=== PATIENT | male | born 1940 | race African-American/Black ===

== ENCOUNTER 2018-03-11 13:04 | Inpatient (IN) | payer OTHER ==
--- NOTE | 2018-03-11 13:18 | PDOC ---
Attending Attestation - HPI HPI: 03/11/18 15:23 The patient is a 77-year-old male with a past medical history of HTN, HLD, AL, CVA and anemia presents to the emergency department with generalized weakness. The patient reports for the past 3-4 months hes been experiencing increased weakness and fatigue, accompanied with decreased appetite, shortness of breath, non-productive cough and weight loss. As per the family member present, in January the patient suffered a nose bleed and was treated at a facility in [place] , where he was diagnosed with R. lung mass. The patient was given referrals for f/u, the family member reports since January they havent been following up. The family member recalls the patient received 2x blood transfusion. Denies fever, chills or a headache. Denies chest pain or palpitations. Denies abdominal pain. Denies dysuria, hematuria, frequency or urgency to urinate. Denies nausea, vomiting, diarrhea or constipation. Allergies: NKDA, NKA Social history: Former smoker. Denies the use of alcohol or recreational drugs. Surgical history: None reported. PCP: None reported. - Physicial Exam PE: 03/11/18 14:30 GENERAL: (+) Cachectic, very thin. (+) Generalized weakness all over. Awake, alert, and fully oriented, in no acute distress HEAD: No signs of trauma EYES: PERRLA, EOMI, sclera anicteric, conjunctiva clear ENT: Auricles normal inspection, hearing grossly normal, nares patent, oropharynx clear without exudates. (+) Dry mucous member NECK: Normal ROM, supple, no lymphadenopathy, JVD, or masses LUNGS:(+) Diminished L. side. No wheezes, and no crackles HEART: (+) Tachycardiac. , normal S1 and S2, no murmurs, rubs or gallops ABDOMEN: Soft, nontender, normoactive bowel sounds. No guarding, no rebound. No masses EXTREMITIES: (+) Bilateral clubbing of the hands. Normal range of motion, no edema. No cyanosis. No cords, erythema, or tenderness NEUROLOGICAL: Cranial nerves II through XII grossly intact. Normal speech, normal gait SKIN: Warm, Dry, normal turgor, no rashes or lesions noted. - Medical Decision Making 03/11/18 14:30 Documentation prepared by Sravani Masters, acting as esthetician and manager medical spa for Kathy Connell DO. <Sravani Masters - Last Filed: 03/11/18 15:23> - Resident Resident Name: Shanique Singer - ED Attending Attestation I have performed the following: I have examined & evaluated the patient, The case was reviewed & discussed with the resident, I agree w/resident's findings & plan, Exceptions are as noted - Medical Decision Making 03/11/18 13:17 I, Dr. Kathy Connell DO, attest that this document has been prepared under my direction and personally reviewed by me in its entirety. I further attest, that it accurately reflects all work, treatment, procedures and medical decision -making performed by me. 03/11/18 14:25 77yo male with recent dx of lung mass at [facility] presents for eval of weakness -has not followed up with a doc since d/c -losing wt, early satiety -has not followed up with heme/onc or pulm -has not had the mass bx -pt cachectic, dry mm -concern for ftt, dehydration -pt tachy on exam - HR 121, with hx of pulm mass concern for PE - will obtain chest cta -ekg, cxr, monitor and reassess -no cp -+cough, sob 03/11/18 17:42 pt with large pulmonary mass and tachy generally weak will admit for further eval of lung mass <Kathy Connell - Last Filed: 03/11/18 17:42> Heart Score/ECG Review - ECG Intrepretation Comment:: 03/11/18 15:53 sinus tach at 102, nl axis, lvh, t wave inversions I, avl - abnl ekg <Kathy Connell - Last Filed: 03/11/18 17:42>
--- NOTE | 2018-03-11 13:19 | PDOC ---
History of Present Illness - General Chief Complaint: Weakness Stated Complaint: WEAKNESS Time Seen by Provider: 03/11/18 13:16 History Source: Patient - History of Present Illness Initial Comments: 03/11/18 13:27 Patient is a 77 year old male with a PMH of HTN, HLD, CAD s/p prior ID (2000 s/ p stent) who presents to the ED c/o 2 month h/o weakness. Patient notes decreased appetite, less energy, however notes he as been performing his ADL's without difficulty. Patient also endorse non-productive cough, nausea, as well as 20 pounds unitentional weight loss over the last 3 months. Patient's @ bedside presents paperwork from [facility] indicating R lung mass however they were unable to obtain reccomended biospy due to insurance changes. ROS is positive for constipation. Patient denies fevers, chills, chest pain, abdominal pain, recent travel or sick contacts. NKDA Surgical: Cardiac stent Social: 1 ppd, denies alcohol, denies recreational drugs PMD: none Past History - Past Medical History Allergies/Adverse Reactions: Allergies Allergy/AdvReac Type Severity Reaction Status Date / Time No Known Allergies Allergy Verified 03/11/18 13:11 Home Medications: Ambulatory Orders Amlodipine Besylate [Norvasc -] 5 mg PO DAILY #30 tablet 02/03/15 Aspirin Coated [Ecotrin -] 325 mg PO DAILY #30 tablet. 02/03/15 Atorvastatin Ca [Lipitor] 40 mg PO HS #30 tablet 02/03/15 Hydralazine HCl 10 mg PO TID #90 tablet 02/03/15 Anemia: Yes Cardiac Disorders: Yes (ID) CVA: Yes COPD: No HTN: Yes - Suicide/Smoking/Psychosocial Hx Smoking History: Never smoked Have you smoked in the past 12 months: Yes Number of Cigarettes Smoked Daily: 20 Information on smoking cessation initiated: No 'Breaking Loose' booklet given: 01/31/15 Hx Alcohol Use: Yes Drug/Substance Use Hx: No Hx Substance Use Treatment: No Review of Systems - Review of Systems Constitutional: Yes: Loss of Appetite, Unintentional Wgt. Loss. No: Chills, Fever HEENTM: No: Blurred Vision, Double Vision Respiratory: No: Cough, Shortness of Breath, Stridor, Wheezing Cardiac (ROS): Yes: Lightheadedness, Palpitations. No: Chest Pain, Syncope ABD/GI: Yes: Constipated. No: Diarrhea, Nausea, Vomiting, Abdominal cramping : No: Burning, Dysuria Neurological: No: Numbness, Tingling All Other Systems: Reviewed and Negative *Physical Exam - Vital Signs Last Vital Signs Temp Pulse Resp BP Pulse Ox 98.1 F 121 H 20 136/65 99 03/11/18 13:06 03/11/18 13:06 03/11/18 13:06 03/11/18 13:06 03/11/18 13:06 - Physical Exam General Appearance: Yes: Nourished, Thin HEENT: positive: EOMI, TANA, Other (pale conjunctivae B/L). negative: Scleral Icterus (R), Scleral Icterus (L) Neck: positive: Trachea midline, Supple Respiratory/Chest: positive: Lungs Clear, Normal Breath Sounds Cardiovascular: positive: S1, S2. negative: Edema, JVD, Murmur Vascular Pulses: Dorsalis-Pedis (R): 2+, Doralis-Pedis (L): 2+ Gastrointestinal/Abdominal: positive: Normal Bowel Sounds, Soft Extremity: positive: Normal Capillary Refill, Normal Inspection, Other (B/L UE and LE clubbing) Integumentary: positive: Normal Color, Dry, Warm Neurologic: positive: house sitter II-XII NML intact, Fully Oriented, Alert, Other (non- ataxic, non-antalgic gait) ED Treatment Course - LABORATORY CBC & Chemistry Diagram: 03/11/18 14:10 03/11/18 14:10 Medical Decision Making - Medical Decision Making 03/11/18 14:05 77 year old male presents with 2 month h/o weakness, weight loss. Evaluation @ outside institution shows lung mass VS significant for tachycardia. Will obtain CTA to r/o PE. Basic labs to assess for anemia and electrolyte abnormality 2/2 to lung mass 03/11/18 15:10 ECG shows HR 102, TWI in lateral aVL and inferior lead III, aVF, no IVANNA/STD Troponin (-) x1 03/11/18 16:18 CTA negative for PE. L upper lobe lung mass (7.5 x 4.5 x 7.1 cm) w/ pneumonitis. Hb 7.3 - as patient is symptomatic, will transfuse 2 units. 03/11/18 17:31 Case d/w inpatient hospitalist service, will admit for further evaluation. *DC/Admit/Observation/Transfer Diagnosis at time of Disposition: Lung mass - Discharge Dispostion Condition at time of disposition: Good Decision to Admit order: Yes - Referrals - Patient Instructions - Post Discharge Activity
[2018-03-11] MEDS ORDERED: SODIUM CHLORIDE 0.9% 500 ML INFUS.BAG IV ONE (13:45)
[2018-03-11 14:38] LABS: BASO % 0.5 % (0-2.0); EOS % 0.1 % (0-4.5); HEMATOCRIT 22.3 % (35.4-49); HEMOGLOBIN 7.3 GM/dL (11.7-16.9); LYMPH % 11.2 % (8-40); MCH 23.6 pg (25.7-33.7); MCHC 32.8 g/dl (32.0-35.9); MEAN PLT VOLUME 6.6 fl (7.5-11.1); MONO % 13.5 % (3.8-10.2); NEUT % 74.7 % (42.8-82.8); PLATELET COUNT 525 K/MM3 (134-434); RBC 3.09 M/mm3 (4.00-5.60); RDW 20.1 % (11.9-15.9); WHITE BLOOD COUNT 10.2 K/mm3 (4.0-10.0)
[2018-03-11 15:30] LABS: ALBUMIN 1.6 g/dl (3.4-5.0); ANION GAP 9 (8-16); BILIRUBIN,TOTAL 0.3 mg/dL (0.2-1.0); BLOOD UREA NITROGEN 11 mg/dL (7-18); CALCIUM 8.4 mg/dL (8.5-10.1); CHLORIDE 97 mmol/L (98-107); CO2 30 mmol/L (21-32); CREATININE 0.6 mg/dL (0.7-1.3); GLUCOSE,RANDOM 95 mg/dL (74-106); SGOT/AST 13 U/L (15-37); SGPT/ALT 12 U/L (12-78); SODIUM 136 mmol/L (136-145); TOT PROT 7.2 g/dl (6.4-8.2)
[2018-03-11 15:32] LABS: ALK PHOS 136 U/L (45-117)
--- NOTE | 2018-03-11 18:40 | PN ---
Teaching Attending Note Name of Resident: Narendra Lisa ATTENDING PHYSICIAN STATEMENT I saw and evaluated the patient. I reviewed the resident's note and discussed the case with the resident. I agree with the resident's findings and plan as documented with exceptions below. SUBJECTIVE: 77 yom with PMHx of CAD s/p [place] (2000), heavy smoker, reportedly recently diagnosed lung mass at [facility], admitted x 2 in the last month s/p transfusion , but not followed outpatient since, brought in by sister with progressive weakness, decreased oral intake, unintentional weight loss about 40 lbs over last 3 months, progressive shortness of breath, worse over the last few days. Also chronic non productive cough. 12 point ROS done, neg for any chest pain, palpitations, dizziness, dark or bloody stools, or urinary symptoms. Positive constipation OBJECTIVE: Vital Signs Period Temp Pulse Resp BP Sys/Harper Pulse Ox Last 24 Hr 98.1 F 121 20 136/65 99 Intake & Output 03/08/18 03/09/18 03/10/18 03/11/18 23:59 23:59 23:59 23:59 Weight 117 lb GENERAL: Awake, alert, and oriented to person, place, mild tachypnea but no use of acessory muscles, able to speak in full sentences, cachectic male, positive pallor HEAD: Normal with no signs of trauma. EYES: Pupils equal, round and reactive to light, extraocular movements intact, sclera anicteric, conjunctiva clear. EARS, NOSE, THROAT: Ears normal, nares patent, oropharynx clear without exudates. dry mucous membrane NECK: soft supple, no JVD LUNGS: distant breath sounds but positive air entry, no wheezing or rales appreciated. HEART: S1s2 regular ABDOMEN: Soft, nontender, not distended, normoactive bowel sounds, no guarding, no rebound, no masses. No hepatomegaly or splenomegaly. MUSCULOSKELETAL: Normal range of motion at all joints. No bony deformities or tenderness. No CVA tenderness. UPPER EXTREMITIES: 2+ pulses, warm, well-perfused. No cyanosis. positive clubbing No peripheral edema. LOWER EXTREMITIES: 2+ pulses, warm, well-perfused. No calf tenderness. No peripheral edema. NEUROLOGICAL: Cranial nerves II-XII intact. Normal speech. Gait not checked PSYCHIATRIC: Cooperative. Good eye contact. Appropriate mood and affect. SKIN: Warm, dry, normal turgor, no rashes or lesions noted, normal capillary refill. Home Medications Medication Instructions Recorded Amlodipine Besylate [Norvasc -] 5 mg PO DAILY #30 tablet 02/03/15 Aspirin Coated [Ecotrin -] 325 mg PO DAILY #30 tablet. 02/03/15 Atorvastatin Ca [Lipitor] 40 mg PO HS #30 tablet 02/03/15 Hydralazine HCl 10 mg PO TID #90 tablet 02/03/15 Active Medications Heparin Sodium (Porcine) (Heparin -) 5,000 unit SQ Q8H-IV UMESH Laboratory Results - last 24 hr 03/11/18 03/11/18 03/11/18 14:10 14:10 14:10 WBC 10.2 H RBC 3.09 L Hgb 7.3 L Hct 22.3 L D MCV 72.0 L MCH 23.6 L D MCHC 32.8 RDW 20.1 H Plt Count 525 H D MPV 6.6 L D Absolute Neuts (auto) 7.7 Neutrophils % 74.7 D Lymphocytes % 11.2 D Monocytes % 13.5 H Eosinophils % 0.1 D Basophils % 0.5 Nucleated RBC % 0 Sodium 136 Potassium 4.0 Chloride 97 L Carbon Dioxide 30 Anion Gap 9 BUN 11 Creatinine 0.6 L Creat Clearance w eGFR > 60 Random Glucose 95 Calcium 8.4 L Magnesium Total Bilirubin 0.3 AST 13 L ALT 12 Alkaline Phosphatase 136 H Creatine Kinase 15 L Troponin I < 0.02 B-Natriuretic Peptide Total Protein 7.2 Albumin 1.6 L Blood Type O POSITIVE Antibody Screen Negative Crossmatch See Detail 03/11/18 03/11/18 03/11/18 14:10 14:12 14:20 WBC RBC Hgb Hct MCV MCH MCHC RDW Plt Count MPV Absolute Neuts (auto) Neutrophils % Lymphocytes % Monocytes % Eosinophils % Basophils % Nucleated RBC % Sodium Potassium Chloride Carbon Dioxide Anion Gap BUN Creatinine Creat Clearance w eGFR Random Glucose Calcium Magnesium 2.0 Total Bilirubin AST ALT Alkaline Phosphatase Creatine Kinase Cancelled Troponin I Cancelled B-Natriuretic Peptide 1528.08 H Total Protein Albumin Blood Type Antibody Screen Crossmatch CT chest - ISABELLA Lung mass inseparable from hilum with surrounding pneumonitis EKG Sinus tachycardia 102, inverted Q in I, aVL, no prior available. ASSESSMENT AND PLAN: 77 yom with prior history of CAD, heavy smoker, recently reportedly diagnosed lung mass/anemia requiring transfusions, admitted with failure to thrive, found with anemia, ISABELLA lung mass -Anemia, r/o iron deficiency, occult bleed -ISABELLA lung mass inseparable from hilum with?mild pneumonitis -Failure to thrive -Hypoalbuminemia -CAD -Prior heavy tobacco use. Plan: Check iron panel, B12, folate. Transfuse 1 unit PRBC. Oncology/pulmonary input. Will need staging. Avoid additional contrast load today. Will need CT A/P and outpatient PET scan. POssible lung biopsy early next week, given poor follow up and concerning mass. Nutrition/speech/swallow input. DVTPPX PT eval dispo pending above. Plan discussed with patient in detail, all questions answered. Total admit time 65 min.
--- NOTE | 2018-03-11 18:59 | HP ---
Admitting History and Physical - Primary Care Physician PCP: Dr. Ng - Admission Chief Complaint: Weakness History of Present Illness: 77 yo M h/o [place] in 2001 BIB his sister for worsening weakness and poor intake for 3 months. Per sister, patient was admitted twice to [facility] for weakness and received blood transfusion and found to have lung mass during first admission. However, patient never followed up with environmental conflict manager or oncologist as outpatient after discharge due to transportation issues. Patient also endorses poor PO intake, pain on swallowing, dry cough, poor appetite and unintentional weight loss of 40 lbs over the last 3 months. He lives with a roommate and able to ambulate without any difficulty. Denies melena, hematochiezia, hemoptysis, urinary sx, fever, chills, n/v, chest pain, shortness of breath, focal weakness. History Source: Patient, Family Member Limitations to Obtaining History: No Limitations - Past Medical History Cardiovascular: Yes: CAD, HTN, Hyperlipdemia - Past Surgical History Past Surgical History: Yes: None - Smoking History Smoking history: Never smoked Have you smoked in the past 12 months: Yes Aproximately how many cigarettes per day: 20 - Alcohol/Substance Use Hx Alcohol Use: Yes History of Substance Use: reports: None - Social History ADL: Independent History of Recent Travel: No Home Medications - Allergies Allergies/Adverse Reactions: Allergies Allergy/AdvReac Type Severity Reaction Status Date / Time No Known Allergies Allergy Verified 03/11/18 13:11 - Home Medications Home Medications: Ambulatory Orders Amlodipine Besylate [Norvasc -] 5 mg PO DAILY #30 tablet 02/03/15 Aspirin Coated [Ecotrin -] 325 mg PO DAILY #30 tablet. 02/03/15 Atorvastatin Ca [Lipitor] 40 mg PO HS #30 tablet 02/03/15 Hydralazine HCl 10 mg PO TID #90 tablet 02/03/15 Family Disease History - Family Disease History Family Disease History: Heart Disease: Sister, CA: Brother Review of Systems - Review of Systems Constitutional: reports: Loss of Appetite, Malaise, Unintentional Wgt. Loss (40 lbs), Weakness Eyes: reports: No Symptoms HENT: reports: No Symptoms Neck: reports: No Symptoms Cardiovascular: reports: No Symptoms Respiratory: reports: Cough. denies: Hemoptysis Gastrointestinal: reports: No Symptoms Genitourinary: reports: No Symptoms Integumentary: reports: No Symptoms Physical Examination Vital Signs: Vital Signs Temperature 98.1 F 03/11/18 13:06 Pulse Rate 121 H 03/11/18 13:06 Respiratory Rate 20 03/11/18 13:06 Blood Pressure 136/65 03/11/18 13:06 O2 Sat by Pulse Oximetry (%) 99 03/11/18 13:06 Constitutional: Yes: No Distress, Cachectic, Pallor, Thin HENT: Yes: Atraumatic, Normocephalic Cardiovascular: Yes: Tachycardia, S1, S2. No: Murmur Respiratory: Yes: CTA Bilaterally Gastrointestinal: Yes: Normal Bowel Sounds, Distention. No: Tenderness Extremities: Yes: Other (clubbing) Edema: No Neurological: Yes: Alert, Oriented Labs: CBC, BMP 03/11/18 14:10 03/11/18 14:10 Imaging - Results Cat Scan: Report Reviewed, Image Reviewed Assessment/Plan 77 yo M admitted to med-surg for symptomatic anemia and lung mass. Symptomatic anemia - weakness and tachycardia - stat iron studies before blood transfusion - will transfuse 1 unit - repeat cbc failure to thrive - likely 2/2 lung malignancy - soft diet + magic cup + ensure - speech and swallow to r/o mechanical obstruction - palliative care consult - radio time sales supervisor consult lung mass - likely malignant - hemonc, pulm, palliative care consults - ?biopsy in the hospital constipation - chronic - will give senna plus and miralax HTN and HLD - c/w home meds dvt ppx - heparin dispo - PT eval, pending clinical improvement on symptomatic anemia, hemonc and pulm eval Narendra Lisa PGY3 [phone] Visit type - Emergency Visit Emergency Visit: Yes ED Registration Date: 03/11/18 Care time: The patient presented to the Emergency Department on the above date and was hospitalized for further evaluation of their emergent condition. - New Patient This patient is new to me today: Yes Date on this admission: 03/12/18 - Critical Care Critical Care patient: No Hospitalist Screening - Colonoscopy Questionnaire Colonoscopy Questionnaire: Colonoscopy Questionnaire - Patient: 50 - 75 years old and never had a screening colonoscopy: Unknown History of colon or rectal polyps, or CA: Unknown History of IBD, Crohn's disease or UC: Unknown History of abdominal radiation therapy as a child: Unknown - Relative: 1 with colon or rectal CA, or polyps at age 60 or younger: Unknown Colon or rectal CA diagnosed at age 45 or younger: Unknown Multiple relatives with colon or rectal CA: Unknown - Outcome: Screening Result: Negative Screen
[2018-03-11] MEDS: POLYETHYLENE GLYCOL 3350 119 GM BTL PO SCH (21:08)
[2018-03-11] MEDS: hydrALAZINE HCL 10 MG TABLET PO SCH (21:09)
[2018-03-11] MEDS: HEPARIN NA (PORCINE) 5,000 UNITS/ML 1ML VIAL SQ SCH (21:09)
[2018-03-11] MEDS: SENNOSIDES/DOCUSATE COMBO (SENNA PLUS) TABLET (UD) PO SCH (21:09)
[2018-03-11] MEDS: ATORVASTATIN CA 40 MG TABLET (FP) PO SCH (21:09)
[2018-03-12] MEDS: hydrALAZINE HCL 10 MG TABLET PO SCH ×3 (05:15→22:07)
[2018-03-12] MEDS: HEPARIN NA (PORCINE) 5,000 UNITS/ML 1ML VIAL SQ SCH ×2 (05:15→14:42)
[2018-03-12] MEDS ORDERED: ASPIRIN 325 MG ENTERIC COATED TABLET (FP) PO SCH (10:00)
[2018-03-12 10:09] LABS: URINE APPEARANCE CLEAR; URINE BILIRUBIN NEGATIVE (<2.0 mg/dL); URINE COLOR YELLOW; URINE GLUCOSE (UA) NEGATIVE (NEGATIVE); URINE KETONE NEGATIVE (NEGATIVE); URINE LEUK ESTERASE NEGATIVE (NEGATIVE); URINE NITRITE NEGATIVE (NEGATIVE); URINE PROTEIN NEGATIVE (NEGATIVE); URINE UROBILINOGEN 4.0 E.U/dl mg/dL (0.2-1.0)
--- NOTE | 2018-03-12 10:09 | EKG ---
Test Reason : Blood Pressure : / mmHG Vent. Rate : 102 BPM Atrial Rate : 102 BPM P-R Int : 124 ms QRS Dur : 096 ms QT Int : 348 ms P-R-T Axes : 059 001 136 degrees QTc Int : 453 ms SINUS TACHYCARDIA POSSIBLE LEFT ATRIAL ENLARGEMENT LEFT VENTRICULAR HYPERTROPHY T WAVE ABNORMALITY, CONSIDER LATERAL ISCHEMIA ABNORMAL ECG WHEN COMPARED WITH ECG OF 31-JAN-2015 09:35, NO SIGNIFICANT CHANGE WAS FOUND Confirmed by ROLAN GUPTA, NATHANAEL ([id number]) on 03/12/2018 10:09:12 AM Referred By: Confirmed By:NATHANAEL GONGORA MD
[2018-03-12] MEDS: POLYETHYLENE GLYCOL 3350 119 GM BTL PO SCH (10:26)
[2018-03-12] MEDS: amLODIPine BESYLATE 5 MG TABLET (FP) PO SCH (10:27)
[2018-03-12] MEDS: SENNOSIDES/DOCUSATE COMBO (SENNA PLUS) TABLET (UD) PO SCH ×2 (10:27→22:06)
--- NOTE | 2018-03-12 11:15 | CON.PULM ---
Consult Consult Specialty:: PULM/CCM Referred by:: TOMAS Reason for Consultation:: lung mass - History of Present Illness Chief Complaint: cough / SOB History of Present Illness: 77 M, previous [place] in 2002, long time smoker, recent 40 pound weight loss, and found to have a Left sided lung mass on CT imaging at [facility]. Apparently has not had a tissue diagnosis due to lack of transportation. He denies hemoptysis. No travel history or sick contacts. CT: large ISABELLA mass adherent to the left hilum. - History Source History Provided By: Patient Limitations to Obtaining History: Poor Historian - Past Medical History Cardio/Vascular: Yes: CAD, HTN, Hyperlipdemia - Past Surgical History Past Surgical History: Yes: None - Alcohol/Substance Use Hx Alcohol Use: Yes History of Substance Use: reports: None - Smoking History Smoking history: Never smoked Have you smoked in the past 12 months: Yes Aproximately how many cigarettes per day: 20 If you are a former smoker, when did you quit?: 3 mo - Social History ADL: Independent History of Recent Travel: No Home Medications - Allergies Allergies/Adverse Reactions: Allergies Allergy/AdvReac Type Severity Reaction Status Date / Time No Known Allergies Allergy Verified 03/11/18 13:11 - Home Medications Home Medications: Ambulatory Orders Amlodipine Besylate [Norvasc -] 5 mg PO DAILY #30 tablet 02/03/15 Aspirin Coated [Ecotrin -] 325 mg PO DAILY #30 tablet. 02/03/15 Atorvastatin Ca [Lipitor] 40 mg PO HS #30 tablet 02/03/15 Hydralazine HCl 10 mg PO TID #90 tablet 02/03/15 Family Disease History - Family Disease History Family Disease History: Heart Disease: Sister, CA: Brother Review of Systems - Review of Systems Constitutional: reports: Loss of Appetite, Malaise, Unintentional Wgt. Loss. denies: Chills, Fever, Night Sweats Eyes: reports: No Symptoms HENT: reports: No Symptoms Neck: reports: No Symptoms Cardiovascular: reports: Shortness of Breath. denies: Chest Pain, Edema, Palpitations Respiratory: reports: Cough, SOB, SOB on Exertion. denies: Hemoptysis, Orthopnea, Snoring, Wheezing Gastrointestinal: reports: No Symptoms Genitourinary: reports: No Symptoms Breasts: reports: No Symptoms Reported Integumentary: reports: No Symptoms Neurological: reports: No Symptoms Endocrine: reports: No Symptoms Hematology/Lymphatic: reports: No Symptoms Psychiatric: reports: No Symptoms Physical Exam Vital Sings: Vital Signs Temperature 98.2 F 03/12/18 10:28 Pulse Rate 72 03/12/18 10:28 Respiratory Rate 18 03/12/18 10:28 Blood Pressure 135/72 03/12/18 10:28 O2 Sat by Pulse Oximetry (%) 95 03/11/18 21:05 Constitutional: Yes: Thin Eyes: Yes: Conjunctiva Clear, EOM Intact HENT: Yes: Atraumatic, Normocephalic Neck: Yes: Supple, Trachea Midline Cardiovascular: Yes: Regular Rate and Rhythm Respiratory: Yes: CTA Bilaterally, Cough, Poor Air Entry. No: Accessory Muscle Use, Rales, Rhonchi, Stridor, Tachypnea, Wheezes ...Inspection: Yes: WNL ...Clubbing: No Gastrointestinal: Yes: Normal Bowel Sounds, Soft Renal/: Yes: WNL Breast(s): Yes: WNL Musculoskeletal: Yes: WNL Extremities: Yes: WNL Edema: No Peripheral Pulses WNL: Yes Integumentary: Yes: WNL Neurological: Yes: WNL, Alert, Oriented ...Motor Strength: WNL Psychiatric: Yes: WNL, Alert, Oriented Labs: CBC, BMP 03/11/18 14:10 03/11/18 14:10 Imaging - Results Chest X-ray: Report Reviewed, Image Reviewed Cat Scan: Report Reviewed, Image Reviewed Problem List - Problems (1) Smoker Code(s): F17.200 - NICOTINE DEPENDENCE, UNSPECIFIED, UNCOMPLICATED (2) Previous myocardial infarction older than 8 weeks Code(s): I25.2 - OLD MYOCARDIAL INFARCTION (3) Lung mass Code(s): R91.8 - OTHER NONSPECIFIC ABNORMAL FINDING OF LUNG FIELD (4) HTN (hypertension) Code(s): I10 - ESSENTIAL (PRIMARY) HYPERTENSION (5) Hyperlipidemia Code(s): E78.5 - HYPERLIPIDEMIA, UNSPECIFIED Assessment/Plan Will arrange for IR guided lung biopsy (patient spoken to and agrees). Monitor off ABX O2 as needed BD TX PRN PFTs after discharge No smoking counseled Check coags Will follow Dr Wiley
[2018-03-12 11:50] LABS: HEMATOCRIT 24.4 % (35.4-49); HEMOGLOBIN 8.3 GM/dL (11.7-16.9); MCH 25.9 pg (25.7-33.7); MEAN PLT VOLUME 6.5 fl (7.5-11.1); PLATELET COUNT 426 K/MM3 (134-434); RBC 3.21 M/mm3 (4.00-5.60); RDW 21.4 % (11.9-15.9); WHITE BLOOD COUNT 10.2 K/mm3 (4.0-10.0)
[2018-03-12 12:21] LABS: ANION GAP 7 (8-16); BLOOD UREA NITROGEN 10 mg/dL (7-18); CALCIUM 8.1 mg/dL (8.5-10.1); CHLORIDE 97 mmol/L (98-107); CO2 32 mmol/L (21-32); CREATININE 0.4 mg/dL (0.7-1.3); GLUCOSE,RANDOM 101 mg/dL (74-106); MAGNESIUM 1.8 mg/dL (1.8-2.4); PHOSPHOROUS 3.2 mg/dL (2.5-4.9); SODIUM 136 mmol/L (136-145)
[2018-03-12 12:23] LABS: INR 1.49 (0.82-1.09); PROTHROMBIN TIME (PATIENT) 16.8 SEC (9.7-13.0)
[2018-03-12 12:26] LABS: ACTIVATED PTT 33.5 SECONDS (25.2-36.5)
--- NOTE | 2018-03-12 12:39 | CONSULT ---
Consult - text type - Consultation Consultation Note: ONCOLOGY CONSULT NOTE : 77 yr old male came in with cahexia (weight loss of 40 lbs) and tiredness for [address] scan he has a L. UL mass with small AP nodes. He has a druy cough , no hemoptysis and a strong h/o of smoking. He does not have melena, hematochiezia, hemoptysis, or other symptoms. History Source: Patient Limitations to Obtaining History: No Limitations - Past Medical History Cardiovascular: Yes: CAD, HTN, Hyperlipdemia - Past Surgical History Past Surgical History: Yes: None - Smoking History Smoking history: Never smoked Have you smoked in the past 12 months: Yes Aproximately how many cigarettes per day: 20 - Alcohol/Substance Use Hx Alcohol Use: Yes History of Substance Use: reports: None - Social History ADL: Independent History of Recent Travel: No Home Medications - Allergies Allergies/Adverse Reactions: Allergies Allergy/AdvReac Type Severity Reaction Status Date / Time No Known Allergies Allergy Verified 03/11/18 13:11 - Home Medications Home Medications: Ambulatory Orders Amlodipine Besylate [Norvasc -] 5 mg PO DAILY #30 tablet 02/03/15 Aspirin Coated [Ecotrin -] 325 mg PO DAILY #30 tablet. 02/03/15 Atorvastatin Ca [Lipitor] 40 mg PO HS #30 tablet 02/03/15 Hydralazine HCl 10 mg PO TID #90 tablet 02/03/15 Family Disease History - Family Disease History Family Disease History: Heart Disease: Sister, [place]: Brother Review of Systems - Review of Systems Constitutional: reports: Loss of Appetite, Malaise, Unintentional Wgt. Loss (40 lbs), Weakness Eyes: reports: No Symptoms HENT: reports: No Symptoms Neck: reports: No Symptoms Cardiovascular: reports: No Symptoms Respiratory: reports: Cough. denies: Hemoptysis Gastrointestinal: reports: No Symptoms Genitourinary: reports: No Symptoms Integumentary: reports: No Symptoms Physical Examination Vital Signs: Vital Signs Period Temp Pulse Resp BP Sys/Harper Pulse Ox Last 24 Hr 98.1 F-99.1 F 72-121 16-24 132-150/63-78 95-100 Constitutional: Yes: No Distress, Cachectic, Pallor, Thin. No lymphadenopathy HENT: Yes: Atraumatic, Normocephalic Cardiovascular: Yes: Tachycardia, S1, S2. No: Murmur Respiratory: Yes: CTA Bilaterally Gastrointestinal: Yes: Normal Bowel Sounds, Distention. No: Tenderness Extremities: Yes: Other (clubbing) Edema: No Neurological: Yes: Alert, Oriented Labs: CBC, BMP 03/12/18 11:29 03/12/18 11:29 Imaging - Results Assessment/Plan 77 yr old male with ISABELLA mass , cachexia and significant weight loss -all are highly suggestive of lung cancer -IR guided biopsy of the lung mass -I will send tumor markers inc. LDH, CEA -His anemia is likely to be multifactorial - ferritin -high, a/w iron studies, anemia associated with cancer.once we know the results of the biopsy then we can focus on this. -He has a high protein gap, hence I would send an SPEP and Quant. Immunoglobulins -Vit K 10 mg po q day to correct PT/PTT- likely to be from nutritional deficiency -
--- NOTE | 2018-03-12 12:56 | PN ---
Physical Exam: SUBJECTIVE: Patient seen and examined, no complaints, weakness improved. OBJECTIVE: Vital Signs Period Temp Pulse Resp BP Sys/Harper Pulse Ox Last 24 Hr 98.1 F-99.1 F 72-121 16-24 132-150/63-78 95-100 GENERAL: cachectic in bed, no acute distress Chest: decreased air entry all over, no wheezing Abdomen:soft, NT, ND Extremities: no edema Laboratory Results - last 24 hr 03/11/18 03/11/18 03/11/18 14:10 14:10 14:10 WBC 10.2 H RBC 3.09 L Hgb 7.3 L Hct 22.3 L D MCV 72.0 L MCH 23.6 L D MCHC 32.8 RDW 20.1 H Plt Count 525 H D MPV 6.6 L D Absolute Neuts (auto) 7.7 Neutrophils % 74.7 D Lymphocytes % 11.2 D Monocytes % 13.5 H Eosinophils % 0.1 D Basophils % 0.5 Nucleated RBC % 0 PT with INR INR PTT (Actin FS) Sodium 136 Potassium 4.0 Chloride 97 L Carbon Dioxide 30 Anion Gap 9 BUN 11 Creatinine 0.6 L Creat Clearance w eGFR > 60 Random Glucose 95 Calcium 8.4 L Phosphorus Magnesium Ferritin Total Bilirubin 0.3 AST 13 L ALT 12 Alkaline Phosphatase 136 H Creatine Kinase 15 L Troponin I < 0.02 B-Natriuretic Peptide Total Protein 7.2 Albumin 1.6 L Urine Color Urine Appearance Urine pH Ur Specific [place] Urine Protein Urine Glucose (UA) Urine Ketones Urine Blood Urine Nitrite Urine Bilirubin Urine Urobilinogen Ur Leukocyte Esterase Blood Type O POSITIVE Antibody Screen Negative Crossmatch See Detail 03/11/18 03/11/18 03/11/18 14:10 14:12 14:20 WBC RBC Hgb Hct MCV MCH MCHC RDW Plt Count MPV Absolute Neuts (auto) Neutrophils % Lymphocytes % Monocytes % Eosinophils % Basophils % Nucleated RBC % PT with INR INR PTT (Actin FS) Sodium Potassium Chloride Carbon Dioxide Anion Gap BUN Creatinine Creat Clearance w eGFR Random Glucose Calcium Phosphorus Magnesium 2.0 Ferritin Total Bilirubin AST ALT Alkaline Phosphatase Creatine Kinase Cancelled Troponin I Cancelled B-Natriuretic Peptide 1528.08 H Total Protein Albumin Urine Color Urine Appearance Urine pH Ur Specific [place] Urine Protein Urine Glucose (UA) Urine Ketones Urine Blood Urine Nitrite Urine Bilirubin Urine Urobilinogen Ur Leukocyte Esterase Blood Type Antibody Screen Crossmatch 03/11/18 03/12/18 03/12/18 20:45 08:28 11:29 WBC 10.2 H RBC 3.21 L Hgb 8.3 L Hct 24.4 L MCV 76.0 L MCH 25.9 MCHC 34.0 RDW 21.4 H Plt Count 426 MPV 6.5 L Absolute Neuts (auto) Neutrophils % Lymphocytes % Monocytes % Eosinophils % Basophils % Nucleated RBC % PT with INR INR PTT (Actin FS) Sodium Potassium Chloride Carbon Dioxide Anion Gap BUN Creatinine Creat Clearance w eGFR Random Glucose Calcium Phosphorus Magnesium Ferritin 788.6 H Total Bilirubin AST ALT Alkaline Phosphatase Creatine Kinase Troponin I B-Natriuretic Peptide Total Protein Albumin Urine Color Yellow Urine Appearance Clear Urine pH 6.0 Ur Specific [place] 1.025 Urine Protein Negative Urine Glucose (UA) Negative Urine Ketones Negative Urine Blood Negative Urine Nitrite Negative Urine Bilirubin Negative Urine Urobilinogen 4.0 e.u/dl Ur Leukocyte Esterase Negative Blood Type Antibody Screen Crossmatch 03/12/18 03/12/18 11:29 11:29 WBC RBC Hgb Hct MCV MCH MCHC RDW Plt Count MPV Absolute Neuts (auto) Neutrophils % Lymphocytes % Monocytes % Eosinophils % Basophils % Nucleated RBC % PT with INR 16.80 H INR 1.49 H D PTT (Actin FS) 33.5 Sodium 136 Potassium 4.0 Chloride 97 L Carbon Dioxide 32 Anion Gap 7 L BUN 10 Creatinine 0.4 L Creat Clearance w eGFR > 60 Random Glucose 101 Calcium 8.1 L Phosphorus 3.2 Magnesium 1.8 Ferritin Total Bilirubin AST ALT Alkaline Phosphatase Creatine Kinase Troponin I B-Natriuretic Peptide Total Protein Albumin Urine Color Urine Appearance Urine pH Ur Specific [place] Urine Protein Urine Glucose (UA) Urine Ketones Urine Blood Urine Nitrite Urine Bilirubin Urine Urobilinogen Ur Leukocyte Esterase Blood Type Antibody Screen Crossmatch Active Medications Generic Name Dose Route Start Last Admin Trade Name Freq PRN Reason Stop Dose Admin Amlodipine Besylate 5 mg 03/12/18 10:00 03/12/18 10:27 Norvasc - PO 5 mg DAILY UMESH Administration Aspirin 325 mg 03/12/18 10:00 03/12/18 10:27 Ecotrin - PO 325 mg DAILY UMESH Administration Atorvastatin Calcium 40 mg 03/11/18 22:00 03/11/18 21:09 Lipitor - PO 40 mg HS UMESH Administration Heparin Sodium (Porcine) 5,000 unit 03/11/18 22:00 03/12/18 05:15 Heparin - SQ 5,000 unit TID UMESH Administration Hydralazine HCl 10 mg 03/11/18 22:00 03/12/18 05:15 Apresoline - PO 10 mg TID UMESH Administration Phytonadione 5 mg 03/12/18 13:00 Mephyton - PO 03/14/18 13:01 Q24H UMESH Polyethylene Glycol 17 gm 03/11/18 19:15 03/12/18 10:26 Miralax (For Daily Use) - PO 17 gm DAILY UMESH Administration Senna/Docusate Sodium 1 tablet 03/11/18 22:00 03/12/18 10:27 Pericolace - PO 1 tablet BID UMESH Administration ASSESSMENT/PLAN: 77 yom with prior history of CAD, heavy smoker, recently reportedly diagnosed lung mass/anemia requiring transfusions, admitted with failure to thrive, found with anemia, ISABELLA lung mass -Anemia, suspect multifactorial, ?Iron deficiency, poor nutritional status,r/o occult bleed -ISABELLA lung mass inseparable from hilum with?mild pneumonitis -Elevated INR, suspect nutritional -Failure to thrive -Hypoalbuminemia -CAD -Prior heavy tobacco use. Plan: Follow up iron panel, B12, folate. s/p 2 units pRBC. Trend h/h, FOBT. Oncology/pulmonary input. Vitamin K x 3 doses. Will need staging. Avoid additional contrast load today. Will need CT A/P and outpatient PET scan. Likely outpatient POssible lung biopsy tomorrow. NPO after midnight. Nutrition/speech/swallow input. DVTPPX PT eval dispo planning in 24-48 hours after Biopsy if no concerns with outpatient oncology follow up. Plan discussed with patient in detail, all questions answered. Visit type - Emergency Visit Emergency Visit: Yes ED Registration Date: 03/11/18 Care time: The patient presented to the Emergency Department on the above date and was hospitalized for further evaluation of their emergent condition. - New Patient This patient is new to me today: No - Critical Care Critical Care patient: No - Discharge Referral Referred to [facility] Med P.C.: No
[2018-03-12] MEDS ORDERED: PHYTONADIONE 5 MG TABLET PO SCH (13:00)
[2018-03-12] MEDS: PHYTONADIONE 5 MG TABLET PO SCH (17:07)
[2018-03-12] MEDS: ATORVASTATIN CA 40 MG TABLET (FP) PO SCH (22:07)
[2018-03-12 22:37] VITALS: BMI 17.1
[2018-03-12] MEDS: ACETAMINOPHEN 325 MG TABLET (FP) PO PRN (22:58)
[2018-03-12] MEDS ORDERED: SODIUM CHLORIDE 500 ML IV STA (22:59)
[2018-03-12] MEDS ORDERED: PIPERACILLIN/TAZOB 3.375 GM 3.375 GM in DEXTROSE 5%-WATER - 50 ML IVPB ONE (23:00)
[2018-03-12] MEDS ORDERED: VANCOMYCIN 1,000 MG in DEXTROSE 5%-WATER - 250 ML IVPB ONE (23:00)
--- NOTE | 2018-03-12 23:05 | HOSP ---
Physical Examination Vital Signs: Vital Signs Temperature 102.8 F H 03/12/18 22:00 Pulse Rate 114 H 03/12/18 22:00 Respiratory Rate 20 03/12/18 22:00 Blood Pressure 129/64 03/12/18 22:00 O2 Sat by Pulse Oximetry (%) 95 03/11/18 21:05 Labs: CBC, BMP 03/12/18 11:29 03/12/18 11:29 Hospitalist Encounter Assessment: pt was found to have new fever 102.8. w/ white count 10.2 was found to be on exam tachy w/ crackles in R lung base and wheezing in L lung. sepsis w/u initiated, ordered bcx, ucx, cxr, fluid 500cc bolus, IV vanc/zosyn, ID consult, tylenol PO Visit type - Emergency Visit Emergency Visit: No - New Patient This patient is new to me today: No - Critical Care Critical Care patient: No
[2018-03-12] MEDS ORDERED: DEXTROSE 5%-WATER - 50 ML IVPB ONE (23:56)
[2018-03-12] MEDS ORDERED: PIPERACILLIN/TAZOBACTAM 3.375 GM VIAL IVPB ONE (23:56)
[2018-03-13 03:44] LABS: URINE APPEARANCE CLEAR; URINE BILIRUBIN NEGATIVE (<2.0 mg/dL); URINE COLOR YELLOW; URINE GLUCOSE (UA) NEGATIVE (NEGATIVE); URINE KETONE NEGATIVE (NEGATIVE); URINE LEUK ESTERASE NEGATIVE (NEGATIVE); URINE NITRITE NEGATIVE (NEGATIVE); URINE PROTEIN NEGATIVE (NEGATIVE); URINE UROBILINOGEN 4.0 E.U/dl mg/dL (0.2-1.0)
[2018-03-13] MEDS: hydrALAZINE HCL 10 MG TABLET PO SCH ×3 (05:40→21:26)
[2018-03-13 06:06] LABS: SERUM IRON SATURATION 11 % (15-55); TOTAL IRON BINDING CAPACITY 106 ug/dL (250-450); UIBC 94 ug/dL (111-343)
[2018-03-13 08:37] LABS: BASO % 0.5 % (0-2.0); EOS % 0.1 % (0-4.5); HEMATOCRIT 26.4 % (35.4-49); HEMOGLOBIN 8.7 GM/dL (11.7-16.9); LYMPH % 7.6 % (8-40); MCH 25.1 pg (25.7-33.7); MCHC 33.1 g/dl (32.0-35.9); MEAN CELL VOLUME 75.7 fl (80-96); MEAN PLT VOLUME 6.9 fl (7.5-11.1); NEUT % 77.8 % (42.8-82.8); PLATELET COUNT 432 K/MM3 (134-434); RBC 3.48 M/mm3 (4.00-5.60); RDW 21.9 % (11.9-15.9); WHITE BLOOD COUNT 11.1 K/mm3 (4.0-10.0)
[2018-03-13 08:58] LABS: INR 1.51 (0.82-1.09); PROTHROMBIN TIME (PATIENT) 17.1 SEC (9.7-13.0)
[2018-03-13 09:09] LABS: LDH 135 U/L (87-241)
[2018-03-13] MEDS: DEXTROSE 5%-NORMAL SALINE 1,000 ML IV SCH ×2 (09:36→19:41)
[2018-03-13] MEDS ORDERED: SODIUM CHLORIDE 1,000 ML IV SCH ×3 (09:45→15:17)
--- NOTE | 2018-03-13 09:47 | PN ---
Progress Note (short form) - Note Progress Note: ID consult dictated impl/reccd 77 year old man originally admitted in January to [facility] with epistaxis - and anemia requiring transfusion- found to have left lung mass he was lost to f/u and brought to [facility] Ed on March 11 with 3 months weight loss, cough- nonproductive and weakness pe notable for cachexia, poor dentition,?liver edge past socail history notable for remote crack use, remote incarceration, + cigarette use (d/c 3 months ago) +etoh use no history of TB chest ct with ISABELLA mass with pneumonitis ISABELLA mass fevers- ?pneumonitis, ?tumor cultures sent, add legionella/pneumococcal antigens trial zosyn anemia- multifactorial HIV Hep c Hep b Quant for biopsy today Problem List - Problems (1) Lung mass Code(s): R91.8 - OTHER NONSPECIFIC ABNORMAL FINDING OF LUNG FIELD (2) Anemia Code(s): D64.9 - ANEMIA, UNSPECIFIED
[2018-03-13] MEDS: SENNOSIDES/DOCUSATE COMBO (SENNA PLUS) TABLET (UD) PO SCH ×2 (09:50→21:26)
[2018-03-13] MEDS: amLODIPine BESYLATE 5 MG TABLET (FP) PO SCH (09:50)
[2018-03-13] MEDS ORDERED: DEXTROSE 5%-WATER - 50 ML IVPB ONE ×2 (09:53→18:01)
[2018-03-13] MEDS ORDERED: PIPERACILLIN/TAZOBACTAM 3.375 GM VIAL IVPB ONE ×2 (09:53→18:01)
[2018-03-13] MEDS: POLYETHYLENE GLYCOL 3350 119 GM BTL PO SCH (09:58)
[2018-03-13] MEDS: DOCUSATE SODIUM 100 MG CAPSULE (FP) PO SCH (09:58)
[2018-03-13] MEDS: PIPERACILLIN/TAZOB 3.375 GM 3.375 GM in DEXTROSE 5%-WATER - 50 ML IVPB SCH ×2 (09:58→18:19)
[2018-03-13] MEDS: FERROUS SO4 325 MG TABLET (FP) PO SCH (09:58)
--- NOTE | 2018-03-13 11:27 | CONSULT ---
Admitting History and Physical - Primary Care Physician PCP: Diana Davenport - Admission History of Present Illness: 77 yo M h/o SD in 2001 BIB his sister for worsening weakness and poor intake for 3 months. Per sister, patient was admitted twice to [facility] for weakness and received blood transfusion and found to have lung mass during first admission. However, patient never followed up with physical therapy assistant or oncologist as outpatient after discharge due to transportation issues. Patient also endorses poor PO intake, pain on swallowing, dry cough, poor appetite and unintentional weight loss of 40 lbs over the last 3 months. He lives with a roommate and able to ambulate without any difficulty Selected Entries 03/11/18 03/11/18 03/11/18 13:06 18:30 20:36 Breakfast Lunch Temperature 98.1 F 98.7 F 98.6 F 03/11/18 03/12/18 03/12/18 20:55 03:57 05:46 Breakfast Lunch Temperature 98.5 F 99.1 F 99.1 F 03/12/18 03/12/18 03/12/18 09:08 10:28 12:53 Breakfast 50% Lunch 0 Temperature 98.2 F 03/12/18 03/12/18 03/13/18 18:00 22:00 01:57 Breakfast Lunch Temperature 98.7 F 102.8 F H 98.3 F 03/13/18 05:45 Breakfast Lunch Temperature 98.5 F Laboratory Tests 03/11/18 03/12/18 03/13/18 14:10 11:29 07:30 WBC 10.2 H 10.2 H 11.1 H On reg diet/thin liquids. chest ct with ISABELLA mass with pneumonitis ISABELLA mass fevers- ?pneumonitis, ?tumor cultures sent, add legionella/pneumococcal antigens trial zosyn anemia- multifactorial HIV Hep c Hep b Quant for biopsy today History Source: Patient, Family Member Limitations to Obtaining History: No Limitations - Past Medical History Cardiovascular: Yes: CAD, HTN, Hyperlipdemia - Past Surgical History Past Surgical History: Yes: None - Smoking History Smoking history: Never smoked Have you smoked in the past 12 months: Yes Aproximately how many cigarettes per day: 20 If you are a former smoker, when did you quit?: 3 mo - Alcohol/Substance Use Hx Alcohol Use: Yes History of Substance Use: reports: None - Social History ADL: Independent History of Recent Travel: No History - Admission Reason For Visit: LUNG MASS, WEAKNESS - Diagnostics X-ray: Report Reviewed CT Scan: Report Reviewed - General Mental Status: Alert and Oriented, Awake and Alert, Able to Follow Commands Attention: Intact Ability to Follow Directions: Good Head/Neck Control: WFL - Hearing Hearing: Normal Speech Evaluation - Communication Primary Language: MACEDONIAN Communication: Yes: Within Normal Limits Oral Expression Ability: Yes: No Impairment - Speech Production Able to Make Needs Known: Yes: WNL Intelligibility: Yes: WNL - Speech Characteristics Voice Loudness: Normal Voice Pitch: Yes: Normal Voice Phonatory-based Quality: Yes: Normal Speech Pattern: Normal Speech Clarity: < 100% Nasal Resonance: Normal Articulation: Yes: Precise - Language/Auditory Comprehension Follows: Yes: 1 Stage Simple Commands - Language/Verbal Expression Able to Respond to Simple Queries: Yes: WNL Able to Communicate Wants and Needs: Yes: WNL Functional Communication Status: Yes: WNL - Swallow Evaluation/Bedside Assessment Current Nutritional Intake: Regular, Thin Liquids Oral Secretions: Yes: WFL Dentition: Yes: Missing Teeth Facial Symmetry at Rest: Symmetrical Facial Symmetry on Retraction: Symmetrical Sensation: Normal Against Resistance Opening: Normal Against Resistance Closing: Normal Pucker Lips: Normal Smile: Normal Lingual Movement: Normal, Symmetric Lingual Speed of Movement: Normal Lingual Movement Strgth Against Opposition: Normal Lingual Movement Characteristics: Normal Velopharyngeal Movement: Normal Laryngeal Elevation: WFL Laryngeal Movement: Able to Palpate Rate of Intake: WFL Bolus Size: WFL Labial Seal: WFL Chewing: Impaired (Difficulty chewing solids. Poor dentition) Oral Prep Time: WFL A-P Transit: WFL Pocketing: None Timing of Swallow: WFL Coughing/Throat Clear: Yes (occasional brief cough) Change in Voice: No Recommendations - Speech Evaluation, Impression/Plan Impression: Occasional brief cough with and without po intake. - Dysphagia Impressions/Plan Dysphagia Impressions: Mild Impairment, Ongoing Evaluation *Silent aspiration: cannot be R/O at bedside Recommendations: Modified Barium Swallow (if cough, congestion, fever. If aspiration suspected.) - Recommendations Diet Consistency: Other (Soft, chopped, easy to chew foods.) Medication Administration: Whole with water Liquids: Thin Liquids, Other (Monitor tolerance.) Supplement: Ensure, Magic Cup
--- NOTE | 2018-03-13 12:02 | PN ---
Progress Note (short form) - Note Progress Note: Reports feeling fine today. Noted spiked a temp and started on Zosyn. Denies CP. Was apparently taking ASA 325mg OD. Intake & Output 03/10/18 03/11/18 03/12/18 03/13/18 23:59 23:59 23:59 23:59 Intake Total 700 800 Output Total 600 Balance 100 800 Weight 116 lb 6.4 oz 116 lb Last Vital Signs Temp Pulse Resp BP Pulse Ox 98.5 F 106 H 20 135/73 95 03/13/18 05:45 03/13/18 05:45 03/13/18 05:45 03/13/18 05:45 03/12/18 21:00 Active Medications Acetaminophen (Tylenol -) 650 mg PO Q4H PRN PRN Reason: FEVER Last Admin: 03/12/18 22:58 Dose: 650 mg Amlodipine Besylate (Norvasc -) 5 mg PO DAILY [facility] Last Admin: 03/13/18 09:50 Dose: 5 mg Atorvastatin Calcium (Lipitor -) 40 mg PO HS [facility] Last Admin: 03/12/18 22:07 Dose: 40 mg Docusate Sodium (Colace -) 100 mg PO DAILY [facility] Last Admin: 03/13/18 09:58 Dose: 100 mg Ferrous Sulfate (Feosol -) 325 mg PO DAILY [facility] Last Admin: 03/13/18 09:58 Dose: 325 mg Heparin Sodium (Porcine) (Heparin -) 5,000 unit SQ TID [facility] Last Admin: 03/12/18 14:42 Dose: 5,000 unit Hydralazine HCl (Apresoline -) 10 mg PO TID [facility] Last Admin: 03/13/18 05:40 Dose: 10 mg Sodium Chloride (Normal Saline -) 1,000 mls @ 83 mls/hr IV ASDIR [facility]ESH Last Admin: 03/13/18 09:49 Dose: 83 mls/hr Piperacillin Sod/Tazobactam (Sod 3.375 gm/ Dextrose) 50 mls @ 100 mls/hr IVPB Q8H-IV UMESH; Protocol Last Admin: 03/13/18 09:58 Dose: 100 mls/hr Phytonadione (Mephyton -) 10 mg PO Q24H [facility] Stop: 03/14/18 13:01 Last Admin: 03/12/18 17:07 Dose: 10 mg Polyethylene Glycol (Miralax (For Daily Use) -) 17 gm PO DAILY [facility] Last Admin: 03/13/18 09:58 Dose: 17 gm Senna/Docusate Sodium (Pericolace -) 1 tablet PO BID [facility] Last Admin: 03/13/18 09:50 Dose: 1 tablet Constitutional: Yes: Thin, NAD Eyes: Yes: Conjunctiva Clear, EOM Intact HENT: Yes: Atraumatic, Normocephalic Neck: Yes: Supple, Trachea Midline Cardiovascular: Yes: Regular Rate and Rhythm Respiratory: Yes: Clear, Cough. No: Accessory Muscle Use, Rales, Rhonchi, Stridor, Tachypnea, Wheezes ...Inspection: Yes: WNL ...Clubbing: No Gastrointestinal: Yes: Normal Bowel Sounds, Soft Renal/: Yes: WNL Breast(s): Yes: WNL Musculoskeletal: Yes: WNL Extremities: Yes: WNL Edema: No Peripheral Pulses WNL: Yes Integumentary: Yes: WNL Neurological: Yes: WNL, Alert, Oriented ...Motor Strength: WNL Psychiatric: Yes: WNL, Alert, Oriented Labs: Laboratory Results - last 24 hr 03/11/18 03/12/18 03/12/18 20:45 11:29 11:29 WBC RBC Hgb Hct MCV MCH MCHC RDW Plt Count MPV Absolute Neuts (auto) Neutrophils % Lymphocytes % Monocytes % Eosinophils % Basophils % Nucleated RBC % PT with INR 16.80 H INR 1.49 H D PTT (Actin FS) 33.5 Sodium 136 Potassium 4.0 Chloride 97 L Carbon Dioxide 32 Anion Gap 7 L BUN 10 Creatinine 0.4 L Creat Clearance w eGFR > 60 Random Glucose 101 Calcium 8.1 L Phosphorus 3.2 Magnesium 1.8 Iron 12 L TIBC 106 L Iron Saturation 11 L LD Total Urine Color Urine Appearance Urine pH Ur Specific [place] Urine Protein Urine Glucose (UA) Urine Ketones Urine Blood Urine Nitrite Urine Bilirubin Urine Urobilinogen Ur Leukocyte Esterase 03/13/18 03/13/18 03/13/18 03:15 07:30 07:30 WBC 11.1 H RBC 3.48 L Hgb 8.7 L Hct 26.4 L MCV 75.7 L MCH 25.1 L MCHC 33.1 RDW 21.9 H Plt Count 432 MPV 6.9 L Absolute Neuts (auto) 8.6 Neutrophils % 77.8 Lymphocytes % 7.6 L D Monocytes % 14.0 H Eosinophils % 0.1 Basophils % 0.5 Nucleated RBC % 0 PT with INR INR PTT (Actin FS) Sodium Potassium Chloride Carbon Dioxide Anion Gap BUN Creatinine Creat Clearance w eGFR Random Glucose Calcium Phosphorus Magnesium Iron TIBC Iron Saturation LD Total 135 Urine Color Yellow Urine Appearance Clear Urine pH 7.0 Ur Specific [place] 1.014 Urine Protein Negative Urine Glucose (UA) Negative Urine Ketones Negative Urine Blood Negative Urine Nitrite Negative Urine Bilirubin Negative Urine Urobilinogen 4.0 e.u/dl Ur Leukocyte Esterase Negative 03/13/18 07:30 WBC RBC Hgb Hct MCV MCH MCHC RDW Plt Count MPV Absolute Neuts (auto) Neutrophils % Lymphocytes % Monocytes % Eosinophils % Basophils % Nucleated RBC % PT with INR 17.10 H INR 1.51 H PTT (Actin FS) Sodium Potassium Chloride Carbon Dioxide Anion Gap BUN Creatinine Creat Clearance w eGFR Random Glucose Calcium Phosphorus Magnesium Iron TIBC Iron Saturation LD Total Urine Color Urine Appearance Urine pH Ur Specific [place] Urine Protein Urine Glucose (UA) Urine Ketones Urine Blood Urine Nitrite Urine Bilirubin Urine Urobilinogen Ur Leukocyte Esterase Problem List - Problems (1) Smoker Code(s): F17.200 - NICOTINE DEPENDENCE, UNSPECIFIED, UNCOMPLICATED (2) Previous myocardial infarction older than 8 weeks Code(s): I25.2 - OLD MYOCARDIAL INFARCTION (3) Lung mass Code(s): R91.8 - OTHER NONSPECIFIC ABNORMAL FINDING OF LUNG FIELD (4) HTN (hypertension) Code(s): I10 - ESSENTIAL (PRIMARY) HYPERTENSION (5) Hyperlipidemia Code(s): E78.5 - HYPERLIPIDEMIA, UNSPECIFIED Assessment/Plan ABX Per ID: (?) Post-obstructive PNA IR biopsy on hold for at least 7 days as the patient was on ASA O2 as needed BD TX PRN PFTs after discharge Dr Wiley Problem List - Problems (1) Smoker Code(s): F17.200 - NICOTINE DEPENDENCE, UNSPECIFIED, UNCOMPLICATED (2) Previous myocardial infarction older than 8 weeks Code(s): I25.2 - OLD MYOCARDIAL INFARCTION (3) Lung mass Code(s): R91.8 - OTHER NONSPECIFIC ABNORMAL FINDING OF LUNG FIELD (4) HTN (hypertension) Code(s): I10 - ESSENTIAL (PRIMARY) HYPERTENSION (5) Hyperlipidemia Code(s): E78.5 - HYPERLIPIDEMIA, UNSPECIFIED
--- NOTE | 2018-03-13 13:12 | CONS ---
DATE OF CONSULTATION: DATE OF DICTATION: 03/13/2018 REQUESTING PHYSICIAN: Hospitalist service. HISTORY: This is a 77-year-old man who presented to the emergency room on the . He was brought in by his family member with 3 months of weight loss, nonproductive cough and weakness, and anemia. He denies any hemoptysis. He denies any fevers at home. He was originally evaluated in January at [facility] when he presented there with epistaxis. He was found to have anemia. He was given blood transfusions and told that he had a lung mass and was given referrals for follow up, but he did not attend any of the follow up. He now comes to the emergency room complaining he has no appetite. He is not eating and has his nonproductive cough with weight loss. He had a chest CTA done that showed a left upper lobe mass with pneumonitis. He was noted to have a hemoglobin. The CTA showed a large left upper lobe mass inseparable from the left hilum with surrounding pneumonitis. He was noted to have a hemoglobin of 7.3. He was transfused and admitted to the floor to be seen by Pulmonary and Oncology. He has been set up for a lung biopsy. We are asked to see him because he now had fever last night of 102.8 that he reports was accompanied with chills. He reports he has had this happen several times, but he reports it is unclear how long. He is a poor historian. He reports he was an active smoker until the admission in January to the hospital. PAST MEDICAL HISTORY: Notable for hypertension. He is status post ME in 2001 with stent. There is a questionable history of CVA. PAST SURGICAL HISTORY: Unremarkable. SOCIAL HISTORY: He was born in [place]. He left around age 22. 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 He was a smoker. Stopped 3 months ago. History of blood transfusions in January and now. There is no history of intravenous drug use. Remote, very distant past history of crack use. Very distant history of incarceration. He was living in [place], but he is currently living with his sister due to his general medical condition. ALLERGIES: He has no known drug allergies. MEDICATIONS: At home include hydralazine, atorvastatin, Ecotrin, and Norvasc. FAMILY HISTORY: Noncontributory. REVIEW OF SYSTEMS: He has no appetite. He has been losing weight. He used to weigh 150 pounds. His cough is nonproductive. He has no history of tuberculosis or tuberculosis exposure. There is no constipation, diarrhea, or vomiting. He has not been to a dentist recently. PHYSICAL EXAMINATION: Vital Signs: T-max is 102.8, current temperature 98.5, pulse 106, blood pressure 135/73, respiratory rate 20. He weighs 52 kg. General: He is a thin man in no acute distress. HEENT: She is normocephalic. He has poor dentition with broken teeth. He has no thrush or pharyngitis. Neck: Supple. Lungs: Diminished breath sounds at the left lung. Heart: Regular rate and rhythm. Abdomen: Firm. He has a palpable liver edge that is nontender. Extremities: Without edema. LABORATORIES: Notable for a white count now of 11.1, admission hemoglobin 7.3, after transfusion 8.7, platelets 432. BUN 10, creatinine 0.5. He has an albumin 1.6 with a total protein 7.2. Urinalysis is negative. In summary, this is a 77-year-old male: 1. With fever. Could be tumor fever. As well could be due to pneumonitis as described on the CAT scan. Would continue him on Zosyn at this time. 2. Left upper lung mass with a cigarette history highly suggestive of malignancy. Scheduled for biopsy. 3. High protein gap between albumin and total protein. Myeloma workup has been ordered. I would suggest HIV screening as well, which he will agreeable to. Given his remote history of substance use, would recommend hepatitis B and hepatitis C screening as well. Will obtain a QuantiFERON Gold as well. Further recommendations to follow. Cultures have been sent at this time. Would order urinary pneumonia antigens as well. JOSE LITTLEJOHN M.D. [id number]
[2018-03-13 14:12] LABS: ANISOCYTOSIS 2+
[2018-03-13] MEDS: HEPARIN NA (PORCINE) 5,000 UNITS/ML 1ML VIAL SQ SCH ×2 (14:19→21:26)
[2018-03-13] MEDS: PHYTONADIONE 5 MG TABLET PO SCH (14:19)
--- NOTE | 2018-03-13 14:33 | PN ---
Teaching Attending Note Name of Resident: Olayinka Stephenson ATTENDING PHYSICIAN STATEMENT I saw and evaluated the patient. I reviewed the resident's note and discussed the case with the resident. I agree with the resident's findings and plan as documented with exceptions below. SUBJECTIVE: Patient seen and examined. no new pain or dyspnea, dry cough that is unchanged. no dark or bloody stools or new concerns. OBJECTIVE: Vital Signs Period Temp Pulse Resp BP Sys/Harper Pulse Ox Last 24 Hr 98.3 F-102.8 F 89-114 18-20 102-160/59-84 95 Intake & Output 03/10/18 03/11/18 03/12/18 03/13/18 23:59 23:59 23:59 23:59 Intake Total 700 1337 Output Total 600 Balance 100 1337 Weight 116 lb 6.4 oz 116 lb General: sitting in bed, cachectic male in no acute distress Chest: distant breath sounds, no rales or wheezing Abdomen:soft, nT Extremities: no edema Home Medications Medication Instructions Recorded Amlodipine Besylate [Norvasc -] 5 mg PO DAILY #30 tablet 02/03/15 Atorvastatin Ca [Lipitor] 40 mg PO HS #30 tablet 02/03/15 Hydralazine HCl 10 mg PO TID #90 tablet 02/03/15 Active Medications Acetaminophen (Tylenol -) 650 mg PO Q4H PRN PRN Reason: FEVER Last Admin: 03/12/18 22:58 Dose: 650 mg Amlodipine Besylate (Norvasc -) 5 mg PO DAILY [facility] Last Admin: 03/13/18 09:50 Dose: 5 mg Atorvastatin Calcium (Lipitor -) 40 mg PO HS [facility] Last Admin: 03/12/18 22:07 Dose: 40 mg Docusate Sodium (Colace -) 100 mg PO DAILY [facility] Last Admin: 03/13/18 09:58 Dose: 100 mg Ferrous Sulfate (Feosol -) 325 mg PO DAILY [facility] Last Admin: 03/13/18 09:58 Dose: 325 mg Heparin Sodium (Porcine) (Heparin -) 5,000 unit SQ TID [facility] Last Admin: 03/13/18 14:19 Dose: 5,000 unit Hydralazine HCl (Apresoline -) 10 mg PO TID [facility] Last Admin: 03/13/18 14:17 Dose: 10 mg Piperacillin Sod/Tazobactam (Sod 3.375 gm/ Dextrose) 50 mls @ 100 mls/hr IVPB Q8H-IV [facility]; Protocol Last Admin: 03/13/18 09:58 Dose: 100 mls/hr Phytonadione (Mephyton -) 10 mg PO Q24H [facility] Stop: 03/14/18 13:01 Last Admin: 03/13/18 14:19 Dose: 10 mg Polyethylene Glycol (Miralax (For Daily Use) -) 17 gm PO DAILY [facility] Last Admin: 03/13/18 09:58 Dose: 17 gm Senna/Docusate Sodium (Pericolace -) 1 tablet PO BID [facility] Last Admin: 03/13/18 09:50 Dose: 1 tablet Laboratory Results - last 24 hr 03/11/18 03/13/18 03/13/18 20:45 03:15 07:30 WBC RBC Hgb Hct MCV MCH MCHC RDW Plt Count MPV Absolute Neuts (auto) Neutrophils % Lymphocytes % Monocytes % Eosinophils % Basophils % Nucleated RBC % Hypochromia Anisocytosis Microcytosis PT with INR INR Iron 12 L TIBC 106 L Iron Saturation 11 L LD Total 135 Vitamin B12 657 Serum Folate 11 Urine Color Yellow Urine Appearance Clear Urine pH 7.0 Ur Specific [place] 1.014 Urine Protein Negative Urine Glucose (UA) Negative Urine Ketones Negative Urine Blood Negative Urine Nitrite Negative Urine Bilirubin Negative Urine Urobilinogen 4.0 e.u/dl Ur Leukocyte Esterase Negative 03/13/18 03/13/18 03/13/18 07:30 07:30 10:00 WBC 11.1 H RBC 3.48 L Hgb 8.7 L Hct 26.4 L MCV 75.7 L MCH 25.1 L MCHC 33.1 RDW 21.9 H Plt Count 432 MPV 6.9 L Absolute Neuts (auto) 8.6 Neutrophils % 77.8 Lymphocytes % 7.6 L D Monocytes % 14.0 H Eosinophils % 0.1 Basophils % 0.5 Nucleated RBC % 0 Hypochromia 1+ Anisocytosis 2+ Microcytosis 2+ PT with INR 17.10 H INR 1.51 H Iron TIBC Iron Saturation LD Total Vitamin B12 Cancelled Serum Folate Cancelled Urine Color Urine Appearance Urine pH Ur Specific [place] Urine Protein Urine Glucose (UA) Urine Ketones Urine Blood Urine Nitrite Urine Bilirubin Urine Urobilinogen Ur Leukocyte Esterase Microbiology 03/12/18 08:28 Urine - Urine Clean Catch Urine Culture - Final ASSESSMENT AND PLAN: 77 yom with prior history of CAD, heavy smoker, recently reportedly diagnosed lung mass/anemia requiring transfusions, admitted with failure to thrive, found with anemia, ISABELLA lung mass -SIRS, ?post obstrutive PNA vs pneumonitis vs malignancy related -Anemia, suspect multifactorial, Iron deficiency, poor nutritional status,r/o occult bleed -ISABELLA lung mass inseparable from hilum with?mild pneumonitis -Elevated INR, suspect nutritional -Failure to thrive -Hypoalbuminemia -CAD -Prior heavy tobacco use. Plan: Fevers overnight. ID input noted. Zosyn day 1, blood cx sent. u/a neg, CXR with no acute concerns. HCV/HIV screen. Discuss with pulmonary possible bronch if persistent fevers, or worsening respiratory status. Iron panel noted. Start PO suppl. Follow up B12, folate, FOBT. Discussed with IR, recommend off ASA x 7 days before biopsy. Will monitor for now. Oncology input noted Vitamin K x 3 doses. Will need staging. Avoid additional contrast load today. Will need CT A/P in 24 -48 hoursand outpatient PET scan. Continue amlodipine/hydralazine as BP tolerates. Statin. Nutrition input. Speech/swallow input noted, soft diet with thin liquids, MBS. DVTPPX resume heparin. PT eval dispo planning on hold given fevers and need for IV antibiotics and monitoring. Plan discussed with patient in detail, all questions answered.
[2018-03-13] MEDS: ACETAMINOPHEN 325 MG TABLET (FP) PO PRN (16:56)
[2018-03-13] MEDS: VANCOMYCIN 1,000 MG in DEXTROSE 5%-WATER - 250 ML IVPB SCH (21:23)
[2018-03-13] MEDS: ATORVASTATIN CA 40 MG TABLET (FP) PO SCH (21:26)
--- NOTE | 2018-03-13 21:47 | PN ---
Physical Exam: SUBJECTIVE: Patient seen and examined at bedside today. Continues to have dry cough, Does not have an appetite. Denies fevers, chills, chest pain, SOB, nausea , vomiting, diarrhea constipation. OBJECTIVE: Vital Signs Period Temp Pulse Resp BP Sys/Harper Pulse Ox Last 24 Hr 98.3 F-102.8 F 89-114 20-20 102-145/59-86 96 GENERAL: The patient is awake, alert, and fully oriented, in no acute distress. LUNGS: Clear to auscultation bilaterally, no wheezes, no crackles HEART: Regular rate and rhythm, S1, S2 without murmur, rub or gallop. ABDOMEN: Soft, nontender, nondistended, normoactive bowel sounds EXTREMITIES: 2+ pulses, no edema. Laboratory Results - last 24 hr 03/11/18 03/13/18 03/13/18 20:45 03:15 07:30 WBC RBC Hgb Hct MCV MCH MCHC RDW Plt Count MPV Absolute Neuts (auto) Neutrophils % Lymphocytes % Monocytes % Eosinophils % Basophils % Nucleated RBC % Hypochromia Anisocytosis Microcytosis PT with INR INR Iron 12 L TIBC 106 L Iron Saturation 11 L LD Total 135 Vitamin B12 657 Serum Folate 11 Urine Color Yellow Urine Appearance Clear Urine pH 7.0 Ur Specific [place] 1.014 Urine Protein Negative Urine Glucose (UA) Negative Urine Ketones Negative Urine Blood Negative Urine Nitrite Negative Urine Bilirubin Negative Urine Urobilinogen 4.0 e.u/dl Ur Leukocyte Esterase Negative 03/13/18 03/13/18 03/13/18 07:30 07:30 10:00 WBC 11.1 H RBC 3.48 L Hgb 8.7 L Hct 26.4 L MCV 75.7 L MCH 25.1 L MCHC 33.1 RDW 21.9 H Plt Count 432 MPV 6.9 L Absolute Neuts (auto) 8.6 Neutrophils % 77.8 Lymphocytes % 7.6 L D Monocytes % 14.0 H Eosinophils % 0.1 Basophils % 0.5 Nucleated RBC % 0 Hypochromia 1+ Anisocytosis 2+ Microcytosis 2+ PT with INR 17.10 H INR 1.51 H Iron TIBC Iron Saturation LD Total Vitamin B12 Cancelled Serum Folate Cancelled Urine Color Urine Appearance Urine pH Ur Specific [place] Urine Protein Urine Glucose (UA) Urine Ketones Urine Blood Urine Nitrite Urine Bilirubin Urine Urobilinogen Ur Leukocyte Esterase Microbiology 03/12/18 08:28 Urine - Urine Clean Catch Urine Culture - Final Active Medications Acetaminophen (Tylenol -) 650 mg PO Q4H PRN PRN Reason: FEVER Last Admin: 03/13/18 16:56 Dose: 650 mg Amlodipine Besylate (Norvasc -) 5 mg PO DAILY [facility] Last Admin: 03/13/18 09:50 Dose: 5 mg Atorvastatin Calcium (Lipitor -) 40 mg PO HS [facility] Last Admin: 03/12/18 22:07 Dose: 40 mg Docusate Sodium (Colace -) 100 mg PO DAILY [facility] Last Admin: 03/13/18 09:58 Dose: 100 mg Ferrous Sulfate (Feosol -) 325 mg PO DAILY [facility] Last Admin: 03/13/18 09:58 Dose: 325 mg Heparin Sodium (Porcine) (Heparin -) 5,000 unit SQ TID [facility] Last Admin: 03/13/18 14:19 Dose: 5,000 unit Hydralazine HCl (Apresoline -) 10 mg PO TID [facility] Last Admin: 03/13/18 14:17 Dose: 10 mg Piperacillin Sod/Tazobactam (Sod 3.375 gm/ Dextrose) 50 mls @ 100 mls/hr IVPB Q8H-IV [facility]; Protocol Last Admin: 03/13/18 18:19 Dose: 100 mls/hr Sodium Chloride (Normal Saline -) 1,000 mls @ 60 mls/hr IV ASDIR [facility] Stop: 03/14/18 07:39 Vancomycin HCl 1,000 mg/ (Dextrose) 250 mls @ 166.667 mls/hr IVPB Q24H [facility]; Protocol Phytonadione (Mephyton -) 10 mg PO Q24H [facility] Stop: 03/14/18 13:01 Last Admin: 03/13/18 14:19 Dose: 10 mg Polyethylene Glycol (Miralax (For Daily Use) -) 17 gm PO DAILY [facility] Last Admin: 03/13/18 09:58 Dose: 17 gm Senna/Docusate Sodium (Pericolace -) 1 tablet PO BID [facility] Last Admin: 03/13/18 09:50 Dose: 1 tablet ASSESSMENT/PLAN: 77 y/o male with prior history of CAD, heavy smoker, recently reportedly diagnosed lung mass, anemia requiring transfusions, admitted with failure to thrive. 1. SIRS - Likely due to post obstrutive PNA vs pneumonitis vs malignancy related - Fevers overnight. Continues to have fevers that break and return throughout the day - Blood cultures pending - UA Negative - CXR: Left parahilar, left upper lung mass. No pleural effusion, or pneumothorax is seen. No evidence of a pulmonary consolidations. - HCV/HIV screen - Pulmonary consult, appreciate rec's - ID consult, appreciate rec's - Continue IV Zosyn, Vancomycin - Continue Tylenol 2. Symptomatic anemia - Weakness and tachycardia - Iron studies note - S/P 1 unit transfused, 3 doses of Vitamin K 3. Failure to thrive likely due to lung malignancy - soft diet + magic cup + ensure - speech and swallow consult, appreciate rec's 4. Lung mass - likely malignant, will need staging - hemonc consult - IR Biopsy pending - PFTs as an outpatient 5. Constipation - Continue with Miralax 17 gm PO DAILY [facility] - Continue with Senna/Docusate Sodium 1 tablet PO BID [facility] - Continue with Colace 100 mg PO DAILY [facility] 6. HTN and HLD - Continue with Norvasc 5 mg PO DAILY [facility] - Continue with Hydralazine HCl 10 mg PO TID [facility] 7. HLD - Continue with Atorvastatin Calcium 40 mg PO HS [facility] 8. dvt ppx - heparin Visit type - Emergency Visit Emergency Visit: No - New Patient This patient is new to me today: Yes Date on this admission: 03/13/18 - Critical Care Critical Care patient: No
[2018-03-14] MEDS ORDERED: PIPERACILLIN/TAZOBACTAM 3.375 GM VIAL IVPB ONE ×3 (00:47→17:43)
[2018-03-14] MEDS ORDERED: DEXTROSE 5%-WATER - 50 ML IVPB ONE ×3 (00:47→17:43)
[2018-03-14] MEDS: PIPERACILLIN/TAZOB 3.375 GM 3.375 GM in DEXTROSE 5%-WATER - 50 ML IVPB SCH ×3 (01:15→18:22)
[2018-03-14] MEDS: hydrALAZINE HCL 10 MG TABLET PO SCH ×3 (05:43→22:19)
[2018-03-14] MEDS: HEPARIN NA (PORCINE) 5,000 UNITS/ML 1ML VIAL SQ SCH ×2 (05:44→13:57)
[2018-03-14 08:11] LABS: IGA IMMUNOGLOBULIN 362 mg/dL (61-437); IGG IMMUNOGLOBULIN 1865 mg/dL (700-1600); IGM IMMUNOGLOBULIN 69 mg/dL (15-143)
[2018-03-14 08:44] LABS: BASO % 0.4 % (0-2.0); EOS % 0.1 % (0-4.5); HEMATOCRIT 25.3 % (35.4-49); HEMOGLOBIN 8.4 GM/dL (11.7-16.9); LYMPH % 9.4 % (8-40); MCH 25.3 pg (25.7-33.7); MCHC 33.4 g/dl (32.0-35.9); MEAN CELL VOLUME 75.6 fl (80-96); MEAN PLT VOLUME 6.7 fl (7.5-11.1); MONO % 14.5 % (3.8-10.2); NEUT % 75.6 % (42.8-82.8); PLATELET COUNT 423 K/MM3 (134-434); RBC 3.34 M/mm3 (4.00-5.60); WHITE BLOOD COUNT 11.6 K/mm3 (4.0-10.0)
[2018-03-14 09:36] LABS: ANION GAP 7 (8-16); BLOOD UREA NITROGEN 11 mg/dL (7-18); CALCIUM 8.1 mg/dL (8.5-10.1); CHLORIDE 97 mmol/L (98-107); CO2 31 mmol/L (21-32); CREATININE 0.5 mg/dL (0.7-1.3); GLUCOSE,RANDOM 89 mg/dL (74-106); MAGNESIUM 1.7 mg/dL (1.8-2.4); PHOSPHOROUS 3.5 mg/dL (2.5-4.9); POTASSIUM 3.7 mmol/L (3.5-5.1); SODIUM 135 mmol/L (136-145)
[2018-03-14] MEDS: FERROUS SO4 325 MG TABLET (FP) PO SCH (09:49)
[2018-03-14] MEDS: SENNOSIDES/DOCUSATE COMBO (SENNA PLUS) TABLET (UD) PO SCH ×2 (09:49→22:19)
[2018-03-14] MEDS: DOCUSATE SODIUM 100 MG CAPSULE (FP) PO SCH (09:49)
[2018-03-14] MEDS: POLYETHYLENE GLYCOL 3350 119 GM BTL PO SCH (09:49)
[2018-03-14] MEDS: amLODIPine BESYLATE 5 MG TABLET (FP) PO SCH (09:49)
[2018-03-14 09:54] LABS: INR 1.51 (0.82-1.09); PROTHROMBIN TIME (PATIENT) 17.1 SEC (9.7-13.0)
--- NOTE | 2018-03-14 11:44 | PN ---
Progress Note (short form) - Note Progress Note: Reports feeling ok. Some dry cough. No hemoptysis. Low grade temps. Denies CP. Intake & Output 03/11/18 03/12/18 03/13/18 03/14/18 23:59 23:59 23:59 23:59 Intake Total 700 2337 650 Output Total 600 575 400 Balance 100 1762 250 Weight 116 lb 6.4 oz 116 lb Last Vital Signs Temp Pulse Resp BP Pulse Ox 100.2 F H 105 H 20 133/79 96 03/14/18 06:00 03/14/18 06:00 03/14/18 06:00 03/14/18 06:00 03/13/18 21:00 Active Medications Acetaminophen (Tylenol -) 650 mg PO Q4H PRN PRN Reason: FEVER Last Admin: 03/13/18 16:56 Dose: 650 mg Amlodipine Besylate (Norvasc -) 5 mg PO DAILY [facility] Last Admin: 03/14/18 09:49 Dose: 5 mg Atorvastatin Calcium (Lipitor -) 40 mg PO HS [facility] Last Admin: 03/13/18 21:26 Dose: 40 mg Docusate Sodium (Colace -) 100 mg PO DAILY [facility] Last Admin: 03/14/18 09:49 Dose: 100 mg Ferrous Sulfate (Feosol -) 325 mg PO DAILY [facility] Last Admin: 03/14/18 09:49 Dose: 325 mg Heparin Sodium (Porcine) (Heparin -) 5,000 unit SQ TID [facility] Last Admin: 03/14/18 05:44 Dose: 5,000 unit Hydralazine HCl (Apresoline -) 10 mg PO TID [facility] Last Admin: 03/14/18 05:43 Dose: 10 mg Piperacillin Sod/Tazobactam (Sod 3.375 gm/ Dextrose) 50 mls @ 100 mls/hr IVPB Q8H-IV [facility]; Protocol Last Admin: 03/14/18 09:48 Dose: 100 mls/hr Vancomycin HCl 1,000 mg/ (Dextrose) 250 mls @ 166.667 mls/hr IVPB Q24H [facility]; Protocol Last Admin: 03/13/18 21:23 Dose: 166.667 mls/hr Phytonadione (Mephyton -) 10 mg PO Q24H [facility] Stop: 07/10/18 13:01 Last Admin: 03/13/18 14:19 Dose: 10 mg Polyethylene Glycol (Miralax (For Daily Use) -) 17 gm PO DAILY [facility] Last Admin: 03/14/18 09:49 Dose: 17 gm Senna/Docusate Sodium (Pericolace -) 1 tablet PO BID [facility] Last Admin: 03/14/18 09:49 Dose: 1 tablet Constitutional: Yes: Thin, NAD Eyes: Yes: Conjunctiva Clear, EOM Intact HENT: Yes: Atraumatic, Normocephalic Neck: Yes: Supple, Trachea Midline Cardiovascular: Yes: Regular Rate and Rhythm Respiratory: Yes: Clear, Cough. No: Accessory Muscle Use, Rales, Rhonchi, Stridor, Tachypnea, Wheezes ...Inspection: Yes: WNL ...Clubbing: No Gastrointestinal: Yes: Normal Bowel Sounds, Soft Renal/: Yes: WNL Breast(s): Yes: WNL Musculoskeletal: Yes: WNL Extremities: Yes: WNL Edema: No Peripheral Pulses WNL: Yes Integumentary: Yes: WNL Neurological: Yes: WNL, Alert, Oriented ...Motor Strength: WNL Psychiatric: Yes: WNL, Alert, Oriented Labs: Laboratory Results - last 24 hr 03/11/18 03/12/18 03/13/18 20:45 14:00 07:30 WBC RBC Hgb Hct MCV MCH MCHC RDW Plt Count MPV Absolute Neuts (auto) Neutrophils % Lymphocytes % Monocytes % Eosinophils % Basophils % Nucleated RBC % Hypochromia Anisocytosis Microcytosis PT with INR INR Sodium Potassium Chloride Carbon Dioxide Anion Gap BUN Creatinine Creat Clearance w eGFR Random Glucose Calcium Phosphorus Magnesium Transferrin 84 L LD Total 135 Carcinoembryonic Ag 25.7 H Vitamin B12 657 Serum Folate 11 IgG IgA IgM 03/13/18 03/13/18 03/13/18 07:30 07:30 10:00 WBC RBC Hgb Hct MCV MCH MCHC RDW Plt Count MPV Absolute Neuts (auto) Neutrophils % Lymphocytes % Monocytes % Eosinophils % Basophils % Nucleated RBC % Hypochromia 1+ Anisocytosis 2+ Microcytosis 2+ PT with INR INR Sodium Potassium Chloride Carbon Dioxide Anion Gap BUN Creatinine Creat Clearance w eGFR Random Glucose Calcium Phosphorus Magnesium Transferrin LD Total Carcinoembryonic Ag Vitamin B12 Cancelled Serum Folate Cancelled IgG 1865 H IgA 362 IgM 69 03/14/18 03/14/18 03/14/18 07:30 07:30 09:15 WBC 11.6 H RBC 3.34 L Hgb 8.4 L Hct 25.3 L MCV 75.6 L MCH 25.3 L MCHC 33.4 RDW 23.0 H Plt Count 423 MPV 6.7 L Absolute Neuts (auto) 8.8 Neutrophils % 75.6 Lymphocytes % 9.4 D Monocytes % 14.5 H Eosinophils % 0.1 Basophils % 0.4 Nucleated RBC % 0 Hypochromia Anisocytosis Microcytosis PT with INR 17.10 H INR 1.51 H Sodium 135 L Potassium 3.7 Chloride 97 L Carbon Dioxide 31 Anion Gap 7 L BUN 11 Creatinine 0.5 L Creat Clearance w eGFR > 60 Random Glucose 89 Calcium 8.1 L Phosphorus 3.5 Magnesium 1.7 L Transferrin LD Total Carcinoembryonic Ag Vitamin B12 Serum Folate IgG IgA IgM Problem List - Problems (1) Smoker Code(s): F17.200 - NICOTINE DEPENDENCE, UNSPECIFIED, UNCOMPLICATED (2) Previous myocardial infarction older than 8 weeks Code(s): I25.2 - OLD MYOCARDIAL INFARCTION (3) Lung mass Code(s): R91.8 - OTHER NONSPECIFIC ABNORMAL FINDING OF LUNG FIELD (4) HTN (hypertension) Code(s): I10 - ESSENTIAL (PRIMARY) HYPERTENSION (5) Hyperlipidemia Code(s): E78.5 - HYPERLIPIDEMIA, UNSPECIFIED Assessment/Plan ABX Per ID: (?) Post-obstructive PNA IR biopsy on hold for at least 7 days as the patient was on ASA O2 as needed BD TX PRN PFTs after discharge Dr Wiley Problem List - Problems (1) Smoker Code(s): F17.200 - NICOTINE DEPENDENCE, UNSPECIFIED, UNCOMPLICATED (2) Previous myocardial infarction older than 8 weeks Code(s): I25.2 - OLD MYOCARDIAL INFARCTION (3) Lung mass Code(s): R91.8 - OTHER NONSPECIFIC ABNORMAL FINDING OF LUNG FIELD (4) HTN (hypertension) Code(s): I10 - ESSENTIAL (PRIMARY) HYPERTENSION (5) Hyperlipidemia Code(s): E78.5 - HYPERLIPIDEMIA, UNSPECIFIED
[2018-03-14] MEDS: ACETAMINOPHEN 325 MG TABLET (FP) PO PRN (13:57)
--- NOTE | 2018-03-14 14:05 | PN ---
Progress Note (short form) - Note Progress Note: feels lousy cold and nauseous Vital Signs Period Temp Pulse Resp BP Sys/Harper Pulse Ox Last 24 Hr 98.0 F-102.6 F 102-109 20-20 125-145/57-86 96 cor-rrr lungs- decreased bs at bases abd firm, nt ext no edema CBC, BMP 03/14/18 07:30 03/14/18 07:30 Microbiology 03/13/18 19:50 Urine For Antigen Detection Legionella Antigen - Final 03/13/18 19:50 Urine For Antigen Detection Streptococcus pneumoniae Antigen (M - Final 03/13/18 03:25 Urine - Urine Clean Catch Urine Culture - Final NO GROWTH OBTAINED 03/13/18 00:01 Blood - Peripheral Venous Blood Culture - Preliminary NO GROWTH OBTAINED AFTER 24 HOURS, INCUBATION TO CONTINUE FOR 4 DAYS. 03/13/18 00:01 Blood - Peripheral Venous Blood Culture - Preliminary NO GROWTH OBTAINED AFTER 24 HOURS, INCUBATION TO CONTINUE FOR 4 DAYS. 03/12/18 08:28 Urine - Urine Clean Catch Urine Culture - Final a/p ISABELLA mass fevers- ?pneumonitis, ?tumor trial zosyn/vanco- d/c vanco if nares swab is negative for MRSA anemia- multifactorial HIV pend Hep c pend Hep b pend Quantiferon pend biopsy postponed Problem List - Problems (1) Lung mass Code(s): R91.8 - OTHER NONSPECIFIC ABNORMAL FINDING OF LUNG FIELD (2) Anemia Code(s): D64.9 - ANEMIA, UNSPECIFIED
[2018-03-14] MEDS ORDERED: DEXTROSE 5%-NORMAL SALINE 1,000 ML IV SCH (15:45)
--- NOTE | 2018-03-14 16:08 | PN ---
Teaching Attending Note Name of Resident: Minna Bernard ATTENDING PHYSICIAN STATEMENT I saw and evaluated the patient. I reviewed the resident's note and discussed the case with the resident. I agree with the resident's findings and plan as documented. SUBJECTIVE:c/o generalized weakness. states he has poor appetite but he also does not liek the food here. has not seen a doctor in 10+ years. never had cancer screening. denies Cp, SOB, fever, chills, N/V/C/D OBJECTIVE: Last Vital Signs Temp Pulse Resp BP Pulse Ox 100.4 F H 109 H 20 127/57 96 03/14/18 14:01 03/14/18 14:01 03/14/18 14:01 03/14/18 14:01 03/13/18 21:00 General NAD, bitemporal wasting, +prominent clavicles CV S1 S2 RRR no murmur/rub/gallop Lungs CTA B/L no wheezing/rlaes/rhonchi ASSESSMENT AND PLAN: 77 yo M with prior history of CAD, heavy smoker, recently reportedly diagnosed lung mass/anemia requiring transfusions, admitted with failure to thrive, found with anemia, ISABELLA lung mass 1. sepsis due to suspected post-obstructive PNA- Tm 102.6. mild leukocytosis. all cx negative at this time. started on vanco/zosyn. will need vanco trough today. plan to d/c vanco was MRSA screen is negative. 2. Anemia, suspect multifactorial, Iron deficiency, poor nutritional status,r/o occult bleed- Hgb stable. on iron supplementation. received 2 units PRBC this hospital stay. 3. 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 received loading dose of ASA on tuesday. as per IR recommendations will need to be off asa for 7 days for bx 4. Elevated INR, suspect nutritional- s/p vit K given x3. INR stable. 5. Malnutrition- as evident by body habitus and reported 40lb weight loss. encourage po intake. encourage for family to bring in food from home. ensure shakes 6. constipation- resolved. last BM 2 days ago. cont stool softeners prn 7. dysphagia- on soft diet with thin liquids 8. DVT ppx- hep sq 9. PT eval. may benefit from BRENDON prior to discharge.
[2018-03-14] MEDS ORDERED: MAGNESIUM SULF 50% (8.12 MEQ/2 ML-1 GM VIAL) IVPB ONE (17:00)
--- NOTE | 2018-03-14 18:14 | ECHO ---
Name: PYLE, CRYSTAL Exam:Adult Echocardiogram Study Date: 03/14/2018 07:23 AM Reason For Study: MEDIASTINAL MASS Height: 69 in Weight: 116 lb BSA: 1.6 m2 MMode/2D Measurements & Calculations IVSd: 1.6 cm Ao root diam: 3.4 cm EDV(Teich): 22.2 ml LVIDd: 2.5 cm LA dimension: 2.3 cm LVPWd: 1.5 cm Ao root area: 9.0 cm2 LVOT diam: 2.2 cm LVOT area: 3.7 cm2 Doppler Measurements & Calculations TR max melina: 253.1 cm/sec TR max P.6 mmHg Procedure A complete two-dimensional transthoracic echocardiogram was performed (2D, M-mode, Doppler and color flow Doppler). Left Ventricle The left ventricle is normal in size. There is moderate concentric left ventricular hypertrophy. Left ventricular systolic function is normal. Ejection Fraction = 55%. Right Ventricle The right ventricle is normal in size and function. Atria Normal left and right atrial size and function. Mitral Valve The mitral valve is grossly normal. There is trace mitral regurgitation. Tricuspid Valve The tricuspid valve is not well visualized, but is grossly normal. There is trace tricuspid regurgita tion. There was insufficient TR detected to calculate RV systolic pressure. Aortic Valve There is mild aortic valve thickening. The aortic valve is trileaflet. There is a mass on the noncoro nary cusp of the aortic valve. No significant aortic regurgitation. Cannot rule out vegetation. No hemodynamica lly significant valvular aortic stenosis. No aortic regurgitation is present. Pulmonic Valve The pulmonic valve is not well visualized. Great Vessels The aortic root is normal size. Pericardium/Pleura There is no pericardial effusion. Interpretation Summary There is moderate concentric left ventricular hypertrophy. Left ventricular systolic function is normal. Normal left and right atrial size and function. There is trace mitral regurgitation. There is trace tricuspid regurgitation. There is a mass on the noncoronary cusp of the aortic valve. No significant aortic regurgitation. Can not rule out vegetation. There is no pericardial effusion. MD Samir Hernandez 03/14/2018 06:13 PM
[2018-03-14] MEDS ORDERED: MAGNESIUM 1GM/D5W 100ML - 100 ML IVPB IVPB ONE (19:00)
[2018-03-14] MEDS: VANCOMYCIN 1,000 MG in DEXTROSE 5%-WATER - 250 ML IVPB SCH (19:04)
--- NOTE | 2018-03-14 19:04 | PN ---
Physical Exam: SUBJECTIVE: Patient seen and examined at bedside today. Patient does not have an appetite. No new complaints otherwise. Denies fevers, chills, chest pain, SOB, nausea, vomiting, diarrhea constipation. OBJECTIVE: Vital Signs Period Temp Pulse Resp BP Sys/Harper Pulse Ox Last 24 Hr 98.0 F-100.4 F 102-109 18-20 113-145/57-79 96-97 Vital Signs Temp 99 F 03/14/18 18:33 Pulse 107 H 03/14/18 18:33 Resp 18 03/14/18 18:33 BP 113/59 03/14/18 18:33 Pulse Ox 97 03/14/18 09:00 Intake & Output 03/13/18 03/14/18 03/14/18 23:59 11:59 23:59 Intake Total 1537 650 837 Output Total 575 400 Balance 962 250 837 Intake: IV 500 600 Normal Saline - 1,000 ml 500 600 @ 60 mls/hr IV ASDIR [facility] Rx#:[id number] IVPB 300 50 50 Oral 500 550 Oral Supplement 237 237 Output: Urine 575 400 Void 575 400 Other: Voiding Method Urinal Urinal # Unmeasured Voids Void 1 2 Bowel Movement No No No GENERAL: The patient is awake, alert, and fully oriented, in no acute distress. LUNGS: Clear to auscultation bilaterally, no wheezes, no crackles HEART: Regular rate and rhythm, S1, S2 without murmur, rub or gallop. ABDOMEN: Soft, nontender, nondistended, normoactive bowel sounds Laboratory Results - last 24 hr 03/11/18 03/12/18 03/13/18 20:45 14:00 07:30 WBC RBC Hgb Hct MCV MCH MCHC RDW Plt Count MPV Absolute Neuts (auto) Neutrophils % Lymphocytes % Monocytes % Eosinophils % Basophils % Nucleated RBC % PT with INR INR Sodium Potassium Chloride Carbon Dioxide Anion Gap BUN Creatinine Creat Clearance w eGFR Random Glucose Calcium Phosphorus Magnesium Transferrin 84 L Carcinoembryonic Ag 25.7 H IgG 1865 H IgA 362 IgM 69 HIV 1&2 Antibody Screen HIV P24 Antigen 03/14/18 03/14/18 03/14/18 07:30 07:30 07:30 WBC 11.6 H RBC 3.34 L Hgb 8.4 L Hct 25.3 L MCV 75.6 L MCH 25.3 L MCHC 33.4 RDW 23.0 H Plt Count 423 MPV 6.7 L Absolute Neuts (auto) 8.8 Neutrophils % 75.6 Lymphocytes % 9.4 D Monocytes % 14.5 H Eosinophils % 0.1 Basophils % 0.4 Nucleated RBC % 0 PT with INR INR Sodium 135 L Potassium 3.7 Chloride 97 L Carbon Dioxide 31 Anion Gap 7 L BUN 11 Creatinine 0.5 L Creat Clearance w eGFR > 60 Random Glucose 89 Calcium 8.1 L Phosphorus 3.5 Magnesium 1.7 L Transferrin Carcinoembryonic Ag IgG IgA IgM HIV 1&2 Antibody Screen Negative HIV P24 Antigen Negative 03/14/18 09:15 WBC RBC Hgb Hct MCV MCH MCHC RDW Plt Count MPV Absolute Neuts (auto) Neutrophils % Lymphocytes % Monocytes % Eosinophils % Basophils % Nucleated RBC % PT with INR 17.10 H INR 1.51 H Sodium Potassium Chloride Carbon Dioxide Anion Gap BUN Creatinine Creat Clearance w eGFR Random Glucose Calcium Phosphorus Magnesium Transferrin Carcinoembryonic Ag IgG IgA IgM HIV 1&2 Antibody Screen HIV P24 Antigen Microbiology 03/13/18 19:50 Urine For Antigen Detection Legionella Antigen - Final 03/13/18 19:50 Urine For Antigen Detection Streptococcus pneumoniae Antigen (M - Final 03/13/18 03:25 Urine - Urine Clean Catch Urine Culture - Final NO GROWTH OBTAINED 03/13/18 00:01 Blood - Peripheral Venous Blood Culture - Preliminary NO GROWTH OBTAINED AFTER 24 HOURS, INCUBATION TO CONTINUE FOR 4 DAYS. 03/13/18 00:01 Blood - Peripheral Venous Blood Culture - Preliminary NO GROWTH OBTAINED AFTER 24 HOURS, INCUBATION TO CONTINUE FOR 4 DAYS. 03/12/18 08:28 Urine - Urine Clean Catch Urine Culture - Final Active Medications Acetaminophen (Tylenol -) 650 mg PO Q4H PRN PRN Reason: FEVER Last Admin: 03/14/18 13:57 Dose: 650 mg Amlodipine Besylate (Norvasc -) 5 mg PO DAILY [facility] Last Admin: 03/14/18 09:49 Dose: 5 mg Atorvastatin Calcium (Lipitor -) 40 mg PO HS [facility] Last Admin: 03/13/18 21:26 Dose: 40 mg Docusate Sodium (Colace -) 100 mg PO DAILY [facility] Last Admin: 03/14/18 09:49 Dose: 100 mg Ferrous Sulfate (Feosol -) 325 mg PO DAILY [facility] Last Admin: 03/14/18 09:49 Dose: 325 mg Heparin Sodium (Porcine) (Heparin -) 5,000 unit SQ TID [facility] Last Admin: 03/14/18 13:57 Dose: 5,000 unit Hydralazine HCl (Apresoline -) 10 mg PO TID [facility] Last Admin: 03/14/18 13:57 Dose: 10 mg Piperacillin Sod/Tazobactam (Sod 3.375 gm/ Dextrose) 50 mls @ 100 mls/hr IVPB Q8H-IV [facility]; Protocol Last Admin: 03/14/18 18:22 Dose: 100 mls/hr Vancomycin HCl 1,000 mg/ (Dextrose) 250 mls @ 166.667 mls/hr IVPB Q24H [facility]; Protocol Last Admin: 03/13/18 21:23 Dose: 166.667 mls/hr Dextrose/Sodium Chloride (D5-Ns -) 1,000 mls @ 42 mls/hr IV [facility]IR [facility] Polyethylene Glycol (Miralax (For Daily Use) -) 17 gm PO DAILY [facility] Last Admin: 03/14/18 09:49 Dose: 17 gm Senna/Docusate Sodium (Pericolace -) 1 tablet PO BID [facility] Last Admin: 03/14/18 09:49 Dose: 1 tablet ASSESSMENT/PLAN: 77 y/o male with prior history of CAD, heavy smoker, recently reportedly diagnosed lung mass, anemia requiring transfusions, admitted with failure to thrive. 1. Sepsis Likely due to post obstrutive PNA - Fevers reached 102.6 - Blood cultures pending - UA Negative - CXR: Left parahilar, left upper lung mass. No pleural effusion, or pneumothorax is seen. No evidence of a pulmonary consolidations. - HCV/HIV screen - Pulmonary consult, appreciate rec's - ID consult, appreciate rec's - Continue IV Zosyn, Vancomycin - Continue Tylenol - Vancomycin trough pending - MRSA Nares screen pending 2. Symptomatic anemia - Weakness and tachycardia - Iron studies noted - S/P 2 unit transfused, 3 doses of Vitamin K 3. Failure to thrive likely due to lung malignancy - soft diet with thin liquids - speech and swallow consult, appreciate rec's 4. 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 Constipation - Continue with Miralax 17 gm PO DAILY [facility] - Continue with Senna/Docusate Sodium 1 tablet PO BID [facility] - Continue with Colace 100 mg PO DAILY [facility] 6. HTN - Continue with Norvasc 5 mg PO DAILY [facility] - Continue with Hydralazine HCl 10 mg PO TID [facility] 7. HLD - Continue with Atorvastatin Calcium 40 mg PO HS [facility] 8. dvt ppx - heparin Visit type - Emergency Visit Emergency Visit: No - New Patient This patient is new to me today: No - Critical Care Critical Care patient: No
[2018-03-14] MEDS ORDERED: PT OWN MED DRAWER 7, Y5N ONE (20:11)
[2018-03-14] MEDS ORDERED: DEXTROSE 5%-NORMAL SALINE 500 ML IV ONE (21:29)
[2018-03-14] MEDS ORDERED: DEXTROSE 5%-NORMAL SALINE 250 ML IV ONE (21:45)
[2018-03-14 22:02] LABS: BASO % 0.6 % (0-2.0); EOS % 0.1 % (0-4.5); HEMATOCRIT 27.5 % (35.4-49); HEMOGLOBIN 8.8 GM/dL (11.7-16.9); LYMPH % 11.9 % (8-40); MCH 24.7 pg (25.7-33.7); MCHC 32.1 g/dl (32.0-35.9); MEAN CELL VOLUME 77.1 fl (80-96); MONO % 13.2 % (3.8-10.2); NEUT % 74.2 % (42.8-82.8); PLATELET COUNT 478 K/MM3 (134-434); RBC 3.57 M/mm3 (4.00-5.60); RDW 22.6 % (11.9-15.9); WHITE BLOOD COUNT 12.4 K/mm3 (4.0-10.0)
[2018-03-14] MEDS: ATORVASTATIN CA 40 MG TABLET (FP) PO SCH (22:19)
[2018-03-14] MEDS ORDERED: ACETAMINOPHEN 1000 MG/100 ML VIAL (NON FORMULARY) IVPB ONE (22:30)
[2018-03-14] MEDS: PANTOPRAZOLE SODIUM 40 MG VIAL IVPUSH SCH (23:16)
[2018-03-15] MEDS ORDERED: PIPERACILLIN/TAZOBACTAM 3.375 GM VIAL IVPB ONE ×3 (01:28→16:57)
[2018-03-15] MEDS ORDERED: DEXTROSE 5%-WATER - 50 ML IVPB ONE ×3 (01:29→16:57)
[2018-03-15] MEDS: PIPERACILLIN/TAZOB 3.375 GM 3.375 GM in DEXTROSE 5%-WATER - 50 ML IVPB SCH ×3 (01:32→17:22)
--- NOTE | 2018-03-15 02:08 | HOSP ---
Physical Examination Vital Signs: Vital Signs Temperature 98.6 F 03/15/18 01:51 Pulse Rate 101 H 03/15/18 01:51 Respiratory Rate 20 03/15/18 01:51 Blood Pressure 105/53 03/15/18 01:51 O2 Sat by Pulse Oximetry (%) 95 03/14/18 21:00 Labs: CBC, BMP 03/14/18 21:00 03/14/18 07:30 Hospitalist Encounter Assessment: MD international marketing manager was paged by nurse regarding pt who was having 1st time episode of hemoptysis. Nurse reported vitals were 156/87, temp 101.5 and HR 143. Pt is baseline tachy in the 90-105 range. Pt recent Hbg was 8.4 s/p 2 U of blood 2 days prior. Pt was seen at bedside in distress coughing up bright red blood. there were 30-50cc of blood in container. blood was bright red w/ clots. PE was significant for tachycardia w/ normal O2 sats and clear lungs. We DCd heparin, abd ordered CBC w/ diff stat, type and cross for possible blood tansfusion, EKG , and gave 250cc D5NS bolus. Gave IV tylenol as well. CBC came back 8.8 EGK showed sinus tach w/ no sig changes. vitasl 145 systolic, HR came down to 120 and O2 sat 100 RA. We held BP meds and made pt NPO Visit type - Emergency Visit Emergency Visit: No - New Patient This patient is new to me today: No - Critical Care Critical Care patient: No
[2018-03-15] MEDS: hydrALAZINE HCL 10 MG TABLET PO SCH ×3 (06:01→22:36)
[2018-03-15 07:50] LABS: BASO % 0.3 % (0-2.0); EOS % 0.2 % (0-4.5); HEMATOCRIT 24.8 % (35.4-49); HEMOGLOBIN 8.4 GM/dL (11.7-16.9); LYMPH % 8.8 % (8-40); MCH 26.1 pg (25.7-33.7); MEAN CELL VOLUME 76.7 fl (80-96); MEAN PLT VOLUME 6.9 fl (7.5-11.1); NEUT % 74.7 % (42.8-82.8); PLATELET COUNT 349 K/MM3 (134-434); RBC 3.23 M/mm3 (4.00-5.60); RDW 22.3 % (11.9-15.9); WHITE BLOOD COUNT 10.3 K/mm3 (4.0-10.0)
[2018-03-15 07:57] LABS: INR 1.42 (0.82-1.09)
[2018-03-15 08:11] LABS: CHLORIDE 99 mmol/L (98-107); POTASSIUM 3.9 mmol/L (3.5-5.1); SODIUM 137 mmol/L (136-145)
[2018-03-15 08:21] LABS: ALBUMIN 1.3 g/dl (3.4-5.0); ALK PHOS 102 U/L (45-117); ANION GAP 6 (8-16); BILIRUBIN,TOTAL 0.5 mg/dL (0.2-1.0); BLOOD UREA NITROGEN 12 mg/dL (7-18); CALCIUM 8.1 mg/dL (8.5-10.1); CO2 32 mmol/L (21-32); CREATININE 0.4 mg/dL (0.7-1.3); GLUCOSE,RANDOM 95 mg/dL (74-106); MAGNESIUM 2.2 mg/dL (1.8-2.4); PHOSPHOROUS 4.5 mg/dL (2.5-4.9); SGOT/AST 8 U/L (15-37); SGPT/ALT 8 U/L (12-78)
--- NOTE | 2018-03-15 08:40 | PN ---
Physical Exam: SUBJECTIVE: Patient seen and examined at bedside. Over night, patient had an episode of hemoptysis accompanied with fever, tachycardia and hypertension. Patient recieved one unit of PRBC. This morning, he says he feels much better. No longer coughing up blood. Denies anyother bloody excretions including in stool, urine or spit. Patient was very hungry this morning. Clear yellow urine was present in the urinal beside him Denies fevers, chills, chest pain, SOB, nausea, vomiting, diarrhea, constipation. OBJECTIVE: Vital Signs Period Temp Pulse Resp BP Sys/Harper Pulse Ox Last 24 Hr 98.6 F-102.4 F 93-143 18-20 105-156/53-87 95-97 GENERAL: The patient is awake, alert, and fully oriented, in no acute distress. THROAT: oropharynx clear without exudates, No visible signs of bleeding, no erythema moist mucous membranes. LUNGS: Clear to auscultation bilaterally, no wheezes, no crackles HEART: Tachycardic, S1, S2 without murmur, rub or gallop. ABDOMEN: Soft, nontender, nondistended, normoactive bowel sounds Laboratory Results - last 24 hr 03/11/18 03/14/18 03/14/18 14:10 07:30 07:30 WBC 11.6 H RBC 3.34 L Hgb 8.4 L Hct 25.3 L MCV 75.6 L MCH 25.3 L MCHC 33.4 RDW 23.0 H Plt Count 423 MPV 6.7 L Absolute Neuts (auto) 8.8 Neutrophils % 75.6 Lymphocytes % 9.4 D Monocytes % 14.5 H Eosinophils % 0.1 Basophils % 0.4 Nucleated RBC % 0 PT with INR INR Sodium Potassium Chloride Carbon Dioxide Anion Gap BUN Creatinine Creat Clearance w eGFR Random Glucose Calcium Phosphorus Magnesium Vancomycin Pre-Dose HIV 1&2 Antibody Screen Negative HIV P24 Antigen Negative Blood Type O POSITIVE Antibody Screen Negative Crossmatch See Detail 03/14/18 03/14/18 03/14/18 07:30 09:15 16:50 WBC RBC Hgb Hct MCV MCH MCHC RDW Plt Count MPV Absolute Neuts (auto) Neutrophils % Lymphocytes % Monocytes % Eosinophils % Basophils % Nucleated RBC % PT with INR 17.10 H INR 1.51 H Sodium 135 L Potassium 3.7 Chloride 97 L Carbon Dioxide 31 Anion Gap 7 L BUN 11 Creatinine 0.5 L Creat Clearance w eGFR > 60 Random Glucose 89 Calcium 8.1 L Phosphorus 3.5 Magnesium 1.7 L Vancomycin Pre-Dose 5.18 HIV 1&2 Antibody Screen HIV P24 Antigen Blood Type Antibody Screen Crossmatch 03/14/18 03/14/18 03/15/18 21:00 21:45 06:00 WBC 12.4 H 10.3 H RBC 3.57 L 3.23 L Hgb 8.8 L 8.4 L Hct 27.5 L 24.8 L MCV 77.1 L 76.7 L MCH 24.7 L 26.1 MCHC 32.1 34.0 RDW 22.6 H 22.3 H Plt Count 478 H 349 D MPV 7.0 L 6.9 L Absolute Neuts (auto) 9.2 7.7 Neutrophils % 74.2 74.7 Lymphocytes % 11.9 D 8.8 D Monocytes % 13.2 H 16.0 H Eosinophils % 0.1 0.2 D Basophils % 0.6 0.3 Nucleated RBC % 0 0 PT with INR INR Sodium Potassium Chloride Carbon Dioxide Anion Gap BUN Creatinine Creat Clearance w eGFR Random Glucose Calcium Phosphorus Magnesium Vancomycin Pre-Dose HIV 1&2 Antibody Screen HIV P24 Antigen Blood Type O POSITIVE Antibody Screen Negative Crossmatch See Detail 03/15/18 06:00 WBC RBC Hgb Hct MCV MCH MCHC RDW Plt Count MPV Absolute Neuts (auto) Neutrophils % Lymphocytes % Monocytes % Eosinophils % Basophils % Nucleated RBC % PT with INR 16.00 H INR 1.42 H Sodium Potassium Chloride Carbon Dioxide Anion Gap BUN Creatinine Creat Clearance w eGFR Random Glucose Calcium Phosphorus Magnesium Vancomycin Pre-Dose HIV 1&2 Antibody Screen HIV P24 Antigen Blood Type Antibody Screen Crossmatch Microbiology 03/13/18 00:01 Blood - Peripheral Venous Blood Culture - Preliminary NO GROWTH OBTAINED AFTER 48 HOURS, INCUBATION TO CONTINUE FOR 3 DAYS. 03/13/18 00:01 Blood - Peripheral Venous Blood Culture - Preliminary NO GROWTH OBTAINED AFTER 48 HOURS, INCUBATION TO CONTINUE FOR 3 DAYS. 03/13/18 19:50 Urine For Antigen Detection Legionella Antigen - Final 03/13/18 19:50 Urine For Antigen Detection Streptococcus pneumoniae Antigen (M - Final 03/13/18 03:25 Urine - Urine Clean Catch Urine Culture - Final NO GROWTH OBTAINED 03/12/18 08:28 Urine - Urine Clean Catch Urine Culture - Final Active Medications Acetaminophen (Tylenol -) 650 mg PO Q4H PRN PRN Reason: FEVER Last Admin: 03/14/18 13:57 Dose: 650 mg Amlodipine Besylate (Norvasc -) 5 mg PO DAILY [facility] Last Admin: 03/14/18 09:49 Dose: 5 mg Atorvastatin Calcium (Lipitor -) 40 mg PO HS [facility] Last Admin: 03/14/18 22:19 Dose: 40 mg Docusate Sodium (Colace -) 100 mg PO DAILY [facility] Last Admin: 03/14/18 09:49 Dose: 100 mg Ferrous Sulfate (Feosol -) 325 mg PO DAILY [facility] Last Admin: 03/14/18 09:49 Dose: 325 mg Hydralazine HCl (Apresoline -) 10 mg PO TID [facility] Last Admin: 03/15/18 06:01 Dose: Not Given Piperacillin Sod/Tazobactam (Sod 3.375 gm/ Dextrose) 50 mls @ 100 mls/hr IVPB Q8H-IV [facility]; Protocol Last Admin: 03/15/18 01:32 Dose: 100 mls/hr Vancomycin HCl 1,000 mg/ (Dextrose) 250 mls @ 166.667 mls/hr IVPB Q24H [facility]; Protocol Last Admin: 03/14/18 19:04 Dose: 166.667 mls/hr Pantoprazole Sodium (Protonix Iv) 40 mg IVPUSH BID [facility] Last Admin: 03/14/18 23:16 Dose: 40 mg Polyethylene Glycol (Miralax (For Daily Use) -) 17 gm PO DAILY [facility] Last Admin: 03/14/18 09:49 Dose: 17 gm Senna/Docusate Sodium (Pericolace -) 1 tablet PO BID [facility] Last Admin: 03/14/18 22:19 Dose: 1 tablet ASSESSMENT/PLAN: 77 y/o male with prior history of CAD, heavy smoker, recently reportedly diagnosed lung mass, anemia requiring transfusions, admitted with Severe protein -calorie malnutrition now with hemoptysis 1. Sepsis Likely due to post obstrutive PNA - Fevers reached 102.4 - Blood cultures pending - UA Negative - CXR: Left parahilar, left upper lung mass. No pleural effusion, or pneumothorax is seen. No evidence of a pulmonary consolidations. - HCV screen - HIV negative - Pulmonary consult, appreciate rec's - ID consult, appreciate rec's - Continue IV Zosyn, Vancomycin - Continue Tylenol - Vancomycin trough: 5.18 - MRSA Nares screen: Negative - WBC 10.5-->10.9 2. Hemopytsis - Likely due to pulmonary mass, consider irritation from frequent coughing - 1 Unit pRBC transfused overnight - Repeat Hgb 9.2, Hct 27.7 3. Symptomatic anemia - Weakness and tachycardia - Iron studies noted - S/P 2 unit transfused, 3 doses of Vitamin K - S/P 1 Unit pRBC transfused (03/15) - Repeat Hgb 9.2, Hct 27.7 - Continue to monitor 4. Severe protein calorie malnutrition - In the setting of likely malignant lung mass with with weight loss - Failure to thrive, requiring nutritional support - BMI: 17.1, Weight loss >7.5% in 3 months - RF: Possible lung malignancy, Dementia, difficulty swallowing/chewing - Speech and swallow Recomendations: Consider dysphagia chopped diet with thin liquid. 5. ISABELLA mass - likely malignant, will need staging - hemonc consult - IR Biopsy pending - PFTs as an outpatient 6. Constipation - Continue with Miralax 17 gm PO DAILY [facility] - Continue with Senna/Docusate Sodium 1 tablet PO BID [facility] - Continue with Colace 100 mg PO DAILY [facility] 7. HTN - Continue with Norvasc 5 mg PO DAILY [facility] - Continue with Hydralazine HCl 10 mg PO TID [facility] 8. HLD - Continue with Atorvastatin Calcium 40 mg PO HS [facility] 9. dvt ppx - heparin Visit type - Emergency Visit Emergency Visit: Yes ED Registration Date: 03/11/18 Care time: The patient presented to the Emergency Department on the above date and was hospitalized for further evaluation of their emergent condition. - New Patient This patient is new to me today: No - Critical Care Critical Care patient: No
[2018-03-15] MEDS: PANTOPRAZOLE SODIUM 40 MG VIAL IVPUSH SCH ×2 (10:56→22:37)
[2018-03-15] MEDS: SENNOSIDES/DOCUSATE COMBO (SENNA PLUS) TABLET (UD) PO SCH ×2 (10:56→22:37)
[2018-03-15] MEDS: FERROUS SO4 325 MG TABLET (FP) PO SCH (10:56)
[2018-03-15] MEDS: DOCUSATE SODIUM 100 MG CAPSULE (FP) PO SCH (10:56)
[2018-03-15] MEDS: amLODIPine BESYLATE 5 MG TABLET (FP) PO SCH (10:56)
[2018-03-15] MEDS: POLYETHYLENE GLYCOL 3350 119 GM BTL PO SCH (11:00)
[2018-03-15] MEDS ORDERED: VANCOMYCIN 1 GM PREMIX - 1 GM/200 ML BAG IVPB SCH (13:00)
[2018-03-15 13:11] LABS: BASO % 0.3 % (0-2.0); EOS % 0.1 % (0-4.5); HEMATOCRIT 27.7 % (35.4-49); HEMOGLOBIN 9.2 GM/dL (11.7-16.9); MCH 25.8 pg (25.7-33.7); MCHC 33.1 g/dl (32.0-35.9); MEAN CELL VOLUME 77.8 fl (80-96); MEAN PLT VOLUME 6.9 fl (7.5-11.1); MONO % 13.2 % (3.8-10.2); NEUT % 80.4 % (42.8-82.8); PLATELET COUNT 356 K/MM3 (134-434); RBC 3.55 M/mm3 (4.00-5.60); RDW 22.4 % (11.9-15.9); WHITE BLOOD COUNT 10.9 K/mm3 (4.0-10.0)
--- NOTE | 2018-03-15 13:14 | EKG ---
Test Reason : Blood Pressure : / mmHG Vent. Rate : 105 BPM Atrial Rate : 105 BPM P-R Int : 150 ms QRS Dur : 092 ms QT Int : 366 ms P-R-T Axes : 060 -20 075 degrees QTc Int : 483 ms SINUS TACHYCARDIA POSSIBLE LEFT ATRIAL ENLARGEMENT LEFT VENTRICULAR HYPERTROPHY ABNORMAL ECG WHEN COMPARED WITH ECG OF 11-MAR-2018 15:11, NO SIGNIFICANT CHANGE WAS FOUND Confirmed by NAT WHITE MD ([id number]) on 03/15/2018 1:14:00 PM Referred By: WHITLEY PERLA DR Confirmed By:NAT WHITE MD
--- NOTE | 2018-03-15 14:00 | PN ---
Teaching Attending Note Name of Resident: Minna Bernard ATTENDING PHYSICIAN STATEMENT I saw and evaluated the patient. I reviewed the resident's note and discussed the case with the resident. I agree with the resident's findings and plan as documented. SUBJECTIVE:states he feels much better today. no repeat episodes of hemoptysis. states he had a bought of coughing of thick white sputum then starting coming up in streaks then just calixto blood. states his appetite is much improved today. denies Cp, SOB, fever, chills,. N/V/C/D OBJECTIVE: Last Vital Signs Temp Pulse Resp BP Pulse Ox 98.7 F 93 H 20 111/61 95 03/15/18 05:39 03/15/18 05:39 03/15/18 05:39 03/15/18 05:39 03/14/18 21:00 General NAD, bitemporal wasting, +prominent clavicles CV S1 S2 RRR no murmur/rub/gallop Lungs CTA B/L no wheezing/rales/rhonchi abdomen soft NT/ND Extremities no pedal edema ASSESSMENT AND PLAN: 77 yo M with prior history of CAD, heavy smoker, recently reportedly diagnosed lung mass/anemia requiring transfusions, admitted with failure to thrive, found with anemia, ISABELLA lung mass 1. sepsis due to suspected post-obstructive PNA- Tm 102.4. mild leukocytosis. all cx negative at this time. on vanco/zosyn.MRSA screen negative. will d/c vanco. will cont with zosyn at this time. 2. hemopytsis- likely due to pulmonary mass however can also be mucosal irritation from frequent coughing. hgb was stable but transfused PRBC overnight. 3. Anemia, suspect multifactorial, Iron deficiency, poor nutritional status,r/o occult bleed- total of 3 units PRBC this hospitalization. will trend Hgb as did not respond appropriately to transfusion overnight. would expect to stabilize as not active signs of bleeding. on iron supplementation. received 2 units PRBC this hospital stay. 4. 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 received loading dose of ASA on tuesday. as per IR recommendations will need to be off asa for 7 days for bx. agreeable to perform on 03/20 if pt remains hospitalized till then 5. Elevated INR, suspect nutritional- s/p vit K given x3. INR stable. 6. Severe Malnutrition- as evident by body habitus and reported 40lb weight loss. encourage po intake. encourage for family to bring in food from home. ensure shakes. pt appetite looks improved today ate >75% of breakfast. consider appetite stimulant if does not remain good. 7. constipation- resolved. +BM last night. cont stool softeners prn 8. dysphagia- on chopped diet with thin liquids 9. DVT ppx- hep sq 10. PT eval. may benefit from [facility]ON prior to discharge.
--- NOTE | 2018-03-15 14:25 | PN ---
Progress Note, Physician - Current Medication List Current Medications: Active Medications Acetaminophen (Tylenol -) 650 mg PO Q4H PRN PRN Reason: FEVER Last Admin: 03/14/18 13:57 Dose: 650 mg Amlodipine Besylate (Norvasc -) 5 mg PO DAILY [facility] Last Admin: 03/15/18 10:56 Dose: 5 mg Atorvastatin Calcium (Lipitor -) 40 mg PO HS [facility] Last Admin: 03/14/18 22:19 Dose: 40 mg Docusate Sodium (Colace -) 100 mg PO DAILY [facility] Last Admin: 03/15/18 10:56 Dose: 100 mg Ferrous Sulfate (Feosol -) 325 mg PO DAILY [facility] Last Admin: 03/15/18 10:56 Dose: 325 mg Heparin Sodium (Porcine) (Heparin -) 5,000 unit SQ TID [facility] Hydralazine HCl (Apresoline -) 10 mg PO TID [facility] Last Admin: 03/15/18 14:16 Dose: 10 mg Piperacillin Sod/Tazobactam (Sod 3.375 gm/ Dextrose) 50 mls @ 100 mls/hr IVPB Q8H-IV [facility]; Protocol Last Admin: 03/15/18 10:55 Dose: 100 mls/hr Pantoprazole Sodium (Protonix Iv) 40 mg IVPUSH BID [facility] Last Admin: 03/15/18 10:56 Dose: 40 mg Polyethylene Glycol (Miralax (For Daily Use) -) 17 gm PO DAILY [facility] Last Admin: 03/15/18 11:00 Dose: 17 gm Senna/Docusate Sodium (Pericolace -) 1 tablet PO BID [facility] Last Admin: 03/15/18 10:56 Dose: 1 tablet - Objective Vital Signs: Vital Signs Temperature 98.7 F 03/15/18 05:39 Pulse Rate 93 H 03/15/18 05:39 Respiratory Rate 20 03/15/18 05:39 Blood Pressure 111/61 03/15/18 05:39 O2 Sat by Pulse Oximetry (%) 95 03/14/18 21:00 Labs: CBC, BMP 03/15/18 12:30 03/15/18 06:00 INR, PTT INR 1.42 (0.82-1.09) H 03/15/18 06:00 Assessment/Plan Problem List - Problems (1) Smoker Code(s): F17.200 - NICOTINE DEPENDENCE, UNSPECIFIED, UNCOMPLICATED (2) Previous myocardial infarction older than 8 weeks Code(s): I25.2 - OLD MYOCARDIAL INFARCTION (3) Lung mass Code(s): R91.8 - OTHER NONSPECIFIC ABNORMAL FINDING OF LUNG FIELD (4) HTN (hypertension) Code(s): I10 - ESSENTIAL (PRIMARY) HYPERTENSION (5) Hyperlipidemia Code(s): E78.5 - HYPERLIPIDEMIA, UNSPECIFIED Assessment/Plan ABX Per ID: (?) Post-obstructive PNA IR biopsy on hold for at least 7 days as the patient was on ASA O2 as needed BD TX PRN PFTs after discharge
[2018-03-15] MEDS: HEPARIN NA (PORCINE) 5,000 UNITS/ML 1ML VIAL SQ SCH ×2 (14:28→22:35)
--- NOTE | 2018-03-15 14:36 | PN ---
Progress Note, Physician History of Present Illness: pulmonary awake,no distress,-sob,+ occ cough - Current Medication List Current Medications: Active Medications Acetaminophen (Tylenol -) 650 mg PO Q4H PRN PRN Reason: FEVER Last Admin: 03/14/18 13:57 Dose: 650 mg Amlodipine Besylate (Norvasc -) 5 mg PO DAILY [facility] Last Admin: 03/15/18 10:56 Dose: 5 mg Atorvastatin Calcium (Lipitor -) 40 mg PO HS [facility] Last Admin: 03/14/18 22:19 Dose: 40 mg Docusate Sodium (Colace -) 100 mg PO DAILY [facility] Last Admin: 03/15/18 10:56 Dose: 100 mg Ferrous Sulfate (Feosol -) 325 mg PO DAILY [facility] Last Admin: 03/15/18 10:56 Dose: 325 mg Heparin Sodium (Porcine) (Heparin -) 5,000 unit SQ TID [facility] Last Admin: 03/15/18 14:28 Dose: 5,000 unit Hydralazine HCl (Apresoline -) 10 mg PO TID [facility] Last Admin: 03/15/18 14:16 Dose: 10 mg Piperacillin Sod/Tazobactam (Sod 3.375 gm/ Dextrose) 50 mls @ 100 mls/hr IVPB Q8H-IV [facility]; Protocol Last Admin: 03/15/18 10:55 Dose: 100 mls/hr Pantoprazole Sodium (Protonix Iv) 40 mg IVPUSH BID [facility] Last Admin: 03/15/18 10:56 Dose: 40 mg Polyethylene Glycol (Miralax (For Daily Use) -) 17 gm PO DAILY [facility] Last Admin: 03/15/18 11:00 Dose: 17 gm Senna/Docusate Sodium (Pericolace -) 1 tablet PO BID [facility] Last Admin: 03/15/18 10:56 Dose: 1 tablet - Objective Vital Signs: Vital Signs Temperature 98.2 F 03/15/18 14:27 Pulse Rate 101 H 03/15/18 14:27 Respiratory Rate 20 03/15/18 14:27 Blood Pressure 130/71 03/15/18 14:27 O2 Sat by Pulse Oximetry (%) 95 03/14/18 21:00 Constitutional: Yes: Calm, Thin Eyes: Yes: WNL HENT: Yes: WNL Neck: Yes: WNL Cardiovascular: Yes: Regular Rate and Rhythm, S1, S2 Respiratory: Yes: Diminished Gastrointestinal: Yes: Normal Bowel Sounds, Soft Extremities: Yes: WNL Edema: No Labs: CBC, BMP 03/15/18 12:30 03/15/18 06:00 INR, PTT INR 1.42 (0.82-1.09) H 03/15/18 06:00 Assessment/Plan Problem List - Problems (1) Smoker Code(s): F17.200 - NICOTINE DEPENDENCE, UNSPECIFIED, UNCOMPLICATED (2) Previous myocardial infarction older than 8 weeks Code(s): I25.2 - OLD MYOCARDIAL INFARCTION (3) Lung mass Code(s): R91.8 - OTHER NONSPECIFIC ABNORMAL FINDING OF LUNG FIELD (4) HTN (hypertension) Code(s): I10 - ESSENTIAL (PRIMARY) HYPERTENSION (5) Hyperlipidemia Code(s): E78.5 - HYPERLIPIDEMIA, UNSPECIFIED Assessment/Plan ABX Per ID: (?) Post-obstructive PNA IR biopsy on hold for at least 7 days as the patient was on ASA O2 as needed BD TX PRN PFTs after discharge DR CLARK
[2018-03-15] MEDS: ACETAMINOPHEN 325 MG TABLET (FP) PO PRN (17:00)
[2018-03-15] MEDS: SODIUM CHLORIDE 1,000 ML IV SCH (17:08)
[2018-03-15] MEDS: ATORVASTATIN CA 40 MG TABLET (FP) PO SCH (22:37)
[2018-03-16] MEDS ORDERED: PIPERACILLIN/TAZOBACTAM 3.375 GM VIAL IVPB ONE ×3 (01:07→16:36)
[2018-03-16] MEDS ORDERED: DEXTROSE 5%-WATER - 50 ML IVPB ONE ×3 (01:07→16:37)
[2018-03-16] MEDS: PIPERACILLIN/TAZOB 3.375 GM 3.375 GM in DEXTROSE 5%-WATER - 50 ML IVPB SCH ×3 (01:41→17:33)
[2018-03-16] MEDS: HEPARIN NA (PORCINE) 5,000 UNITS/ML 1ML VIAL SQ SCH ×3 (06:19→21:32)
[2018-03-16] MEDS: hydrALAZINE HCL 10 MG TABLET PO SCH ×3 (06:21→21:32)
[2018-03-16 08:22] LABS: BASO % 0.8 % (0-2.0); EOS % 0.1 % (0-4.5); HEMATOCRIT 24.3 % (35.4-49); HEMOGLOBIN 8.1 GM/dL (11.7-16.9); LYMPH % 13.1 % (8-40); MCH 25.8 pg (25.7-33.7); MCHC 33.4 g/dl (32.0-35.9); MEAN CELL VOLUME 77.5 fl (80-96); MEAN PLT VOLUME 7.2 fl (7.5-11.1); MONO % 15.6 % (3.8-10.2); NEUT % 70.4 % (42.8-82.8); PLATELET COUNT 357 K/MM3 (134-434); RBC 3.14 M/mm3 (4.00-5.60); RDW 22.8 % (11.9-15.9); WHITE BLOOD COUNT 11.2 K/mm3 (4.0-10.0)
[2018-03-16 08:34] LABS: INR 1.41 (0.82-1.09); PROTHROMBIN TIME (PATIENT) 15.9 SEC (9.7-13.0)
[2018-03-16 08:43] LABS: ALBUMIN 1.3 g/dl (3.4-5.0); ANION GAP 6 (8-16); BLOOD UREA NITROGEN 13 mg/dL (7-18); CALCIUM 8.2 mg/dL (8.5-10.1); CHLORIDE 98 mmol/L (98-107); CO2 32 mmol/L (21-32); CREATININE 0.4 mg/dL (0.7-1.3); GLUCOSE,RANDOM 95 mg/dL (74-106); MAGNESIUM 1.9 mg/dL (1.8-2.4); PHOSPHOROUS 3.1 mg/dL (2.5-4.9); POTASSIUM 3.9 mmol/L (3.5-5.1); SGOT/AST 10 U/L (15-37); SGPT/ALT 8 U/L (12-78); SODIUM 136 mmol/L (136-145)
[2018-03-16 08:45] LABS: ALK PHOS 100 U/L (45-117); BILIRUBIN,TOTAL 0.4 mg/dL (0.2-1.0); TOT PROT 6.1 g/dl (6.4-8.2)
--- NOTE | 2018-03-16 08:48 | PN ---
Progress Note (short form) - Note Progress Note: ID Comfortable Getting Zosyn day 3 Still febrile no change with antibiotic Selected Entries 03/15/18 03/16/18 17:15 06:00 Temperature 102.8 F H 99.7 F H Pulse Rate 116 H 108 H Respiratory 20 20 Rate Blood Pressure 147/74 121/62 Microbiology 03/13/18 19:56 Nares - Mrsa Screen - Left MRSA Screen - Final NO MRSA ISOLATED 03/13/18 19:50 Urine For Antigen Detection Legionella Antigen - Final 03/13/18 19:50 Urine For Antigen Detection Streptococcus pneumoniae Antigen (M - Final 03/13/18 03:25 Urine - Urine Clean Catch Urine Culture - Final NO GROWTH OBTAINED 03/12/18 08:28 Urine - Urine Clean Catch Urine Culture - Final 03/13/18 00:01 Blood - Peripheral Venous Blood Culture - Preliminary NO GROWTH OBTAINED AFTER 72 HOURS, INCUBATION TO CONTINUE FOR 2 DAYS. 03/13/18 00:01 Blood - Peripheral Venous Blood Culture - Preliminary NO GROWTH OBTAINED AFTER 72 HOURS, INCUBATION TO CONTINUE FOR 2 DAYS. Laboratory Tests 03/16/18 07:00 WBC 11.2 H Hgb 8.1 L Plt Count 357 Assessment Large lung mass neoplasm with fever probably secondary to lung tumor itself and or post obstructive Plan IF remains febrile over next 24 hours would stop antibiotic while we await a lung biopsy Suzanne GUPTA
[2018-03-16] MEDS: PANTOPRAZOLE SODIUM 40 MG VIAL IVPUSH SCH ×2 (09:47→21:36)
[2018-03-16] MEDS: DOCUSATE SODIUM 100 MG CAPSULE (FP) PO SCH (09:49)
[2018-03-16] MEDS: FERROUS SO4 325 MG TABLET (FP) PO SCH (09:49)
[2018-03-16] MEDS: amLODIPine BESYLATE 5 MG TABLET (FP) PO SCH (09:49)
[2018-03-16] MEDS: SENNOSIDES/DOCUSATE COMBO (SENNA PLUS) TABLET (UD) PO SCH ×2 (09:49→21:35)
[2018-03-16] MEDS: POLYETHYLENE GLYCOL 3350 119 GM BTL PO SCH (09:50)
--- NOTE | 2018-03-16 11:10 | PN ---
Progress Note (short form) - Note Progress Note: Reports feeling ok. Some dry cough. No hemoptysis. Afebrile. Denies CP. Intake & Output 03/13/18 03/14/18 03/15/18 03/16/18 23:59 23:59 23:59 23:59 Intake Total 2337 1737 1574 670 Output Total 575 400 100 Balance 1762 1337 1474 670 Last Vital Signs Temp Pulse Resp BP Pulse Ox 99.7 F H 108 H 20 121/62 97 03/16/18 06:00 03/16/18 06:00 03/16/18 06:00 03/16/18 06:00 03/15/18 21:00 Active Medications Acetaminophen (Tylenol -) 650 mg PO Q4H PRN PRN Reason: FEVER Last Admin: 03/15/18 17:00 Dose: 650 mg Amlodipine Besylate (Norvasc -) 5 mg PO DAILY [facility] Last Admin: 03/16/18 09:49 Dose: 5 mg Atorvastatin Calcium (Lipitor -) 40 mg PO HS [facility] Last Admin: 03/15/18 22:37 Dose: 40 mg Docusate Sodium (Colace -) 100 mg PO DAILY [facility] Last Admin: 03/16/18 09:49 Dose: 100 mg Ferrous Sulfate (Feosol -) 325 mg PO DAILY [facility] Last Admin: 03/16/18 09:49 Dose: 325 mg Heparin Sodium (Porcine) (Heparin -) 5,000 unit SQ TID [facility] Last Admin: 03/16/18 06:19 Dose: 5,000 unit Hydralazine HCl (Apresoline -) 10 mg PO TID [facility] Last Admin: 03/16/18 06:21 Dose: 10 mg Piperacillin Sod/Tazobactam (Sod 3.375 gm/ Dextrose) 50 mls @ 100 mls/hr IVPB Q8H-IV [facility]; Protocol Last Admin: 03/16/18 09:47 Dose: 100 mls/hr Sodium Chloride (Normal Saline -) 1,000 mls @ 42 mls/hr IV ASDIR [facility] Last Admin: 03/15/18 17:08 Dose: 42 mls/hr Pantoprazole Sodium (Protonix Iv) 40 mg IVPUSH BID [facility] Last Admin: 03/16/18 09:47 Dose: 40 mg Polyethylene Glycol (Miralax (For Daily Use) -) 17 gm PO DAILY [facility] Last Admin: 03/16/18 09:50 Dose: 17 gm Senna/Docusate Sodium (Pericolace -) 1 tablet PO BID [facility] Last Admin: 03/16/18 09:49 Dose: 1 tablet Constitutional: Yes: Thin, NAD Eyes: Yes: Conjunctiva Clear, EOM Intact HENT: Yes: Atraumatic, Normocephalic Neck: Yes: Supple, Trachea Midline Cardiovascular: Yes: Regular Rate and Rhythm Respiratory: Yes: Clear, Cough. No: Accessory Muscle Use, Rales, Rhonchi, Stridor, Tachypnea, Wheezes ...Inspection: Yes: WNL ...Clubbing: No Gastrointestinal: Yes: Normal Bowel Sounds, Soft Renal/: Yes: WNL Breast(s): Yes: WNL Musculoskeletal: Yes: WNL Extremities: Yes: WNL Edema: No Peripheral Pulses WNL: Yes Integumentary: Yes: WNL Neurological: Yes: WNL, Alert, Oriented ...Motor Strength: WNL Psychiatric: Yes: WNL, Alert, Oriented Labs: Laboratory Results - last 24 hr 03/14/18 03/15/18 03/16/18 07:30 12:30 07:00 WBC 10.9 H 11.2 H RBC 3.55 L 3.14 L Hgb 9.2 L 8.1 L Hct 27.7 L 24.3 L MCV 77.8 L 77.5 L MCH 25.8 25.8 MCHC 33.1 33.4 RDW 22.4 H 22.8 H Plt Count 356 357 MPV 6.9 L 7.2 L Absolute Neuts (auto) 8.8 7.9 Neutrophils % 80.4 70.4 Lymphocytes % 6.0 L D 13.1 D Monocytes % 13.2 H 15.6 H Eosinophils % 0.1 0.1 Basophils % 0.3 0.8 Nucleated RBC % 0 0 PT with INR INR Sodium Potassium Chloride Carbon Dioxide Anion Gap BUN Creatinine Creat Clearance w eGFR Random Glucose Calcium Phosphorus Magnesium Total Bilirubin AST ALT Alkaline Phosphatase Total Protein Albumin Hep C Ab Diagnostic <0.1 Liver Fibrosis Interp 03/16/18 03/16/18 07:00 07:00 WBC RBC Hgb Hct MCV MCH MCHC RDW Plt Count MPV Absolute Neuts (auto) Neutrophils % Lymphocytes % Monocytes % Eosinophils % Basophils % Nucleated RBC % PT with INR 15.90 H INR 1.41 H Sodium 136 Potassium 3.9 Chloride 98 Carbon Dioxide 32 Anion Gap 6 L BUN 13 Creatinine 0.4 L Creat Clearance w eGFR > 60 Random Glucose 95 Calcium 8.2 L Phosphorus 3.1 D Magnesium 1.9 Total Bilirubin 0.4 AST 10 L D ALT 8 L Alkaline Phosphatase 100 Total Protein 6.1 L Albumin 1.3 L Hep C Ab Diagnostic Liver Fibrosis Inter Problem List - Problems (1) Smoker Code(s): F17.200 - NICOTINE DEPENDENCE, UNSPECIFIED, UNCOMPLICATED (2) Previous myocardial infarction older than 8 weeks Code(s): I25.2 - OLD MYOCARDIAL INFARCTION (3) Lung mass Code(s): R91.8 - OTHER NONSPECIFIC ABNORMAL FINDING OF LUNG FIELD (4) HTN (hypertension) Code(s): I10 - ESSENTIAL (PRIMARY) HYPERTENSION (5) Hyperlipidemia Code(s): E78.5 - HYPERLIPIDEMIA, UNSPECIFIED Assessment/Plan ABX Per ID: (?) Post-obstructive PNA IR biopsy on hold for at least 7 days as the patient was on ASA O2 as needed BD TX PRN PFTs after discharge Dr Wiley Problem List - Problems (1) Smoker Code(s): F17.200 - NICOTINE DEPENDENCE, UNSPECIFIED, UNCOMPLICATED (2) Previous myocardial infarction older than 8 weeks Code(s): I25.2 - OLD MYOCARDIAL INFARCTION (3) Lung mass Code(s): R91.8 - OTHER NONSPECIFIC ABNORMAL FINDING OF LUNG FIELD (4) HTN (hypertension) Code(s): I10 - ESSENTIAL (PRIMARY) HYPERTENSION (5) Hyperlipidemia Code(s): E78.5 - HYPERLIPIDEMIA, UNSPECIFIED
--- NOTE | 2018-03-16 13:17 | PN ---
Teaching Attending Note Name of Resident: Minna Bernard ATTENDING PHYSICIAN STATEMENT I saw and evaluated the patient. I reviewed the resident's note and discussed the case with the resident. I agree with the resident's findings and plan as documented. SUBJECTIVE:c/o generalized weakness. ate poorly for lunch and dinner the past 2 days but eats breakfast ok. no repeat episodes of hemoptysis. denies Cp, SOB, fever, chills, N/V/C/D OBJECTIVE: Last Vital Signs Temp Pulse Resp BP Pulse Ox 98.4 F 108 H 20 114/59 95 03/16/18 10:00 03/16/18 10:00 03/16/18 10:00 03/16/18 10:03/16/18 09:00 General NAD, bitemporal wasting, +prominent clavicles CV S1 S2 RRR no murmur/rub/gallop Lungs CTA B/L no wheezing/rales/rhonchi abdomen soft NT/ND Extremities no pedal edema ASSESSMENT AND PLAN: 77 yo M with prior history of CAD, heavy smoker, recently reportedly diagnosed lung mass/anemia requiring transfusions, admitted with failure to thrive, found with anemia, ISABELLA lung mass 1. sepsis due to suspected post-obstructive PNA- Tm 102.8. mild leukocytosis. all cx negative at this time. possible fevers due to inflammatory effect or tumor burden and not abx itself. will d/w ID. cont with zosyn. 2. hemopytsis- likely due to pulmonary mass however can also be mucosal irritation from frequent coughing. no repeat episodes. 3. Anemia, suspect multifactorial, Iron deficiency, poor nutritional status,r/o occult bleed- total of 3 units PRBC this hospitalization. cont to monitor. no indication for transfusion. on iron supplementation 4. 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 received loading dose of ASA on tuesday. as per IR recommendations will need to be off asa for 7 days for bx. agreeable to perform on 03/20 if pt remains hospitalized till then 5. Elevated INR, suspect nutritional- s/p vit K given x3. INR stable. 6. Severe Malnutrition- as evident by body habitus and reported 40lb weight loss. agreeable to starting appetite stimulant. will start and titrate up as needed. encourage po intake. encourage for family to bring in food from home. ensure shakes. 7. constipation- resolved. +BM last night. cont stool softeners prn 8. dysphagia- on chopped diet with thin liquids. tolerating well 9. DVT ppx- hep sq 10. PT eval. may benefit from BRENDON prior to discharge.
[2018-03-16] MEDS: ACETAMINOPHEN 325 MG TABLET (FP) PO PRN (14:06)
[2018-03-16] MEDS: MEGESTROL ACETATE 400 MG/10 ML UNIT DOSE CUP PO SCH (15:10)
--- NOTE | 2018-03-16 16:09 | PN ---
Progress Note, MACHINE INSTALLER - Note Progress Note: Selected Entries 03/14/18 03/14/18 03/14/18 02:00 06:00 10:22 Breakfast 75% Lunch Supper Temperature 98.0 F 100.2 F H 03/14/18 03/14/18 03/14/18 14:01 18:33 20:25 Breakfast Lunch Supper 25% Temperature 100.4 F H 99 F 101.5 F H 03/14/18 03/15/18 03/15/18 21:55 00:25 01:51 Breakfast Lunch Supper Temperature 102.4 F H 99.2 F 98.6 F 03/15/18 03/15/18 03/15/18 05:39 09:54 14:27 Breakfast 100% Lunch 0 Supper Temperature 98.7 F 98.2 F 03/15/18 03/15/18 03/16/18 17:15 22:00 01:26 Breakfast Lunch Supper Temperature 102.8 F H 98.8 F 99.9 F H 03/16/18 03/16/18 03/16/18 06:00 10:00 11:07 Breakfast 75% Lunch Supper Temperature 99.7 F H 98.4 F 03/16/18 14:35 Breakfast Lunch 0 Supper Temperature Laboratory Tests 03/14/18 03/15/18 03/16/18 07:30 06:00 07:00 WBC 11.6 H 10.3 H 11.2 H Chopped diet/ thin liquid. Encourage supplements, as tolerated.
--- NOTE | 2018-03-16 18:44 | CON.PSL ---
Psychology Consult Consult Specialty:: Clinical Psychology History Provided By: Patient Limitations to Obtaining History: No Limitations Current Medications: Active Medications Acetaminophen (Tylenol -) 650 mg PO Q4H PRN PRN Reason: FEVER Last Admin: 03/16/18 14:06 Dose: 650 mg Amlodipine Besylate (Norvasc -) 5 mg PO DAILY [facility] Last Admin: 03/16/18 09:49 Dose: 5 mg Atorvastatin Calcium (Lipitor -) 40 mg PO HS [facility] Last Admin: 03/15/18 22:37 Dose: 40 mg Docusate Sodium (Colace -) 100 mg PO DAILY [facility] Last Admin: 03/16/18 09:49 Dose: 100 mg Ferrous Sulfate (Feosol -) 325 mg PO DAILY [facility] [place] Last Admin: 03/16/18 09:49 Dose: 325 mg Heparin Sodium (Porcine) (Heparin -) 5,000 unit SQ TID [facility] [place] Last Admin: 03/16/18 13:36 Dose: 5,000 unit Hydralazine HCl (Apresoline -) 10 mg PO TID [facility] [place] Last Admin: 03/16/18 13:36 Dose: 10 mg Piperacillin Sod/Tazobactam (Sod 3.375 gm/ Dextrose) 50 mls @ 100 mls/hr IVPB Q8H-IV [facility]; Protocol Last Admin: 03/16/18 17:33 Dose: 100 mls/hr Sodium Chloride (Normal Saline -) 1,000 mls @ 42 mls/hr IV ASDIR [facility] [place] Last Admin: 03/15/18 17:08 Dose: 42 mls/hr Megestrol Acetate (Megace Oral Suspension -) 400 mg PO DAILY [facility] Last Admin: 03/16/18 15:10 Dose: 400 mg Pantoprazole Sodium (Protonix Iv) 40 mg IVPUSH BID [facility] [place] Last Admin: 03/16/18 09:47 Dose: 40 mg Polyethylene Glycol (Miralax (For Daily Use) -) 17 gm PO DAILY [facility] [place] Last Admin: 03/16/18 09:50 Dose: 17 gm Senna/Docusate Sodium (Pericolace -) 1 tablet PO BID [facility] [place] Last Admin: 03/16/18 09:49 Dose: 1 tablet Allergies: Allergies Allergy/AdvReac Type Severity Reaction Status Date / Time No Known Allergies Allergy Verified 03/11/18 13:11 Does patient have pain?: No Hx Alcohol Use: No Hx Substance Use: No Hx Substance Use Treatment: No Current Medical Exam-Psy Orientation: Time, Person, Place Immediate Term Memory: 11/05 Expressive: Coherent Receptive: Age Appropriate Comprehension of Spoken Words Hallucinations: Absent Thought Process: Intact Depression: Moderate Hopelessness: Yes (Patient does not feel he can regain his health.) Loss of Interest: No Danger to Self and Others: No (He denies anxiety.) Appetite: Poor Serial Sevens Intact: Yes Repeats 3 words told earlier: 2/3 Support System: Significant Other Leisure activities: Listen to music (He enjoys going to the park as well as fishing.) Problem List - Problem (1) Depression determined by examination Code(s): F32.9 - MAJOR DEPRESSIVE DISORDER, SINGLE EPISODE, UNSPECIFIED Assessment/Plan The patient will be seen next week for a follow-up. He was advised to think about the enjoyable experiences he had with his as well as by himself after she passed. We also explored other ways to become more optimistic about his future health price. The patient was grateful for the visit. Thank you for the kind referral.
--- NOTE | 2018-03-16 18:45 | PN ---
Physical Exam: SUBJECTIVE: Patient seen and examined at bedside. No repeated hemoptysis. Denies fevers, chills, chest pain, SOB, nausea, vomiting, diarrhea, constipation. OBJECTIVE: Vital Signs Period Temp Pulse Resp BP Sys/Harper Pulse Ox Last 24 Hr 98.4 F-99.9 F 104-108 20-20 114-124/59-66 95-97 GENERAL: The patient is awake, alert, and fully oriented, in no acute distress. LUNGS: Clear to auscultation bilaterally, no wheezes, no crackles HEART: Tachycardic, S1, S2 without murmur, rub or gallop. ABDOMEN: Soft, nontender, nondistended, normoactive bowel sounds Laboratory Results - last 24 hr 03/13/18 03/14/18 03/14/18 07:30 07:30 08:15 WBC RBC Hgb Hct MCV MCH MCHC RDW Plt Count MPV Absolute Neuts (auto) Neutrophils % Lymphocytes % Monocytes % Eosinophils % Basophils % Nucleated RBC % PT with INR INR Sodium Potassium Chloride Carbon Dioxide Anion Gap BUN Creatinine Creat Clearance w eGFR Random Glucose Calcium Phosphorus Magnesium Total Bilirubin AST ALT Alkaline Phosphatase Total Protein Total Protein (PEP) 6.4 Albumin Albumin (PEP) 1.6 L Globulin 4.8 H Albumin/Globulin Ratio 0.3 L Beta Globulins 1.2 KEVIN M-Hema Not observed Hep C Ab Diagnostic <0.1 Liver Fibrosis Interp TB Test (QFT) Negative 03/16/18 03/16/18 03/16/18 07:00 07:00 07:00 WBC 11.2 H RBC 3.14 L Hgb 8.1 L Hct 24.3 L MCV 77.5 L MCH 25.8 MCHC 33.4 RDW 22.8 H Plt Count 357 MPV 7.2 L Absolute Neuts (auto) 7.9 Neutrophils % 70.4 Lymphocytes % 13.1 D Monocytes % 15.6 H Eosinophils % 0.1 Basophils % 0.8 Nucleated RBC % 0 PT with INR 15.90 H INR 1.41 H Sodium 136 Potassium 3.9 Chloride 98 Carbon Dioxide 32 Anion Gap 6 L BUN 13 Creatinine 0.4 L Creat Clearance w eGFR > 60 Random Glucose 95 Calcium 8.2 L Phosphorus 3.1 D Magnesium 1.9 Total Bilirubin 0.4 AST 10 L D ALT 8 L Alkaline Phosphatase 100 Total Protein 6.1 L Total Protein (PEP) Albumin 1.3 L Albumin (PEP) Globulin Albumin/Globulin Ratio Beta Globulins KEVIN M-Hema Hep C Ab Diagnostic Liver Fibrosis Interp TB Test (QFT) Microbiology 03/13/18 00:01 Blood - Peripheral Venous Blood Culture - Preliminary NO GROWTH OBTAINED AFTER 72 HOURS, INCUBATION TO CONTINUE FOR 2 DAYS. 03/13/18 00:01 Blood - Peripheral Venous Blood Culture - Preliminary NO GROWTH OBTAINED AFTER 72 HOURS, INCUBATION TO CONTINUE FOR 2 DAYS. 03/13/18 19:56 Nares - Mrsa Screen - Left MRSA Screen - Final NO MRSA ISOLATED 03/13/18 19:50 Urine For Antigen Detection Legionella Antigen - Final 03/13/18 19:50 Urine For Antigen Detection Streptococcus pneumoniae Antigen (M - Final 03/13/18 03:25 Urine - Urine Clean Catch Urine Culture - Final NO GROWTH OBTAINED 03/12/18 08:28 Urine - Urine Clean Catch Urine Culture - Final Active Medications Acetaminophen (Tylenol -) 650 mg PO Q4H PRN PRN Reason: FEVER Last Admin: 03/16/18 14:06 Dose: 650 mg Amlodipine Besylate (Norvasc -) 5 mg PO DAILY [facility] Last Admin: 03/16/18 09:49 Dose: 5 mg Atorvastatin Calcium (Lipitor -) 40 mg PO HS [facility] Last Admin: 03/15/18 22:37 Dose: 40 mg Docusate Sodium (Colace -) 100 mg PO DAILY [facility] Last Admin: 03/16/18 09:49 Dose: 100 mg Ferrous Sulfate (Feosol -) 325 mg PO DAILY [facility] Last Admin: 03/16/18 09:49 Dose: 325 mg Heparin Sodium (Porcine) (Heparin -) 5,000 unit SQ TID [facility] Last Admin: 03/16/18 13:36 Dose: 5,000 unit Hydralazine HCl (Apresoline -) 10 mg PO TID [facility] Last Admin: 03/16/18 13:36 Dose: 10 mg Piperacillin Sod/Tazobactam (Sod 3.375 gm/ Dextrose) 50 mls @ 100 mls/hr IVPB Q8H-IV [facility]; Protocol Last Admin: 03/16/18 17:33 Dose: 100 mls/hr Sodium Chloride (Normal Saline -) 1,000 mls @ 42 mls/hr IV ASDIR [facility] Last Admin: 03/15/18 17:08 Dose: 42 mls/hr Megestrol Acetate (Megace Oral Suspension -) 400 mg PO DAILY [facility] Last Admin: 03/16/18 15:10 Dose: 400 mg Pantoprazole Sodium (Protonix Iv) 40 mg IVPUSH BID [facility] Last Admin: 03/16/18 09:47 Dose: 40 mg Polyethylene Glycol (Miralax (For Daily Use) -) 17 gm PO DAILY [facility] Last Admin: 03/16/18 09:50 Dose: 17 gm Senna/Docusate Sodium (Pericolace -) 1 tablet PO BID [facility] Last Admin: 03/16/18 09:49 Dose: 1 tablet ASSESSMENT/PLAN: 77 y/o male with prior history of CAD, heavy smoker, recently reportedly diagnosed lung mass, anemia requiring transfusions, admitted with Severe protein -calorie malnutrition now with hemoptysis 1. Sepsis Likely due to post obstrutive PNA - Temp reached 99.9 - Blood cultures pending - UA Negative - CXR: Left parahilar, left upper lung mass. No pleural effusion, or pneumothorax is seen. No evidence of a pulmonary consolidations. - HCV screen - HIV negative - Pulmonary consult, appreciate rec's - ID consult, appreciate rec's - Continue IV Zosyn - Continue Tylenol - MRSA Nares screen: Negative - WBC 11.2 2. Hemopytsis - Likely due to pulmonary mass, consider irritation from frequent coughing - 1 Unit pRBC transfused (03/15) - Hgb 8.1, Hct 24.3 - No repeat episodes 3. Symptomatic anemia - Weakness and tachycardia - Iron studies noted - S/P 2 unit transfused, 3 doses of Vitamin K - S/P 1 Unit pRBC transfused (03/15) - Repeat Hgb 9.2, Hct 27.7 - Continue to monitor 4. Severe protein calorie malnutrition - In the setting of likely malignant lung mass with with weight loss - Failure to thrive, requiring nutritional support - BMI: 17.1, Weight loss >7.5% in 3 months - RF: Possible lung malignancy, Dementia, difficulty swallowing/chewing - Speech and swallow Recomendations: Consider dysphagia chopped diet with thin liquid. - Started on Megace Oral Suspension 400 mg PO DAILY 5. 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 Constipation - Continue with Miralax 17 gm PO DAILY [facility] - Continue with Senna/Docusate Sodium 1 tablet PO BID [facility] - Continue with Colace 100 mg PO DAILY [facility] 6. HTN - Continue with Norvasc 5 mg PO DAILY [facility] - Continue with Hydralazine HCl 10 mg PO TID [facility] 7. HLD - Continue with Atorvastatin Calcium 40 mg PO HS [facility] 8. dvt ppx - heparin Visit type - Emergency Visit Emergency Visit: Yes ED Registration Date: 03/11/18 Care time: The patient presented to the Emergency Department on the above date and was hospitalized for further evaluation of their emergent condition. - New Patient This patient is new to me today: No - Critical Care Critical Care patient: No
[2018-03-16] MEDS: SODIUM CHLORIDE 1,000 ML IV SCH (21:32)
[2018-03-16] MEDS: ATORVASTATIN CA 40 MG TABLET (FP) PO SCH (21:34)
--- NOTE | 2018-03-16 21:52 | PN ---
Progress Note (short form) - Note Progress Note: Patient seen and examined No repeated hemoptysis. Denies fevers, chills, chest pain, SOB, nausea, vomiting, diarrhea, constipation. OBJECTIVE: Vital Signs Period Temp Pulse Resp BP Sys/Harper Pulse Ox Last 24 Hr 98.4 F-99.9 F 104-108 20-20 114-124/59-66 95-97 GENERAL: The patient is awake, alert, and fully oriented, in no acute distress. LUNGS: Clear to auscultation bilaterally, anteriorly HEART: Tachycardic, S1, S2 without murmur, rub or gallop. ABDOMEN: Soft, nontender, nondistended, normoactive bowel sounds Laboratory Results - last 24 hr 03/13/18 03/14/18 03/14/18 07:30 07:30 08:15 WBC RBC Hgb Hct MCV MCH MCHC RDW Plt Count MPV Absolute Neuts (auto) Neutrophils % Lymphocytes % Monocytes % Eosinophils % Basophils % Nucleated RBC % PT with INR INR Sodium Potassium Chloride Carbon Dioxide Anion Gap BUN Creatinine Creat Clearance w eGFR Random Glucose Calcium Phosphorus Magnesium Total Bilirubin AST ALT Alkaline Phosphatase Total Protein Total Protein (PEP) 6.4 Albumin Albumin (PEP) 1.6 L Globulin 4.8 H Albumin/Globulin Ratio 0.3 L Beta Globulins 1.2 KEVIN M-Hema Not observed Hep C Ab Diagnostic <0.1 Liver Fibrosis Interp TB Test (QFT) Negative 03/16/18 03/16/18 03/16/18 07:00 07:00 07:00 WBC 11.2 H RBC 3.14 L Hgb 8.1 L Hct 24.3 L MCV 77.5 L MCH 25.8 MCHC 33.4 RDW 22.8 H Plt Count 357 MPV 7.2 L Absolute Neuts (auto) 7.9 Neutrophils % 70.4 Lymphocytes % 13.1 D Monocytes % 15.6 H Eosinophils % 0.1 Basophils % 0.8 Nucleated RBC % 0 PT with INR 15.90 H INR 1.41 H Sodium 136 Potassium 3.9 Chloride 98 Carbon Dioxide 32 Anion Gap 6 L BUN 13 Creatinine 0.4 L Creat Clearance w eGFR > 60 Random Glucose 95 Calcium 8.2 L Phosphorus 3.1 D Magnesium 1.9 Total Bilirubin 0.4 AST 10 L D ALT 8 L Alkaline Phosphatase 100 Total Protein 6.1 L Total Protein (PEP) Albumin 1.3 L Albumin (PEP) Globulin Albumin/Globulin Ratio Beta Globulins KEVIN M-Hema Hep C Ab Diagnostic Liver Fibrosis Interp TB Test (QFT) Microbiology 03/13/18 00:01 Blood - Peripheral Venous Blood Culture - Preliminary NO GROWTH OBTAINED AFTER 72 HOURS, INCUBATION TO CONTINUE FOR 2 DAYS. 03/13/18 00:01 Blood - Peripheral Venous Blood Culture - Preliminary NO GROWTH OBTAINED AFTER 72 HOURS, INCUBATION TO CONTINUE FOR 2 DAYS. 03/13/18 19:56 Nares - Mrsa Screen - Left MRSA Screen - Final NO MRSA ISOLATED 03/13/18 19:50 Urine For Antigen Detection Legionella Antigen - Final 03/13/18 19:50 Urine For Antigen Detection Streptococcus pneumoniae Antigen (M - Final 03/13/18 03:25 Urine - Urine Clean Catch Urine Culture - Final NO GROWTH OBTAINED 03/12/18 08:28 Urine - Urine Clean Catch Urine Culture - Final Active Medications Acetaminophen (Tylenol -) 650 mg PO Q4H PRN PRN Reason: FEVER Last Admin: 03/16/18 14:06 Dose: 650 mg Amlodipine Besylate (Norvasc -) 5 mg PO DAILY [facility] Last Admin: 03/16/18 09:49 Dose: 5 mg Atorvastatin Calcium (Lipitor -) 40 mg PO HS [facility] Last Admin: 03/15/18 22:37 Dose: 40 mg Docusate Sodium (Colace -) 100 mg PO DAILY [facility] Last Admin: 03/16/18 09:49 Dose: 100 mg Ferrous Sulfate (Feosol -) 325 mg PO DAILY [facility] Last Admin: 03/16/18 09:49 Dose: 325 mg Heparin Sodium (Porcine) (Heparin -) 5,000 unit SQ TID [facility] Last Admin: 03/16/18 13:36 Dose: 5,000 unit Hydralazine HCl (Apresoline -) 10 mg PO TID [facility] Last Admin: 03/16/18 13:36 Dose: 10 mg Piperacillin Sod/Tazobactam (Sod 3.375 gm/ Dextrose) 50 mls @ 100 mls/hr IVPB Q8H-IV [facility]; Protocol Last Admin: 03/16/18 17:33 Dose: 100 mls/hr Sodium Chloride (Normal Saline -) 1,000 mls @ 42 mls/hr IV ASDIR [facility] Last Admin: 03/15/18 17:08 Dose: 42 mls/hr Megestrol Acetate (Megace Oral Suspension -) 400 mg PO DAILY [facility] Last Admin: 03/16/18 15:10 Dose: 400 mg Pantoprazole Sodium (Protonix Iv) 40 mg IVPUSH BID [facility] Last Admin: 03/16/18 09:47 Dose: 40 mg Polyethylene Glycol (Miralax (For Daily Use) -) 17 gm PO DAILY [facility] Last Admin: 03/16/18 09:50 Dose: 17 gm Senna/Docusate Sodium (Pericolace -) 1 tablet PO BID [facility] Last Admin: 03/16/18 09:49 Dose: 1 tablet A/P 77 yr old male with ISABELLA mass , cachexia , significant weight loss, now presumed postobstructibe pneumonia On zosyn -all are highly suggestive of lung cancer -IR guided biopsy of the lung mass on hold as last dose of ASA was 03/12/18--plan for early next weel will check PT/PTT and dose vit. K will need to hold heparin SC will consider Rad-onc consult for post obstructive pneumonia poor performance status--- will continue discussions with family regarding overall challenging situation. PAtient with poor insight about hois condition
[2018-03-17 00:15] LABS: HBSAG SCREEN Negative (Negative); HEP A AB, IGM Negative (Negative); HEP B CORE AB, TOT Negative (Negative)
[2018-03-17] MEDS ORDERED: DEXTROSE 5%-WATER - 50 ML IVPB ONE ×3 (00:50→16:45)
[2018-03-17] MEDS ORDERED: PIPERACILLIN/TAZOBACTAM 3.375 GM VIAL IVPB ONE ×3 (00:50→16:45)
[2018-03-17] MEDS: PIPERACILLIN/TAZOB 3.375 GM 3.375 GM in DEXTROSE 5%-WATER - 50 ML IVPB SCH ×3 (01:08→18:05)
[2018-03-17] MEDS: HEPARIN NA (PORCINE) 5,000 UNITS/ML 1ML VIAL SQ SCH ×3 (06:16→23:37)
[2018-03-17] MEDS: hydrALAZINE HCL 10 MG TABLET PO SCH ×3 (06:16→23:37)
[2018-03-17 08:03] LABS: BASO % 0.5 % (0-2.0); EOS % 0.3 % (0-4.5); HEMATOCRIT 25.1 % (35.4-49); HEMOGLOBIN 8.4 GM/dL (11.7-16.9); LYMPH % 8.4 % (8-40); MCH 25.7 pg (25.7-33.7); MCHC 33.5 g/dl (32.0-35.9); MEAN CELL VOLUME 76.6 fl (80-96); MEAN PLT VOLUME 7.1 fl (7.5-11.1); MONO % 11.7 % (3.8-10.2); NEUT % 79.1 % (42.8-82.8); PLATELET COUNT 360 K/MM3 (134-434); RBC 3.28 M/mm3 (4.00-5.60); RDW 23.3 % (11.9-15.9); WHITE BLOOD COUNT 11.1 K/mm3 (4.0-10.0)
[2018-03-17 08:17] LABS: CHLORIDE 98 mmol/L (98-107); POTASSIUM 3.6 mmol/L (3.5-5.1); SODIUM 136 mmol/L (136-145)
[2018-03-17 08:30] LABS: ALBUMIN 1.2 g/dl (3.4-5.0); ALK PHOS 99 U/L (45-117); ANION GAP 9 (8-16); BILIRUBIN,TOTAL 0.3 mg/dL (0.2-1.0); BLOOD UREA NITROGEN 14 mg/dL (7-18); CALCIUM 8.1 mg/dL (8.5-10.1); CO2 29 mmol/L (21-32); CREATININE 0.5 mg/dL (0.7-1.3); GLUCOSE,RANDOM 112 mg/dL (74-106); MAGNESIUM 1.9 mg/dL (1.8-2.4); PHOSPHOROUS 3.4 mg/dL (2.5-4.9); SGOT/AST 11 U/L (15-37); SGPT/ALT 8 U/L (12-78)
[2018-03-17] MEDS: amLODIPine BESYLATE 5 MG TABLET (FP) PO SCH (09:15)
[2018-03-17] MEDS: DOCUSATE SODIUM 100 MG CAPSULE (FP) PO SCH (09:15)
[2018-03-17] MEDS: FERROUS SO4 325 MG TABLET (FP) PO SCH (09:16)
[2018-03-17] MEDS: SENNOSIDES/DOCUSATE COMBO (SENNA PLUS) TABLET (UD) PO SCH ×2 (09:16→23:38)
[2018-03-17] MEDS: PANTOPRAZOLE SODIUM 40 MG VIAL IVPUSH SCH ×2 (09:18→23:38)
[2018-03-17] MEDS: POLYETHYLENE GLYCOL 3350 119 GM BTL PO SCH (09:20)
--- NOTE | 2018-03-17 11:10 | PN ---
Progress Note (short form) - Note Progress Note: PULMONARY CHART REVIEWED VSS/AFEBRILE FRAIL/CACHEXIA ANICTERIC DIMINISHED BREATH SOUNDS S1S2 BS+ NO EDEMA LABS/MEDS/NOTES/IMAGES REVIEWED (1) Smoker Code(s): F17.200 - NICOTINE DEPENDENCE, UNSPECIFIED, UNCOMPLICATED (2) Previous myocardial infarction older than 8 weeks Code(s): I25.2 - OLD MYOCARDIAL INFARCTION (3) Lung mass Code(s): R91.8 - OTHER NONSPECIFIC ABNORMAL FINDING OF LUNG FIELD (4) HTN (hypertension) Code(s): I10 - ESSENTIAL (PRIMARY) HYPERTENSION (5) Hyperlipidemia Code(s): E78.5 - HYPERLIPIDEMIA, UNSPECIFIED Assessment/Plan ABX Per ID: (?) Post-obstructive PNA IR biopsy pending O2 as needed BD TX PRN POOR PERFORMANCE STATUS Althea DOMINGO MD
--- NOTE | 2018-03-17 12:42 | PN ---
Progress Note (short form) - Note Progress Note: Patient seen and examined Patient lying in bed in NAD Anorechtic - describes > 40 lb weight loss No chest pains or SOB No significant coughing Last Vital Signs Temp Pulse Resp BP Pulse Ox 98 F 103 H 18 128/67 98 03/17/18 08:56 03/17/18 08:56 03/17/18 08:56 03/17/18 08:56 03/17/18 09:00 HEENT: MAYDA, EOM Intact Oropharynx: No thrush, No mucositis,poor dentition Cor: RSR, No murmurs, No gallops Lungs: rhonchi and diminished breath sounds Abd: Soft, Normal bowel sounds, No organomegaly Ext:No significant edema Skin: No rashes, Integument intact CBC, BMP 03/17/18 06:30 03/17/18 06:30 FE++/TIBC------> 12/106 Albumin 1.6 Ferritin 780 Current Medications Generic Name Dose Route Start Last Admin Trade Name Freq PRN Reason Stop Dose Admin Acetaminophen 650 mg 03/12/18 22:58 03/16/18 14:06 Tylenol - PO 650 mg Q4H PRN Administration FEVER Amlodipine Besylate 5 mg 03/12/18 10:00 03/17/18 09:15 Norvasc - PO 5 mg DAILY [facility] Administration Atorvastatin Calcium 40 mg 03/11/18 22:00 03/16/18 21:34 Lipitor - PO 40 mg HS [facility] Administration Docusate Sodium 100 mg 03/13/18 10:00 03/17/18 09:15 Colace - PO 100 mg DAILY [facility] Administration Ferrous Sulfate 325 mg 03/13/18 10:00 03/17/18 09:16 Feosol - PO 325 mg DAILY [facility] Administration Heparin Sodium (Porcine) 5,000 unit 03/15/18 14:00 03/17/18 06:16 Heparin - SQ 5,000 unit TID [facility] Administration Hydralazine HCl 10 mg 03/11/18 22:00 03/17/18 06:16 Apresoline - PO 10 mg TID [facility] Administration Piperacillin Sod/Tazobactam 50 mls @ 100 mls/hr 03/13/18 10:00 03/17/18 09:16 Sod 3.375 gm/ Dextrose IVPB 100 mls/hr Q8H-IV [facility] Administration Protocol Sodium Chloride 1,000 mls @ 42 mls/hr 03/15/18 16:45 03/16/18 21:32 Normal Saline - IV Not Given ASDIR [facility] Megestrol Acetate 400 mg 03/16/18 13:30 03/16/18 15:10 Megace Oral Suspension - PO 400 mg DAILY [facility] Administration Pantoprazole Sodium 40 mg 03/14/18 23:15 03/17/18 09:18 Protonix Iv IVPUSH 40 mg BID [facility] Administration Polyethylene Glycol 17 gm 03/11/18 19:15 03/17/18 09:20 Miralax (For Daily Use) - PO 17 gm DAILY [facility] Administration Senna/Docusate Sodium 1 tablet 03/11/18 22:00 03/17/18 09:16 Pericolace - PO 1 tablet BID [facility] Administration Impression: Large ISABELLA mass ? post obstructive pneumonitis - on antibiotics ECOG--3-4 performance status Await biopsy Plan : For lung Biopsy. Assuming diagnosis of lung ca is confirmed -- Would be a candidate for RT, not with concurrent chemotherapy Clinical status post treatment and performance status will decide further management thereafter. Need to check PT/INR on 03/19,prior to biopsy.
--- NOTE | 2018-03-17 12:43 | PN ---
Teaching Attending Note Name of Resident: Minna Bernard ATTENDING PHYSICIAN STATEMENT I saw and evaluated the patient. I reviewed the resident's note and discussed the case with the resident. I agree with the resident's findings and plan as documented. SUBJECTIVE:thinks his appetite was better yesterday. denies Cp, SOB, fever, chills, N/V/C/D OBJECTIVE: Last Vital Signs Temp Pulse Resp BP Pulse Ox 98 F 103 H 18 128/67 98 03/17/18 08:56 03/17/18 08:56 03/17/18 08:56 03/17/18 08:56 03/17/18 09:00 General NAD, bitemporal wasting, +prominent clavicles CV S1 S2 RRR no murmur/rub/gallop Lungs CTA B/L no wheezing/rales/rhonchi abdomen soft NT/ND Extremities no pedal edema ASSESSMENT AND PLAN: 77 yo M with prior history of CAD, heavy smoker, recently reportedly diagnosed lung mass/anemia requiring transfusions, admitted with failure to thrive, found with anemia, ISABELLA lung mass 1. sepsis due to suspected post-obstructive PNA- Tm 101.9. leukocytosis stable. all cx negative at this time. possible fevers due to inflammatory effect or tumor burden and not abx itself. will d/w ID. cont with zosyn day 5. 2. hemopytsis- likely due to pulmonary mass however can also be mucosal irritation from frequent coughing. no repeat episodes. 3. Anemia, suspect multifactorial, Iron deficiency, poor nutritional status,r/o occult bleed- total of 3 units PRBC this hospitalization. cont to monitor. no indication for transfusion. on iron supplementation 4. 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 received loading dose of ASA on tuesday. as per IR recommendations will need to be off asa for 7 days for bx. agreeable to perform on 03/20 if pt remains hospitalized till then. oncology on board. 5. Elevated INR, suspect nutritional- s/p vit K given x3. INR stable. 6. Severe Malnutrition- as evident by body habitus and reported 40lb weight loss. agreeable to starting appetite stimulant. will start and titrate up as needed. encourage po intake. encourage for family to bring in food from home. ensure shakes. 7. constipation- resolved. cont stool softeners prn 8. dysphagia- on chopped diet with thin liquids. tolerating well 9. DVT ppx- hep sq 10. ambulated 130 ft with PT. can liekly d/c home when medically optimized
[2018-03-17] MEDS ORDERED: IRON SUCROSE INJECTION 300 MG in SODIUM CHLORIDE 235 ML IVPB ONE (13:30)
--- NOTE | 2018-03-17 14:02 | PN ---
Progress Note, MOBILE [employer]ER - Note Progress Note: Selected Entries 03/14/18 03/14/18 03/14/18 02:00 06:00 10:22 Breakfast 75% Lunch Supper Temperature 98.0 F 100.2 F H 03/14/18 03/14/18 03/14/18 14:01 18:33 20:25 Breakfast Lunch Supper 25% Temperature 100.4 F H 99 F 101.5 F H 03/14/18 03/15/18 03/15/18 21:55 00:25 01:51 Breakfast Lunch Supper Temperature 102.4 F H 99.2 F 98.6 F 03/15/18 03/15/18 03/15/18 05:39 09:54 14:27 Breakfast 100% Lunch 0 Supper Temperature 98.7 F 98.2 F 03/15/18 03/15/18 03/16/18 17:15 22:00 01:26 Breakfast Lunch Supper Temperature 102.8 F H 98.8 F 99.9 F H 03/16/18 03/16/18 03/16/18 06:00 10:00 11:07 Breakfast 75% Lunch Supper Temperature 99.7 F H 98.4 F 03/16/18 14:35 Breakfast Lunch 0 Supper Temperature Laboratory Tests 03/14/18 03/15/18 03/16/18 07:30 06:00 07:00 WBC 11.6 H 10.3 H 11.2 H Selected Entries 03/17/18 03/17/18 03/17/18 01:59 06:11 08:56 Breakfast Lunch Temperature 97.8 F 99.5 F 98 F 03/17/18 03/17/18 03/17/18 10:13 10:15 13:06 Breakfast 25% 25% Lunch 25% Temperature 99.7 F H Laboratory Tests 03/16/18 03/17/18 07:00 06:30 WBC 11.2 H 11.1 H Reports not feeling well today. Limited appetite but good tolerance. Chopped diet/ thin liquid. Encourage supplements, as tolerated. eg magic cup. ensure plus, RD f/u
[2018-03-17] MEDS: MEGESTROL ACETATE 400 MG/10 ML UNIT DOSE CUP PO SCH (15:07)
--- NOTE | 2018-03-17 16:14 | PN ---
Progress Note (short form) - Note Progress Note: no complaints temps trending down Vital Signs Period Temp Pulse Resp BP Sys/Harper Pulse Ox Last 24 Hr 97.8 F-99.7 F 102-114 18-20 127-150/61-77 97-98 cor-rrr lungs decreased bs at bases abd soft,nt ext no edema CBC, BMP 03/17/18 06:30 03/17/18 06:30 Microbiology 03/13/18 00:01 Blood - Peripheral Venous Blood Culture - Preliminary NO GROWTH OBTAINED AFTER 96 HOURS, INCUBATION TO CONTINUE FOR 1 DAYS. 03/13/18 00:01 Blood - Peripheral Venous Blood Culture - Preliminary NO GROWTH OBTAINED AFTER 96 HOURS, INCUBATION TO CONTINUE FOR 1 DAYS. 03/13/18 19:56 Nares - Mrsa Screen - Left MRSA Screen - Final NO MRSA ISOLATED 03/13/18 19:50 Urine For Antigen Detection Legionella Antigen - Final 03/13/18 19:50 Urine For Antigen Detection Streptococcus pneumoniae Antigen (M - Final 03/13/18 03:25 Urine - Urine Clean Catch Urine Culture - Final NO GROWTH OBTAINED 03/12/18 08:28 Urine - Urine Clean Catch Urine Culture - Final a/p ISABELLA mass fevers- ?pneumonitis, ?tumor day #4 zosyn, temps trending down, to continue same antibiotics anemia- multifactorial awaiting biopsy Problem List - Problems (1) Lung mass Code(s): R91.8 - OTHER NONSPECIFIC ABNORMAL FINDING OF LUNG FIELD (2) Anemia Code(s): D64.9 - ANEMIA, UNSPECIFIED
[2018-03-17] MEDS: SODIUM CHLORIDE 1,000 ML IV SCH (18:06)
[2018-03-17] MEDS: ACETAMINOPHEN 325 MG TABLET (FP) PO PRN (19:15)
--- NOTE | 2018-03-17 20:58 | PN ---
Physical Exam: SUBJECTIVE: Patient seen and examined at bedside. Feels much better and was able to tolerate 2 ensures overnight. Denies fevers, chills, chest pain, SOB, nausea, vomiting. OBJECTIVE: Vital Signs Period Temp Pulse Resp BP Sys/Harper Pulse Ox Last 24 Hr 97.8 F-100.6 F 103-116 18-20 128-150/66-75 98 GENERAL: The patient is awake, alert, and fully oriented, in no acute distress. LUNGS: CTA b/l, no wheezes, no crackles HEART: Tachycardic, S1, S2 without murmur, rub or gallop. ABDOMEN: Soft, nontender, nondistended, normoactive bowel sounds Laboratory Results - last 24 hr 03/14/18 03/17/18 03/17/18 07:30 06:30 06:30 WBC 11.1 H RBC 3.28 L Hgb 8.4 L Hct 25.1 L MCV 76.6 L MCH 25.7 MCHC 33.5 RDW 23.3 H Plt Count 360 MPV 7.1 L Absolute Neuts (auto) 8.8 Neutrophils % 79.1 Lymphocytes % 8.4 D Monocytes % 11.7 H Eosinophils % 0.3 D Basophils % 0.5 Nucleated RBC % 0 Sodium 136 Potassium 3.6 Chloride 98 Carbon Dioxide 29 Anion Gap 9 BUN 14 Creatinine 0.5 L Creat Clearance w eGFR > 60 Random Glucose 112 H Calcium 8.1 L Phosphorus 3.4 Magnesium 1.9 Total Bilirubin 0.3 AST 11 L ALT 8 L Alkaline Phosphatase 99 Total Protein 6.0 L Albumin 1.2 L Hep A IgM Ab Confirm Negative Hepatitis A Ab Total Positive H Hep Bs Antigen Negative Hep Bs Antibody Non reactive Hep B Core Total Ab Negative Microbiology 03/13/18 00:01 Blood - Peripheral Venous Blood Culture - Preliminary NO GROWTH OBTAINED AFTER 96 HOURS, INCUBATION TO CONTINUE FOR 1 DAYS. 03/13/18 00:01 Blood - Peripheral Venous Blood Culture - Preliminary NO GROWTH OBTAINED AFTER 96 HOURS, INCUBATION TO CONTINUE FOR 1 DAYS. 03/13/18 19:56 Nares - Mrsa Screen - Left MRSA Screen - Final NO MRSA ISOLATED 03/13/18 19:50 Urine For Antigen Detection Legionella Antigen - Final 03/13/18 19:50 Urine For Antigen Detection Streptococcus pneumoniae Antigen (M - Final 03/13/18 03:25 Urine - Urine Clean Catch Urine Culture - Final NO GROWTH OBTAINED 03/12/18 08:28 Urine - Urine Clean Catch Urine Culture - Final Active Medications Acetaminophen (Tylenol -) 650 mg PO Q4H PRN PRN Reason: FEVER Last Admin: 03/17/18 19:15 Dose: 650 mg Amlodipine Besylate (Norvasc -) 5 mg PO DAILY [facility] Last Admin: 03/17/18 09:15 Dose: 5 mg Atorvastatin Calcium (Lipitor -) 40 mg PO HS [facility] Last Admin: 03/16/18 21:34 Dose: 40 mg Docusate Sodium (Colace -) 100 mg PO DAILY [facility] Last Admin: 03/17/18 09:15 Dose: 100 mg Ferrous Sulfate (Feosol -) 325 mg PO DAILY [facility] Last Admin: 03/17/18 09:16 Dose: 325 mg Heparin Sodium (Porcine) (Heparin -) 5,000 unit SQ TID [facility] Last Admin: 03/17/18 15:05 Dose: 5,000 unit Hydralazine HCl (Apresoline -) 10 mg PO TID [facility] Last Admin: 03/17/18 15:06 Dose: 10 mg Piperacillin Sod/Tazobactam (Sod 3.375 gm/ Dextrose) 50 mls @ 100 mls/hr IVPB Q8H-IV [facility]; Protocol Last Admin: 03/17/18 18:05 Dose: 100 mls/hr Sodium Chloride (Normal Saline -) 1,000 mls @ 42 mls/hr IV ASDIR [facility] Last Admin: 03/17/18 18:06 Dose: 42 mls/hr Megestrol Acetate (Megace Oral Suspension -) 400 mg PO DAILY [facility] Last Admin: 03/17/18 15:07 Dose: 400 mg Pantoprazole Sodium (Protonix Iv) 40 mg IVPUSH BID [facility] Last Admin: 03/17/18 09:18 Dose: 40 mg Polyethylene Glycol (Miralax (For Daily Use) -) 17 gm PO DAILY [facility] Last Admin: 03/17/18 09:20 Dose: 17 gm Senna/Docusate Sodium (Pericolace -) 1 tablet PO BID [facility] Last Admin: 03/17/18 09:16 Dose: 1 tablet ASSESSMENT/PLAN: 77 y/o male with prior history of CAD, heavy smoker, recently reportedly diagnosed lung mass, anemia requiring transfusions, admitted with Severe protein -calorie malnutrition now with hemoptysis 1. Sepsis Likely due to post obstrutive PNA - Temp reached 100.6 - Blood cultures pending - UA Negative - CXR: Left parahilar, left upper lung mass. No pleural effusion, or pneumothorax is seen. No evidence of a pulmonary consolidations. - HCV screen - HIV negative - Pulmonary consult, appreciate rec's - ID consult, appreciate rec's - Continue IV Zosyn (Day 5) - Continue Tylenol - MRSA Nares screen: Negative - WBC 11.1 2. Depression - As per nursing, patient complained of "just want to go to sleep and " - Dr. Hernandez consulted, appreciate rec's - Patient feels better about coping strategies - Continue to monitor 3. Hemopytsis - Likely due to pulmonary mass, consider irritation from frequent coughing - 1 Unit pRBC transfused (03/15) - Hgb 8.4, Hct 25.1 - No repeat episodes 4. Symptomatic anemia - Weakness and tachycardia - Iron studies noted - S/P 2 unit transfused, 3 doses of Vitamin K - S/P 1 Unit pRBC transfused (03/15) - Continue to monitor 5. Severe protein calorie malnutrition - In the setting of likely malignant lung mass with with weight loss - Failure to thrive, requiring nutritional support - BMI: 17.1, Weight loss >7.5% in 3 months - RF: Possible lung malignancy, Dementia, difficulty swallowing/chewing - Speech and swallow Recomendations: Consider dysphagia chopped diet with thin liquid. - Continue Megace Oral Suspension 400 mg PO DAILY 6. ISABELLA mass - likely malignant, will need staging - hemonc consult - IR Biopsy pending, patient scheduled for tuesday - PFTs as an outpatient 7. Constipation - Continue with Miralax 17 gm PO DAILY [facility] - Continue with Senna/Docusate Sodium 1 tablet PO BID [facility] - Continue with Colace 100 mg PO DAILY [facility] 8. HTN - Continue with Norvasc 5 mg PO DAILY [facility] - Continue with Hydralazine HCl 10 mg PO TID [facility] 9. HLD - Continue with Atorvastatin Calcium 40 mg PO HS [facility] 10. dvt ppx - heparin Visit type - Emergency Visit Emergency Visit: Yes ED Registration Date: 03/11/18 Care time: The patient presented to the Emergency Department on the above date and was hospitalized for further evaluation of their emergent condition. - New Patient This patient is new to me today: No - Critical Care Critical Care patient: No
[2018-03-17] MEDS: ATORVASTATIN CA 40 MG TABLET (FP) PO SCH (23:38)
[2018-03-18] MEDS ORDERED: PIPERACILLIN/TAZOBACTAM 3.375 GM VIAL IVPB ONE ×3 (01:14→17:09)
[2018-03-18] MEDS ORDERED: DEXTROSE 5%-WATER - 50 ML IVPB ONE ×3 (01:15→17:10)
[2018-03-18] MEDS: PIPERACILLIN/TAZOB 3.375 GM 3.375 GM in DEXTROSE 5%-WATER - 50 ML IVPB SCH ×3 (01:25→17:14)
[2018-03-18] MEDS: hydrALAZINE HCL 10 MG TABLET PO SCH ×3 (06:00→22:03)
[2018-03-18] MEDS: HEPARIN NA (PORCINE) 5,000 UNITS/ML 1ML VIAL SQ SCH ×3 (06:00→22:00)
[2018-03-18 07:09] LABS: BASO % 0.5 % (0-2.0); EOS % 0.3 % (0-4.5); HEMOGLOBIN 7.8 GM/dL (11.7-16.9); LYMPH % 9.7 % (8-40); MEAN CELL VOLUME 76.3 fl (80-96); MEAN PLT VOLUME 7.2 fl (7.5-11.1); MONO % 14.6 % (3.8-10.2); NEUT % 74.9 % (42.8-82.8); PLATELET COUNT 348 K/MM3 (134-434); RBC 3.01 M/mm3 (4.00-5.60); RDW 23.4 % (11.9-15.9); WHITE BLOOD COUNT 10.9 K/mm3 (4.0-10.0)
[2018-03-18 07:30] LABS: ALBUMIN 1.2 g/dl (3.4-5.0); ANION GAP 9 (8-16); BLOOD UREA NITROGEN 12 mg/dL (7-18); CHLORIDE 100 mmol/L (98-107); CO2 29 mmol/L (21-32); CREATININE 0.4 mg/dL (0.7-1.3); GLUCOSE,RANDOM 86 mg/dL (74-106); MAGNESIUM 1.7 mg/dL (1.8-2.4); POTASSIUM 3.4 mmol/L (3.5-5.1); SGOT/AST 10 U/L (15-37); SGPT/ALT 8 U/L (12-78); SODIUM 138 mmol/L (136-145)
[2018-03-18 07:32] LABS: ALK PHOS 93 U/L (45-117); BILIRUBIN,TOTAL 0.3 mg/dL (0.2-1.0)
[2018-03-18 08:26] LABS: INR 1.5 (0.82-1.09)
[2018-03-18 08:28] LABS: ACTIVATED PTT 36.2 SECONDS (25.2-36.5)
[2018-03-18] MEDS ORDERED: MAGNESIUM OXIDE 400 MG TABLET (FP) PO ONE (09:15)
[2018-03-18] MEDS ORDERED: POTASSIUM CHLORIDE ORAL LIQUID 20 MEQ/15 ML PO ONE (09:15)
--- NOTE | 2018-03-18 09:15 | PN ---
Progress Note (short form) - Note Progress Note: c/o generalized fatigue. episode of hemoptysis last night. states it ws minimal and not as much as the other day. jagjit Cp, SOB, fever, chills, N/V/c/D. staets appetite remains poor Current Medications Generic Name Dose Route Start Last Admin Trade Name Freq PRN Reason Stop Dose Admin Acetaminophen 650 mg 03/12/18 22:58 03/17/18 19:15 Tylenol - PO 650 mg Q4H PRN Administration FEVER Amlodipine Besylate 5 mg 03/12/18 10:00 03/17/18 09:15 Norvasc - PO 5 mg DAILY UMESH Administration Atorvastatin Calcium 40 mg 03/11/18 22:00 03/17/18 23:38 Lipitor - PO 40 mg HS UMESH Administration Docusate Sodium 100 mg 03/13/18 10:00 03/17/18 09:15 Colace - PO 100 mg DAILY UMESH Administration Ferrous Sulfate 325 mg 03/13/18 10:00 03/17/18 09:16 Feosol - PO 325 mg DAILY UMESH Administration Heparin Sodium (Porcine) 5,000 unit 03/15/18 14:00 03/18/18 06:00 Heparin - SQ 5,000 unit TID UMESH Administration Hydralazine HCl 10 mg 03/11/18 22:00 03/18/18 06:00 Apresoline - PO 10 mg TID UMESH Administration Piperacillin Sod/Tazobactam 50 mls @ 100 mls/hr 03/13/18 10:00 03/18/18 01:25 Sod 3.375 gm/ Dextrose IVPB 100 mls/hr Q8H-IV UMESH Administration Protocol Sodium Chloride 1,000 mls @ 42 mls/hr 03/15/18 16:45 03/17/18 18:06 Normal Saline - IV 42 mls/hr ASDIR UMESH Administration Megestrol Acetate 400 mg 03/16/18 13:30 03/17/18 15:07 Megace Oral Suspension - PO 400 mg DAILY [facility] Administration Pantoprazole Sodium 40 mg 03/14/18 23:15 03/17/18 23:38 Protonix Iv IVPUSH 40 mg BID UMESH Administration Polyethylene Glycol 17 gm 03/11/18 19:15 03/17/18 09:20 Miralax (For Daily Use) - PO 17 gm DAILY UMESH Administration Senna/Docusate Sodium 1 tablet 03/11/18 22:00 03/17/18 23:38 Pericolace - PO 1 tablet BID UMESH Administration Last Vital Signs Temp Pulse Resp BP Pulse Ox 99.7 F H 105 H 18 136/75 93 L 03/18/18 06:00 03/18/18 06:00 03/18/18 06:00 03/18/18 06:00 03/17/18 21:00 General NAD, bitemporal wasting, +prominent clavicles CV S1 S2 RRR no murmur/rub/gallop Lungs CTA B/L no wheezing/rales/rhonchi abdomen soft NT/ND Extremities no pedal edema CBCD WBC 10.9 K/mm3 (4.0-10.0) H 03/18/18 06:15 RBC 3.01 M/mm3 (4.00-5.60) L 03/18/18 06:15 Hgb 7.8 GM/dL (11.7-16.9) L 03/18/18 06:15 Hct 23.0 % (35.4-49) L 03/18/18 06:15 MCV 76.3 fl (80-96) L 03/18/18 06:15 MCHC 34.0 g/dl (32.0-35.9) 03/18/18 06:15 RDW 23.4 % (11.9-15.9) H 03/18/18 06:15 Plt Count 348 K/MM3 (134-434) 03/18/18 06:15 MPV 7.2 fl (7.5-11.1) L 03/18/18 06:15 CMP Sodium 138 mmol/L (136-145) 03/18/18 06:15 Potassium 3.4 mmol/L (3.5-5.1) L 03/18/18 06:15 Chloride 100 mmol/L (98-107) 03/18/18 06:15 Carbon Dioxide 29 mmol/L (21-32) 03/18/18 06:15 Anion Gap 9 (8-16) 03/18/18 06:15 BUN 12 mg/dL (7-18) 03/18/18 06:15 Creatinine 0.4 mg/dL (0.7-1.3) L 03/18/18 06:15 Creat Clearance w eGFR > 60 (>60) 03/18/18 06:15 Calcium 8.0 mg/dL (8.5-10.1) L 03/18/18 06:15 Total Bilirubin 0.3 mg/dL (0.2-1.0) 03/18/18 06:15 AST 10 U/L (15-37) L 03/18/18 06:15 ALT 8 U/L (12-78) L 03/18/18 06:15 Alkaline Phosphatase 93 U/L (45-117) 03/18/18 06:15 Total Protein 6.0 g/dl (6.4-8.2) L 03/18/18 06:15 Albumin 1.2 g/dl (3.4-5.0) L 03/18/18 06:15 ASSESSMENT AND PLAN: 77 yo M with prior history of CAD, heavy smoker, recently reportedly diagnosed lung mass/anemia requiring transfusions, admitted with failure to thrive, found with anemia, ISABELLA lung mass 1. sepsis due to suspected post-obstructive PNA- Tm 100.6. fever curve trending down. leukocytosis stable. all cx negative at this time. possible fevers due to inflammatory effect or tumor burden and not abx itself. will d/w ID. cont with zosyn day 5. 2. hemopytsis- likely due to pulmonary mass however can also be mucosal irritation from frequent coughing. minimal hemoptysis last ngiht. will monitor 3. Anemia, suspect multifactorial, Iron deficiency, poor nutritional status,r/o occult bleed- total of 3 units PRBC this hospitalization. cont to monitor. no indication for transfusion. received venofer x1 yesterday. on iron supplementation 4. 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 received loading dose of ASA on tuesday. as per IR recommendations will need to be off asa for 7 days for bx. agreeable to perform on 03/20 if pt remains hospitalized till then. oncology on board. 5. Elevated INR, suspect nutritional- s/p vit K given x3. INR slightly elevated. will give vitamin K today in light of anticipated procedure on tuesday 6. Severe Malnutrition- as evident by body habitus and reported 40lb weight loss. started on appetite stimulant. will start and titrate up as needed. encourage po intake. encourage for family to bring in food from home. ensure shakes. 7. hypokalmeia- Kcl 8. hypomangesemia- Mg po 9. constipation- resolved. cont stool softeners prn 10. dysphagia- on chopped diet with thin liquids. tolerating well 11. DVT ppx- hep sq 12. poor functional status and poor overall prognosis. neuropsych evaluated. Visit type - Emergency Visit Emergency Visit: Yes ED Registration Date: 03/11/18 Care time: The patient presented to the Emergency Department on the above date and was hospitalized for further evaluation of their emergent condition. - New Patient This patient is new to me today: No - Critical Care Critical Care patient: No - Discharge Referral Referred to [facility] Med P.C.: No
[2018-03-18] MEDS ORDERED: PHYTONADIONE 5 MG TABLET PO ONE (10:00)
--- NOTE | 2018-03-18 10:43 | PN ---
Progress Note (short form) - Note Progress Note: PULMONARY CHART REVIEWED AWAKE/ALERT APPEARS DEPRESSED VSS/AFEBRILE FRAIL/CACHEXIA ANICTERIC DIMINISHED BREATH SOUNDS S1S2 BS+ NO EDEMA LABS/MEDS/NOTES/IMAGES REVIEWED (1) Smoker Code(s): F17.200 - NICOTINE DEPENDENCE, UNSPECIFIED, UNCOMPLICATED (2) Previous myocardial infarction older than 8 weeks Code(s): I25.2 - OLD MYOCARDIAL INFARCTION (3) Lung mass Code(s): R91.8 - OTHER NONSPECIFIC ABNORMAL FINDING OF LUNG FIELD (4) HTN (hypertension) Code(s): I10 - ESSENTIAL (PRIMARY) HYPERTENSION (5) Hyperlipidemia Code(s): E78.5 - HYPERLIPIDEMIA, UNSPECIFIED Assessment/Plan ABX Per ID IR biopsy pending O2 as needed BD TX PRN POOR PERFORMANCE STATUS Althea DOMINGO MD
[2018-03-18] MEDS: PANTOPRAZOLE SODIUM 40 MG VIAL IVPUSH SCH ×2 (11:01→22:03)
[2018-03-18] MEDS: amLODIPine BESYLATE 5 MG TABLET (FP) PO SCH (11:01)
[2018-03-18] MEDS: SENNOSIDES/DOCUSATE COMBO (SENNA PLUS) TABLET (UD) PO SCH ×2 (11:02→22:03)
[2018-03-18] MEDS: POLYETHYLENE GLYCOL 3350 119 GM BTL PO SCH (11:02)
[2018-03-18] MEDS: DOCUSATE SODIUM 100 MG CAPSULE (FP) PO SCH (11:02)
[2018-03-18] MEDS: FERROUS SO4 325 MG TABLET (FP) PO SCH (11:02)
[2018-03-18] MEDS ORDERED: PT OWN MED DRAWER 7, Y5N ONE ×3 (11:04→16:37)
[2018-03-18] MEDS: MEGESTROL ACETATE 400 MG/10 ML UNIT DOSE CUP PO SCH (15:39)
[2018-03-18] MEDS: ATORVASTATIN CA 40 MG TABLET (FP) PO SCH (22:03)
[2018-03-18] MEDS: ACETAMINOPHEN 325 MG TABLET (FP) PO PRN (22:04)
[2018-03-19] MEDS ORDERED: DEXTROSE 5%-WATER - 50 ML IVPB ONE ×3 (01:15→17:11)
[2018-03-19] MEDS ORDERED: PIPERACILLIN/TAZOBACTAM 3.375 GM VIAL IVPB ONE ×3 (01:15→17:10)
[2018-03-19] MEDS: PIPERACILLIN/TAZOB 3.375 GM 3.375 GM in DEXTROSE 5%-WATER - 50 ML IVPB SCH ×3 (01:32→17:43)
[2018-03-19] MEDS: SODIUM CHLORIDE 1,000 ML IV SCH ×2 (02:03→17:44)
[2018-03-19] MEDS: HEPARIN NA (PORCINE) 5,000 UNITS/ML 1ML VIAL SQ SCH ×2 (05:59→14:24)
[2018-03-19] MEDS: hydrALAZINE HCL 10 MG TABLET PO SCH ×3 (06:02→21:38)
[2018-03-19 07:30] LABS: HEMATOCRIT 22.8 % (35.4-49); HEMOGLOBIN 7.5 GM/dL (11.7-16.9); MCH 25.4 pg (25.7-33.7); MEAN CELL VOLUME 77.1 fl (80-96); MEAN PLT VOLUME 7.4 fl (7.5-11.1); PLATELET COUNT 339 K/MM3 (134-434); RBC 2.96 M/mm3 (4.00-5.60); RDW 23.2 % (11.9-15.9); WHITE BLOOD COUNT 11.5 K/mm3 (4.0-10.0)
[2018-03-19 07:36] LABS: INR 1.55 (0.82-1.09); PROTHROMBIN TIME (PATIENT) 17.5 SEC (9.7-13.0)
[2018-03-19 07:59] LABS: ANION GAP 8 (8-16); BLOOD UREA NITROGEN 14 mg/dL (7-18); CHLORIDE 104 mmol/L (98-107); CO2 28 mmol/L (21-32); CREATININE 0.5 mg/dL (0.7-1.3); GLUCOSE,RANDOM 76 mg/dL (74-106); MAGNESIUM 1.8 mg/dL (1.8-2.4); PHOSPHOROUS 3.3 mg/dL (2.5-4.9); POTASSIUM 3.9 mmol/L (3.5-5.1); SODIUM 140 mmol/L (136-145)
--- NOTE | 2018-03-19 09:51 | PN ---
Progress Note (short form) - Note Progress Note: PULMONARY CHART REVIEWED AWAKE/ALERT APPEARS DEPRESSED REFUSING TO GET OUT OF BED VSS/AFEBRILE FRAIL/CACHEXIA ANICTERIC DIMINISHED BREATH SOUNDS S1S2 BS+ NO EDEMA LABS/MEDS/NOTES/IMAGES REVIEWED (1) Smoker Code(s): F17.200 - NICOTINE DEPENDENCE, UNSPECIFIED, UNCOMPLICATED (2) Previous myocardial infarction older than 8 weeks Code(s): I25.2 - OLD MYOCARDIAL INFARCTION (3) Lung mass Code(s): R91.8 - OTHER NONSPECIFIC ABNORMAL FINDING OF LUNG FIELD (4) HTN (hypertension) Code(s): I10 - ESSENTIAL (PRIMARY) HYPERTENSION (5) Hyperlipidemia Code(s): E78.5 - HYPERLIPIDEMIA, UNSPECIFIED Assessment/Plan ABX Per ID IR biopsy pending O2 as needed BD TX PRN POOR PERFORMANCE STATUS CONSIDER PALLIATIVE Althea DOMINGO MD
[2018-03-19] MEDS: POLYETHYLENE GLYCOL 3350 119 GM BTL PO SCH (10:20)
[2018-03-19] MEDS: DOCUSATE SODIUM 100 MG CAPSULE (FP) PO SCH (10:20)
[2018-03-19] MEDS: PANTOPRAZOLE SODIUM 40 MG VIAL IVPUSH SCH ×2 (10:20→21:38)
[2018-03-19] MEDS: SENNOSIDES/DOCUSATE COMBO (SENNA PLUS) TABLET (UD) PO SCH ×2 (10:20→21:38)
[2018-03-19] MEDS: amLODIPine BESYLATE 5 MG TABLET (FP) PO SCH (10:20)
[2018-03-19] MEDS: FERROUS SO4 325 MG TABLET (FP) PO SCH (10:20)
--- NOTE | 2018-03-19 10:25 | PN ---
Physical Exam: SUBJECTIVE: Patient seen and examined this morning at bedside. Says he continues to cough, but has had no hemoptysis over night. Had diarrhea yesterday , his last episode was in the evening, no episodes since. Also complains of no appetite since yesterday morning. Patient refused breathing treatment yesterday. As per nursing, he was given tylenol X2 for his fever over night. No other acute events. Denies chest pain, SOB, nausea, vomiting. OBJECTIVE: Vital Signs Period Temp Pulse Resp BP Sys/Harper Pulse Ox Last 24 Hr 97.3 F-101 F 104-117 20-20 120-140/59-71 93-93 GENERAL: The patient is awake, alert, and fully oriented, in no acute distress. LUNGS: CTA b/l, expiratory wheezes HEART: Tachycardic, S1, S2 without murmur, rub or gallop. ABDOMEN: Soft, nontender, nondistended, normoactive bowel sounds Laboratory Results - last 24 hr 03/19/18 03/19/18 03/19/18 06:00 06:00 06:00 WBC 11.5 H RBC 2.96 L Hgb 7.5 L Hct 22.8 L MCV 77.1 L MCH 25.4 L MCHC 33.0 RDW 23.2 H Plt Count 339 MPV 7.4 L PT with INR 17.50 H INR 1.55 H Sodium 140 Potassium 3.9 Chloride 104 Carbon Dioxide 28 Anion Gap 8 BUN 14 Creatinine 0.5 L Creat Clearance w eGFR > 60 Random Glucose 76 Calcium 8.0 L Phosphorus 3.3 Magnesium 1.8 Microbiology 03/13/18 00:01 Blood - Peripheral Venous Blood Culture - Final NO GROWTH AFTER 5 DAYS INCUBATION 03/13/18 00:01 Blood - Peripheral Venous Blood Culture - Final NO GROWTH AFTER 5 DAYS INCUBATION 03/13/18 19:56 Nares - Mrsa Screen - Left MRSA Screen - Final NO MRSA ISOLATED 03/13/18 19:50 Urine For Antigen Detection Legionella Antigen - Final 03/13/18 19:50 Urine For Antigen Detection Streptococcus pneumoniae Antigen (M - Final 03/13/18 03:25 Urine - Urine Clean Catch Urine Culture - Final NO GROWTH OBTAINED 03/12/18 08:28 Urine - Urine Clean Catch Urine Culture - Final Active Medications Acetaminophen (Tylenol -) 650 mg PO Q4H PRN PRN Reason: FEVER Last Admin: 07/14/18 22:04 Dose: 650 mg Amlodipine Besylate (Norvasc -) 5 mg PO DAILY [facility] Last Admin: 03/18/18 11:01 Dose: 5 mg Atorvastatin Calcium (Lipitor -) 40 mg PO HS [facility] Last Admin: 03/18/18 22:03 Dose: 40 mg Docusate Sodium (Colace -) 100 mg PO DAILY [facility] Last Admin: 03/18/18 11:02 Dose: 100 mg Ferrous Sulfate (Feosol -) 325 mg PO DAILY [facility] Last Admin: 03/18/18 11:02 Dose: 325 mg Heparin Sodium (Porcine) (Heparin -) 5,000 unit SQ TID [facility] Last Admin: 03/19/18 05:59 Dose: 5,000 unit Hydralazine HCl (Apresoline -) 10 mg PO TID [facility] Last Admin: 03/19/18 06:02 Dose: 10 mg Piperacillin Sod/Tazobactam (Sod 3.375 gm/ Dextrose) 50 mls @ 100 mls/hr IVPB Q8H-IV [facility]; Protocol Last Admin: 03/19/18 01:32 Dose: 100 mls/hr Sodium Chloride (Normal Saline -) 1,000 mls @ 42 mls/hr IV ASDIR [facility] Last Admin: 03/19/18 02:03 Dose: 42 mls/hr Megestrol Acetate (Megace Oral Suspension -) 400 mg PO DAILY [facility] Last Admin: 03/18/18 15:39 Dose: 400 mg Pantoprazole Sodium (Protonix Iv) 40 mg IVPUSH BID [facility] Last Admin: 03/18/18 22:03 Dose: 40 mg Polyethylene Glycol (Miralax (For Daily Use) -) 17 gm PO DAILY [facility] Last Admin: 03/18/18 11:02 Dose: Not Given Senna/Docusate Sodium (Pericolace -) 1 tablet PO BID [facility] Last Admin: 03/18/18 22:03 Dose: 1 tablet ASSESSMENT/PLAN: 77 y/o male with prior history of CAD, heavy smoker, recently reportedly diagnosed lung mass, anemia requiring transfusions, admitted with Severe protein -calorie malnutrition now with hemoptysis 1. Sepsis Likely due to post obstrutive PNA - Temp reached 101 overnight - Blood cultures negative - UA Negative - CXR: Left parahilar, left upper lung mass. No pleural effusion, or pneumothorax is seen. No evidence of a pulmonary consolidations. - HCV screen noted - HIV negative - Pulmonary consult, appreciate rec's - ID consult, appreciate rec's - Continue IV Zosyn (Day 7), will discuss with ID on transition to oral ABx - Continue Tylenol - MRSA Nares screen: Negative - WBC 10.9 - Consider that fevers may be from tumor burden and not infectious in etiology 2. Depression - As per nursing, patient complained of "just want to go to sleep and " - Dr. Hernandez consulted, appreciate rec's - Patient feels better about coping strategies - Continue to monitor 3. Hemopytsis - Likely due to pulmonary mass, consider irritation from frequent coughing - 1 Unit pRBC transfused (03/15) - No repeat episodes 4. Symptomatic anemia - Weakness and tachycardia - Iron studies noted - S/P 2 unit transfused, 3 doses of Vitamin K - S/P 1 Unit pRBC transfused (03/15) - Given Venofer (dose #2) - Continue to monitor 5. Severe protein calorie malnutrition - In the setting of likely malignant lung mass with with weight loss - Failure to thrive, requiring nutritional support - BMI: 17.1, Weight loss >7.5% in 3 months - RF: Possible lung malignancy, Dementia, difficulty swallowing/chewing - Speech and swallow Recomendations: Consider dysphagia chopped diet with thin liquid. - Continue Megace Oral Suspension 400 mg PO DAILY 6. 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 Constipation - Continue with Miralax 17 gm PO DAILY UMESH - Continue with Senna/Docusate Sodium 1 tablet PO BID UMESH - Continue with Colace 100 mg PO DAILY UMESH 8. HTN - Continue with Norvasc 5 mg PO DAILY UMESH - Continue with Hydralazine HCl 10 mg PO TID UMESH 9. HLD - Continue with Atorvastatin Calcium 40 mg PO HS UMESH 10. dvt ppx - heparin Visit type - Emergency Visit Emergency Visit: Yes ED Registration Date: 03/11/18 Care time: The patient presented to the Emergency Department on the above date and was hospitalized for further evaluation of their emergent condition. - New Patient This patient is new to me today: No - Critical Care Critical Care patient: No
[2018-03-19] MEDS ORDERED: IRON SUCROSE INJECTION 200 MG in SODIUM CHLORIDE 240 ML IVPB ONE (13:02)
--- NOTE | 2018-03-19 13:03 | PN ---
Teaching Attending Note Name of Resident: Minna Bernard ATTENDING PHYSICIAN STATEMENT I saw and evaluated the patient. I reviewed the resident's note and discussed the case with the resident. I agree with the resident's findings and plan as documented. SUBJECTIVE:c/o generalized weakness and poor appetite. denies Cp< SOB, fever, chills, cough, hemoptysis, melena or BRBPR OBJECTIVE: Last Vital Signs Temp Pulse Resp BP Pulse Ox 99.2 F 118 H 18 119/60 93 L 03/19/18 10:00 03/19/18 10:00 03/19/18 10:03/19/18 10:00 03/19/18 08:59 General frail, elderly man, NAD Lungs mild wheezing RUL ASSESSMENT AND PLAN: 77 yo M with prior history of CAD, heavy smoker, recently reportedly diagnosed lung mass/anemia requiring transfusions, admitted with failure to thrive, found with anemia, ISABELLA lung mass 1. sepsis due to suspected post-obstructive PNA- Tm 101. on zosyn day 6. fevers may be from tumor burden and not infectious. will d/w ID tomorrow about transitioning to oral vs completion of therapy. 2. hemopytsis- likely due to pulmonary mass however can also be mucosal irritation from frequent coughing. no repeat episodes. 3. Anemia, suspect multifactorial, Iron deficiency, poor nutritional status,r/o occult bleed- total of 3 units PRBC this hospitalization. Hgb slowly trending down. no signs of bleeding possible frequent blood draws. would hold on abx at this time. can give additional venofer, dose #2. on iron supplementation 4. 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 NPO rennyt for bx tomorrow. oncology on board. 5. Elevated INR, suspect nutritional- s/p vit K given x4. INR slightly elevated. no signs of bleeding 6. Severe Malnutrition- as evident by body habitus and reported 40lb weight loss. started on appetite stimulant. will start and titrate up as needed. encourage po intake. encourage for family to bring in food from home. ensure shakes. 7. hypokalmeia- resolved 8. hypomangesemia- resolved 9. constipation- resolved. cont stool softeners prn 10. dysphagia- on chopped diet with thin liquids. tolerating well 11. DVT ppx- hep sq 12. poor functional status and poor overall prognosis. palliative care consult. attempted to speak to patient today about goals of care and what are his plans if bx is + for treatment. unsure if he wants anything done. agreeable to Bx as he wants to know for sure what is the mass. however is not interested in talking about goals of care. aware that he is very weak and liekly will have difficulty taking care of himself. states he wants to go home and that he lives with his sister who will help him
[2018-03-19] MEDS ORDERED: IRON SUCROSE INJECTION 200 MG in SODIUM CHLORIDE 100 ML IVPB ONE (13:30)
[2018-03-19] MEDS: MEGESTROL ACETATE 400 MG/10 ML UNIT DOSE CUP PO SCH (14:26)
[2018-03-19] MEDS: ACETAMINOPHEN 325 MG TABLET (FP) PO PRN (16:37)
[2018-03-19] MEDS: ATORVASTATIN CA 40 MG TABLET (FP) PO SCH (21:38)
[2018-03-20] MEDS ORDERED: PIPERACILLIN/TAZOBACTAM 3.375 GM VIAL IVPB ONE (00:56)
[2018-03-20] MEDS ORDERED: DEXTROSE 5%-WATER - 50 ML IVPB ONE (00:56)
[2018-03-20] MEDS: PIPERACILLIN/TAZOB 3.375 GM 3.375 GM in DEXTROSE 5%-WATER - 50 ML IVPB SCH (01:11)
[2018-03-20] MEDS: hydrALAZINE HCL 10 MG TABLET PO SCH ×3 (05:36→22:40)
[2018-03-20] MEDS: DOCUSATE SODIUM 100 MG CAPSULE (FP) PO SCH (10:18)
[2018-03-20] MEDS: SENNOSIDES/DOCUSATE COMBO (SENNA PLUS) TABLET (UD) PO SCH ×2 (10:18→22:40)
[2018-03-20] MEDS: amLODIPine BESYLATE 5 MG TABLET (FP) PO SCH (10:18)
[2018-03-20] MEDS: FERROUS SO4 325 MG TABLET (FP) PO SCH (10:18)
[2018-03-20] MEDS: POLYETHYLENE GLYCOL 3350 119 GM BTL PO SCH (10:19)
[2018-03-20] MEDS: PANTOPRAZOLE SODIUM 40 MG VIAL IVPUSH SCH ×2 (10:19→22:40)
[2018-03-20 10:52] LABS: BASO % 0.6 % (0-2.0); EOS % 0.1 % (0-4.5); HEMATOCRIT 23.1 % (35.4-49); HEMOGLOBIN 7.6 GM/dL (11.7-16.9); LYMPH % 9.8 % (8-40); MCH 24.9 pg (25.7-33.7); MCHC 32.8 g/dl (32.0-35.9); MEAN CELL VOLUME 76.1 fl (80-96); MEAN PLT VOLUME 7.3 fl (7.5-11.1); MONO % 14.2 % (3.8-10.2); NEUT % 75.3 % (42.8-82.8); PLATELET COUNT 380 K/MM3 (134-434); RBC 3.04 M/mm3 (4.00-5.60); RDW 23.3 % (11.9-15.9); WHITE BLOOD COUNT 12.8 K/mm3 (4.0-10.0)
--- NOTE | 2018-03-20 11:00 | PN ---
Progress Note (short form) - Note Progress Note: PULMONARY Denies shortness of breath. No hemoptysis. Vital Signs Period Temp Pulse Resp BP Sys/Harper Pulse Ox Last 24 Hr 10.1 F-99.6 F 111-127 18-20 130-144/60-72 97 Gen: NAD at rest Heart: tachycardic, regular Lung: decreased breath sounds at the bases Abd: soft, nontender Ext: no edema CBC, BMP 03/20/18 10:30 Active Medications Acetaminophen (Tylenol -) 650 mg PO Q4H PRN PRN Reason: FEVER Last Admin: 03/19/18 16:37 Dose: 650 mg Amlodipine Besylate (Norvasc -) 5 mg PO DAILY [facility] Last Admin: 03/20/18 10:18 Dose: 5 mg Atorvastatin Calcium (Lipitor -) 40 mg PO HS [facility] Last Admin: 03/19/18 21:38 Dose: 40 mg Docusate Sodium (Colace -) 100 mg PO DAILY [facility] Last Admin: 03/20/18 10:18 Dose: 100 mg Ferrous Sulfate (Feosol -) 325 mg PO DAILY [facility] Last Admin: 03/20/18 10:18 Dose: 325 mg Hydralazine HCl (Apresoline -) 10 mg PO TID [facility] Last Admin: 03/20/18 05:36 Dose: Not Given Sodium Chloride (Normal Saline -) 1,000 mls @ 42 mls/hr IV ASDIR [facility] Last Admin: 03/19/18 17:44 Dose: 42 mls/hr Megestrol Acetate (Megace Oral Suspension -) 400 mg PO DAILY [facility] Last Admin: 03/19/18 14:26 Dose: 400 mg Pantoprazole Sodium (Protonix Iv) 40 mg IVPUSH BID [facility] Last Admin: 03/20/18 10:19 Dose: 40 mg Polyethylene Glycol (Miralax (For Daily Use) -) 17 gm PO DAILY [facility] Last Admin: 03/20/18 10:19 Dose: 17 gm Senna/Docusate Sodium (Pericolace -) 1 tablet PO BID [facility] Last Admin: 03/20/18 10:18 Dose: 1 tablet A/P Lung Mass Post Obstructive Pneumonia Sepsis CAD Anemia Smoker - for CT guided needle biopsy - monitor H/H - transfuse as needed - DVT prophylaxis
[2018-03-20 11:06] LABS: INR 1.71 (0.82-1.09); PROTHROMBIN TIME (PATIENT) 19.3 SEC (9.7-13.0)
[2018-03-20] MEDS: MEGESTROL ACETATE 400 MG/10 ML UNIT DOSE CUP PO SCH (11:17)
[2018-03-20 11:26] LABS: ALBUMIN 1.2 g/dl (3.4-5.0); ANION GAP 8 (8-16); BLOOD UREA NITROGEN 13 mg/dL (7-18); CALCIUM 8.2 mg/dL (8.5-10.1); CHLORIDE 103 mmol/L (98-107); CO2 28 mmol/L (21-32); CREATININE 0.5 mg/dL (0.7-1.3); GLUCOSE,RANDOM 79 mg/dL (74-106); POTASSIUM 3.7 mmol/L (3.5-5.1); SGOT/AST 9 U/L (15-37); SGPT/ALT 9 U/L (12-78); SODIUM 139 mmol/L (136-145)
[2018-03-20 11:28] LABS: ALK PHOS 97 U/L (45-117); BILIRUBIN,TOTAL 0.3 mg/dL (0.2-1.0); TOT PROT 6.1 g/dl (6.4-8.2)
--- NOTE | 2018-03-20 12:04 | PN ---
Progress Note (short form) - Note Progress Note: no complaints temps trending down for biopsy today no hemoptysis Vital Signs Period Temp Pulse Resp BP Sys/Harper Pulse Ox Last 24 Hr 10.1 F-99.6 F 111-127 18-20 130-144/60-72 97 cor-rrr lungs clear, decreased bs at bases abd soft,nt ext no edema CBC, BMP 03/20/18 10:30 03/20/18 10:30 Microbiology 03/13/18 00:01 Blood - Peripheral Venous Blood Culture - Final NO GROWTH AFTER 5 DAYS INCUBATION 03/13/18 00:01 Blood - Peripheral Venous Blood Culture - Final NO GROWTH AFTER 5 DAYS INCUBATION 03/13/18 19:56 Nares - Mrsa Screen - Left MRSA Screen - Final NO MRSA ISOLATED 03/13/18 19:50 Urine For Antigen Detection Legionella Antigen - Final 03/13/18 19:50 Urine For Antigen Detection Streptococcus pneumoniae Antigen (M - Final 03/13/18 03:25 Urine - Urine Clean Catch Urine Culture - Final NO GROWTH OBTAINED 03/12/18 08:28 Urine - Urine Clean Catch Urine Culture - Final a/p ISABELLA mass fevers- ?pneumonitis, ?tumor day #7 zosyn, continue iv today po augmentin in am anemia- multifactorial awaiting biopsy Problem List - Problems (1) Lung mass Code(s): R91.8 - OTHER NONSPECIFIC ABNORMAL FINDING OF LUNG FIELD (2) Anemia Code(s): D64.9 - ANEMIA, UNSPECIFIED
--- NOTE | 2018-03-20 14:17 | PN ---
Teaching Attending Note Name of Resident: Minna Bernard ATTENDING PHYSICIAN STATEMENT I saw and evaluated the patient. I reviewed the resident's note and discussed the case with the resident. I agree with the resident's findings and plan as documented. SUBJECTIVE:c/o poor appetite. denies CP, SOB, fever, chills, N/V/C/D OBJECTIVE: Last Vital Signs Temp Pulse Resp BP Pulse Ox 99.9 F H 112 H 18 128/73 97 03/20/18 10:00 03/20/18 10:00 03/20/18 10:03/20/18 10:00 03/19/18 20:44 General frail, elderly man, NAD Lungs CTA B/L no wheezing/rales/rhonchi ASSESSMENT AND PLAN: 77 yo M with prior history of CAD, heavy smoker, recently reportedly diagnosed lung mass/anemia requiring transfusions, admitted with failure to thrive, found with anemia, ISABELLA lung mass 1. sepsis due to suspected post-obstructive PNA- Tm 101. on zosyn day 7. fevers may be from tumor burden and not infectious. plan to transition to po tomorrow. 2. hemopytsis- likely due to pulmonary mass however can also be mucosal irritation from frequent coughing. no repeat episodes. 3. Anemia, suspect multifactorial, Iron deficiency, poor nutritional status,r/o occult bleed- total of 3 units PRBC this hospitalization. Hgb stable. received venofer x2. on iron supplementation 4. 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 IR not able to do bx today because of elevated INR. will give vit K today. possibly can give FFP prior to procedure if remains above goal. NPO camdeniht for bx tomorrow. oncology on board. 5. Elevated INR, suspect nutritional- s/p vit K given x4. INR slightly elevated. will give Vit K IV today. no signs of bleeding 6. Severe Malnutrition- as evident by body habitus and reported 40lb weight loss. started on appetite stimulant. increased megace. encourage po intake. encourage for family to bring in food from home. ensure shakes. 7. hypokalmeia- resolved 8. hypomangesemia- resolved 9. constipation- resolved. cont stool softeners prn 10. dysphagia- on chopped diet with thin liquids. tolerating well 11. DVT ppx- hep sq 12. poor functional status and poor overall prognosis. palliative care consulted. pt desires to return home when medically optimized.
[2018-03-20] MEDS ORDERED: PHYTONADIONE 10 MG/1 ML AMP IVPB ONE (14:56)
--- NOTE | 2018-03-20 19:08 | PN ---
Physical Exam: SUBJECTIVE: Patient seen and examined this morning at bedside. Continues to cough without hemoptysis. Continues to have no appetite. No other acute events. Denies chest pain, SOB, nausea, vomiting, diarrhea, constipation. OBJECTIVE: Vital Signs Period Temp Pulse Resp BP Sys/Harper Pulse Ox Last 24 Hr 98.5 F-100.8 F 111-118 18-20 128-144/60-75 91-97 GENERAL: The patient is awake, alert, and fully oriented, in no acute distress. LUNGS: CTA b/l HEART: Tachycardic, S1, S2 without murmur, rub or gallop. ABDOMEN: Soft, nontender, nondistended, normoactive bowel sounds Laboratory Results - last 24 hr 03/20/18 03/20/18 03/20/18 10:30 10:30 10:30 WBC 12.8 H RBC 3.04 L Hgb 7.6 L Hct 23.1 L MCV 76.1 L MCH 24.9 L MCHC 32.8 RDW 23.3 H Plt Count 380 MPV 7.3 L Absolute Neuts (auto) 9.6 Neutrophils % 75.3 Lymphocytes % 9.8 Monocytes % 14.2 H Eosinophils % 0.1 Basophils % 0.6 Nucleated RBC % 0 PT with INR 19.30 H INR 1.71 H Sodium 139 Potassium 3.7 Chloride 103 Carbon Dioxide 28 Anion Gap 8 BUN 13 Creatinine 0.5 L Creat Clearance w eGFR > 60 Random Glucose 79 Calcium 8.2 L Total Bilirubin 0.3 AST 9 L ALT 9 L Alkaline Phosphatase 97 Total Protein 6.1 L Albumin 1.2 L Microbiology 03/13/18 00:01 Blood - Peripheral Venous Blood Culture - Final NO GROWTH AFTER 5 DAYS INCUBATION 03/13/18 00:01 Blood - Peripheral Venous Blood Culture - Final NO GROWTH AFTER 5 DAYS INCUBATION 03/13/18 19:56 Nares - Mrsa Screen - Left MRSA Screen - Final NO MRSA ISOLATED 03/13/18 19:50 Urine For Antigen Detection Legionella Antigen - Final 03/13/18 19:50 Urine For Antigen Detection Streptococcus pneumoniae Antigen (M - Final 03/13/18 03:25 Urine - Urine Clean Catch Urine Culture - Final NO GROWTH OBTAINED 03/12/18 08:28 Urine - Urine Clean Catch Urine Culture - Final Active Medications Acetaminophen (Tylenol -) 650 mg PO Q4H PRN PRN Reason: FEVER Last Admin: 03/19/18 16:37 Dose: 650 mg Amlodipine Besylate (Norvasc -) 5 mg PO DAILY [facility] Last Admin: 03/20/18 10:18 Dose: 5 mg Atorvastatin Calcium (Lipitor -) 40 mg PO HS [facility] Last Admin: 03/19/18 21:38 Dose: 40 mg Docusate Sodium (Colace -) 100 mg PO DAILY [facility] Last Admin: 03/20/18 10:18 Dose: 100 mg Ferrous Sulfate (Feosol -) 325 mg PO DAILY [facility] Last Admin: 03/20/18 10:18 Dose: 325 mg Hydralazine HCl (Apresoline -) 10 mg PO TID [facility] Last Admin: 03/20/18 13:39 Dose: 10 mg Megestrol Acetate (Megace Oral Suspension -) 800 mg PO DAILY [facility] Pantoprazole Sodium (Protonix Iv) 40 mg IVPUSH BID [facility] Last Admin: 03/20/18 10:19 Dose: 40 mg Polyethylene Glycol (Miralax (For Daily Use) -) 17 gm PO DAILY [facility] Last Admin: 03/20/18 10:19 Dose: 17 gm Senna/Docusate Sodium (Pericolace -) 1 tablet PO BID [facility] Last Admin: 03/20/18 10:18 Dose: 1 tablet ASSESSMENT/PLAN: 77 y/o male with prior history of CAD, heavy smoker, recently reportedly diagnosed lung mass, anemia requiring transfusions, admitted with Severe protein -calorie malnutrition now with hemoptysis 1. Sepsis Likely due to post obstrutive PNA - Temp reached 101 overnight - Blood cultures negative - UA Negative - CXR: Left parahilar, left upper lung mass. No pleural effusion, or pneumothorax is seen. No evidence of a pulmonary consolidations. - HCV screen noted - HIV negative - Pulmonary consult, appreciate rec's - ID consult, appreciate rec's - IV Zosyn course completed - Continue Tylenol - MRSA Nares screen: Negative - Consider that fevers may be from tumor burden and not infectious in etiology - Transition to PO ABx tomorrow 2. Depression - As per nursing, patient complained of "just want to go to sleep and " - Dr. Hernandez consulted, appreciate rec's - Patient feels better about coping strategies - Continue to monitor 3. Hemopytsis - Likely due to pulmonary mass, consider irritation from frequent coughing - 1 Unit pRBC transfused (03/15) - No repeat episodes 4. Symptomatic anemia - Weakness and tachycardia - Iron studies noted - S/P 2 unit transfused, 3 doses of Vitamin K - S/P 1 Unit pRBC transfused (03/15) - Given Venofer (dose #2) - Continue to monitor 5. Severe protein calorie malnutrition - In the setting of likely malignant lung mass with with weight loss - Failure to thrive, requiring nutritional support - BMI: 17.1, Weight loss >7.5% in 3 months - RF: Possible lung malignancy, Dementia, difficulty swallowing/chewing - Speech and swallow Recomendations: Consider dysphagia chopped diet with thin liquid. - Continue Megace Oral Suspension 400 mg PO DAILY 6. 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 Constipation - Continue with Miralax 17 gm PO DAILY [facility] - Continue with Senna/Docusate Sodium 1 tablet PO BID [facility] - Continue with Colace 100 mg PO DAILY [facility] 8. HTN - Continue with Norvasc 5 mg PO DAILY [facility] - Continue with Hydralazine HCl 10 mg PO TID [facility] 9. HLD - Continue with Atorvastatin Calcium 40 mg PO HS [facility] 10. dvt ppx - heparin Visit type - Emergency Visit Emergency Visit: Yes ED Registration Date: 03/11/18 Care time: The patient presented to the Emergency Department on the above date and was hospitalized for further evaluation of their emergent condition. - New Patient This patient is new to me today: No - Critical Care Critical Care patient: No
[2018-03-20] MEDS: ATORVASTATIN CA 40 MG TABLET (FP) PO SCH (22:40)
[2018-03-20] MEDS: ACETAMINOPHEN 325 MG TABLET (FP) PO PRN (22:40)
[2018-03-21] MEDS: hydrALAZINE HCL 10 MG TABLET PO SCH ×3 (06:01→21:58)
[2018-03-21 08:00] LABS: BASO % 0.3 % (0-2.0); EOS % 0.1 % (0-4.5); HEMATOCRIT 22.4 % (35.4-49); HEMOGLOBIN 7.4 GM/dL (11.7-16.9); LYMPH % 9.6 % (8-40); MCH 25.1 pg (25.7-33.7); MEAN CELL VOLUME 76.2 fl (80-96); MEAN PLT VOLUME 7.3 fl (7.5-11.1); MONO % 13.2 % (3.8-10.2); NEUT % 76.8 % (42.8-82.8); PLATELET COUNT 372 K/MM3 (134-434); RBC 2.94 M/mm3 (4.00-5.60); RDW 23.8 % (11.9-15.9); WHITE BLOOD COUNT 14.1 K/mm3 (4.0-10.0)
[2018-03-21 08:14] LABS: INR 1.5 (0.82-1.09)
[2018-03-21 08:22] LABS: ALBUMIN 1.2 g/dl (3.4-5.0); ANION GAP 7 (8-16); BILIRUBIN,TOTAL 0.5 mg/dL (0.2-1.0); BLOOD UREA NITROGEN 11 mg/dL (7-18); CALCIUM 8.2 mg/dL (8.5-10.1); CHLORIDE 100 mmol/L (98-107); CO2 29 mmol/L (21-32); CREATININE 0.4 mg/dL (0.7-1.3); GLUCOSE,RANDOM 81 mg/dL (74-106); MAGNESIUM 1.8 mg/dL (1.8-2.4); PHOSPHOROUS 3.9 mg/dL (2.5-4.9); POTASSIUM 3.4 mmol/L (3.5-5.1); SGOT/AST 10 U/L (15-37); SGPT/ALT 9 U/L (12-78); SODIUM 136 mmol/L (136-145)
[2018-03-21 08:24] LABS: ALK PHOS 100 U/L (45-117); TOT PROT 6.1 g/dl (6.4-8.2)
[2018-03-21] MEDS: DOCUSATE SODIUM 100 MG CAPSULE (FP) PO SCH (09:38)
[2018-03-21] MEDS: amLODIPine BESYLATE 5 MG TABLET (FP) PO SCH (09:38)
[2018-03-21] MEDS: POLYETHYLENE GLYCOL 3350 119 GM BTL PO SCH (09:38)
[2018-03-21] MEDS: MEGESTROL ACETATE 400 MG/10 ML UNIT DOSE CUP PO SCH (09:38)
[2018-03-21] MEDS: FERROUS SO4 325 MG TABLET (FP) PO SCH (09:38)
[2018-03-21] MEDS: SENNOSIDES/DOCUSATE COMBO (SENNA PLUS) TABLET (UD) PO SCH ×2 (09:38→21:58)
[2018-03-21] MEDS: PANTOPRAZOLE SODIUM 40 MG VIAL IVPUSH SCH ×2 (09:38→21:58)
--- NOTE | 2018-03-21 10:31 | PN ---
Progress Note (short form) - Note Progress Note: Patient was seen briefly. He complained of hunger as he has not eaten as yet due to being NPO. We discussed the reason for not being given breakfast. He was assured that he would soon be taken for a procedure. The patient indicated that his depression was about the same level. He still does not experience pain. The patient indicated that he entertains himself with TV and music. Pastoral care consultation is recommended. Problem List - Problems (1) Depression determined by examination Code(s): F32.9 - MAJOR DEPRESSIVE DISORDER, SINGLE EPISODE, UNSPECIFIED
--- NOTE | 2018-03-21 10:43 | PN ---
Progress Note (short form) - Note Progress Note: PULMONARY Denies shortness of breath. No hemoptysis. Some diarrhea yesterday. Vital Signs Period Temp Pulse Resp BP Sys/Harper Pulse Ox Last 24 Hr 98.6 F-102.1 F 111-117 18-20 126-154/69-75 93 Gen: NAD at rest Heart: tachycardic, regular Lung: decreased breath sounds at the bases Abd: soft, nontender Ext: no edema CBC, BMP 03/21/18 06:37 03/21/18 06:37 Active Medications Acetaminophen (Tylenol -) 650 mg PO Q4H PRN PRN Reason: FEVER Last Admin: 03/20/18 22:40 Dose: 650 mg Amlodipine Besylate (Norvasc -) 5 mg PO DAILY [facility] Last Admin: 03/21/18 09:38 Dose: 5 mg Atorvastatin Calcium (Lipitor -) 40 mg PO HS [facility] Last Admin: 03/20/18 22:40 Dose: 40 mg Docusate Sodium (Colace -) 100 mg PO DAILY [facility] Last Admin: 03/21/18 09:38 Dose: Not Given Ferrous Sulfate (Feosol -) 325 mg PO DAILY [facility] Last Admin: 03/21/18 09:38 Dose: Not Given Hydralazine HCl (Apresoline -) 10 mg PO TID [facility] Last Admin: 03/21/18 06:01 Dose: Not Given Megestrol Acetate (Megace Oral Suspension -) 800 mg PO DAILY [facility] Last Admin: 03/21/18 09:38 Dose: Not Given Pantoprazole Sodium (Protonix Iv) 40 mg IVPUSH BID [facility] Last Admin: 03/21/18 09:38 Dose: 40 mg Polyethylene Glycol (Miralax (For Daily Use) -) 17 gm PO DAILY [facility] Last Admin: 03/21/18 09:38 Dose: Not Given Senna/Docusate Sodium (Pericolace -) 1 tablet PO BID [facility] Last Admin: 03/21/18 09:38 Dose: Not Given A/P Lung Mass Post Obstructive Pneumonia Sepsis CAD Anemia Smoker - for CT guided needle biopsy - transfuse 2 units FFP, 1 unit PRBC - monitor H/H, coags - replete lytes - send stool for C diff - reculture if febrile - DVT prophylaxis
[2018-03-21] MEDS ORDERED: POTASSIUM CHLORIDE TABS 20 MEQ TABLET.ER (FP) PO ONE (11:00)
[2018-03-21] MEDS: ACETAMINOPHEN 325 MG TABLET (FP) PO PRN ×2 (11:36→17:45)
--- NOTE | 2018-03-21 15:12 | PN ---
Teaching Attending Note Name of Resident: Minna Bernard ATTENDING PHYSICIAN STATEMENT I saw and evaluated the patient. I reviewed the resident's note and discussed the case with the resident. I agree with the resident's findings and plan as documented with exceptions below. SUBJECTIVE: Patient seen and examined. cough unchanged, no worsening breathing, abdominal pain or new concerns. OBJECTIVE: Vital Signs Period Temp Pulse Resp BP Sys/Harper Pulse Ox Last 24 Hr 98.0 F-102.1 F 111-117 18-20 124-154/67-80 93-93 Intake & Output 03/18/18 03/19/18 03/20/18 03/21/18 23:59 23:59 23:59 23:59 Intake Total 2278 1704 1436 Output Total 450 450 400 700 Balance 1828 1254 1036 -700 General: sitting in bed in no acute distress Chest: no rales or wheezing, decreased air entry all over Abdomen:Soft, NT, ND Extremities: No edema Home Medications Medication Instructions Recorded Amlodipine Besylate [Norvasc -] 5 mg PO DAILY #30 tablet 02/03/15 Atorvastatin Ca [Lipitor] 40 mg PO HS #30 tablet 02/03/15 Hydralazine HCl 10 mg PO TID #90 tablet 02/03/15 Active Medications Acetaminophen (Tylenol -) 650 mg PO Q4H PRN PRN Reason: FEVER Last Admin: 03/21/18 11:36 Dose: 650 mg Amlodipine Besylate (Norvasc -) 5 mg PO DAILY [facility] Last Admin: 03/21/18 09:38 Dose: 5 mg Atorvastatin Calcium (Lipitor -) 40 mg PO HS [facility] Last Admin: 03/20/18 22:40 Dose: 40 mg Docusate Sodium (Colace -) 100 mg PO DAILY [facility] Last Admin: 03/21/18 09:38 Dose: Not Given Ferrous Sulfate (Feosol -) 325 mg PO DAILY [facility] Last Admin: 03/21/18 09:38 Dose: Not Given Hydralazine HCl (Apresoline -) 10 mg PO TID [facility] Last Admin: 03/21/18 13:29 Dose: 10 mg Megestrol Acetate (Megace Oral Suspension -) 800 mg PO DAILY [facility] Last Admin: 03/21/18 09:38 Dose: Not Given Pantoprazole Sodium (Protonix Iv) 40 mg IVPUSH BID [facility] Last Admin: 03/21/18 09:38 Dose: 40 mg Polyethylene Glycol (Miralax (For Daily Use) -) 17 gm PO DAILY [facility] Last Admin: 03/21/18 09:38 Dose: Not Given Senna/Docusate Sodium (Pericolace -) 1 tablet PO BID [facility] Last Admin: 03/21/18 09:38 Dose: Not Given Laboratory Results - last 24 hr 03/21/18 03/21/18 03/21/18 06:37 06:37 06:37 WBC 14.1 H RBC 2.94 L Hgb 7.4 L Hct 22.4 L MCV 76.2 L MCH 25.1 L MCHC 33.0 RDW 23.8 H Plt Count 372 MPV 7.3 L Absolute Neuts (auto) 10.8 Neutrophils % 76.8 Lymphocytes % 9.6 Monocytes % 13.2 H Eosinophils % 0.1 Basophils % 0.3 Nucleated RBC % 0 PT with INR 17.00 H INR 1.50 H Sodium 136 Potassium 3.4 L Chloride 100 Carbon Dioxide 29 Anion Gap 7 L BUN 11 Creatinine 0.4 L Creat Clearance w eGFR > 60 Random Glucose 81 Calcium 8.2 L Phosphorus 3.9 Magnesium 1.8 Total Bilirubin 0.5 AST 10 L ALT 9 L Alkaline Phosphatase 100 Total Protein 6.1 L Albumin 1.2 L Blood Type Antibody Screen Crossmatch 03/21/18 10:56 WBC RBC Hgb Hct MCV MCH MCHC RDW Plt Count MPV Absolute Neuts (auto) Neutrophils % Lymphocytes % Monocytes % Eosinophils % Basophils % Nucleated RBC % PT with INR INR Sodium Potassium Chloride Carbon Dioxide Anion Gap BUN Creatinine Creat Clearance w eGFR Random Glucose Calcium Phosphorus Magnesium Total Bilirubin AST ALT Alkaline Phosphatase Total Protein Albumin Blood Type O POSITIVE Antibody Screen Negative Crossmatch See Detail Microbiology 03/13/18 00:01 Blood - Peripheral Venous Blood Culture - Final NO GROWTH AFTER 5 DAYS INCUBATION 03/13/18 00:01 Blood - Peripheral Venous Blood Culture - Final NO GROWTH AFTER 5 DAYS INCUBATION 03/13/18 19:56 Nares - Mrsa Screen - Left MRSA Screen - Final NO MRSA ISOLATED 03/13/18 19:50 Urine For Antigen Detection Legionella Antigen - Final 03/13/18 19:50 Urine For Antigen Detection Streptococcus pneumoniae Antigen (M - Final 03/13/18 03:25 Urine - Urine Clean Catch Urine Culture - Final NO GROWTH OBTAINED 03/12/18 08:28 Urine - Urine Clean Catch Urine Culture - Final ASSESSMENT AND PLAN: 77 yo M with prior history of CAD, heavy smoker, recently reportedly diagnosed lung mass/anemia requiring transfusions, admitted with failure to thrive, found with anemia, ISABELLA lung mass -Sepsis due to suspected post obstructive PNA -Persistent fevers, due to above vs tumor related -ISABELLA lung mass inseparable from hilum with ?mild pneumonitis -Hemoptysis, pulmonary mass +/- mucosal irritation from frequent coughing -Anemia, likely multifactorial from iron deficiency, poor nutritional status, hemoptysis, r/o occult bleed -Elevated INR, likely nutritional -Hypokalemia -Hypomagnesemia -Constipation -Dysphagia Plan: Zosyn day 8, persistently fevers. MRSA screen neg. Follow up with ID. Discussed with Dr. Humphries, ?Bronchoscopy, will follow up. Biopsy when INR/H/h optimized as discussed with IR. Transfuse 1 unit pRBC. s/p 1 unit FFP. Repeat INR later today, Vitamin K accordingly, NPO after midnight. Nutrition consult, Isaias. Ensure, magic cup. Replete K/mg prn Bowel regimen. Chopped diet with thin liquids. DVTPPX with heparin subq. Dispo pending above. Palliative care consult. PT eval. Patient wants to return home when optimized. Plan discussed with patient in detail, all questions answered.
--- NOTE | 2018-03-21 15:44 | PN ---
Progress Note (short form) - Note Progress Note: Patient seen and examined + Little change clinically Chronic cough - mainly non productive Remains somewhat anorechtic Last Vital Signs Temp Pulse Resp BP Pulse Ox 98.0 F 111 H 20 145/80 93 L 03/21/18 14:30 03/21/18 14:30 03/21/18 14:30 03/21/18 14:30 03/21/18 09:00 HEENT: MAYDA, EOM Intact Oropharynx: No thrush, No mucositis,poor dentition Cor: RSR, No murmurs, No gallops Lungs: rhonchi Abd: Soft, Normal bowel sounds, No organomegaly Ext:No significant edema Skin: No rashes, Integument intact Current Medications Generic Name Dose Route Start Last Admin Trade Name Freq PRN Reason Stop Dose Admin Acetaminophen 650 mg 03/12/18 22:58 03/21/18 11:36 Tylenol - PO 650 mg Q4H PRN Administration FEVER Amlodipine Besylate 5 mg 03/12/18 10:00 03/21/18 09:38 Norvasc - PO 5 mg DAILY [facility] Administration Atorvastatin Calcium 40 mg 03/11/18 22:00 03/20/18 22:40 Lipitor - PO 40 mg HS [facility] Administration Docusate Sodium 100 mg 03/13/18 10:00 03/21/18 09:38 Colace - PO Not Given DAILY [facility] Ferrous Sulfate 325 mg 03/13/18 10:00 03/21/18 09:38 Feosol - PO Not Given DAILY [facility] Hydralazine HCl 10 mg 03/11/18 22:00 03/21/18 13:29 Apresoline - PO 10 mg TID [facility] Administration Megestrol Acetate 800 mg 03/21/18 10:00 03/21/18 09:38 Megace Oral Suspension - PO Not Given DAILY [facility] Pantoprazole Sodium 40 mg 03/14/18 23:15 03/21/18 09:38 Protonix Iv IVPUSH 40 mg BID [facility] Administration Polyethylene Glycol 17 gm 03/11/18 19:15 03/21/18 09:38 Miralax (For Daily Use) - PO Not Given DAILY [facility] Senna/Docusate Sodium 1 tablet 03/11/18 22:00 03/21/18 09:38 Pericolace - PO Not Given BID [facility] CBC, BMP 03/21/18 06:37 07/17/18 06:37 Impression Lung Mass Post obstructive pneumonia Anemia Cachexia Plan: Transfuse packed cells Biopsy of lung mass ?RT post biopsy
[2018-03-21 16:19] LABS: INR 1.52 (0.82-1.09); PROTHROMBIN TIME (PATIENT) 17.2 SEC (9.7-13.0)
[2018-03-21] MEDS ORDERED: PHYTONADIONE 5 MG TABLET PO ONE (17:15)
--- NOTE | 2018-03-21 17:58 | PN ---
Physical Exam: SUBJECTIVE: Patient seen and examined this morning at bedside. Continues to cough without hemoptysis. No new complaints. Denies chest pain, SOB, nausea, vomiting, diarrhea, constipation. OBJECTIVE: Vital Signs Period Temp Pulse Resp BP Sys/Harper Pulse Ox Last 24 Hr 98.0 F-102.1 F 111-117 20-20 124-154/67-80 93-93 GENERAL: The patient is awake, alert, and fully oriented, in no acute distress. LUNGS: CTA b/l HEART: Tachycardic, S1, S2 without murmur, rub or gallop. ABDOMEN: Soft, nontender, nondistended, normoactive bowel sounds Laboratory Results - last 24 hr 03/21/18 03/21/18 03/21/18 06:37 06:37 06:37 WBC 14.1 H RBC 2.94 L Hgb 7.4 L Hct 22.4 L MCV 76.2 L MCH 25.1 L MCHC 33.0 RDW 23.8 H Plt Count 372 MPV 7.3 L Absolute Neuts (auto) 10.8 Neutrophils % 76.8 Lymphocytes % 9.6 Monocytes % 13.2 H Eosinophils % 0.1 Basophils % 0.3 Nucleated RBC % 0 PT with INR 17.00 H INR 1.50 H Sodium 136 Potassium 3.4 L Chloride 100 Carbon Dioxide 29 Anion Gap 7 L BUN 11 Creatinine 0.4 L Creat Clearance w eGFR > 60 Random Glucose 81 Calcium 8.2 L Phosphorus 3.9 Magnesium 1.8 Total Bilirubin 0.5 AST 10 L ALT 9 L Alkaline Phosphatase 100 Total Protein 6.1 L Albumin 1.2 L Blood Type Antibody Screen Crossmatch 03/21/18 03/21/18 10:56 15:15 WBC RBC Hgb Hct MCV MCH MCHC RDW Plt Count MPV Absolute Neuts (auto) Neutrophils % Lymphocytes % Monocytes % Eosinophils % Basophils % Nucleated RBC % PT with INR 17.20 H INR 1.52 H Sodium Potassium Chloride Carbon Dioxide Anion Gap BUN Creatinine Creat Clearance w eGFR Random Glucose Calcium Phosphorus Magnesium Total Bilirubin AST ALT Alkaline Phosphatase Total Protein Albumin Blood Type O POSITIVE Antibody Screen Negative Crossmatch See Detail Microbiology 03/13/18 00:01 Blood - Peripheral Venous Blood Culture - Final NO GROWTH AFTER 5 DAYS INCUBATION 03/13/18 00:01 Blood - Peripheral Venous Blood Culture - Final NO GROWTH AFTER 5 DAYS INCUBATION 03/13/18 19:56 Nares - Mrsa Screen - Left MRSA Screen - Final NO MRSA ISOLATED 03/13/18 19:50 Urine For Antigen Detection Legionella Antigen - Final 03/13/18 19:50 Urine For Antigen Detection Streptococcus pneumoniae Antigen (M - Final 03/13/18 03:25 Urine - Urine Clean Catch Urine Culture - Final NO GROWTH OBTAINED 03/12/18 08:28 Urine - Urine Clean Catch Urine Culture - Final Active Medications Acetaminophen (Tylenol -) 650 mg PO Q4H PRN PRN Reason: FEVER Last Admin: 03/21/18 17:45 Dose: 650 mg Amlodipine Besylate (Norvasc -) 5 mg PO DAILY [facility] Last Admin: 03/21/18 09:38 Dose: 5 mg Atorvastatin Calcium (Lipitor -) 40 mg PO HS [facility] Last Admin: 03/20/18 22:40 Dose: 40 mg Docusate Sodium (Colace -) 100 mg PO DAILY [facility] Last Admin: 03/21/18 09:38 Dose: Not Given Ferrous Sulfate (Feosol -) 325 mg PO DAILY [facility] Last Admin: 03/21/18 09:38 Dose: Not Given Hydralazine HCl (Apresoline -) 10 mg PO TID [facility] Last Admin: 03/21/18 13:29 Dose: 10 mg Megestrol Acetate (Megace Oral Suspension -) 800 mg PO DAILY [facility] Last Admin: 03/21/18 09:38 Dose: Not Given Pantoprazole Sodium (Protonix Iv) 40 mg IVPUSH BID [facility] Last Admin: 03/21/18 09:38 Dose: 40 mg Polyethylene Glycol (Miralax (For Daily Use) -) 17 gm PO DAILY [facility] Last Admin: 03/21/18 09:38 Dose: Not Given Senna/Docusate Sodium (Pericolace -) 1 tablet PO BID [facility] Last Admin: 03/21/18 09:38 Dose: Not Given ASSESSMENT/PLAN: 77 y/o male with prior history of CAD, heavy smoker, recently reportedly diagnosed lung mass, anemia requiring transfusions, admitted with Severe protein -calorie malnutrition now with hemoptysis 1. Sepsis Likely due to post obstrutive PNA - Temp reached 102 overnight - Blood cultures negative - UA Negative - CXR: Left parahilar, left upper lung mass. No pleural effusion, or pneumothorax is seen. No evidence of a pulmonary consolidations. - HCV screen noted - HIV negative - Pulmonary consult, appreciate rec's - ID consult, appreciate rec's - IV Zosyn course day 8 - Continue Tylenol - MRSA Nares screen: Negative - Consider that fevers may be from tumor burden and not infectious in etiology 2. Depression - As per nursing, patient complained of "just want to go to sleep and " - Dr. Hernandez consulted, appreciate rec's - Patient feels better about coping strategies - Continue to monitor 3. Hemopytsis - Likely due to pulmonary mass, consider irritation from frequent coughing - 1 Unit pRBC transfused (03/15) - No repeat episodes 4. Symptomatic anemia - Weakness and tachycardia - Iron studies noted - S/P 3 unit transfused, 3 doses of Vitamin K - Given Venofer (dose #2) - Continue to monitor 5. Severe protein calorie malnutrition - In the setting of likely malignant lung mass with with weight loss - Failure to thrive, requiring nutritional support - BMI: 17.1, Weight loss >7.5% in 3 months - RF: Possible lung malignancy, Dementia, difficulty swallowing/chewing - Speech and swallow Recomendations: Consider dysphagia chopped diet with thin liquid. - Continue Megace Oral Suspension 400 mg PO DAILY 6. 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 Constipation - Continue with Miralax 17 gm PO DAILY [facility] - Continue with Senna/Docusate Sodium 1 tablet PO BID [facility] - Continue with Colace 100 mg PO DAILY [facility] 8. HTN - Continue with Norvasc 5 mg PO DAILY [facility] - Continue with Hydralazine HCl 10 mg PO TID [facility] 9. HLD - Continue with Atorvastatin Calcium 40 mg PO HS [facility] 10. dvt ppx - heparin Visit type - Emergency Visit Emergency Visit: Yes ED Registration Date: 03/11/18 Care time: The patient presented to the Emergency Department on the above date and was hospitalized for further evaluation of their emergent condition. - New Patient This patient is new to me today: No - Critical Care Critical Care patient: No
[2018-03-21] MEDS: ATORVASTATIN CA 40 MG TABLET (FP) PO SCH (21:58)
[2018-03-22] MEDS: ACETAMINOPHEN 325 MG TABLET (FP) PO PRN ×2 (01:40→12:55)
[2018-03-22 06:41] LABS: BASO % 0.7 % (0-2.0); EOS % 0.1 % (0-4.5); HEMOGLOBIN 8.2 GM/dL (11.7-16.9); LYMPH % 9.1 % (8-40); MCHC 33.9 g/dl (32.0-35.9); MEAN CELL VOLUME 76.7 fl (80-96); MEAN PLT VOLUME 7.3 fl (7.5-11.1); NEUT % 76.1 % (42.8-82.8); PLATELET COUNT 380 K/MM3 (134-434); RBC 3.13 M/mm3 (4.00-5.60); RDW 22.9 % (11.9-15.9)
[2018-03-22] MEDS: hydrALAZINE HCL 10 MG TABLET PO SCH ×3 (06:41→22:07)
[2018-03-22 06:58] LABS: INR 1.59 (0.82-1.09)
[2018-03-22] MEDS ORDERED: PHYTONADIONE 10 MG/1 ML AMP SQ ONE (09:51)
[2018-03-22] MEDS: PANTOPRAZOLE SODIUM 40 MG VIAL IVPUSH SCH ×2 (11:06→22:07)
[2018-03-22] MEDS: amLODIPine BESYLATE 5 MG TABLET (FP) PO SCH (11:07)
[2018-03-22] MEDS: FERROUS SO4 325 MG TABLET (FP) PO SCH (13:23)
[2018-03-22] MEDS: DOCUSATE SODIUM 100 MG CAPSULE (FP) PO SCH (13:23)
[2018-03-22] MEDS: MEGESTROL ACETATE 400 MG/10 ML UNIT DOSE CUP PO SCH (13:24)
[2018-03-22] MEDS: POLYETHYLENE GLYCOL 3350 119 GM BTL PO SCH (13:24)
[2018-03-22] MEDS: SENNOSIDES/DOCUSATE COMBO (SENNA PLUS) TABLET (UD) PO SCH ×2 (13:24→22:07)
--- NOTE | 2018-03-22 14:11 | PN ---
Progress Note (short form) - Note Progress Note: PULMONARY Denies shortness of breath. No hemoptysis. Still coagulopathic despite blood products. Vital Signs Period Temp Pulse Resp BP Sys/Harper Pulse Ox Last 24 Hr 98.0 F-103 F 111-127 20-20 134-159/69-88 99 Gen: NAD at rest Heart: tachycardic, regular Lung: decreased breath sounds at the bases Abd: soft, nontender Ext: no edema CBC, BMP 03/22/18 06:00 03/21/18 06:37 INR, PTT INR 1.59 (0.82-1.09) H 03/22/18 06:00 Active Medications Acetaminophen (Tylenol -) 650 mg PO Q4H PRN PRN Reason: FEVER Last Admin: 03/22/18 12:55 Dose: 650 mg Amlodipine Besylate (Norvasc -) 5 mg PO DAILY [facility] Last Admin: 03/22/18 11:07 Dose: 5 mg Atorvastatin Calcium (Lipitor -) 40 mg PO HS [facility] Last Admin: 03/21/18 21:58 Dose: 40 mg Docusate Sodium (Colace -) 100 mg PO DAILY [facility] Last Admin: 03/22/18 13:23 Dose: Not Given Ferrous Sulfate (Feosol -) 325 mg PO DAILY [facility] Last Admin: 03/22/18 13:23 Dose: Not Given Hydralazine HCl (Apresoline -) 10 mg PO TID [facility] Last Admin: 03/22/18 06:41 Dose: Not Given Megestrol Acetate (Megace Oral Suspension -) 800 mg PO DAILY [facility] Last Admin: 03/22/18 13:24 Dose: Not Given Pantoprazole Sodium (Protonix Iv) 40 mg IVPUSH BID [facility] Last Admin: 03/22/18 11:06 Dose: 40 mg Polyethylene Glycol (Miralax (For Daily Use) -) 17 gm PO DAILY [facility] Last Admin: 03/22/18 13:24 Dose: Not Given Senna/Docusate Sodium (Pericolace -) 1 tablet PO BID [facility] Last Admin: 03/22/18 13:24 Dose: Not Given A/P Lung Mass Post Obstructive Pneumonia Sepsis CAD Anemia Smoker - will proceed with bronchoscopy and biopsy - monitor H/H, coags - replete lytes - reculture if febrile - DVT prophylaxis
[2018-03-22] MEDS ORDERED: ONDANSETRON 4 MG/2 ML VIAL IVPUSH PRN ×2 (14:38→15:58)
[2018-03-22] MEDS ORDERED: SEVOFLURANE 250 ML BTL ONE (14:42)
[2018-03-22] MEDS ORDERED: LACTATED RINGERS SOLUTION 1,000 ML IV SCH ×2 (14:45→15:58)
[2018-03-22] MEDS ORDERED: LIDOCAINE HCL/PF 2% SDV 5ML VIAL ONE (14:45)
[2018-03-22] MEDS ORDERED: PROPOFOL 20 ML ONE (14:45)
[2018-03-22] MEDS ORDERED: SUCCINYLCHOLINE CHLORIDE 200 MG/10 ML VIAL ONE (14:46)
[2018-03-22] MEDS ORDERED: ALBUTEROL SO4 2.5/IPRATROPIUM 0.5 INH SOL 3 ML VIAL.NEB. NEB PRN ×2 (15:44→15:58)
--- NOTE | 2018-03-22 15:44 | PROC ---
Procedure Note Procedure: BRONCHOSCOPY NOTE After discussing the risks and benefits of the procedure, informed consent was obtained. Pt was placed under general anesthesia and intubated with a size 8.0 ETT by anesthesia. [employer] Displays video bronchoscope was passed via the ETT and the airways were examined down to the subsegmental level. The tootie was sharp, there were no endobronchial lesions noted in the right lung. There was a smooth , friable mass obstructing the left upper lobe segment at the bifurcation with the lingular segment. The mass was brushed and forcep biopsies were taken. There was nonpulsatile bleeding after biopsies taken. Iced saline was lavaged and hemostasis achieved. Bronchoscope withdrawn and procedure terminated. Pre-op Dx: lung mass Post-op Dx: r/o lung cancer Plan: - f/u cytology, pathology and cultures - post bronchoscopy CXR - will start cough suppressants to minimize cough Gera Humphries MD
[2018-03-22] MEDS ORDERED: guaiFENesin/CODEINE 10 ML UNIT-DOSE CUPS PO PRN (15:47)
--- NOTE | 2018-03-22 16:14 | PN ---
Teaching Attending Note Name of Resident: Minna Bernard ATTENDING PHYSICIAN STATEMENT I saw and evaluated the patient. I reviewed the resident's note and discussed the case with the resident. I agree with the resident's findings and plan as documented with exceptions below. SUBJECTIVE: Patient seen and examined. no complaints or new dyspnea currently. OBJECTIVE: Vital Signs Period Temp Pulse Resp BP Sys/Harper Pulse Ox Last 24 Hr 98.1 F-103 F 111-127 20-20 134-159/69-88 99-99 Intake & Output 03/19/18 03/20/18 03/21/18 03/22/18 23:59 23:59 23:59 23:59 Intake Total 1704 1436 650 300 Output Total 232 865 2600 350 Balance 1254 1036 -550 -50 General: sitting in bed in no acute distress Chest: decreased effort, no rales or wheezing appreciated, decreased air entry Abdomen:soft, NT Extremities: no edema Home Medications Medication Instructions Recorded Amlodipine Besylate [Norvasc -] 5 mg PO DAILY #30 tablet 02/03/15 Atorvastatin Ca [Lipitor] 40 mg PO HS #30 tablet 02/03/15 Hydralazine HCl 10 mg PO TID #90 tablet 02/03/15 Active Medications Acetaminophen (Tylenol -) 650 mg PO Q4H PRN PRN Reason: FEVER Albuterol/Ipratropium (Duoneb -) 1 amp NEB Q4H PRN PRN Reason: SHORTNESS OF BREATH Albuterol/Ipratropium (Duoneb -) 1 amp NEB ONCE ONE Stop: 03/22/18 15:54 Amlodipine Besylate (Norvasc -) 5 mg PO DAILY [facility] Atorvastatin Calcium (Lipitor -) 40 mg PO HS [facility] Docusate Sodium (Colace -) 100 mg PO DAILY [facility] Fentanyl (Sublimaze Injection -) 25 mcg IVPUSH [id number] PRN PRN Reason: PAIN-PACU ORDER X 4 DOSES ONLY Ferrous Sulfate (Feosol -) 325 mg PO DAILY [facility] Guaifenesin/Codeine Phosphate (Robitussin Ac -) 10 ml PO Q8H PRN PRN Reason: COUGH Hydralazine HCl (Apresoline -) 10 mg PO TID [facility] Lactated Ringer's (Lactated Ringers Solution) 1,000 mls @ 75 mls/hr IV ASDIR [facility] Megestrol Acetate (Megace Oral Suspension -) 800 mg PO DAILY [facility] Ondansetron HCl (Zofran Injection) 4 mg IVPUSH Q6H PRN PRN Reason: NAUSEA AND/OR VOMITING Pantoprazole Sodium (Protonix Iv) 40 mg IVPUSH BID [facility] Polyethylene Glycol (Miralax (For Daily Use) -) 17 gm PO DAILY [facility] Senna/Docusate Sodium (Pericolace -) 1 tablet PO BID [facility] Laboratory Results - last 24 hr 03/21/18 03/22/18 03/22/18 15:15 06:00 06:00 WBC 14.0 H RBC 3.13 L Hgb 8.2 L Hct 24.0 L MCV 76.7 L MCH 26.0 MCHC 33.9 RDW 22.9 H Plt Count 380 MPV 7.3 L Absolute Neuts (auto) 10.7 Neutrophils % 76.1 Lymphocytes % 9.1 Monocytes % 14.0 H Eosinophils % 0.1 Basophils % 0.7 Nucleated RBC % 0 PT with INR 17.20 H 18.00 H INR 1.52 H 1.59 H Microbiology 03/13/18 00:01 Blood - Peripheral Venous Blood Culture - Final NO GROWTH AFTER 5 DAYS INCUBATION 03/13/18 00:01 Blood - Peripheral Venous Blood Culture - Final NO GROWTH AFTER 5 DAYS INCUBATION 03/13/18 19:56 Nares - Mrsa Screen - Left MRSA Screen - Final NO MRSA ISOLATED 03/13/18 19:50 Urine For Antigen Detection Legionella Antigen - Final 03/13/18 19:50 Urine For Antigen Detection Streptococcus pneumoniae Antigen (M - Final 03/13/18 03:25 Urine - Urine Clean Catch Urine Culture - Final NO GROWTH OBTAINED 03/12/18 08:28 Urine - Urine Clean Catch Urine Culture - Final ASSESSMENT AND PLAN: 77 yo M with prior history of CAD, heavy smoker, recently reportedly diagnosed lung mass/anemia requiring transfusions, admitted with failure to thrive, found with anemia, ISABELLA lung mass -Sepsis due to suspected post obstructive PNA -Persistent fevers, due to above vs from tumor burden -ISABELLA lung mass inseparable from hilum with ?mild pneumonitis -Hemoptysis, pulmonary mass +/- mucosal irritation from frequent coughing -Anemia, likely multifactorial from iron deficiency, poor nutritional status, hemoptysis, r/o occult bleed -Elevated INR, likely nutritional -Hypokalemia -Hypomagnesemia -Constipation -Dysphagia Plan: s/p 7 days of zosyn. Persistent fevers. MRSA screen neg. Abx per ID. s/p bronchoscopy today, will follow up culture/pathology. Oncology input noted. Total 4 units PRBC, 3 units FFP and venofer x 2. s/p Vitamin K. INR noted. Nutrition consult, Megace. Ensure, magic cup. Replete K/mg prn Bowel regimen. Chopped diet with thin liquids. DVTPPX with heparin subq. Dispo pending above. Palliative care consult. PT eval. Patient wants to return home when optimized. Dispo planning with outpatient oncology follow up when improved. Plan discussed with patient in detail, all questions answered.
[2018-03-22] MEDS ORDERED: ALBUTEROL SO4 2.5/IPRATROPIUM 0.5 INH SOL 3 ML VIAL.NEB. NEB ONE (16:30)
[2018-03-22] MEDS: guaiFENesin/CODEINE 10 ML UNIT-DOSE CUPS PO PRN (17:14)
--- NOTE | 2018-03-22 18:18 | PN ---
Physical Exam: SUBJECTIVE: Patient seen and examined this morning at bedside. No new complaints. Denies chest pain, SOB, nausea, vomiting, diarrhea, constipation. OBJECTIVE: Vital Signs Period Temp Pulse Resp BP Sys/Harper Pulse Ox Last 24 Hr 98.1 F-103 F 111-127 20-20 129-173/60-88 95-99 GENERAL: The patient is awake, alert, and fully oriented, in no acute distress. LUNGS: Decreased airway entry HEART: Tachycardic, S1, S2 without murmur, rub or gallop. ABDOMEN: Soft, nontender, nondistended, normoactive bowel sounds EXTREMITIES: No edema Laboratory Results - last 24 hr 03/22/18 03/22/18 06:00 06:00 WBC 14.0 H RBC 3.13 L Hgb 8.2 L Hct 24.0 L MCV 76.7 L MCH 26.0 MCHC 33.9 RDW 22.9 H Plt Count 380 MPV 7.3 L Absolute Neuts (auto) 10.7 Neutrophils % 76.1 Lymphocytes % 9.1 Monocytes % 14.0 H Eosinophils % 0.1 Basophils % 0.7 Nucleated RBC % 0 PT with INR 18.00 H INR 1.59 H Active Medications Acetaminophen (Tylenol -) 650 mg PO Q4H PRN PRN Reason: FEVER Albuterol/Ipratropium (Duoneb -) 1 amp NEB Q4H PRN PRN Reason: SHORTNESS OF BREATH Last Admin: 03/22/18 15:55 Dose: 1 amp Amlodipine Besylate (Norvasc -) 5 mg PO DAILY [facility] Atorvastatin Calcium (Lipitor -) 40 mg PO HS [facility] Docusate Sodium (Colace -) 100 mg PO DAILY [facility] Fentanyl (Sublimaze Injection -) 25 mcg IVPUSH [id number] PRN PRN Reason: PAIN-PACU ORDER X 4 DOSES ONLY Ferrous Sulfate (Feosol -) 325 mg PO DAILY [facility] Guaifenesin/Codeine Phosphate (Robitussin Ac -) 10 ml PO Q8H PRN PRN Reason: COUGH Last Admin: 03/22/18 17:14 Dose: 10 ml Hydralazine HCl (Apresoline -) 10 mg PO TID [facility] Lactated Ringer's (Lactated Ringers Solution) 1,000 mls @ 75 mls/hr IV ASDIR [facility] Last Admin: 03/22/18 16:50 Dose: 0 mls Megestrol Acetate (Megace Oral Suspension -) 800 mg PO DAILY [facility] Ondansetron HCl (Zofran Injection) 4 mg IVPUSH Q6H PRN PRN Reason: NAUSEA AND/OR VOMITING Pantoprazole Sodium (Protonix Iv) 40 mg IVPUSH BID [facility] Polyethylene Glycol (Miralax (For Daily Use) -) 17 gm PO DAILY [facility] Senna/Docusate Sodium (Pericolace -) 1 tablet PO BID [facility] ASSESSMENT/PLAN: 77 y/o male with prior history of CAD, heavy smoker, recently reportedly diagnosed lung mass, anemia requiring transfusions, admitted with Severe protein -calorie malnutrition now with hemoptysis 1. ISABELLA mass - likely malignant, will need staging - hemonc consult - S/P Bronchoscopy + Biopsy today, Pathology pending - PFTs as an outpatient 2. Sepsis Likely due to post obstrutive PNA - Temp reached 103 overnight - Blood cultures negative - UA Negative - CXR: Left parahilar, left upper lung mass. No pleural effusion, or pneumothorax is seen. No evidence of a pulmonary consolidations. - HCV screen noted - HIV negative - Pulmonary consult, appreciate rec's - ID consult, appreciate rec's - IV Zosyn course day 9 - Continue Tylenol - MRSA Nares screen: Negative - Consider that fevers may be from tumor burden and not infectious in etiology 3. Depression - As per nursing, patient complained of "just want to go to sleep and " - Dr. Hernandez consulted, appreciate rec's - Patient feels better about coping strategies - Continue to monitor 4. Hemopytsis - Likely due to pulmonary mass, consider irritation from frequent coughing - 1 Unit pRBC transfused (03/15) - No repeat episodes 5. Symptomatic anemia - Weakness and tachycardia - Iron studies noted - S/P 3 unit transfused, 3 doses of Vitamin K - Given Venofer (dose #2) - Continue to monitor 6. Severe protein calorie malnutrition - In the setting of likely malignant lung mass with with weight loss - Failure to thrive, requiring nutritional support - BMI: 17.1, Weight loss >7.5% in 3 months - RF: Possible lung malignancy, Dementia, difficulty swallowing/chewing - Speech and swallow Recomendations: Consider dysphagia chopped diet with thin liquid. - Continue Megace Oral Suspension 400 mg PO DAILY 7. Constipation - Continue with Miralax 17 gm PO DAILY [facility] - Continue with Senna/Docusate Sodium 1 tablet PO BID [facility] - Continue with Colace 100 mg PO DAILY [facility] 8. HTN - Continue with Norvasc 5 mg PO DAILY [facility] - Continue with Hydralazine HCl 10 mg PO TID [facility] 9. HLD - Continue with Atorvastatin Calcium 40 mg PO HS [facility] 10. dvt ppx - heparin Visit type - Emergency Visit Emergency Visit: Yes ED Registration Date: 03/11/18 Care time: The patient presented to the Emergency Department on the above date and was hospitalized for further evaluation of their emergent condition. - New Patient This patient is new to me today: No - Critical Care Critical Care patient: No
[2018-03-22] MEDS: ATORVASTATIN CA 40 MG TABLET (FP) PO SCH (22:07)
--- NOTE | 2018-03-23 00:32 | PN ---
Progress Note (short form) - Note Progress Note: Patient seen in follow up. Returned now from bronchoscopy, which proceeded without complication. No complaints presently. Inpatient Meds reviewed. Current Medications Generic Name Dose Route Start Last Admin Trade Name Freq PRN Reason Stop Dose Admin Acetaminophen 650 mg 03/22/18 15:58 Tylenol - PO Q4H PRN FEVER Albuterol/Ipratropium 1 amp 03/22/18 15:58 03/22/18 15:55 Duoneb - NEB 1 amp Q4H PRN Administration SHORTNESS OF BREATH Amlodipine Besylate 5 mg 03/23/18 10:00 Norvasc - PO DAILY [facility] Atorvastatin Calcium 40 mg 03/22/18 22:00 03/22/18 22:07 Lipitor - PO 40 mg HS [facility] Administration Docusate Sodium 100 mg 03/23/18 10:00 Colace - PO DAILY [facility] Fentanyl 25 mcg 03/22/18 15:58 Sublimaze Injection - IVPUSH [id number] PRN PAIN-PACU ORDER X 4 DOSES ONLY Ferrous Sulfate 325 mg 03/23/18 10:00 Feosol - PO DAILY [facility] Guaifenesin/Codeine Phosphate 10 ml 03/22/18 15:58 03/22/18 17:14 Robitussin Ac - PO 10 ml Q8H PRN Administration COUGH Hydralazine HCl 10 mg 03/22/18 22:00 03/22/18 22:07 Apresoline - PO 10 mg TID [facility] Administration Lactated Ringer's 1,000 mls @ 75 mls/hr 03/22/18 15:58 03/22/18 16:50 Lactated Ringers Solution IV 0 mls ASDIR [facility] Administration Megestrol Acetate 800 mg 03/23/18 10:00 Megace Oral Suspension - PO DAILY [facility] Ondansetron HCl 4 mg 03/22/18 15:58 Zofran Injection IVPUSH Q6H PRN NAUSEA AND/OR VOMITING Pantoprazole Sodium 40 mg 03/22/18 22:00 03/22/18 22:07 Protonix Iv IVPUSH 40 mg BID [facility] Administration Polyethylene Glycol 17 gm 03/23/18 10:00 Miralax (For Daily Use) - PO DAILY [facility] Senna/Docusate Sodium 1 tablet 03/22/18 22:00 03/22/18 22:07 Pericolace - PO 1 tablet BID [facility] Administration On Examination: Last Vital Signs Temp Pulse Resp BP Pulse Ox 99.9 F H 120 H 20 138/77 98 03/22/18 22:17 03/22/18 22:17 03/22/18 22:17 03/22/18 22:17 03/22/18 18:00 General: In no acute distress, emaciated.. Extremities: No pallor or icterus. No pedal edema. No palpable lymphadenopathy. CVS: S1, S2, regular, no gallop or murmur. Chest: good air entry bilaterally, clear Abdomen: Non-distended, non-tender. Neuro: Alert, oriented, non-focal. Labs: CBC, BMP 03/22/18 06:00 03/21/18 06:37 Assessment. Post-obstructive pneumonia, with bronchoscopically visualised mass RUL, biopsied today. Will await pathology. Prior concern about prolonged PT. (normal PTT). Possibly attributable to Vitamin K deficiency. Biopsy given with FFP cover, fortunately without hemorrhagic complications. Continue to observe. Repeat PT/PTT in morning.
[2018-03-23] MEDS: ACETAMINOPHEN 325 MG TABLET (FP) PO PRN ×3 (01:32→16:45)
[2018-03-23] MEDS: guaiFENesin/CODEINE 10 ML UNIT-DOSE CUPS PO PRN ×2 (01:36→10:18)
[2018-03-23] MEDS: hydrALAZINE HCL 10 MG TABLET PO SCH ×3 (06:25→21:34)
[2018-03-23 07:10] LABS: BASO % 0.9 % (0-2.0); EOS % 0.1 % (0-4.5); HEMATOCRIT 24.1 % (35.4-49); HEMOGLOBIN 8.1 GM/dL (11.7-16.9); LYMPH % 8.2 % (8-40); MCHC 33.5 g/dl (32.0-35.9); MEAN CELL VOLUME 77.6 fl (80-96); MEAN PLT VOLUME 7.1 fl (7.5-11.1); MONO % 12.4 % (3.8-10.2); NEUT % 78.4 % (42.8-82.8); PLATELET COUNT 365 K/MM3 (134-434); RDW 22.6 % (11.9-15.9); WHITE BLOOD COUNT 14.1 K/mm3 (4.0-10.0)
[2018-03-23 07:34] LABS: INR 1.5 (0.82-1.09); PROTHROMBIN TIME (PATIENT) 16.9 SEC (9.7-13.0)
[2018-03-23 07:37] LABS: ACTIVATED PTT 32.8 SECONDS (25.2-36.5)
[2018-03-23 07:52] LABS: ALBUMIN 1.5 g/dl (3.4-5.0); CALCIUM 8.1 mg/dL (8.5-10.1); CHLORIDE 101 mmol/L (98-107); POTASSIUM 3.6 mmol/L (3.5-5.1); SODIUM 138 mmol/L (136-145)
[2018-03-23 07:56] LABS: ALK PHOS 97 U/L (45-117); ANION GAP 9 (8-16); BILIRUBIN,TOTAL 0.4 mg/dL (0.2-1.0); BLOOD UREA NITROGEN 14 mg/dL (7-18); CO2 28 mmol/L (21-32); CREATININE 0.5 mg/dL (0.7-1.3); GLUCOSE,RANDOM 122 mg/dL (74-106); SGOT/AST 10 U/L (15-37); SGPT/ALT 10 U/L (12-78); TOT PROT 6.4 g/dl (6.4-8.2)
[2018-03-23] MEDS: amLODIPine BESYLATE 5 MG TABLET (FP) PO SCH ×2 (08:46→10:12)
[2018-03-23] MEDS: FERROUS SO4 325 MG TABLET (FP) PO SCH (10:11)
[2018-03-23] MEDS: DOCUSATE SODIUM 100 MG CAPSULE (FP) PO SCH (10:11)
[2018-03-23] MEDS: SENNOSIDES/DOCUSATE COMBO (SENNA PLUS) TABLET (UD) PO SCH ×2 (10:11→21:33)
[2018-03-23] MEDS: PANTOPRAZOLE SODIUM 40 MG VIAL IVPUSH SCH ×2 (10:11→21:34)
[2018-03-23] MEDS ORDERED: ALBUTEROL SO4 0.083% IH SOL 2.5 MG/3 ML VIAL.NEB. NEB PRN (10:14)
--- NOTE | 2018-03-23 10:14 | PN ---
Progress Note (short form) - Note Progress Note: PULMONARY s/p bronchoscopy yesterday showing ISABELLA obstructing mass. Nonproductive cough overnight but no hemoptysis. Vital Signs Period Temp Pulse Resp BP Sys/Harper Pulse Ox Last 24 Hr 98.1 F-100.8 F 113-125 18-22 129-173/60-82 95-99 Gen: NAD at rest Heart: tachycardic, regular Lung: decreased breath sounds at the bases Abd: soft, nontender Ext: no edema CBC, BMP 03/23/18 06:00 03/23/18 06:00 Active Medications Acetaminophen (Tylenol -) 650 mg PO Q4H PRN PRN Reason: FEVER Last Admin: 03/23/18 08:45 Dose: 650 mg Albuterol/Ipratropium (Duoneb -) 1 amp NEB Q4H PRN PRN Reason: SHORTNESS OF BREATH Last Admin: 03/22/18 15:55 Dose: 1 amp Amlodipine Besylate (Norvasc -) 5 mg PO DAILY [facility] Last Admin: 03/23/18 08:46 Dose: 5 mg Atorvastatin Calcium (Lipitor -) 40 mg PO HS [facility] Last Admin: 03/22/18 22:07 Dose: 40 mg Docusate Sodium (Colace -) 100 mg PO DAILY [facility] Fentanyl (Sublimaze Injection -) 25 mcg IVPUSH [id number] PRN PRN Reason: PAIN-PACU ORDER X 4 DOSES ONLY Ferrous Sulfate (Feosol -) 325 mg PO DAILY [facility] Guaifenesin/Codeine Phosphate (Robitussin Ac -) 10 ml PO Q8H PRN PRN Reason: COUGH Last Admin: 03/23/18 01:36 Dose: 10 ml Hydralazine HCl (Apresoline -) 10 mg PO TID [facility] Last Admin: 03/23/18 06:25 Dose: 10 mg Lactated Ringer's (Lactated Ringers Solution) 1,000 mls @ 75 mls/hr IV ASDIR [facility] Last Admin: 03/22/18 16:50 Dose: 0 mls Megestrol Acetate (Megace Oral Suspension -) 800 mg PO DAILY [facility] Ondansetron HCl (Zofran Injection) 4 mg IVPUSH Q6H PRN PRN Reason: NAUSEA AND/OR VOMITING Pantoprazole Sodium (Protonix Iv) 40 mg IVPUSH BID [facility] Last Admin: 03/22/18 22:07 Dose: 40 mg Polyethylene Glycol (Miralax (For Daily Use) -) 17 gm PO DAILY [facility] Senna/Docusate Sodium (Pericolace -) 1 tablet PO BID [facility] Last Admin: 03/22/18 22:07 Dose: 1 tablet A/P Lung Mass likely malignant Post Obstructive Pneumonia Sepsis CAD Anemia Smoker - f/u bronchial cultures, cytology, pathology - monitor H/H, coags - cough suppressants - will make inhaled bronchodilators standing and PRN - DVT prophylaxis
[2018-03-23 10:54] LABS: ANISOCYTOSIS 2+; MACROCYTOSIS 0; PLATELET ESTIMATE NORMAL
[2018-03-23] MEDS: ALBUTEROL SO4 2.5/IPRATROPIUM 0.5 INH SOL 3 ML VIAL.NEB. NEB SCH ×3 (12:10→20:40)
[2018-03-23] MEDS: METOPROLOL TARTRATE 25 MG TABLET (FP) PO SCH ×2 (12:32→21:33)
[2018-03-23 12:44] LABS: MAGNESIUM 1.7 mg/dL (1.8-2.4); PHOSPHOROUS 3.1 mg/dL (2.5-4.9)
[2018-03-23] MEDS ORDERED: PT OWN MED DRAWER 7, Y5N ONE ×2 (14:35→21:06)
[2018-03-23] MEDS: POLYETHYLENE GLYCOL 3350 119 GM BTL PO SCH (14:41)
[2018-03-23] MEDS: MEGESTROL ACETATE 400 MG/10 ML UNIT DOSE CUP PO SCH (14:43)
--- NOTE | 2018-03-23 15:35 | PN ---
Teaching Attending Note Name of Resident: Minna Bernard ATTENDING PHYSICIAN STATEMENT I saw and evaluated the patient. I reviewed the resident's note and discussed the case with the resident. I agree with the resident's findings and plan as documented with exceptions below. SUBJECTIVE: Patient seen and examined. overall unchanged, no worsening dyspnea, decreased oral intake. OBJECTIVE: Vital Signs Period Temp Pulse Resp BP Sys/Harper Pulse Ox Last 24 Hr 98.1 F-100.8 F 112-137 18-22 129-173/60-86 91-99 Intake & Output 03/20/18 03/21/18 03/22/18 03/23/18 23:59 23:59 23:59 23:59 Intake Total 1436 650 400 900 Output Total 400 1200 850 400 Balance 1036 -550 -450 500 General: lyng in bed in no acute distress Chest: decreased breath sounds all over, positive air entry, no wheezing Abdomen:soft, NT Extremities: no edema Home Medications Medication Instructions Recorded Amlodipine Besylate [Norvasc -] 5 mg PO DAILY #30 tablet 02/03/15 Atorvastatin Ca [Lipitor] 40 mg PO HS #30 tablet 02/03/15 Hydralazine HCl 10 mg PO TID #90 tablet 02/03/15 Active Medications Acetaminophen (Tylenol -) 650 mg PO Q4H PRN PRN Reason: FEVER Last Admin: 03/23/18 08:45 Dose: 650 mg Albuterol Sulfate (Ventolin 0.083% Nebulizer Soln -) 1 amp NEB Q4H PRN PRN Reason: SHORT OF BREATH/WHEEZING Albuterol/Ipratropium (Duoneb -) 1 amp NEB RQID [facility] Last Admin: 03/23/18 12:10 Dose: 1 amp Amlodipine Besylate (Norvasc -) 5 mg PO DAILY [facility] Last Admin: 03/23/18 10:12 Dose: Not Given Atorvastatin Calcium (Lipitor -) 40 mg PO HS [facility] Last Admin: 03/22/18 22:07 Dose: 40 mg Docusate Sodium (Colace -) 100 mg PO DAILY [facility] Last Admin: 03/23/18 10:11 Dose: 100 mg Fentanyl (Sublimaze Injection -) 25 mcg IVPUSH [id number] PRN PRN Reason: PAIN-PACU ORDER X 4 DOSES ONLY Ferrous Sulfate (Feosol -) 325 mg PO DAILY [facility] Last Admin: 03/23/18 10:11 Dose: 325 mg Guaifenesin/Codeine Phosphate (Robitussin Ac -) 10 ml PO Q8H PRN PRN Reason: COUGH Last Admin: 03/23/18 10:18 Dose: 10 ml Hydralazine HCl (Apresoline -) 10 mg PO TID [facility] Last Admin: 03/23/18 14:45 Dose: 10 mg Lactated Ringer's (Lactated Ringers Solution) 1,000 mls @ 75 mls/hr IV ASDIR [facility] Last Admin: 03/22/18 16:50 Dose: 0 mls Megestrol Acetate (Megace Oral Suspension -) 800 mg PO DAILY [facility] Last Admin: 03/23/18 14:43 Dose: 800 mg Metoprolol Tartrate (Lopressor -) 12.5 mg PO BID [facility] Last Admin: 03/23/18 12:32 Dose: 12.5 mg Ondansetron HCl (Zofran Injection) 4 mg IVPUSH Q6H PRN PRN Reason: NAUSEA AND/OR VOMITING Pantoprazole Sodium (Protonix Iv) 40 mg IVPUSH BID [facility] Last Admin: 03/23/18 10:11 Dose: 40 mg Polyethylene Glycol (Miralax (For Daily Use) -) 17 gm PO DAILY [facility] Last Admin: 03/23/18 14:41 Dose: 17 gm Senna/Docusate Sodium (Pericolace -) 1 tablet PO BID [facility] Last Admin: 03/23/18 10:11 Dose: 1 tablet Laboratory Results - last 24 hr 03/22/18 03/23/18 03/23/18 18:30 06:00 06:00 WBC 14.1 H RBC 3.10 L Hgb 8.1 L Hct 24.1 L MCV 77.6 L MCH 26.0 MCHC 33.5 RDW 22.6 H Plt Count 365 MPV 7.1 L Absolute Neuts (auto) 11.0 Neutrophils % 78.4 Neutrophils % (Manual) 79.8 Band Neutrophils % 0.0 Lymphocytes % 8.2 Lymphocytes % (Manual) 6.1 L Monocytes % 12.4 H Monocytes % (Manual) 12 H Eosinophils % 0.1 Eosinophils % (Manual) 0.0 Basophils % 0.9 Basophils % (Manual) 2.0 Myelocytes % (Man) 0 Promyelocytes % (Man) 0 Blast Cells % (Manual) 0 Nucleated RBC % 0 Metamyelocytes 0 Hypochromia 0 Platelet Estimate Normal Polychromasia 1+ Poikilocytosis 0 Anisocytosis 2+ Microcytosis 2+ Macrocytosis 0 PT with INR 16.90 H INR 1.50 H PTT (Actin FS) 36.0 32.8 Sodium Potassium Chloride Carbon Dioxide Anion Gap BUN Creatinine Creat Clearance w eGFR Random Glucose Calcium Phosphorus Magnesium Total Bilirubin AST ALT Alkaline Phosphatase Total Protein Albumin 03/23/18 03/23/18 06:00 06:00 WBC RBC Hgb Hct MCV MCH MCHC RDW Plt Count MPV Absolute Neuts (auto) Neutrophils % Neutrophils % (Manual) Band Neutrophils % Lymphocytes % Lymphocytes % (Manual) Monocytes % Monocytes % (Manual) Eosinophils % Eosinophils % (Manual) Basophils % Basophils % (Manual) Myelocytes % (Man) Promyelocytes % (Man) Blast Cells % (Manual) Nucleated RBC % Metamyelocytes Hypochromia Platelet Estimate Polychromasia Poikilocytosis Anisocytosis Microcytosis Macrocytosis PT with INR INR PTT (Actin FS) Sodium 138 Potassium 3.6 Chloride 101 Carbon Dioxide 28 Anion Gap 9 BUN 14 Creatinine 0.5 L Creat Clearance w eGFR > 60 Random Glucose 122 H D Calcium 8.1 L Phosphorus 3.1 D Cancelled Magnesium 1.7 L Cancelled Total Bilirubin 0.4 AST 10 L ALT 10 L Alkaline Phosphatase 97 Total Protein 6.4 Albumin 1.5 L Microbiology 03/22/18 14:00 Bronchial Washings - Left Upper Lobe CARO Preparation - Preliminary 03/22/18 14:00 Bronchial Washings - Left Upper Lobe Fungal Culture - Preliminary 03/13/18 00:01 Blood - Peripheral Venous Blood Culture - Final NO GROWTH AFTER 5 DAYS INCUBATION 03/13/18 00:01 Blood - Peripheral Venous Blood Culture - Final NO GROWTH AFTER 5 DAYS INCUBATION 03/13/18 19:56 Nares - Mrsa Screen - Left MRSA Screen - Final NO MRSA ISOLATED 03/13/18 19:50 Urine For Antigen Detection Legionella Antigen - Final 03/13/18 19:50 Urine For Antigen Detection Streptococcus pneumoniae Antigen (M - Final 03/13/18 03:25 Urine - Urine Clean Catch Urine Culture - Final NO GROWTH OBTAINED 03/12/18 08:28 Urine - Urine Clean Catch Urine Culture - Final ASSESSMENT AND PLAN: 77 yo M with prior history of CAD, heavy smoker, recently reportedly diagnosed lung mass/anemia requiring transfusions, admitted with failure to thrive, found with anemia, ISABELLA lung mass -Sepsis due to suspected post obstructive PNA -Persistent fevers, due to above vs from tumor burden -ISABELLA lung mass inseparable from hilum with ?mild pneumonitis -Hemoptysis, pulmonary mass +/- mucosal irritation from frequent coughing -Anemia, likely multifactorial from iron deficiency, poor nutritional status, hemoptysis, r/o occult bleed -Elevated INR, likely nutritional -Hypokalemia -Hypomagnesemia -Constipation -Dysphagia Plan: s/p 7 days of zosyn. Fevers improved, follow up bronchial washings/repeat Blood cultures. MRSA screen neg. Abx per ID. s/p bronchoscopy 03/22 with cultures and biopsy. Oncology input noted. Total 4 units PRBC, 3 units FFP and venofer x 2. s/p Vitamin K. INR noted. Nutrition consult, Megace. Ensure, magic cup. Replete K/mg prn Bowel regimen. Chopped diet with thin liquids. DVTPPX with heparin subq. Dispo pending above. Palliative care consult. PT eval noted. Needs home oxygen. Patient plans to live with sister after discharge. Discuss with CM to arrange home VNS/PT and home oxygen.Discuss with sister the need for follow up on pathology results with oncology follow up next week for further treatment plan. Plan discussed with patient in detail, all questions answered.
[2018-03-23] MEDS ORDERED: ACETAMINOPHEN 1000 MG/100 ML VIAL (NON FORMULARY) IVPB ONE (16:53)
[2018-03-23] MEDS ORDERED: SODIUM CHLORIDE 1,000 ML IV STA (16:54)
[2018-03-23] MEDS ORDERED: ACETAMINOPHEN 1000 MG/100 ML VIAL (NON FORMULARY) IVPB PRN (17:02)
--- NOTE | 2018-03-23 18:17 | PN ---
Physical Exam: SUBJECTIVE: Patient seen and examined this morning at bedside. Continues to cough and has no appetite. No overnight events as per nursing. Denies chest pain, SOB, nausea, vomiting, diarrhea, constipation. OBJECTIVE: Vital Signs Period Temp Pulse Resp BP Sys/Harper Pulse Ox Last 24 Hr 98.4 F-101 F 112-146 18-20 112-162/70-86 91-96 GENERAL: The patient is awake, alert, and fully oriented, in no acute distress. LUNGS: Decreased breath sounds through out HEART: Tachycardic, S1, S2 without murmur, rub or gallop. ABDOMEN: Soft, nontender, nondistended, normoactive bowel sounds EXTREMITIES: No edema Laboratory Results - last 24 hr 03/22/18 03/23/18 03/23/18 18:30 06:00 06:00 WBC 14.1 H RBC 3.10 L Hgb 8.1 L Hct 24.1 L MCV 77.6 L MCH 26.0 MCHC 33.5 RDW 22.6 H Plt Count 365 MPV 7.1 L Absolute Neuts (auto) 11.0 Neutrophils % 78.4 Neutrophils % (Manual) 79.8 Band Neutrophils % 0.0 Lymphocytes % 8.2 Lymphocytes % (Manual) 6.1 L Monocytes % 12.4 H Monocytes % (Manual) 12 H Eosinophils % 0.1 Eosinophils % (Manual) 0.0 Basophils % 0.9 Basophils % (Manual) 2.0 Myelocytes % (Man) 0 Promyelocytes % (Man) 0 Blast Cells % (Manual) 0 Nucleated RBC % 0 Metamyelocytes 0 Hypochromia 0 Platelet Estimate Normal Polychromasia 1+ Poikilocytosis 0 Anisocytosis 2+ Microcytosis 2+ Macrocytosis 0 PT with INR 16.90 H INR 1.50 H PTT (Actin FS) 36.0 32.8 Sodium Potassium Chloride Carbon Dioxide Anion Gap BUN Creatinine Creat Clearance w eGFR Random Glucose Calcium Phosphorus Magnesium Total Bilirubin AST ALT Alkaline Phosphatase Total Protein Albumin 03/23/18 03/23/18 06:00 06:00 WBC RBC Hgb Hct MCV MCH MCHC RDW Plt Count MPV Absolute Neuts (auto) Neutrophils % Neutrophils % (Manual) Band Neutrophils % Lymphocytes % Lymphocytes % (Manual) Monocytes % Monocytes % (Manual) Eosinophils % Eosinophils % (Manual) Basophils % Basophils % (Manual) Myelocytes % (Man) Promyelocytes % (Man) Blast Cells % (Manual) Nucleated RBC % Metamyelocytes Hypochromia Platelet Estimate Polychromasia Poikilocytosis Anisocytosis Microcytosis Macrocytosis PT with INR INR PTT (Actin FS) Sodium 138 Potassium 3.6 Chloride 101 Carbon Dioxide 28 Anion Gap 9 BUN 14 Creatinine 0.5 L Creat Clearance w eGFR > 60 Random Glucose 122 H D Calcium 8.1 L Phosphorus 3.1 D Cancelled Magnesium 1.7 L Cancelled Total Bilirubin 0.4 AST 10 L ALT 10 L Alkaline Phosphatase 97 Total Protein 6.4 Albumin 1.5 L Microbiology 03/22/18 14:00 Bronchial Washings - Left Upper Lobe CARO Preparation - Preliminary 03/22/18 14:00 Bronchial Washings - Left Upper Lobe Fungal Culture - Preliminary 03/13/18 00:01 Blood - Peripheral Venous Blood Culture - Final NO GROWTH AFTER 5 DAYS INCUBATION 03/13/18 00:01 Blood - Peripheral Venous Blood Culture - Final NO GROWTH AFTER 5 DAYS INCUBATION 03/13/18 19:56 Nares - Mrsa Screen - Left MRSA Screen - Final NO MRSA ISOLATED 03/13/18 19:50 Urine For Antigen Detection Legionella Antigen - Final 03/13/18 19:50 Urine For Antigen Detection Streptococcus pneumoniae Antigen (M - Final 03/13/18 03:25 Urine - Urine Clean Catch Urine Culture - Final NO GROWTH OBTAINED 03/12/18 08:28 Urine - Urine Clean Catch Urine Culture - Final Active Medications Acetaminophen (Tylenol -) 650 mg PO Q4H PRN PRN Reason: FEVER Last Admin: 03/23/18 16:45 Dose: 650 mg Acetaminophen (Ofirmev Injection -) 1,000 mg IVPB Q6H PRN PRN Reason: FEVER Albuterol Sulfate (Ventolin 0.083% Nebulizer Soln -) 1 amp NEB Q4H PRN PRN Reason: SHORT OF BREATH/WHEEZING Albuterol/Ipratropium (Duoneb -) 1 amp NEB RQID [facility] Last Admin: 03/23/18 12:10 Dose: 1 amp Amlodipine Besylate (Norvasc -) 5 mg PO DAILY [facility] Last Admin: 03/23/18 10:12 Dose: Not Given Atorvastatin Calcium (Lipitor -) 40 mg PO HS [facility] Last Admin: 03/22/18 22:07 Dose: 40 mg Docusate Sodium (Colace -) 100 mg PO DAILY [facility] Last Admin: 03/23/18 10:11 Dose: 100 mg Fentanyl (Sublimaze Injection -) 25 mcg IVPUSH [id number] PRN PRN Reason: PAIN-PACU ORDER X 4 DOSES ONLY Ferrous Sulfate (Feosol -) 325 mg PO DAILY [facility] Last Admin: 03/23/18 10:11 Dose: 325 mg Guaifenesin/Codeine Phosphate (Robitussin Ac -) 10 ml PO Q8H PRN PRN Reason: COUGH Last Admin: 03/23/18 10:18 Dose: 10 ml Hydralazine HCl (Apresoline -) 10 mg PO TID [facility] Last Admin: 03/23/18 14:45 Dose: 10 mg Megestrol Acetate (Megace Oral Suspension -) 800 mg PO DAILY [facility] Last Admin: 03/23/18 14:43 Dose: 800 mg Metoprolol Tartrate (Lopressor -) 12.5 mg PO BID [facility] Last Admin: 03/23/18 12:32 Dose: 12.5 mg Ondansetron HCl (Zofran Injection) 4 mg IVPUSH Q6H PRN PRN Reason: NAUSEA AND/OR VOMITING Pantoprazole Sodium (Protonix Iv) 40 mg IVPUSH BID [facility] Last Admin: 03/23/18 10:11 Dose: 40 mg Polyethylene Glycol (Miralax (For Daily Use) -) 17 gm PO DAILY [facility] Last Admin: 03/23/18 14:41 Dose: 17 gm Senna/Docusate Sodium (Pericolace -) 1 tablet PO BID [facility] Last Admin: 03/23/18 10:11 Dose: 1 tablet ASSESSMENT/PLAN: 77 y/o male with prior history of CAD, heavy smoker, recently reportedly diagnosed lung mass, anemia requiring transfusions, admitted with Severe protein -calorie malnutrition now with hemoptysis 1. ISABELLA mass - likely malignant, will need staging - hemonc consult, will discuss what he needs to be discharged - S/P Bronchoscopy + Biopsy (03/22) Pathology pending - PFTs as an outpatient - Requires home oxygen - Pre and Post 2. Sepsis Likely due to post obstrutive PNA - Temp reached 100.8 overnight - Blood cultures negative, repeats pending - UA Negative - CXR: Left parahilar, left upper lung mass. No pleural effusion, or pneumothorax is seen. No evidence of a pulmonary consolidations. - HCV screen noted - HIV negative - Pulmonary consult, appreciate rec's - ID consult, appreciate rec's - IV Zosyn course - Continue Tylenol - MRSA Nares screen: Negative - Consider that fevers may be from tumor burden and not infectious in etiology - Lopressor 12.5 mg PO BID for tachycardia 3. Depression - As per nursing, patient complained of "just want to go to sleep and " - Dr. Hernandez consulted, appreciate rec's - Patient feels better about coping strategies - Continue to monitor 4. Hemopytsis - Likely due to pulmonary mass, consider irritation from frequent coughing - 1 Unit pRBC transfused (03/15) - No repeat episodes 5. Symptomatic anemia - Weakness and tachycardia - Iron studies noted - S/P 4 units pRBC transfused, 3 units FFP - Given Venofer (dose #2) - Continue to monitor 6. Severe protein calorie malnutrition - In the setting of likely malignant lung mass with with weight loss - Failure to thrive, requiring nutritional support - BMI: 17.1, Weight loss >7.5% in 3 months - RF: Possible lung malignancy, Dementia, difficulty swallowing/chewing - Speech and swallow Recomendations: Consider dysphagia chopped diet with thin liquid. - Continue Megace Oral Suspension 400 mg PO DAILY 7. Constipation - Continue with Miralax 17 gm PO DAILY [facility] - Continue with Senna/Docusate Sodium 1 tablet PO BID [facility] - Continue with Colace 100 mg PO DAILY [facility] 8. HTN - Continue with Norvasc 5 mg PO DAILY [facility] - Continue with Hydralazine HCl 10 mg PO TID [facility] 9. HLD - Continue with Atorvastatin Calcium 40 mg PO HS UMESH 10. dvt ppx - heparin dispo: possible d/c to snf Visit type - Emergency Visit Emergency Visit: Yes ED Registration Date: 03/11/18 Care time: The patient presented to the Emergency Department on the above date and was hospitalized for further evaluation of their emergent condition. - New Patient This patient is new to me today: No - Critical Care Critical Care patient: No
[2018-03-23] MEDS: ATORVASTATIN CA 40 MG TABLET (FP) PO SCH (21:33)
[2018-03-24] MEDS ORDERED: METOPROLOL TARTRATE 25 MG TABLET (FP) PO ONE (01:11)
[2018-03-24] MEDS: ACETAMINOPHEN 325 MG TABLET (FP) PO PRN ×3 (01:26→18:29)
[2018-03-24] MEDS: hydrALAZINE HCL 10 MG TABLET PO SCH ×3 (05:27→22:33)
[2018-03-24 07:18] LABS: BASO % 0.4 % (0-2.0); EOS % 0.2 % (0-4.5); HEMATOCRIT 23.6 % (35.4-49); HEMOGLOBIN 7.9 GM/dL (11.7-16.9); LYMPH % 7.5 % (8-40); MCHC 33.4 g/dl (32.0-35.9); MEAN CELL VOLUME 77.8 fl (80-96); MEAN PLT VOLUME 7.4 fl (7.5-11.1); MONO % 12.5 % (3.8-10.2); NEUT % 79.4 % (42.8-82.8); PLATELET COUNT 368 K/MM3 (134-434); RBC 3.03 M/mm3 (4.00-5.60); WHITE BLOOD COUNT 13.8 K/mm3 (4.0-10.0)
[2018-03-24 07:39] LABS: ALBUMIN 1.4 g/dl (3.4-5.0); BLOOD UREA NITROGEN 16 mg/dL (7-18); CALCIUM 8.1 mg/dL (8.5-10.1); CHLORIDE 103 mmol/L (98-107); CREATININE 0.6 mg/dL (0.7-1.3); GLUCOSE,RANDOM 130 mg/dL (74-106); MAGNESIUM 1.8 mg/dL (1.8-2.4); PHOSPHOROUS 3.1 mg/dL (2.5-4.9); POTASSIUM 3.5 mmol/L (3.5-5.1); SGOT/AST 9 U/L (15-37); SGPT/ALT 9 U/L (12-78); SODIUM 141 mmol/L (136-145)
[2018-03-24 07:55] LABS: ALK PHOS 93 U/L (45-117); ANION GAP 11 (8-16); BILIRUBIN,TOTAL 0.3 mg/dL (0.2-1.0); CO2 27 mmol/L (21-32); TOT PROT 6.2 g/dl (6.4-8.2)
[2018-03-24] MEDS: ALBUTEROL SO4 2.5/IPRATROPIUM 0.5 INH SOL 3 ML VIAL.NEB. NEB SCH ×4 (08:51→21:10)
[2018-03-24] MEDS: METOPROLOL TARTRATE 25 MG TABLET (FP) PO SCH ×2 (09:34→23:33)
[2018-03-24] MEDS: SENNOSIDES/DOCUSATE COMBO (SENNA PLUS) TABLET (UD) PO SCH ×2 (09:34→22:34)
[2018-03-24] MEDS: DOCUSATE SODIUM 100 MG CAPSULE (FP) PO SCH (09:35)
[2018-03-24] MEDS: amLODIPine BESYLATE 5 MG TABLET (FP) PO SCH (09:35)
[2018-03-24] MEDS: FERROUS SO4 325 MG TABLET (FP) PO SCH (09:35)
[2018-03-24] MEDS: MEGESTROL ACETATE 400 MG/10 ML UNIT DOSE CUP PO SCH (09:38)
[2018-03-24] MEDS: PANTOPRAZOLE SODIUM 40 MG VIAL IVPUSH SCH ×2 (09:41→22:33)
[2018-03-24] MEDS ORDERED: PIPERACILLIN/TAZOBACTAM 3.375 GM VIAL IVPB ONE ×2 (09:47→17:04)
[2018-03-24] MEDS ORDERED: DEXTROSE 5%-WATER - 50 ML IVPB ONE ×2 (09:47→17:04)
[2018-03-24] MEDS ORDERED: PIPERACILLIN/TAZOB 3.375 GM 3.375 GM in DEXTROSE 5%-WATER - 50 ML IVPB ONE (10:00)
[2018-03-24] MEDS: POLYETHYLENE GLYCOL 3350 119 GM BTL PO SCH (10:12)
--- NOTE | 2018-03-24 11:31 | PN ---
Progress Note (short form) - Note Progress Note: Radiation Oncology (consult dictated) 77yo lifelong smoker with most likely bronchogenic malignancy, at least stage IIIA, with mediastinal LNs and post-obstructive pneumonic process/infection. The biopsy result is awaited. Pending pathologic confirmation of malignancy, he would be a candidate for palliative RT to relieve the tumor obstruction. Given the poor PS at this time, I think definitive thoracic RT (pending completion of staging) would be difficult. However, will discuss goals of care once path is available. If stable to go home, may f/u in office for RT.
--- NOTE | 2018-03-24 12:02 | CONS ---
DATE OF CONSULTATION: 03/24/2018 REFERRING PHYSICIAN: Carla Pacheco MD REASON FOR CONSULTATION: Probably lung cancer with postoperative pneumonia. HISTORY OF PRESENT ILLNESS: The patient is a 77-year-old smoker who presents with a 3-month-old of a nonproductive cough, shortness of breath, anorexia, and 30-pound weight loss. He stopped smoking about that time and also had an episode of hemoptysis. He also had epistaxis and was evaluated at the [facility] where he was found to have a lung mass. He received blood transfusion. He was supposed to have a biopsy but was unable to follow up due to lack of transportation. Two weeks ago he was brought in for increasing aforementioned symptoms as well as generalized weakness. He was staying with his sister who brought him into the emergency room. He had a hemoglobin of 7.3. He received blood transfusions. His CT angiogram of the chest ruled out pulmonary embolism but did show a 7.5-cm left upper lobe mass extending to the hilum with pneumonitis and mediastinal lymph nodes including a 2.3-cm AP window lymph node. He was started on antibiotics for persistent fevers felt to be secondary to postoperative pneumonic process versus tumor. Two days ago Dr. Humphries performed fiberoptic bronchoscopy, which showed an obstructing friable mass in the left upper lobe segment. The mass was biopsied, and pathology is pending. We are asked to evaluate for possible radiation therapy pending the biopsy result. The patient reports constipation but denies hoarseness, odynophagia, nausea, vomiting, headaches, dizziness, blurred vision, paresthesias, changes in bowel or bladder habits, or incontinence. He can lie flat. He states that he is able to ambulate the hallway without significant shortness of breath. He does feel weak overall. He has had no further episodes of hemoptysis. PAST MEDICAL HISTORY: Hypertension, hyperlipidemia, coronary artery disease status post myocardial infarction and cardiac stent in 2000. No history of radiation therapy or collagen vascular disease. ALLERGIES: No known drug allergies. CURRENT MEDICATIONS: Megace, DuoNeb nebulizer, Lopressor, Colace, MiraLAX, Norvasc, hydralazine, Lipitor, ferrous sulfate, Protonix. SOCIAL HISTORY: Born in [place]. Unmarried. No children. He works at the [employer]. He lives in [place] but has been staying with his sister in [facility]. He smoked 1 pack per day since his teens and stopped 3 months ago. No significant alcohol use at this time. FAMILY HISTORY: His brother had a malignancy. He does not know the type. REVIEW OF SYSTEMS: As noted. PHYSICAL EXAMINATION: General: A cachectic, thin male lying in the hospital bed in no acute distress. Vital Signs: Height 5 feet 9 inches, weight 116 pounds, temperature 98.4, blood pressure 148/80, pulse 115, respiratory rate 20, SaO2 is 95% on 2 L nasal cannula. HEENT: Bitemporal wasting. Moist mucous membranes. Anicteric sclerae. Conjunctival pallor is present. The oral cavity is moist without thrush or mucositis. Neck: No adenopathy. Chest: Decreased breath sounds in the left upper lobe with mild rhonchi. No axillary adenopathy. Cardiovascular: Regular. Abdomen: Soft, nontender, nondistended with active bowel sounds. Extremities: No edema. Musculoskeletal: No spine tenderness. Neurologic: Alert and oriented x3. Nonfocal. RADIOLOGIC DATA: CT angiogram of the chest, see HPI. PATHOLOGIC DATA: Left upper lobe mass biopsy pending. LABORATORY DATA: WBC 13.8, hemoglobin 7.9, platelet count 368,000. Electrolytes within normal limits. BUN 16, creatinine 0.6, calcium 8.1, phosphorous 3.1, magnesium 1.8. Liver function tests within normal limits. Albumin 1.4. CEA 25.7. IMPRESSION: A 77-year-old recent lifetime smoker with a left upper lobe lung mass associated with postobstructive pneumonic process versus fever with mediastinal adenopathy most likely a primary pulmonary malignancy. The biopsy was done, and pathology is pending. He has been seen by the Medical Oncology service who do not feel that he is a candidate for concurrent chemotherapy at this time. He has very poor performance status with significant weight loss, which portends a poor prognosis. Pending pathologic confirmation of malignancy, he would be a candidate for at least palliative radiotherapy to manage the left upper lobe obstruction and relieve the postobstructive process and possible fevers. Depending on the patient and sister's goals of care pending further staging evaluation, definitive treatment can be considered though the therapeutic window would be small given the extent of disease at this time. PLAN: We will await the biopsy result and proceed with additional staging workup as needed depending on the patient's goal of care. Palliative treatment would not be unreasonable given his poor performance status. Thank you for asking me to see this patient. EMIL WALSH M.D. [id number]
--- NOTE | 2018-03-24 12:13 | PN ---
Progress Note (short form) - Note Progress Note: PULMONARY CHART REVIEWED AWAKE/ALERT APPEARS DEPRESSED REFUSING TO GET OUT OF BED VSS/AFEBRILE FRAIL/CACHEXIA ANICTERIC DIMINISHED BREATH SOUNDS S1S2 BS+ NO EDEMA LABS/MEDS/NOTES/IMAGES/BRONCH REPORT REVIEWED (1) Smoker Code(s): F17.200 - NICOTINE DEPENDENCE, UNSPECIFIED, UNCOMPLICATED (2) Previous myocardial infarction older than 8 weeks Code(s): I25.2 - OLD MYOCARDIAL INFARCTION (3) Lung mass Code(s): R91.8 - OTHER NONSPECIFIC ABNORMAL FINDING OF LUNG FIELD (4) HTN (hypertension) Code(s): I10 - ESSENTIAL (PRIMARY) HYPERTENSION (5) Hyperlipidemia Code(s): E78.5 - HYPERLIPIDEMIA, UNSPECIFIED Assessment/Plan ABX completed Path Pending O2 as needed BD TX PRN POOR PERFORMANCE STATUS CONSIDER PALLIATIVE treatment Althea DOMINGO MD
--- NOTE | 2018-03-24 12:56 | PN ---
Progress Note (short form) - Note Progress Note: Patient seen and examined Preliminary path suggests non small cell lung ca- Spoke with Dr. Guy - poorly differentiated tumor - trying to differentiate with special studies - squamous vs. 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 and that Radiation might help " shrink the tumor and allow him to breathe better." Last Vital Signs Temp Pulse Resp BP Pulse Ox 98.4 F 116 H 20 146/79 93 L 03/24/18 10:00 03/24/18 10:00 03/24/18 10:00 03/24/18 10:00 03/24/18 09:00 Cachecti, Poor dentition Diminished breath sounds Cor RSR Soft abdomen Clubbing CBC, BMP 03/24/18 06:30 03/24/18 06:30 Current Medications Generic Name Dose Route Start Last Admin Trade Name Freq PRN Reason Stop Dose Admin Acetaminophen 650 mg 03/22/18 15:58 03/24/18 01:26 Tylenol - PO 650 mg Q4H PRN Administration FEVER Acetaminophen 1,000 mg 03/23/18 17:02 Ofirmev Injection - IVPB Q6H PRN FEVER Albuterol Sulfate 1 amp 03/23/18 10:14 Ventolin 0.083% Nebulizer Soln - NEB Q4H PRN SHORT OF BREATH/WHEEZING Albuterol/Ipratropium 1 amp 03/23/18 12:00 03/24/18 08:51 Duoneb - NEB 1 amp RQID UMESH Administration Amlodipine Besylate 5 mg 03/23/18 10:00 03/24/18 09:35 Norvasc - PO 5 mg DAILY [facility] Administration Atorvastatin Calcium 40 mg 03/22/18 22:00 03/23/18 21:33 Lipitor - PO 40 mg HS UM[facility] Administration Docusate Sodium 100 mg 03/23/18 10:00 03/24/18 09:35 Colace - PO 100 mg DAILY [facility] Administration Fentanyl 25 mcg 03/22/18 15:58 Sublimaze Injection - IVPUSH [id number] PRN PAIN-PACU ORDER X 4 DOSES ONLY Ferrous Sulfate 325 mg 03/23/18 10:00 03/24/18 09:35 Feosol - PO 325 mg DAILY [facility] Administration Guaifenesin/Codeine Phosphate 10 ml 03/22/18 15:58 03/23/18 10:18 Robitussin Ac - PO 10 ml Q8H PRN Administration COUGH Hydralazine HCl 10 mg 03/22/18 22:00 03/24/18 05:27 Apresoline - PO 10 mg TID [facility] Administration Megestrol Acetate 800 mg 03/23/18 10:00 03/24/18 09:38 Megace Oral Suspension - PO 800 mg DAILY [facility] Administration Metoprolol Tartrate 12.5 mg 03/23/18 11:15 03/24/18 09:34 Lopressor - PO 12.5 mg BID [facility] Administration Ondansetron HCl 4 mg 03/22/18 15:58 Zofran Injection IVPUSH Q6H PRN NAUSEA AND/OR VOMITING Pantoprazole Sodium 40 mg 03/22/18 22:00 03/24/18 09:41 Protonix Iv IVPUSH 40 mg BID [facility] Administration Polyethylene Glycol 17 gm 03/23/18 10:00 03/24/18 10:12 Miralax (For Daily Use) - PO 17 gm DAILY [facility] Administration Senna/Docusate Sodium 1 tablet 03/22/18 22:00 03/24/18 09:34 Pericolace - PO 1 tablet BID [facility] Administration Impression: 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
--- NOTE | 2018-03-24 14:33 | PN ---
Teaching Attending Note Name of Resident: Minna Bernard ATTENDING PHYSICIAN STATEMENT I saw and evaluated the patient. I reviewed the resident's note and discussed the case with the resident. I agree with the resident's findings and plan as documented with exceptions below. SUBJECTIVE: Patient seen and examined. Weak, sleeping, no new complaints, still with poor oral intake, states will drink ensure. OBJECTIVE: Vital Signs Period Temp Pulse Resp BP Sys/Harper Pulse Ox Last 24 Hr 97.9 F-101.8 F 107-146 18-20 112-158/68-86 93-95 Intake & Output 03/21/18 03/22/18 03/23/18 03/24/18 23:59 23:59 23:59 23:59 Intake Total 650 400 900 600 Output Total 1200 850 950 Balance -550 -450 -50 600 General: lying in bed in no acute distress Chest: Decreased effort Abdomen:Soft, nT Extremities: no edema Active Medications Acetaminophen (Tylenol -) 650 mg PO Q4H PRN PRN Reason: FEVER Last Admin: 03/24/18 14:10 Dose: 650 mg Acetaminophen (Ofirmev Injection -) 1,000 mg IVPB Q6H PRN PRN Reason: FEVER Albuterol Sulfate (Ventolin 0.083% Nebulizer Soln -) 1 amp NEB Q4H PRN PRN Reason: SHORT OF BREATH/WHEEZING Albuterol/Ipratropium (Duoneb -) 1 amp NEB RQID [facility] Last Admin: 03/24/18 08:51 Dose: 1 amp Amlodipine Besylate (Norvasc -) 5 mg PO DAILY [facility] Last Admin: 03/24/18 09:35 Dose: 5 mg Atorvastatin Calcium (Lipitor -) 40 mg PO HS [facility] Last Admin: 03/23/18 21:33 Dose: 40 mg Docusate Sodium (Colace -) 100 mg PO DAILY [facility] Last Admin: 03/24/18 09:35 Dose: 100 mg Fentanyl (Sublimaze Injection -) 25 mcg IVPUSH [id number] PRN PRN Reason: PAIN-PACU ORDER X 4 DOSES ONLY Ferrous Sulfate (Feosol -) 325 mg PO DAILY [facility] Last Admin: 03/24/18 09:35 Dose: 325 mg Guaifenesin/Codeine Phosphate (Robitussin Ac -) 10 ml PO Q8H PRN PRN Reason: COUGH Last Admin: 03/23/18 10:18 Dose: 10 ml Hydralazine HCl (Apresoline -) 10 mg PO TID [facility] Last Admin: 03/24/18 14:10 Dose: 10 mg Piperacillin Sod/Tazobactam (Sod 3.375 gm/ Dextrose) 50 mls @ 100 mls/hr IVPB Q8H-IV [facility]; Protocol Stop: 03/25/18 17:59 Megestrol Acetate (Megace Oral Suspension -) 800 mg PO DAILY [facility] Last Admin: 03/24/18 09:38 Dose: 800 mg Metoprolol Tartrate (Lopressor -) 12.5 mg PO BID [facility] Last Admin: 03/24/18 09:34 Dose: 12.5 mg Ondansetron HCl (Zofran Injection) 4 mg IVPUSH Q6H PRN PRN Reason: NAUSEA AND/OR VOMITING Pantoprazole Sodium (Protonix Iv) 40 mg IVPUSH BID [facility] Last Admin: 03/24/18 09:41 Dose: 40 mg Polyethylene Glycol (Miralax (For Daily Use) -) 17 gm PO DAILY [facility] Last Admin: 03/24/18 10:12 Dose: 17 gm Senna/Docusate Sodium (Pericolace -) 1 tablet PO BID [facility] Last Admin: 03/24/18 09:34 Dose: 1 tablet Laboratory Results - last 24 hr 03/23/18 03/24/18 03/24/18 19:35 06:30 06:30 WBC 13.8 H RBC 3.03 L Hgb 7.9 L Hct 23.6 L MCV 77.8 L MCH 26.0 MCHC 33.4 RDW 23.0 H Plt Count 368 MPV 7.4 L Absolute Neuts (auto) 11.0 Neutrophils % 79.4 Lymphocytes % 7.5 L Monocytes % 12.5 H Eosinophils % 0.2 D Basophils % 0.4 Nucleated RBC % 0 Sodium 141 Potassium 3.5 Chloride 103 Carbon Dioxide 27 Anion Gap 11 BUN 16 Creatinine 0.6 L Creat Clearance w eGFR > 60 Random Glucose 130 H Calcium 8.1 L Phosphorus 3.1 Magnesium 1.8 Total Bilirubin 0.3 AST 9 L ALT 9 L Alkaline Phosphatase 93 Total Protein 6.2 L Albumin 1.4 L Stool Occult Blood Negative Microbiology 03/22/18 14:00 Bronchial Washings - Left Upper Lobe Gram Stain - Final 03/22/18 14:00 Bronchial Washings - Left Upper Lobe Bronchoalveolar Lavage Culture - Preliminary NORMAL RESPIRATORY KRISTA 03/23/18 07:30 Blood - Peripheral Venous Blood Culture - Preliminary NO GROWTH OBTAINED AFTER 24 HOURS, INCUBATION TO CONTINUE FOR 4 DAYS. 03/23/18 07:50 Blood - Peripheral Venous Blood Culture - Preliminary NO GROWTH OBTAINED AFTER 24 HOURS, INCUBATION TO CONTINUE FOR 4 DAYS. 03/22/18 14:00 Bronchial Washings - Left Upper Lobe CARO Preparation - Preliminary 03/22/18 14:00 Bronchial Washings - Left Upper Lobe Fungal Culture - Preliminary 03/13/18 00:01 Blood - Peripheral Venous Blood Culture - Final NO GROWTH AFTER 5 DAYS INCUBATION 03/13/18 00:01 Blood - Peripheral Venous Blood Culture - Final NO GROWTH AFTER 5 DAYS INCUBATION 03/13/18 19:56 Nares - Mrsa Screen - Left MRSA Screen - Final NO MRSA ISOLATED 03/13/18 19:50 Urine For Antigen Detection Legionella Antigen - Final 03/13/18 19:50 Urine For Antigen Detection Streptococcus pneumoniae Antigen (M - Final 03/13/18 03:25 Urine - Urine Clean Catch Urine Culture - Final NO GROWTH OBTAINED 03/12/18 08:28 Urine - Urine Clean Catch Urine Culture - Final ASSESSMENT AND PLAN: 77 yo M with prior history of CAD, heavy smoker, recently reportedly diagnosed lung mass/anemia requiring transfusions, admitted with failure to thrive, found with anemia, ISABELLA lung mass -Sepsis due to suspected post obstructive PNA -Persistent fevers, due to above vs from tumor burden -ISABELLA 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 Oncology/radiation oncology input noted. s/p 7 days of zosyn.follow up bronchial washings/repeat Blood cultures. MRSA screen neg. persistent fevers, discussed with Dr. Jackson, may benefit from longer course of antibiotics. Discussed with Dr. Bonilla, will follow up. Transfuse 1 unit PRBC. Total 4 units PRBC, 3 units FFP and venofer x 2. s/p Vitamin K. INR noted. Nutrition consult, Megace. Ensure, magic cup. Replete K/mg prn Bowel regimen. Chopped diet with thin liquids. DVTPPX with heparin subq. Dispo pending above. Palliative care input noted. PT eval noted. Needs home oxygen. Plan for SNF on d/c pending final biopsy results, treatment plan and clinical improvement. .
[2018-03-24] MEDS: PIPERACILLIN/TAZOB 3.375 GM 3.375 GM in DEXTROSE 5%-WATER - 50 ML IVPB SCH (17:12)
--- NOTE | 2018-03-24 18:12 | PN ---
Physical Exam: SUBJECTIVE: Patient seen and examined this morning at bedside. Continues to cough and has no appetite. 1 small loose BM Overnight. As per nursing, patients temp burt to 101.8, HR 136, BP 158/86. OBJECTIVE: Vital Signs Period Temp Pulse Resp BP Sys/Harper Pulse Ox Last 24 Hr 97.9 F-101.8 F 107-136 18-20 123-158/68-86 93-95 GENERAL: The patient is awake, alert, and fully oriented, in no acute distress. LUNGS: Decreased breath sounds through out HEART: Tachycardic, S1, S2 without murmur, rub or gallop. ABDOMEN: Soft, nontender, nondistended, normoactive bowel sounds EXTREMITIES: No edema Laboratory Results - last 24 hr 03/21/18 03/23/18 03/24/18 10:56 19:35 06:30 WBC 13.8 H RBC 3.03 L Hgb 7.9 L Hct 23.6 L MCV 77.8 L MCH 26.0 MCHC 33.4 RDW 23.0 H Plt Count 368 MPV 7.4 L Absolute Neuts (auto) 11.0 Neutrophils % 79.4 Lymphocytes % 7.5 L Monocytes % 12.5 H Eosinophils % 0.2 D Basophils % 0.4 Nucleated RBC % 0 Sodium Potassium Chloride Carbon Dioxide Anion Gap BUN Creatinine Creat Clearance w eGFR Random Glucose Calcium Phosphorus Magnesium Total Bilirubin AST ALT Alkaline Phosphatase Total Protein Albumin Stool Occult Blood Negative Blood Type O POSITIVE Antibody Screen Negative Crossmatch See Detail 03/24/18 03/24/18 06:30 15:25 WBC RBC Hgb Hct MCV MCH MCHC RDW Plt Count MPV Absolute Neuts (auto) Neutrophils % Lymphocytes % Monocytes % Eosinophils % Basophils % Nucleated RBC % Sodium 141 Potassium 3.5 Chloride 103 Carbon Dioxide 27 Anion Gap 11 BUN 16 Creatinine 0.6 L Creat Clearance w eGFR > 60 Random Glucose 130 H Calcium 8.1 L Phosphorus 3.1 Magnesium 1.8 Total Bilirubin 0.3 AST 9 L ALT 9 L Alkaline Phosphatase 93 Total Protein 6.2 L Albumin 1.4 L Stool Occult Blood Blood Type O POSITIVE Antibody Screen Negative Crossmatch See Detail Microbiology 03/23/18 07:30 Blood - Peripheral Venous Blood Culture - Preliminary NO GROWTH OBTAINED AFTER 48 HOURS, INCUBATION TO CONTINUE FOR 3 DAYS. 03/23/18 07:50 Blood - Peripheral Venous Blood Culture - Preliminary NO GROWTH OBTAINED AFTER 48 HOURS, INCUBATION TO CONTINUE FOR 3 DAYS. 03/22/18 14:00 Bronchial Washings - Left Upper Lobe Gram Stain - Final 03/22/18 14:00 Bronchial Washings - Left Upper Lobe Bronchoalveolar Lavage Culture - Preliminary NORMAL RESPIRATORY KRISTA 03/22/18 14:00 Bronchial Washings - Left Upper Lobe CARO Preparation - Preliminary 03/22/18 14:00 Bronchial Washings - Left Upper Lobe Fungal Culture - Preliminary 03/13/18 00:01 Blood - Peripheral Venous Blood Culture - Final NO GROWTH AFTER 5 DAYS INCUBATION 03/13/18 00:01 Blood - Peripheral Venous Blood Culture - Final NO GROWTH AFTER 5 DAYS INCUBATION 03/13/18 19:56 Nares - Mrsa Screen - Left MRSA Screen - Final NO MRSA ISOLATED 03/13/18 19:50 Urine For Antigen Detection Legionella Antigen - Final 03/13/18 19:50 Urine For Antigen Detection Streptococcus pneumoniae Antigen (M - Final 03/13/18 03:25 Urine - Urine Clean Catch Urine Culture - Final NO GROWTH OBTAINED 03/12/18 08:28 Urine - Urine Clean Catch Urine Culture - Final Active Medications Acetaminophen (Tylenol -) 650 mg PO Q4H PRN PRN Reason: FEVER Last Admin: 03/25/18 01:51 Dose: 650 mg Acetaminophen (Ofirmev Injection -) 1,000 mg IVPB Q6H PRN PRN Reason: FEVER Albuterol Sulfate (Ventolin 0.083% Nebulizer Soln -) 1 amp NEB Q4H PRN PRN Reason: SHORT OF BREATH/WHEEZING Albuterol/Ipratropium (Duoneb -) 1 amp NEB RQID [facility] Last Admin: 03/25/18 08:05 Dose: 1 amp Amlodipine Besylate (Norvasc -) 5 mg PO DAILY [facility] Last Admin: 03/25/18 09:28 Dose: 5 mg Atorvastatin Calcium (Lipitor -) 40 mg PO HS [facility] Last Admin: 03/24/18 22:32 Dose: 40 mg Docusate Sodium (Colace -) 100 mg PO DAILY [facility] Last Admin: 03/25/18 09:28 Dose: 100 mg Fentanyl (Sublimaze Injection -) 25 mcg IVPUSH [id number] PRN PRN Reason: PAIN-PACU ORDER X 4 DOSES ONLY Ferrous Sulfate (Feosol -) 325 mg PO DAILY [facility] Last Admin: 03/25/18 09:28 Dose: 325 mg Guaifenesin/Codeine Phosphate (Robitussin Ac -) 10 ml PO Q8H PRN PRN Reason: COUGH Last Admin: 03/23/18 10:18 Dose: 10 ml Hydralazine HCl (Apresoline -) 10 mg PO TID [facility] Last Admin: 03/25/18 06:40 Dose: 10 mg Piperacillin Sod/Tazobactam (Sod 3.375 gm/ Dextrose) 50 mls @ 100 mls/hr IVPB Q8H-IV [facility]; Protocol Stop: 03/25/18 17:59 Last Admin: 03/25/18 09:27 Dose: 100 mls/hr Megestrol Acetate (Megace Oral Suspension -) 800 mg PO DAILY [facility] Last Admin: 03/24/18 09:38 Dose: 800 mg Metoprolol Tartrate (Lopressor -) 12.5 mg PO BID [facility] Last Admin: 03/25/18 09:27 Dose: 12.5 mg Ondansetron HCl (Zofran Injection) 4 mg IVPUSH Q6H PRN PRN Reason: NAUSEA AND/OR VOMITING Pantoprazole Sodium (Protonix Iv) 40 mg IVPUSH BID [facility] Last Admin: 03/25/18 09:27 Dose: 40 mg Polyethylene Glycol (Miralax (For Daily Use) -) 17 gm PO DAILY [facility] Last Admin: 03/25/18 09:28 Dose: 17 gm Senna/Docusate Sodium (Pericolace -) 1 tablet PO BID [facility] Last Admin: 03/25/18 09:28 Dose: 1 tablet ASSESSMENT/PLAN: 77 y/o male with prior history of CAD, heavy smoker, recently reportedly diagnosed lung mass, anemia requiring transfusions, admitted with Severe protein -calorie malnutrition now with hemoptysis 1. ISABELLA mass - S/P Bronchoscopy + Biopsy (03/22) - Preliminary Pathology: Poorly differentiated NSCLC - Oncology and Radiation Oncology consulted - PFTs as an outpatient - Requires home oxygen - Pre and Post - 1 Unit to be transferred tonight on 03/24 2. Sepsis Likely due to post obstrutive PNA - Temp reached 100.8 overnight - Blood cultures negative, repeats pending - UA Negative - CXR: Left parahilar, left upper lung mass. No pleural effusion, or pneumothorax is seen. No evidence of a pulmonary consolidations. - HCV screen noted - HIV negative - Pulmonary consult, appreciate rec's - ID consult, appreciate rec's - IV Zosyn course completed - Continue Tylenol - MRSA Nares screen: Negative - Consider that fevers may be from tumor burden and not infectious in etiology - Lopressor 12.5 mg PO BID for tachycardia 3. Depression - As per nursing, patient complained of "just want to go to sleep and " - Dr. Hernandze consulted, appreciate rec's - Patient feels better about coping strategies - Continue to monitor 4. Hemopytsis - Likely due to pulmonary mass, consider irritation from frequent coughing - 1 Unit pRBC transfused (03/15) - No repeat episodes 5. Symptomatic anemia - Weakness and tachycardia - Iron studies noted - S/P 4 units pRBC transfused, 3 units FFP - Given Venofer (dose #2) - Continue to monitor 6. Severe protein calorie malnutrition - In the setting of likely malignant lung mass with with weight loss - Failure to thrive, requiring nutritional support - BMI: 17.1, Weight loss >7.5% in 3 months - RF: Possible lung malignancy, Dementia, difficulty swallowing/chewing - Speech and swallow Recomendations: Consider dysphagia chopped diet with thin liquid. - Continue Megace Oral Suspension 400 mg PO DAILY 7. Constipation - Continue with Miralax 17 gm PO DAILY [facility] - Continue with Senna/Docusate Sodium 1 tablet PO BID [facility] - Continue with Colace 100 mg PO DAILY [facility] 8. HTN - Continue with Norvasc 5 mg PO DAILY [facility] - Continue with Hydralazine HCl 10 mg PO TID [facility] 9. HLD - Continue with Atorvastatin Calcium 40 mg PO HS [facility] 10. dvt ppx - heparin dispo: possible d/c to snf Visit type - Emergency Visit Emergency Visit: Yes ED Registration Date: 03/11/18 Care time: The patient presented to the Emergency Department on the above date and was hospitalized for further evaluation of their emergent condition. - New Patient This patient is new to me today: No - Critical Care Critical Care patient: No
[2018-03-24] MEDS: ATORVASTATIN CA 40 MG TABLET (FP) PO SCH (22:32)
[2018-03-25] MEDS ORDERED: PIPERACILLIN/TAZOBACTAM 3.375 GM VIAL IVPB ONE ×2 (01:23→09:25)
[2018-03-25] MEDS ORDERED: DEXTROSE 5%-WATER - 50 ML IVPB ONE ×2 (01:23→09:25)
[2018-03-25] MEDS: PIPERACILLIN/TAZOB 3.375 GM 3.375 GM in DEXTROSE 5%-WATER - 50 ML IVPB SCH ×2 (01:51→09:27)
[2018-03-25] MEDS: ACETAMINOPHEN 325 MG TABLET (FP) PO PRN ×2 (01:51→14:20)
[2018-03-25] MEDS: hydrALAZINE HCL 10 MG TABLET PO SCH ×3 (06:40→21:40)
[2018-03-25 08:02] LABS: BASO % 0.4 % (0-2.0); EOS % 0.1 % (0-4.5); HEMATOCRIT 25.4 % (35.4-49); HEMOGLOBIN 8.4 GM/dL (11.7-16.9); LYMPH % 7.2 % (8-40); MCH 25.7 pg (25.7-33.7); MCHC 32.9 g/dl (32.0-35.9); MEAN CELL VOLUME 77.9 fl (80-96); MEAN PLT VOLUME 7.5 fl (7.5-11.1); MONO % 12.7 % (3.8-10.2); NEUT % 79.6 % (42.8-82.8); PLATELET COUNT 380 K/MM3 (134-434); RBC 3.26 M/mm3 (4.00-5.60); RDW 21.9 % (11.9-15.9); WHITE BLOOD COUNT 14.2 K/mm3 (4.0-10.0)
[2018-03-25] MEDS: ALBUTEROL SO4 2.5/IPRATROPIUM 0.5 INH SOL 3 ML VIAL.NEB. NEB SCH ×4 (08:05→20:31)
[2018-03-25 08:53] LABS: ALBUMIN 1.3 g/dl (3.4-5.0); ANION GAP 5 (8-16); BLOOD UREA NITROGEN 16 mg/dL (7-18); CALCIUM 8.3 mg/dL (8.5-10.1); CHLORIDE 104 mmol/L (98-107); CO2 30 mmol/L (21-32); GLUCOSE,RANDOM 90 mg/dL (74-106); MAGNESIUM 1.8 mg/dL (1.8-2.4); PHOSPHOROUS 3.7 mg/dL (2.5-4.9); POTASSIUM 3.6 mmol/L (3.5-5.1); SGPT/ALT 10 U/L (12-78); SODIUM 139 mmol/L (136-145)
[2018-03-25 08:55] LABS: ALK PHOS 98 U/L (45-117); BILIRUBIN,TOTAL 0.5 mg/dL (0.2-1.0); CREATININE 0.5 mg/dL (0.7-1.3); SGOT/AST 11 U/L (15-37); TOT PROT 6.4 g/dl (6.4-8.2)
[2018-03-25] MEDS: PANTOPRAZOLE SODIUM 40 MG VIAL IVPUSH SCH ×2 (09:27→21:39)
[2018-03-25] MEDS: METOPROLOL TARTRATE 25 MG TABLET (FP) PO SCH ×2 (09:27→21:40)
[2018-03-25] MEDS: FERROUS SO4 325 MG TABLET (FP) PO SCH (09:28)
[2018-03-25] MEDS: DOCUSATE SODIUM 100 MG CAPSULE (FP) PO SCH (09:28)
[2018-03-25] MEDS: amLODIPine BESYLATE 5 MG TABLET (FP) PO SCH (09:28)
[2018-03-25] MEDS: POLYETHYLENE GLYCOL 3350 119 GM BTL PO SCH (09:28)
[2018-03-25] MEDS: SENNOSIDES/DOCUSATE COMBO (SENNA PLUS) TABLET (UD) PO SCH ×2 (09:28→21:40)
--- NOTE | 2018-03-25 09:34 | EKG ---
Test Reason : Blood Pressure : / mmHG Vent. Rate : 143 BPM Atrial Rate : 143 BPM P-R Int : 118 ms QRS Dur : 090 ms QT Int : 292 ms P-R-T Axes : 000 -08 073 degrees QTc Int : 450 ms SINUS TACHYCARDIA OTHERWISE NORMAL ECG WHEN COMPARED WITH ECG OF 15-MAR-2018 11:10, NONSPECIFIC T WAVE ABNORMALITY, WORSE IN LATERAL LEADS Confirmed by NAT WHITE MD ([id number]) on 03/25/2018 9:34:18 AM Referred By: COLLEEN ORDONEZ Confirmed By:NAT WHITE MD
[2018-03-25] MEDS: MEGESTROL ACETATE 400 MG/10 ML UNIT DOSE CUP PO SCH (10:40)
--- NOTE | 2018-03-25 11:05 | PN ---
Progress Note (short form) - Note Progress Note: Progress Note (short form) - Note Progress Note: Patient seen and examined Preliminary path suggests non small cell lung ca- Spoke with Dr. Guy - poorly differentiated tumor - trying to differentiate with special studies - squamous vs. 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 and that Radiation might help " shrink the tumor and allow him to breathe better." No complaints today Vital Signs Period Temp Pulse Resp BP Sys/Harper Pulse Ox Last 24 Hr 97.9 F-100.0 F 108-126 20-20 121-147/64-75 92 Cachectic, Poor dentition Diminished breath sounds Soft abdomen Clubbing CBC, BMP 03/25/18 06:50 03/25/18 06:50 Active Medications Generic Name Dose Route Start Last Admin Trade Name Freq PRN Reason Stop Dose Admin Acetaminophen 650 mg 03/22/18 15:58 03/25/18 01:51 Tylenol - PO 650 mg Q4H PRN Administration FEVER Acetaminophen 1,000 mg 03/23/18 17:02 Ofirmev Injection - IVPB Q6H PRN FEVER Albuterol Sulfate 1 amp 03/23/18 10:14 Ventolin 0.083% Nebulizer Soln - NEB Q4H PRN SHORT OF BREATH/WHEEZING Albuterol/Ipratropium 1 amp 03/23/18 12:00 03/25/18 08:05 Duoneb - NEB 1 amp RQID [facility] Administration Amlodipine Besylate 5 mg 03/23/18 10:00 03/25/18 09:28 Norvasc - PO 5 mg DAILY [facility] Administration Atorvastatin Calcium 40 mg 03/22/18 22:00 03/24/18 22:32 Lipitor - PO 40 mg HS [facility] Administration Docusate Sodium 100 mg 03/23/18 10:00 03/25/18 09:28 Colace - PO 100 mg DAILY [facility] Administration Fentanyl 25 mcg 03/22/18 15:58 Sublimaze Injection - IVPUSH [id number] PRN PAIN-PACU ORDER X 4 DOSES ONLY Ferrous Sulfate 325 mg 03/23/18 10:00 03/25/18 09:28 Feosol - PO 325 mg DAILY [facility] Administration Guaifenesin/Codeine Phosphate 10 ml 03/22/18 15:58 03/23/18 10:18 Robitussin Ac - PO 10 ml Q8H PRN Administration COUGH Hydralazine HCl 10 mg 03/22/18 22:00 03/25/18 06:40 Apresoline - PO 10 mg TID [facility] Administration Piperacillin Sod/Tazobactam 50 mls @ 100 mls/hr 03/24/18 18:00 03/25/18 09:27 Sod 3.375 gm/ Dextrose IVPB 03/25/18 17:59 100 mls/hr Q8H-IV [facility] Administration Protocol Megestrol Acetate 800 mg 03/23/18 10:00 03/25/18 10:40 Megace Oral Suspension - PO 800 mg DAILY [facility] Administration Metoprolol Tartrate 12.5 mg 03/23/18 11:15 03/25/18 09:27 Lopressor - PO 12.5 mg BID [facility] Administration Ondansetron HCl 4 mg 03/22/18 15:58 Zofran Injection IVPUSH Q6H PRN NAUSEA AND/OR VOMITING Pantoprazole Sodium 40 mg 03/22/18 22:00 03/25/18 09:27 Protonix Iv IVPUSH 40 mg BID [facility] Administration Polyethylene Glycol 17 gm 03/23/18 10:00 03/25/18 09:28 Miralax (For Daily Use) - PO 17 gm DAILY [facility] Administration Senna/Docusate Sodium 1 tablet 03/22/18 22:00 03/25/18 09:28 Pericolace - PO 1 tablet BID [facility] Administration Impression: 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
--- NOTE | 2018-03-25 11:15 | PN ---
Physical Exam: SUBJECTIVE: Patient seen and examined. No high grade temps over night. Resumed zosyn yesterday. No hemoptysis. Pt is aware of biopsy results but is deferring to Sister. Pt said he has no appetite, is taking only liquid diet - ensure and fluid. Received 1UPRBCs yesterday OBJECTIVE: Vital Signs Period Temp Pulse Resp BP Sys/Harper Pulse Ox Last 24 Hr 97.9 F-100.0 F 108-126 20-20 121-147/64-75 92 GENERAL: The patient is awake, cachectic NECK: supple. LUNGS: Reduced BS LL, with increased dullness to percussion on L HEART: S1, S2 tachycardic ABDOMEN: Soft, nontender, flat EXTREMITIES: finger clubbing, no pedal edema. NEUROLOGICAL:AAOx3, no lateralizing signs, no facial droop, able to move all extremities PSYCH: Withdrawn Laboratory Results - last 24 hr 03/21/18 03/24/18 03/25/18 10:56 15:25 06:50 WBC 14.2 H RBC 3.26 L Hgb 8.4 L Hct 25.4 L MCV 77.9 L MCH 25.7 MCHC 32.9 RDW 21.9 H Plt Count 380 MPV 7.5 Absolute Neuts (auto) 11.3 Neutrophils % 79.6 Lymphocytes % 7.2 L Monocytes % 12.7 H Eosinophils % 0.1 Basophils % 0.4 Nucleated RBC % 0 Sodium Potassium Chloride Carbon Dioxide Anion Gap BUN Creatinine Creat Clearance w eGFR Random Glucose Calcium Phosphorus Magnesium Total Bilirubin AST ALT Alkaline Phosphatase Total Protein Albumin Blood Type O POSITIVE O POSITIVE Antibody Screen Negative Negative Crossmatch See Detail See Detail 03/25/18 06:50 WBC RBC Hgb Hct MCV MCH MCHC RDW Plt Count MPV Absolute Neuts (auto) Neutrophils % Lymphocytes % Monocytes % Eosinophils % Basophils % Nucleated RBC % Sodium 139 Potassium 3.6 Chloride 104 Carbon Dioxide 30 Anion Gap 5 L BUN 16 Creatinine 0.5 L Creat Clearance w eGFR > 60 Random Glucose 90 D Calcium 8.3 L Phosphorus 3.7 Magnesium 1.8 Total Bilirubin 0.5 AST 11 L D ALT 10 L Alkaline Phosphatase 98 Total Protein 6.4 Albumin 1.3 L Blood Type Antibody Screen Crossmatch Active Medications Generic Name Dose Route Start Last Admin Trade Name Freq PRN Reason Stop Dose Admin Acetaminophen 650 mg 03/22/18 15:58 07/21/18 01:51 Tylenol - PO 650 mg Q4H PRN Administration FEVER Acetaminophen 1,000 mg 03/23/18 17:02 Ofirmev Injection - IVPB Q6H PRN FEVER Albuterol Sulfate 1 amp 03/23/18 10:14 Ventolin 0.083% Nebulizer Soln - NEB Q4H PRN SHORT OF BREATH/WHEEZING Albuterol/Ipratropium 1 amp 03/23/18 12:00 03/25/18 08:05 Duoneb - NEB 1 amp RQID [facility] Administration Amlodipine Besylate 5 mg 03/23/18 10:00 03/25/18 09:28 Norvasc - PO 5 mg DAILY [facility] Administration Atorvastatin Calcium 40 mg 03/22/18 22:00 03/24/18 22:32 Lipitor - PO 40 mg HS [facility] Administration Docusate Sodium 100 mg 03/23/18 10:00 03/25/18 09:28 Colace - PO 100 mg DAILY [facility] Administration Fentanyl 25 mcg 03/22/18 15:58 Sublimaze Injection - IVPUSH [id number] PRN PAIN-PACU ORDER X 4 DOSES ONLY Ferrous Sulfate 325 mg 03/23/18 10:00 03/25/18 09:28 Feosol - PO 325 mg DAILY [facility] Administration Guaifenesin/Codeine Phosphate 10 ml 03/22/18 15:58 03/23/18 10:18 Robitussin Ac - PO 10 ml Q8H PRN Administration COUGH Hydralazine HCl 10 mg 03/22/18 22:00 03/25/18 06:40 Apresoline - PO 10 mg TID [facility] Administration Piperacillin Sod/Tazobactam 50 mls @ 100 mls/hr 03/24/18 18:00 03/25/18 09:27 Sod 3.375 gm/ Dextrose IVPB 03/25/18 17:59 100 mls/hr Q8H-IV [facility] Administration Protocol Megestrol Acetate 800 mg 03/23/18 10:00 03/25/18 10:40 Megace Oral Suspension - PO 800 mg DAILY [facility] Administration Metoprolol Tartrate 12.5 mg 03/23/18 11:15 03/25/18 09:27 Lopressor - PO 12.5 mg BID [facility] Administration Ondansetron HCl 4 mg 03/22/18 15:58 Zofran Injection IVPUSH Q6H PRN NAUSEA AND/OR VOMITING Pantoprazole Sodium 40 mg 03/22/18 22:00 03/25/18 09:27 Protonix Iv IVPUSH 40 mg BID [facility] Administration Polyethylene Glycol 17 gm 03/23/18 10:00 03/25/18 09:28 Miralax (For Daily Use) - PO 17 gm DAILY [facility] Administration Senna/Docusate Sodium 1 tablet 03/22/18 22:00 03/25/18 09:28 Pericolace - PO 1 tablet BID [facility] Administration Microbiology 03/22/18 14:00 Bronchial Washings - Left Upper Lobe Gram Stain - Final 03/22/18 14:00 Bronchial Washings - Left Upper Lobe Bronchoalveolar Lavage Culture - Final NORMAL RESPIRATORY KRISTA 03/23/18 07:30 Blood - Peripheral Venous Blood Culture - Preliminary NO GROWTH OBTAINED AFTER 48 HOURS, INCUBATION TO CONTINUE FOR 3 DAYS. 03/23/18 07:50 Blood - Peripheral Venous Blood Culture - Preliminary NO GROWTH OBTAINED AFTER 48 HOURS, INCUBATION TO CONTINUE FOR 3 DAYS. CXR: Left parahilar, left upper lung mass. No pleural effusion, or pneumothorax is seen. No evidence of a pulmonary consolidations. ASSESSMENT/PLAN: 77 y/o male with prior history of CAD, heavy smoker, recent diagnosis lung mass s/p bronchoscopic biopsy, anemia requiring transfusions, admitted with Severe protein-calorie malnutrition and sepsis ISABELLA mass S/P Bronchoscopy + Biopsy (03/22) Preliminary Pathology: Poorly differentiated NSCLC Oncology on board- in talks with onc-radiol- for likely palliative radiol PFTs as an outpatient Pt documented by case mgrs as wanting to go home with , at this time still deferring dispo to sister- unable to reach sister at this time to verify Sepsis Likely due to post obstrutive PNA Temp improving on zosyn Blood cultures negative UA Negative HIV negative Hep A positive, Hep B, C negative Pulmonary on board, apprec recs ID consult, appreciate rec's Cont IV Zosyn Continue Tylenol MRSA Nares screen: Negative Tachycardia Could be related to fevers Cont Tylenol Lopressor 12.5 mg PO BID for tachycardia Depression Loss of appetite and withdrawal Seen by Dr. Hernandez- recommended Pastoral care Pastoral care Continue to monitor Tolerating liquid diet Hemopytsis One episode noted Likely due to pulmonary mass, Previous transfusions, H&H relatively stable Monitor anemia Response to recent transfusion S/P 4units pRBC transfused, 3 units FFP Given Venofer (dose #2) Continue to monitor Severe protein calorie malnutrition Presence of lung mass with weight loss Failure to thrive, with poor appetite, on ensure and liquid diet BMI: 17.1, dysphagia chopped diet with thin liquid per speech and swallow. Continue Megace Oral Suspension 400 mg PO DAILY Constipation Continue with Miralax 17 gm PO DAILY [facility] Continue with Senna/Docusate Sodium 1 tablet PO BID [facility] Continue with Colace 100 mg PO DAILY [facility] HTN Continue with Norvasc 5 mg PO DAILY [facility] Continue with Hydralazine HCl 10 mg PO TID [facility] Cont lopressor 12.5 bid HLD Continue with Atorvastatin Calcium 40 mg PO HS [facility] dvt ppx Cont heparin dispo: possible d/c to snf following d/w with sister otherwise home with home health aide Visit type - Emergency Visit Emergency Visit: Yes ED Registration Date: 03/11/18 Care time: The patient presented to the Emergency Department on the above date and was hospitalized for further evaluation of their emergent condition. - New Patient This patient is new to me today: No - Critical Care Critical Care patient: No - Discharge Referral Referred to [facility] Med [facility] No
--- NOTE | 2018-03-25 11:27 | PN ---
Teaching Attending Note Name of Resident: Angela Arevalo ATTENDING PHYSICIAN STATEMENT I saw and evaluated the patient. I reviewed the resident's note and discussed the case with the resident. I agree with the resident's findings and plan as documented with exceptions below. SUBJECTIVE: Patient seen and examined, no new complaints, continues with decreased oral intake. Feels weak. Positive cough that is unchanged. OBJECTIVE: Vital Signs Period Temp Pulse Resp BP Sys/Harper Pulse Ox Last 24 Hr 97.9 F-100.0 F 108-126 20-20 121-147/64-75 92 Intake & Output 03/22/18 03/23/18 03/24/18 03/25/18 23:59 23:59 23:59 23:59 Intake Total 400 900 850 610 Output Total 850 950 250 550 Balance -450 -50 600 60 General: lying in bed, weak looking but no acute distress Chest: diminished breath sounds, no clear rales or wheezing appreciated, decreased effort Abdomen:soft, NT Extremities: no edema Active Medications Acetaminophen (Tylenol -) 650 mg PO Q4H PRN PRN Reason: FEVER Last Admin: 03/25/18 01:51 Dose: 650 mg Acetaminophen (Ofirmev Injection -) 1,000 mg IVPB Q6H PRN PRN Reason: FEVER Albuterol Sulfate (Ventolin 0.083% Nebulizer Soln -) 1 amp NEB Q4H PRN PRN Reason: SHORT OF BREATH/WHEEZING Albuterol/Ipratropium (Duoneb -) 1 amp NEB RQID [facility] Last Admin: 03/25/18 08:05 Dose: 1 amp Amlodipine Besylate (Norvasc -) 5 mg PO DAILY [facility] Last Admin: 03/25/18 09:28 Dose: 5 mg Atorvastatin Calcium (Lipitor -) 40 mg PO HS [facility] Last Admin: 03/24/18 22:32 Dose: 40 mg Docusate Sodium (Colace -) 100 mg PO DAILY [facility] Last Admin: 03/25/18 09:28 Dose: 100 mg Fentanyl (Sublimaze Injection -) 25 mcg IVPUSH [id number] PRN PRN Reason: PAIN-PACU ORDER X 4 DOSES ONLY Ferrous Sulfate (Feosol -) 325 mg PO DAILY [facility] Last Admin: 03/25/18 09:28 Dose: 325 mg Guaifenesin/Codeine Phosphate (Robitussin Ac -) 10 ml PO Q8H PRN PRN Reason: COUGH Last Admin: 03/23/18 10:18 Dose: 10 ml Hydralazine HCl (Apresoline -) 10 mg PO TID [facility] Last Admin: 03/25/18 06:40 Dose: 10 mg Piperacillin Sod/Tazobactam (Sod 3.375 gm/ Dextrose) 50 mls @ 100 mls/hr IVPB Q8H-IV [facility]; Protocol Stop: 03/25/18 17:59 Last Admin: 03/25/18 09:27 Dose: 100 mls/hr Megestrol Acetate (Megace Oral Suspension -) 800 mg PO DAILY [facility] Last Admin: 03/25/18 10:40 Dose: 800 mg Metoprolol Tartrate (Lopressor -) 12.5 mg PO BID [facility] Last Admin: 03/25/18 09:27 Dose: 12.5 mg Ondansetron HCl (Zofran Injection) 4 mg IVPUSH Q6H PRN PRN Reason: NAUSEA AND/OR VOMITING Pantoprazole Sodium (Protonix Iv) 40 mg IVPUSH BID [facility] Last Admin: 03/25/18 09:27 Dose: 40 mg Polyethylene Glycol (Miralax (For Daily Use) -) 17 gm PO DAILY [facility] Last Admin: 03/25/18 09:28 Dose: 17 gm Senna/Docusate Sodium (Pericolace -) 1 tablet PO BID [facility] Last Admin: 03/25/18 09:28 Dose: 1 tablet Laboratory Results - last 24 hr 03/21/18 03/24/18 03/25/18 10:56 15:25 06:50 WBC 14.2 H RBC 3.26 L Hgb 8.4 L Hct 25.4 L MCV 77.9 L MCH 25.7 MCHC 32.9 RDW 21.9 H Plt Count 380 MPV 7.5 Absolute Neuts (auto) 11.3 Neutrophils % 79.6 Lymphocytes % 7.2 L Monocytes % 12.7 H Eosinophils % 0.1 Basophils % 0.4 Nucleated RBC % 0 Sodium Potassium Chloride Carbon Dioxide Anion Gap BUN Creatinine Creat Clearance w eGFR Random Glucose Calcium Phosphorus Magnesium Total Bilirubin AST ALT Alkaline Phosphatase Total Protein Albumin Blood Type O POSITIVE O POSITIVE Antibody Screen Negative Negative Crossmatch See Detail See Detail 03/25/18 06:50 WBC RBC Hgb Hct MCV MCH MCHC RDW Plt Count MPV Absolute Neuts (auto) Neutrophils % Lymphocytes % Monocytes % Eosinophils % Basophils % Nucleated RBC % Sodium 139 Potassium 3.6 Chloride 104 Carbon Dioxide 30 Anion Gap 5 L BUN 16 Creatinine 0.5 L Creat Clearance w eGFR > 60 Random Glucose 90 D Calcium 8.3 L Phosphorus 3.7 Magnesium 1.8 Total Bilirubin 0.5 AST 11 L D ALT 10 L Alkaline Phosphatase 98 Total Protein 6.4 Albumin 1.3 L Blood Type Antibody Screen Crossmatch Microbiology 03/23/18 07:30 Blood - Peripheral Venous Blood Culture - Preliminary NO GROWTH OBTAINED AFTER 48 HOURS, INCUBATION TO CONTINUE FOR 3 DAYS. 03/23/18 07:50 Blood - Peripheral Venous Blood Culture - Preliminary NO GROWTH OBTAINED AFTER 48 HOURS, INCUBATION TO CONTINUE FOR 3 DAYS. 03/22/18 14:00 Bronchial Washings - Left Upper Lobe Gram Stain - Final 03/22/18 14:00 Bronchial Washings - Left Upper Lobe Bronchoalveolar Lavage Culture - Preliminary NORMAL RESPIRATORY KRISTA 03/22/18 14:00 Bronchial Washings - Left Upper Lobe CARO Preparation - Preliminary 03/22/18 14:00 Bronchial Washings - Left Upper Lobe Fungal Culture - Preliminary 03/13/18 00:01 Blood - Peripheral Venous Blood Culture - Final NO GROWTH AFTER 5 DAYS INCUBATION 03/13/18 00:01 Blood - Peripheral Venous Blood Culture - Final NO GROWTH AFTER 5 DAYS INCUBATION 03/13/18 19:56 Nares - Mrsa Screen - Left MRSA Screen - Final NO MRSA ISOLATED 03/13/18 19:50 Urine For Antigen Detection Legionella Antigen - Final 03/13/18 19:50 Urine For Antigen Detection Streptococcus pneumoniae Antigen (M - Final 03/13/18 03:25 Urine - Urine Clean Catch Urine Culture - Final NO GROWTH OBTAINED 03/12/18 08:28 Urine - Urine Clean Catch Urine Culture - Final ASSESSMENT AND PLAN: 77 yo M with prior history of CAD, heavy smoker, recently reportedly diagnosed lung mass/anemia requiring transfusions, admitted with failure to thrive, found with anemia, ISABELLA lung mass -Sepsis due to suspected post obstructive PNA -Persistent fevers, due to above vs from tumor burden -ISABELLA 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 Oncology/radiation oncology input noted. s/p 7 days of zosyn.follow up bronchial washings/repeat Blood cultures. MRSA screen neg. Zosyn resumed, fevers improved, monitor for now. Follow up with ID. s/p 1 unit PRBC 03/24. Total 4 units PRBC, 3 units FFP and venofer x 2. s/p Vitamin K. INR noted. Nutrition consult, Isaias. Ensure, magic cup. Replete K/mg prn Bowel regimen. Chopped diet with thin liquids. DVTPPX with heparin subq. Dispo pending above. Palliative care input noted. PT eval noted. Needs home oxygen. Plan for SNF on d/c pending final biopsy results, treatment plan and clinical improvement
--- NOTE | 2018-03-25 13:37 | PN ---
Progress Note (short form) - Note Progress Note: PULMONARY Nonproductive cough overnight but no hemoptysis. Vital Signs Period Temp Pulse Resp BP Sys/Harper Pulse Ox Last 24 Hr 97.9 F-100.0 F 108-126 20-20 121-150/64-88 92-92 Gen: NAD at rest Heart: tachycardic, regular Lung: decreased breath sounds at the bases Abd: soft, nontender Ext: no edema CBC, BMP 03/25/18 06:50 03/25/18 06:50 Active Medications Acetaminophen (Tylenol -) 650 mg PO Q4H PRN PRN Reason: FEVER Last Admin: 03/25/18 01:51 Dose: 650 mg Acetaminophen (Ofirmev Injection -) 1,000 mg IVPB Q6H PRN PRN Reason: FEVER Albuterol Sulfate (Ventolin 0.083% Nebulizer Soln -) 1 amp NEB Q4H PRN PRN Reason: SHORT OF BREATH/WHEEZING Albuterol/Ipratropium (Duoneb -) 1 amp NEB RQID [facility] Last Admin: 03/25/18 12:13 Dose: 1 amp Amlodipine Besylate (Norvasc -) 5 mg PO DAILY [facility] Last Admin: 03/25/18 09:28 Dose: 5 mg Atorvastatin Calcium (Lipitor -) 40 mg PO HS [facility] Last Admin: 03/24/18 22:32 Dose: 40 mg Docusate Sodium (Colace -) 100 mg PO DAILY [facility] Last Admin: 03/25/18 09:28 Dose: 100 mg Fentanyl (Sublimaze Injection -) 25 mcg IVPUSH [id number] PRN PRN Reason: PAIN-PACU ORDER X 4 DOSES ONLY Ferrous Sulfate (Feosol -) 325 mg PO DAILY [facility] Last Admin: 03/25/18 09:28 Dose: 325 mg Guaifenesin/Codeine Phosphate (Robitussin Ac -) 10 ml PO Q8H PRN PRN Reason: COUGH Last Admin: 03/23/18 10:18 Dose: 10 ml Hydralazine HCl (Apresoline -) 10 mg PO TID [facility] Last Admin: 03/25/18 06:40 Dose: 10 mg Piperacillin Sod/Tazobactam (Sod 3.375 gm/ Dextrose) 50 mls @ 100 mls/hr IVPB Q8H-IV [facility]; Protocol Stop: 03/25/18 17:59 Last Admin: 03/25/18 09:27 Dose: 100 mls/hr Megestrol Acetate (Megace Oral Suspension -) 800 mg PO DAILY [facility] Last Admin: 03/25/18 10:40 Dose: 800 mg Metoprolol Tartrate (Lopressor -) 12.5 mg PO BID [facility] Last Admin: 03/25/18 09:27 Dose: 12.5 mg Ondansetron HCl (Zofran Injection) 4 mg IVPUSH Q6H PRN PRN Reason: NAUSEA AND/OR VOMITING Pantoprazole Sodium (Protonix Iv) 40 mg IVPUSH BID [facility] Last Admin: 03/25/18 09:27 Dose: 40 mg Polyethylene Glycol (Miralax (For Daily Use) -) 17 gm PO DAILY [facility] Last Admin: 03/25/18 09:28 Dose: 17 gm Senna/Docusate Sodium (Pericolace -) 1 tablet PO BID [facility] Last Admin: 03/25/18 09:28 Dose: 1 tablet A/P Lung Mass likely malignant Post Obstructive Pneumonia Sepsis CAD Anemia Smoker - f/u final cytology, pathology - monitor H/H, coags - cough suppressants - inhaled bronchodilators - DVT prophylaxis
[2018-03-25] MEDS: guaiFENesin/CODEINE 10 ML UNIT-DOSE CUPS PO SCH ×2 (14:02→21:39)
[2018-03-25] MEDS ORDERED: ACETAMINOPHEN 1000 MG/100 ML VIAL (NON FORMULARY) IVPB ONE (17:01)
[2018-03-25] MEDS: ATORVASTATIN CA 40 MG TABLET (FP) PO SCH (21:40)
[2018-03-26] MEDS: ACETAMINOPHEN 325 MG TABLET (FP) PO PRN ×2 (01:56→17:27)
[2018-03-26] MEDS: hydrALAZINE HCL 10 MG TABLET PO SCH ×3 (06:21→22:34)
[2018-03-26] MEDS: guaiFENesin/CODEINE 10 ML UNIT-DOSE CUPS PO SCH ×3 (06:22→22:34)
[2018-03-26 07:31] LABS: BASO % 0.5 % (0-2.0); EOS % 0.2 % (0-4.5); HEMATOCRIT 26.3 % (35.4-49); HEMOGLOBIN 8.8 GM/dL (11.7-16.9); LYMPH % 7.5 % (8-40); MCHC 33.6 g/dl (32.0-35.9); MEAN CELL VOLUME 77.2 fl (80-96); MEAN PLT VOLUME 7.5 fl (7.5-11.1); MONO % 12.6 % (3.8-10.2); NEUT % 79.2 % (42.8-82.8); PLATELET COUNT 389 K/MM3 (134-434); RDW 22.3 % (11.9-15.9); WHITE BLOOD COUNT 13.3 K/mm3 (4.0-10.0)
[2018-03-26 07:40] LABS: ADD RBC MORPHOLOGY YES
[2018-03-26] MEDS: ALBUTEROL SO4 2.5/IPRATROPIUM 0.5 INH SOL 3 ML VIAL.NEB. NEB SCH ×4 (08:27→20:25)
[2018-03-26 08:51] LABS: PLATELET ESTIMATE INCREASED
[2018-03-26] MEDS ORDERED: PT OWN MED DRAWER 7, Y5N ONE (09:46)
[2018-03-26] MEDS: PANTOPRAZOLE SODIUM 40 MG VIAL IVPUSH SCH ×2 (09:48→22:38)
[2018-03-26] MEDS: MEGESTROL ACETATE 400 MG/10 ML UNIT DOSE CUP PO SCH (09:48)
[2018-03-26] MEDS: FERROUS SO4 325 MG TABLET (FP) PO SCH (09:49)
[2018-03-26] MEDS: SENNOSIDES/DOCUSATE COMBO (SENNA PLUS) TABLET (UD) PO SCH ×2 (09:49→22:35)
[2018-03-26] MEDS: DOCUSATE SODIUM 100 MG CAPSULE (FP) PO SCH (09:49)
[2018-03-26] MEDS: amLODIPine BESYLATE 5 MG TABLET (FP) PO SCH (09:49)
[2018-03-26] MEDS: METOPROLOL TARTRATE 25 MG TABLET (FP) PO SCH ×2 (09:49→22:34)
[2018-03-26] MEDS: POLYETHYLENE GLYCOL 3350 119 GM BTL PO SCH (10:20)
--- NOTE | 2018-03-26 10:53 | PN ---
Progress Note (short form) - Note Progress Note: PULMONARY Cough better on standing cough suppressant. Vital Signs Period Temp Pulse Resp BP Sys/Harper Pulse Ox Last 24 Hr 98 F-100.5 F 110-127 18-18 126-153/63-82 92 Gen: NAD at rest Heart: tachycardic, regular Lung: decreased breath sounds at the bases Abd: soft, nontender Ext: no edema CBC, BMP 03/26/18 06:10 03/25/18 06:50 Active Medications Acetaminophen (Tylenol -) 650 mg PO Q4H PRN PRN Reason: FEVER Last Admin: 03/26/18 01:56 Dose: 650 mg Acetaminophen (Ofirmev Injection -) 1,000 mg IVPB Q6H PRN PRN Reason: FEVER Last Admin: 03/25/18 16:14 Dose: 1,000 mg Albuterol Sulfate (Ventolin 0.083% Nebulizer Soln -) 1 amp NEB Q4H PRN PRN Reason: SHORT OF BREATH/WHEEZING Albuterol/Ipratropium (Duoneb -) 1 amp NEB RQID [facility] Last Admin: 03/26/18 08:27 Dose: 1 amp Amlodipine Besylate (Norvasc -) 5 mg PO DAILY [facility] Last Admin: 03/26/18 09:49 Dose: 5 mg Atorvastatin Calcium (Lipitor -) 40 mg PO HS [facility] Last Admin: 03/25/18 21:40 Dose: 40 mg Docusate Sodium (Colace -) 100 mg PO DAILY [facility] Last Admin: 03/26/18 09:49 Dose: 100 mg Fentanyl (Sublimaze Injection -) 25 mcg IVPUSH [id number] PRN PRN Reason: PAIN-PACU ORDER X 4 DOSES ONLY Ferrous Sulfate (Feosol -) 325 mg PO DAILY [facility] Last Admin: 03/26/18 09:49 Dose: 325 mg Guaifenesin/Codeine Phosphate (Robitussin Ac -) 10 ml PO TID [facility] Last Admin: 03/26/18 06:22 Dose: 10 ml Hydralazine HCl (Apresoline -) 10 mg PO TID [facility] Last Admin: 03/26/18 06:21 Dose: 10 mg Megestrol Acetate (Megace Oral Suspension -) 800 mg PO DAILY [facility] Last Admin: 03/26/18 09:48 Dose: 800 mg Metoprolol Tartrate (Lopressor -) 12.5 mg PO BID [facility] Last Admin: 03/26/18 09:49 Dose: 12.5 mg Ondansetron HCl (Zofran Injection) 4 mg IVPUSH Q6H PRN PRN Reason: NAUSEA AND/OR VOMITING Pantoprazole Sodium (Protonix Iv) 40 mg IVPUSH BID [facility] Last Admin: 03/26/18 09:48 Dose: 40 mg Polyethylene Glycol (Miralax (For Daily Use) -) 17 gm PO DAILY [facility] Last Admin: 03/26/18 10:20 Dose: Not Given Senna/Docusate Sodium (Pericolace -) 1 tablet PO BID [facility] Last Admin: 03/26/18 09:49 Dose: 1 tablet A/P Newly diagnosed NSCLC Post Obstructive Pneumonia Sepsis resolved CAD Anemia Smoker - f/u final cytology, pathology - monitor H/H, coags - cough suppressants - inhaled bronchodilators - DVT prophylaxis
--- NOTE | 2018-03-26 12:38 | PN ---
Progress Note (short form) - Note Progress Note: Progress Note (short form) - Note Progress Note: Patient seen and examined Prelim path- SCC of the lung No complaints today, resting comfortably Vital Signs Period Temp Pulse Resp BP Sys/Harper Pulse Ox Last 24 Hr 98 F-100.5 F 110-127 18-18 126-153/63-82 92-96 Cachectic, Poor dentition Clubbing CBC, BMP 03/26/18 06:10 03/25/18 06:50 Active Medications Generic Name Dose Route Start Last Admin Trade Name Freq PRN Reason Stop Dose Admin Acetaminophen 650 mg 03/22/18 15:58 03/26/18 01:56 Tylenol - PO 650 mg Q4H PRN Administration FEVER Acetaminophen 1,000 mg 03/23/18 17:02 03/25/18 16:14 Ofirmev Injection - IVPB 1,000 mg Q6H PRN Administration FEVER Albuterol Sulfate 1 amp 03/23/18 10:14 Ventolin 0.083% Nebulizer Soln - NEB Q4H PRN SHORT OF BREATH/WHEEZING Albuterol/Ipratropium 1 amp 03/23/18 12:00 03/26/18 11:50 Duoneb - NEB 1 amp RQID [facility] Administration Amlodipine Besylate 5 mg 03/23/18 10:00 03/26/18 09:49 Norvasc - PO 5 mg DAILY [facility] Administration Atorvastatin Calcium 40 mg 03/22/18 22:00 03/25/18 21:40 Lipitor - PO 40 mg HS [facility] Administration Docusate Sodium 100 mg 03/23/18 10:00 03/26/18 09:49 Colace - PO 100 mg DAILY [facility] Administration Fentanyl 25 mcg 03/22/18 15:58 Sublimaze Injection - IVPUSH [id number] PRN PAIN-PACU ORDER X 4 DOSES ONLY Ferrous Sulfate 325 mg 03/23/18 10:00 03/26/18 09:49 Feosol - PO 325 mg DAILY [facility] Administration Guaifenesin/Codeine Phosphate 10 ml 03/25/18 14:00 03/26/18 06:22 Robitussin Ac - PO 10 ml TID [facility] Administration Hydralazine HCl 10 mg 03/22/18 22:00 03/26/18 06:21 Apresoline - PO 10 mg TID [facility] Administration Megestrol Acetate 800 mg 03/23/18 10:00 03/26/18 09:48 Megace Oral Suspension - PO 800 mg DAILY [facility] Administration Metoprolol Tartrate 12.5 mg 03/23/18 11:15 03/26/18 09:49 Lopressor - PO 12.5 mg BID [facility] Administration Ondansetron HCl 4 mg 03/22/18 15:58 Zofran Injection IVPUSH Q6H PRN NAUSEA AND/OR VOMITING Pantoprazole Sodium 40 mg 03/22/18 22:00 03/26/18 09:48 Protonix Iv IVPUSH 40 mg BID [facility] Administration Polyethylene Glycol 17 gm 03/23/18 10:00 03/26/18 10:20 Miralax (For Daily Use) - PO Not Given DAILY [facility] Senna/Docusate Sodium 1 tablet 03/22/18 22:00 03/26/18 09:49 Pericolace - PO 1 tablet BID [facility] Administration Impression: Poorly differentiated Non small cell Lung cancer - likely SCC Anemia Cachexia Potential candidate for RT can be discharged when stable and can be followed as an outpatient
--- NOTE | 2018-03-26 16:27 | PN ---
Physical Exam: SUBJECTIVE: Patient seen and examined, poor appetite, no new pain or dyspnea. Minimal participation in conversations. OBJECTIVE: Vital Signs Period Temp Pulse Resp BP Sys/Harper Pulse Ox Last 24 Hr 98 F-100.2 F 110-132 18-18 109-153/60-82 92-96 GENERAL: sitting in bed, no acute distress Chest: Diminished breath sounds all over Abdomen:Soft, nT Extremities: no edema Laboratory Results - last 24 hr 03/26/18 06:10 WBC 13.3 H RBC 3.40 L Hgb 8.8 L Hct 26.3 L MCV 77.2 L MCH 26.0 MCHC 33.6 RDW 22.3 H Plt Count 389 MPV 7.5 Absolute Neuts (auto) 10.5 Neutrophils % 79.2 Lymphocytes % 7.5 L Monocytes % 12.6 H Eosinophils % 0.2 D Basophils % 0.5 Nucleated RBC % 0 Platelet Estimate Increased Platelet Comment No clumping noted Active Medications Generic Name Dose Route Start Last Admin Trade Name Freq PRN Reason Stop Dose Admin Acetaminophen 650 mg 03/22/18 15:58 03/26/18 01:56 Tylenol - PO 650 mg Q4H PRN Administration FEVER Acetaminophen 1,000 mg 03/23/18 17:02 03/25/18 16:14 Ofirmev Injection - IVPB 1,000 mg Q6H PRN Administration FEVER Albuterol Sulfate 1 amp 03/23/18 10:14 Ventolin 0.083% Nebulizer Soln - NEB Q4H PRN SHORT OF BREATH/WHEEZING Albuterol/Ipratropium 1 amp 03/23/18 12:00 03/26/18 11:50 Duoneb - NEB 1 amp RQID [facility] Administration Amlodipine Besylate 5 mg 03/23/18 10:00 03/26/18 09:49 Norvasc - PO 5 mg DAILY [facility] Administration Atorvastatin Calcium 40 mg 03/22/18 22:00 03/25/18 21:40 Lipitor - PO 40 mg HS [facility] Administration Docusate Sodium 100 mg 03/23/18 10:00 03/26/18 09:49 Colace - PO 100 mg DAILY [facility] Administration Fentanyl 25 mcg 03/22/18 15:58 Sublimaze Injection - IVPUSH [id number] PRN PAIN-PACU ORDER X 4 DOSES ONLY Ferrous Sulfate 325 mg 03/23/18 10:00 03/26/18 09:49 Feosol - PO 325 mg DAILY [facility] Administration Guaifenesin/Codeine Phosphate 10 ml 03/25/18 14:00 03/26/18 13:33 Robitussin Ac - PO 10 ml TID [facility] Administration Hydralazine HCl 10 mg 03/22/18 22:00 03/26/18 13:33 Apresoline - PO 10 mg TID [facility] Administration Megestrol Acetate 800 mg 03/23/18 10:00 03/26/18 09:48 Megace Oral Suspension - PO 800 mg DAILY [facility] Administration Metoprolol Tartrate 12.5 mg 03/23/18 11:15 03/26/18 09:49 Lopressor - PO 12.5 mg BID [facility] Administration Ondansetron HCl 4 mg 03/22/18 15:58 Zofran Injection IVPUSH Q6H PRN NAUSEA AND/OR VOMITING Pantoprazole Sodium 40 mg 03/22/18 22:00 03/26/18 09:48 Protonix Iv IVPUSH 40 mg BID [facility] Administration Polyethylene Glycol 17 gm 03/23/18 10:00 03/26/18 10:20 Miralax (For Daily Use) - PO Not Given DAILY [facility] Senna/Docusate Sodium 1 tablet 03/22/18 22:00 03/26/18 09:49 Pericolace - PO 1 tablet BID [facility] Administration Microbiology 03/23/18 07:30 Blood - Peripheral Venous Blood Culture - Preliminary NO GROWTH OBTAINED AFTER 72 HOURS, INCUBATION TO CONTINUE FOR 2 DAYS. 03/23/18 07:50 Blood - Peripheral Venous Blood Culture - Preliminary NO GROWTH OBTAINED AFTER 72 HOURS, INCUBATION TO CONTINUE FOR 2 DAYS. 03/22/18 14:00 Bronchial Washings - Left Upper Lobe Gram Stain - Final 03/22/18 14:00 Bronchial Washings - Left Upper Lobe Bronchoalveolar Lavage Culture - Final NORMAL RESPIRATORY KRISTA 03/22/18 14:00 Bronchial Washings - Left Upper Lobe CARO Preparation - Preliminary 03/22/18 14:00 Bronchial Washings - Left Upper Lobe Fungal Culture - Preliminary 03/13/18 00:01 Blood - Peripheral Venous Blood Culture - Final NO GROWTH AFTER 5 DAYS INCUBATION 03/13/18 00:01 Blood - Peripheral Venous Blood Culture - Final NO GROWTH AFTER 5 DAYS INCUBATION 03/13/18 19:56 Nares - Mrsa Screen - Left MRSA Screen - Final NO MRSA ISOLATED 03/13/18 19:50 Urine For Antigen Detection Legionella Antigen - Final 03/13/18 19:50 Urine For Antigen Detection Streptococcus pneumoniae Antigen (M - Final 03/13/18 03:25 Urine - Urine Clean Catch Urine Culture - Final NO GROWTH OBTAINED 03/12/18 08:28 Urine - Urine Clean Catch Urine Culture - Final ASSESSMENT/PLAN: 77 yo M with prior history of CAD, heavy smoker, recently reportedly diagnosed lung mass/anemia requiring transfusions, admitted with failure to thrive, found with anemia, ISABELLA lung mass -Sepsis due to suspected post obstructive PNA -Persistent fevers, due to above vs from tumor burden -ISABELLA 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 Oncology/radiation oncology input noted. s/p 7 days of zosyn.Bronchial washings/blood cultures neg. MRSA screen neg. Zosyn x 24 hours, fevers improved, follow up with ID. . s/p 1 unit PRBC 03/24. Total 4 units PRBC, 3 units FFP and venofer x 2. s/p Vitamin K. INR noted. Nutrition consult, Megace. Ensure, magic cup. Replete K/mg prn Bowel regimen. Chopped diet with thin liquids. DVTPPX with heparin subq. Dispo pending above. Palliative care input noted. PT eval noted. Needs home oxygen. Dicussed with patient about resuscitation and goals of care. Patient inclined towards no aggressive measures and considering DNR/DNI, to discuss with palliative care and sister with patient and address ongoing goals of care. Plan for SNF on d/c pending final biopsy results, treatment plan and clinical improvement Visit type - Emergency Visit Emergency Visit: Yes ED Registration Date: 03/11/18 Care time: The patient presented to the Emergency Department on the above date and was hospitalized for further evaluation of their emergent condition. - New Patient This patient is new to me today: No - Critical Care Critical Care patient: No - Discharge Referral Referred to [facility] No
[2018-03-26] MEDS: ATORVASTATIN CA 40 MG TABLET (FP) PO SCH (22:34)
[2018-03-27] MEDS: guaiFENesin/CODEINE 10 ML UNIT-DOSE CUPS PO SCH ×3 (06:32→23:05)
[2018-03-27] MEDS: hydrALAZINE HCL 10 MG TABLET PO SCH ×3 (06:32→23:02)
[2018-03-27] MEDS: ALBUTEROL SO4 2.5/IPRATROPIUM 0.5 INH SOL 3 ML VIAL.NEB. NEB SCH ×4 (07:20→20:15)
[2018-03-27 07:21] LABS: BASO % 0.4 % (0-2.0); EOS % 0.3 % (0-4.5); HEMATOCRIT 25.8 % (35.4-49); HEMOGLOBIN 8.5 GM/dL (11.7-16.9); LYMPH % 9.5 % (8-40); MEAN CELL VOLUME 78.7 fl (80-96); MEAN PLT VOLUME 7.7 fl (7.5-11.1); MONO % 15.9 % (3.8-10.2); NEUT % 73.9 % (42.8-82.8); PLATELET COUNT 396 K/MM3 (134-434); RBC 3.28 M/mm3 (4.00-5.60); RDW 22.1 % (11.9-15.9)
[2018-03-27] MEDS: SENNOSIDES/DOCUSATE COMBO (SENNA PLUS) TABLET (UD) PO SCH ×2 (09:06→23:04)
[2018-03-27] MEDS: METOPROLOL TARTRATE 25 MG TABLET (FP) PO SCH ×2 (09:06→23:03)
[2018-03-27] MEDS: DOCUSATE SODIUM 100 MG CAPSULE (FP) PO SCH (09:06)
[2018-03-27] MEDS: amLODIPine BESYLATE 5 MG TABLET (FP) PO SCH (09:06)
[2018-03-27] MEDS: FERROUS SO4 325 MG TABLET (FP) PO SCH (09:06)
[2018-03-27] MEDS: PANTOPRAZOLE SODIUM 40 MG VIAL IVPUSH SCH (09:07)
[2018-03-27] MEDS: ACETAMINOPHEN 325 MG TABLET (FP) PO PRN ×2 (09:18→16:51)
[2018-03-27] MEDS: MEGESTROL ACETATE 400 MG/10 ML UNIT DOSE CUP PO SCH (09:18)
[2018-03-27] MEDS: POLYETHYLENE GLYCOL 3350 119 GM BTL PO SCH (11:38)
[2018-03-27 12:28] LABS: ANISOCYTOSIS 1+; PLATELET ESTIMATE ADEQUATE
--- NOTE | 2018-03-27 12:52 | PN ---
Progress Note, MATERIALS AND PROCESSES MANAGER - Note Progress Note: Pt complaining about dys chopped food. MBS Osteophytes with moderate stasis, requiring multiple swallows, with risk of aspiration. Pt has 3 teeth with limited mastication. Suggest upgrade to palatable finely chopped foods such as chopped egg,tuna, chicken salad,cottage cheese, quiche, etc. Encourage pt to swallow hard, a couple of times, alternate with thin liquid.Encourage supplements. Monitor tolerance.
--- NOTE | 2018-03-27 14:03 | PN ---
Progress Note, Physician History of Present Illness: PULMONARY NO DISTRESS,-SOB,LESS COUGH,-HEMOPTYSIS - Current Medication List Current Medications: Active Medications Acetaminophen (Tylenol -) 650 mg PO Q4H PRN PRN Reason: FEVER Last Admin: 03/27/18 09:18 Dose: 650 mg Acetaminophen (Ofirmev Injection -) 1,000 mg IVPB Q6H PRN PRN Reason: FEVER Last Admin: 03/25/18 16:14 Dose: 1,000 mg Albuterol Sulfate (Ventolin 0.083% Nebulizer Soln -) 1 amp NEB Q4H PRN PRN Reason: SHORT OF BREATH/WHEEZING Albuterol/Ipratropium (Duoneb -) 1 amp NEB RQID [facility] Last Admin: 03/27/18 11:38 Dose: 1 amp Amlodipine Besylate (Norvasc -) 5 mg PO DAILY [facility] Last Admin: 03/27/18 09:06 Dose: 5 mg Atorvastatin Calcium (Lipitor -) 40 mg PO HS [facility] Last Admin: 03/26/18 22:34 Dose: 40 mg Docusate Sodium (Colace -) 100 mg PO DAILY [facility] Last Admin: 03/27/18 09:06 Dose: 100 mg Fentanyl (Sublimaze Injection -) 25 mcg IVPUSH [id number] PRN PRN Reason: PAIN-PACU ORDER X 4 DOSES ONLY Ferrous Sulfate (Feosol -) 325 mg PO DAILY [facility] Last Admin: 03/27/18 09:06 Dose: 325 mg Guaifenesin/Codeine Phosphate (Robitussin Ac -) 10 ml PO TID [facility] Last Admin: 03/27/18 06:32 Dose: 10 ml Hydralazine HCl (Apresoline -) 10 mg PO TID [facility] Last Admin: 03/27/18 06:32 Dose: 10 mg Megestrol Acetate (Megace Oral Suspension -) 800 mg PO DAILY [facility] Last Admin: 03/27/18 09:18 Dose: 800 mg Metoprolol Tartrate (Lopressor -) 12.5 mg PO BID [facility] Last Admin: 03/27/18 09:06 Dose: 12.5 mg Ondansetron HCl (Zofran Injection) 4 mg IVPUSH Q6H PRN PRN Reason: NAUSEA AND/OR VOMITING Pantoprazole Sodium (Protonix Iv) 40 mg IVPUSH BID [facility] Last Admin: 03/27/18 09:07 Dose: 40 mg Polyethylene Glycol (Miralax (For Daily Use) -) 17 gm PO DAILY [facility] Last Admin: 03/27/18 11:38 Dose: Not Given Senna/Docusate Sodium (Pericolace -) 1 tablet PO BID [facility] Last Admin: 03/27/18 09:06 Dose: 1 tablet - Objective Vital Signs: Vital Signs Temperature 99.4 F 03/27/18 10:30 Pulse Rate 132 H 03/27/18 09:00 Respiratory Rate 20 03/27/18 09:00 Blood Pressure 139/79 03/27/18 09:00 O2 Sat by Pulse Oximetry (%) 94 L 03/27/18 09:00 Constitutional: Yes: Calm, Thin Eyes: Yes: WNL HENT: Yes: WNL Neck: Yes: WNL Cardiovascular: Yes: Regular Rate and Rhythm, S1, S2 Respiratory: Yes: Wheezes (FEW WHEEZES) Gastrointestinal: Yes: Normal Bowel Sounds, Soft Extremities: Yes: WNL Edema: No Labs: CBC, BMP 03/27/18 06:00 Problem List - Problems (1) Lung cancer Code(s): C34.90 - MALIGNANT NEOPLASM OF UNSP PART OF UNSP BRONCHUS OR LUNG (2) Anemia Code(s): D64.9 - ANEMIA, UNSPECIFIED (3) HTN (hypertension) Code(s): I10 - ESSENTIAL (PRIMARY) HYPERTENSION (4) Smoker Code(s): F17.200 - NICOTINE DEPENDENCE, UNSPECIFIED, UNCOMPLICATED Assessment/Plan A/P Newly diagnosed NSCLC Post Obstructive Pneumonia Sepsis resolved CAD Anemia Smoker - monitor H/H, coags - cough suppressants - inhaled bronchodilators - DVT prophylaxis - RT - chemo as per oncology DR CLARK
--- NOTE | 2018-03-27 16:36 | PATH ---
Surgical Pathology Report Patient Name: CRYSTAL PYLE Med. Rec. #: [id number] /Age/Gender: 1940 (Age: 77) / M Account: [id number] Location: [facility] MED/SURG Taken: 03/22/2018 Received: 03/23/2018 Reported: 03/27/2018 Physicians: Gera Humphries M.D. Roni Kerr M.D. Specimen(s) Received BRONCHIAL BIOPSY ISABLELA Clinical History Left upper lobe mass Final Diagnosis BRONCHIAL, LEFT, UPPER LOBE, BIOPSY: POORLY DIFFERENTIATED CARCINOMA. SEE COMMENT. Comment: Immunohistochemical stain performed and interpreted at [facility] shows malignant epithelial cells positive for cytokeratin AE1/3. Additional immunohistochemical stains performed at [place], [place] ([id number]) and interpreted at [facility] show the tumor cells are positive for CK7, and CK5/6 (focal), while negative for TTF-1, Napsin A, and p40. Overall histomorphology and immunophenotype show a poorly differentiated carcinoma with squamous differentiation. Suggest clinical/radiologic correlation. See concurrent cytology ([id number], [id number]). Findings discussed with Dr. Humphries and Dr. Jackson. Electronically Signed Gabby Sterling M.D. Gross Description Received in formalin labeled "bronchial biopsy left upper lobe," are 7 mendoza brown soft tissue fragments ranging from 0.1-0.4 cm in greatest dimension. The specimens are submitted in toto in one cassette. 03/23/2018 [facility]03/23/2018
--- NOTE | 2018-03-27 16:39 | PATH ---
Cytology Non-Gynecological Report Patient Name: CRYSTAL PYLE Med. Rec. #: [id number] /Age/Gender: 1940 (Age: 77) / M Account: [id number] Location: [facility] MED/SURG Taken: 03/22/2018 Received: 03/23/2018 Reported: 03/27/2018 Physicians: Roni Espinal M.D. Norman Rosen, M.D. Specimen(s) Received BRONCHIAL BRUSHINGS LEFT UPPER LOBE Clinical History + Friable mass left upper lobe Final Diagnosis BRONCHIAL BRUSHING, LEFT, UPPER LOBE, FOR CYTOLOGY: SATISFACTORY FOR EVALUATION. POSITIVE FOR MALIGNANT CELLS. POORLY DIFFERENTIATED CARCINOMA. MALIGNANT EPITHELIAL CELLS WITH HYPERCHROMASIA, NUCLEAR PLEOMORPHISM, COARSE CHROMATIN, AND PROMINENT NUCLEOLI IN A BACKGROUND OF ALVEOLAR MACROPHAGES AND BRONCHIAL EPITHELIAL CELLS PRESENT. Comment: Concurrent materials ([id number] and [id number]) are reviewed. See biopsy for immunohistochemical workup. Findings discussed with Dr. Humphries and Dr. Jackson. Electronically Signed Gabby Sterling M.D. Gross Description Received brush in 50 clear fluid received fixed in 50% alcohol. Two direct smears prepared Pap stained.
--- NOTE | 2018-03-27 16:41 | PATH ---
Cytology Non-Gynecological Report Patient Name: CRYSTAL PYLE Med. Rec. #: [id number] /Age/Gender: 1940 (Age: 77) / M Account: [id number] Location: [facility] MED/SURG Taken: 03/22/2018 Received: 03/23/2018 Reported: 03/27/2018 Physicians: Gera Humphries M.D. Roni Kerr M.D. Specimen(s) Received BRONCHIAL WASHINGS LEFT UPPER LOBE Clinical History + Friable mass left upper lobe Final Diagnosis BRONCHIAL WASHING, LEFT, UPPER LOBE FOR CYTOLOGY: SATISFACTORY FOR EVALUATION. POSITIVE FOR MALIGNANT CELLS. POORLY DIFFERENTIATED CARCINOMA. MALIGNANT EPITHELIAL CELLS WITH HYPERCHROMASIA, NUCLEAR PLEOMORPHISM, COARSE CHROMATIN, AND PROMINENT NUCLEOLI IN A BACKGROUND OF ALVEOLAR MACROPHAGES AND BRONCHIAL EPITHELIAL CELLS PRESENT. Comment: Concurrent materials ([id number] and [id number]) are reviewed. See biopsy for immunohistochemical workup. Findings discussed with Dr. Humphries and Dr. Jackson. Electronically Signed Gabby Sterling M.D. Gross Description Approximately 50 cc of bloody fluid received fixed in 50% alcohol. Two cytofunnels and one cellblock prepared.
--- NOTE | 2018-03-27 18:03 | PN ---
Teaching Attending Note Name of Resident: Minna Bernard ATTENDING PHYSICIAN STATEMENT I saw and evaluated the patient. I reviewed the resident's note and discussed the case with the resident. I agree with the resident's findings and plan as documented with exceptions below. SUBJECTIVE: Patient seen and examined, weak, poor appetite, no other complaints. OBJECTIVE: Vital Signs Period Temp Pulse Resp BP Sys/Harper Pulse Ox Last 24 Hr 98.1 F-100.3 F 110-132 18-20 129-143/71-79 94-95 Intake & Output 03/24/18 03/25/18 03/26/18 03/27/18 23:59 23:59 23:59 23:59 Intake Total 850 960 630 540 Output Total 250 750 750 Balance 600 210 -120 540 General: lying in bed, weak looking but no acute distress Chest: diminished breath sounds all over Abdomen:soft, NT, ND Extremities: no edema Active Medications Acetaminophen (Tylenol -) 650 mg PO Q4H PRN PRN Reason: FEVER Last Admin: 03/27/18 16:51 Dose: 650 mg Acetaminophen (Ofirmev Injection -) 1,000 mg IVPB Q6H PRN PRN Reason: FEVER Last Admin: 03/25/18 16:14 Dose: 1,000 mg Albuterol Sulfate (Ventolin 0.083% Nebulizer Soln -) 1 amp NEB Q4H PRN PRN Reason: SHORT OF BREATH/WHEEZING Albuterol/Ipratropium (Duoneb -) 1 amp NEB RQID [facility] Last Admin: 03/27/18 15:52 Dose: 1 amp Amlodipine Besylate (Norvasc -) 5 mg PO DAILY [facility] Last Admin: 03/27/18 09:06 Dose: 5 mg Atorvastatin Calcium (Lipitor -) 40 mg PO HS [facility] Last Admin: 03/26/18 22:34 Dose: 40 mg Docusate Sodium (Colace -) 100 mg PO DAILY [facility] Last Admin: 03/27/18 09:06 Dose: 100 mg Fentanyl (Sublimaze Injection -) 25 mcg IVPUSH [id number] PRN PRN Reason: PAIN-PACU ORDER X 4 DOSES ONLY Ferrous Sulfate (Feosol -) 325 mg PO DAILY [facility] Last Admin: 03/27/18 09:06 Dose: 325 mg Guaifenesin/Codeine Phosphate (Robitussin Ac -) 10 ml PO TID [facility] Last Admin: 03/27/18 14:49 Dose: 10 ml Hydralazine HCl (Apresoline -) 10 mg PO TID [facility] Last Admin: 03/27/18 14:49 Dose: 10 mg Megestrol Acetate (Megace Oral Suspension -) 800 mg PO DAILY [facility] Last Admin: 03/27/18 09:18 Dose: 800 mg Metoprolol Tartrate (Lopressor -) 12.5 mg PO BID [facility] Last Admin: 03/27/18 09:06 Dose: 12.5 mg Ondansetron HCl (Zofran Injection) 4 mg IVPUSH Q6H PRN PRN Reason: NAUSEA AND/OR VOMITING Pantoprazole Sodium (Protonix -) 40 mg PO BID [facility] Polyethylene Glycol (Miralax (For Daily Use) -) 17 gm PO DAILY [facility] Last Admin: 03/27/18 11:38 Dose: Not Given Senna/Docusate Sodium (Pericolace -) 1 tablet PO BID [facility] Last Admin: 03/27/18 09:06 Dose: 1 tablet Laboratory Results - last 24 hr 03/27/18 06:00 WBC 14.0 H RBC 3.28 L Hgb 8.5 L Hct 25.8 L MCV 78.7 L MCH 26.0 MCHC 33.0 RDW 22.1 H Plt Count 396 MPV 7.7 Absolute Neuts (auto) 10.4 Neutrophils % 73.9 Neutrophils % (Manual) 69.1 Band Neutrophils % 0.0 Lymphocytes % 9.5 D Lymphocytes % (Manual) 11.3 D Monocytes % 15.9 H Monocytes % (Manual) 19 H Eosinophils % 0.3 Eosinophils % (Manual) 0.0 Basophils % 0.4 Basophils % (Manual) 0.0 Myelocytes % (Man) 0 Promyelocytes % (Man) 0 Blast Cells % (Manual) 0 Nucleated RBC % 0 Metamyelocytes 0 Hypochromia 1+ Platelet Estimate Adequate Anisocytosis 1+ ASSESSMENT AND PLAN: 77 yo M with prior history of CAD, heavy smoker, recently reportedly diagnosed lung mass/anemia requiring transfusions, admitted with failure to thrive, found with anemia, ISABELLA lung mass -Sepsis due to suspected post obstructive PNA -Persistent fevers, due to above vs from tumor burden -ISABELLA 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 Oncology/radiation oncology input noted. s/p 7 days of zosyn.Bronchial washings/blood cultures neg. MRSA screen neg. Zosyn x 24 hours, fevers improved, off abx, monitor for now, follow up with ID. . s/p 1 unit PRBC 03/24. Total 4 units PRBC, 3 units FFP and venofer x 2. s/p Vitamin K. INR noted. Nutrition consult, Megace. Ensure, magic cup. Replete K/mg prn Bowel regimen. Chopped diet with thin liquids. DVTPPX with heparin subq. Dispo pending above. Palliative care input noted. PT eval noted. Needs home oxygen. Plan for home d/c with outpatient palliative radiation follow up.Discussed with Dr. Jackson, rad onc input to address outpatient radiation plan and d/c in 24 hours with VNS to sister's place accordingly.
--- NOTE | 2018-03-27 18:37 | PN ---
Physical Exam: SUBJECTIVE: Patient seen and examined this morning at bedside. Drank 3-4 Ensures over night. Denies fevers, chills, chest pain, SOB, nausea, vomiting, diarrhea, constipation. OBJECTIVE: Vital Signs Period Temp Pulse Resp BP Sys/Harper Pulse Ox Last 24 Hr 98.1 F-100.5 F 110-132 18-20 129-143/71-79 94-95 GENERAL: The patient is awake, alert, and fully oriented, in no acute distress. LUNGS: Decreased breath sounds through out HEART: Tachycardic, S1, S2 without murmur, rub or gallop. ABDOMEN: Soft, nontender, nondistended, normoactive bowel sounds EXTREMITIES: No edema Laboratory Results - last 24 hr 03/27/18 06:00 WBC 14.0 H RBC 3.28 L Hgb 8.5 L Hct 25.8 L MCV 78.7 L MCH 26.0 MCHC 33.0 RDW 22.1 H Plt Count 396 MPV 7.7 Absolute Neuts (auto) 10.4 Neutrophils % 73.9 Neutrophils % (Manual) 69.1 Band Neutrophils % 0.0 Lymphocytes % 9.5 D Lymphocytes % (Manual) 11.3 D Monocytes % 15.9 H Monocytes % (Manual) 19 H Eosinophils % 0.3 Eosinophils % (Manual) 0.0 Basophils % 0.4 Basophils % (Manual) 0.0 Myelocytes % (Man) 0 Promyelocytes % (Man) 0 Blast Cells % (Manual) 0 Nucleated RBC % 0 Metamyelocytes 0 Hypochromia 1+ Platelet Estimate Adequate Anisocytosis 1+ Active Medications Acetaminophen (Tylenol -) 650 mg PO Q4H PRN PRN Reason: FEVER Last Admin: 03/27/18 16:51 Dose: 650 mg Acetaminophen (Ofirmev Injection -) 1,000 mg IVPB Q6H PRN PRN Reason: FEVER Last Admin: 03/25/18 16:14 Dose: 1,000 mg Albuterol Sulfate (Ventolin 0.083% Nebulizer Soln -) 1 amp NEB Q4H PRN PRN Reason: SHORT OF BREATH/WHEEZING Albuterol/Ipratropium (Duoneb -) 1 amp NEB RQID [facility] Last Admin: 03/27/18 15:52 Dose: 1 amp Amlodipine Besylate (Norvasc -) 5 mg PO DAILY [facility] Last Admin: 03/27/18 09:06 Dose: 5 mg Atorvastatin Calcium (Lipitor -) 40 mg PO HS [facility] Last Admin: 03/26/18 22:34 Dose: 40 mg Docusate Sodium (Colace -) 100 mg PO DAILY [facility] Last Admin: 03/27/18 09:06 Dose: 100 mg Fentanyl (Sublimaze Injection -) 25 mcg IVPUSH [id number] PRN PRN Reason: PAIN-PACU ORDER X 4 DOSES ONLY Ferrous Sulfate (Feosol -) 325 mg PO DAILY [facility] Last Admin: 03/27/18 09:06 Dose: 325 mg Guaifenesin/Codeine Phosphate (Robitussin Ac -) 10 ml PO TID [facility] Last Admin: 03/27/18 14:49 Dose: 10 ml Hydralazine HCl (Apresoline -) 10 mg PO TID [facility] Last Admin: 03/27/18 14:49 Dose: 10 mg Megestrol Acetate (Megace Oral Suspension -) 800 mg PO DAILY [facility] Last Admin: 03/27/18 09:18 Dose: 800 mg Metoprolol Tartrate (Lopressor -) 12.5 mg PO BID [facility] Last Admin: 03/27/18 09:06 Dose: 12.5 mg Ondansetron HCl (Zofran Injection) 4 mg IVPUSH Q6H PRN PRN Reason: NAUSEA AND/OR VOMITING Pantoprazole Sodium (Protonix -) 40 mg PO BID [facility] Polyethylene Glycol (Miralax (For Daily Use) -) 17 gm PO DAILY [facility] Last Admin: 03/27/18 11:38 Dose: Not Given Senna/Docusate Sodium (Pericolace -) 1 tablet PO BID [facility] Last Admin: 03/27/18 09:06 Dose: 1 tablet ASSESSMENT/PLAN: 77 y/o male with prior history of CAD, heavy smoker, recently reportedly diagnosed lung mass, anemia requiring transfusions, admitted with Severe protein -calorie malnutrition now with hemoptysis 1. ISABELLA mass - S/P Bronchoscopy + Biopsy (03/22) - Preliminary Pathology: Poorly differentiated NSCLC - Spoke with Dr. Jackson who says Radiation would be the best first line treatment and that he will reach out to Dr. Aviles so we can establish a plan before discharging patient. - Oncology and Radiation Oncology consulted - PFTs as an outpatient - Requires home oxygen - Pre and Post - 1 Unit to be transferred tonight on 03/24 2. Sepsis Likely due to post obstrutive PNA - Temp reached 100.5 overnight - Blood cultures negative, repeats pending - UA Negative - CXR: Left parahilar, left upper lung mass. No pleural effusion, or pneumothorax is seen. No evidence of a pulmonary consolidations. - HCV screen noted - HIV negative - Pulmonary consult, appreciate rec's - ID consult, appreciate rec's - IV Zosyn course completed - Continue Tylenol - MRSA Nares screen: Negative - Consider that fevers may be from tumor burden and not infectious in etiology - Lopressor 12.5 mg PO BID for tachycardia 3. Depression - As per nursing, patient complained of "just want to go to sleep and " - Dr. Hernandez consulted, appreciate rec's - Patient feels better about coping strategies - Continue to monitor 4. Hemopytsis - Likely due to pulmonary mass, consider irritation from frequent coughing - 1 Unit pRBC transfused (03/15) - No repeat episodes 5. Symptomatic anemia - Weakness and tachycardia - Iron studies noted - S/P 4 units pRBC transfused, 3 units FFP - Given Venofer (dose #2) - Continue to monitor 6. Severe protein calorie malnutrition - In the setting of likely malignant lung mass with with weight loss - Failure to thrive, requiring nutritional support - BMI: 17.1, Weight loss >7.5% in 3 months - RF: Possible lung malignancy, Dementia, difficulty swallowing/chewing - Speech and swallow Recomendations: Consider dysphagia chopped diet with thin liquid. - Continue Megace Oral Suspension 800 mg PO DAILY 7. Constipation - Continue with Miralax 17 gm PO DAILY [facility] - Continue with Senna/Docusate Sodium 1 tablet PO BID [facility] - Continue with Colace 100 mg PO DAILY [facility] 8. HTN - Continue with Norvasc 5 mg PO DAILY [facility] - Continue with Hydralazine HCl 10 mg PO TID [facility] 9. HLD - Continue with Atorvastatin Calcium 40 mg PO HS [facility] 10. dvt ppx - heparin Dispo: D/C to sisters home with outpatient palliative radiation follow up and VNS Visit type - Emergency Visit Emergency Visit: Yes ED Registration Date: 03/11/18 Care time: The patient presented to the Emergency Department on the above date and was hospitalized for further evaluation of their emergent condition. - New Patient This patient is new to me today: No - Critical Care Critical Care patient: No
--- NOTE | 2018-03-27 20:02 | PN ---
Progress Note (short form) - Note Progress Note: Patient seen and examined No repeated hemoptysis. Denies fevers, chills, chest pain, SOB, nausea, vomiting, diarrhea, constipation. OBJECTIVE: Last Vital Signs Temp Pulse Resp BP Pulse Ox 99.4 F 132 H 18 140/75 94 L 03/27/18 18:00 03/27/18 16:30 03/27/18 16:30 03/27/18 16:30 03/27/18 09:00 GENERAL: The patient is awake, alert, and fully oriented, in no acute distress. LUNGS: Clear to auscultation bilaterally, anteriorly HEART: Tachycardic, S1, S2 without murmur, rub or gallop. ABDOMEN: Soft, nontender, nondistended, normoactive bowel sounds Abnormal Lab Results 03/24/18 03/27/18 15:25 06:00 WBC 14.0 H RBC 3.28 L Hgb 8.5 L Hct 25.8 L MCV 78.7 L RDW 22.1 H Monocytes % 15.9 H Monocytes % (Manual) 19 H Crossmatch See Detail Active Medications Generic Name Dose Route Start Last Admin Trade Name Freq PRN Reason Stop Dose Admin Acetaminophen 650 mg 03/22/18 15:58 03/27/18 16:51 Tylenol - PO 650 mg Q4H PRN Administration FEVER Acetaminophen 1,000 mg 03/23/18 17:02 03/25/18 16:14 Ofirmev Injection - IVPB 1,000 mg Q6H PRN Administration FEVER Albuterol Sulfate 1 amp 03/23/18 10:14 Ventolin 0.083% Nebulizer Soln - NEB Q4H PRN SHORT OF BREATH/WHEEZING Albuterol/Ipratropium 1 amp 03/23/18 12:00 03/27/18 15:52 Duoneb - NEB 1 amp RQID [facility] Administration Amlodipine Besylate 5 mg 03/23/18 10:00 03/27/18 09:06 Norvasc - PO 5 mg DAILY [facility] Administration Atorvastatin Calcium 40 mg 03/22/18 22:00 03/26/18 22:34 Lipitor - PO 40 mg HS [facility] Administration Docusate Sodium 100 mg 03/23/18 10:00 03/27/18 09:06 Colace - PO 100 mg DAILY [facility] Administration Fentanyl 25 mcg 03/22/18 15:58 Sublimaze Injection - IVPUSH [id number] PRN PAIN-PACU ORDER X 4 DOSES ONLY Ferrous Sulfate 325 mg 03/23/18 10:00 03/27/18 09:06 Feosol - PO 325 mg DAILY [facility] Administration Guaifenesin/Codeine Phosphate 10 ml 03/25/18 14:00 03/27/18 14:49 Robitussin Ac - PO 10 ml TID [facility] Administration Hydralazine HCl 10 mg 03/22/18 22:00 03/27/18 14:49 Apresoline - PO 10 mg TID [facility] Administration Megestrol Acetate 800 mg 03/23/18 10:00 03/27/18 09:18 Megace Oral Suspension - PO 800 mg DAILY [facility] Administration Metoprolol Tartrate 12.5 mg 03/23/18 11:15 03/27/18 09:06 Lopressor - PO 12.5 mg BID [facility] Administration Ondansetron HCl 4 mg 03/22/18 15:58 Zofran Injection IVPUSH Q6H PRN NAUSEA AND/OR VOMITING Pantoprazole Sodium 40 mg 03/27/18 22:00 Protonix - PO BID [facility] Polyethylene Glycol 17 gm 03/23/18 10:00 03/27/18 11:38 Miralax (For Daily Use) - PO Not Given DAILY [facility] Senna/Docusate Sodium 1 tablet 03/22/18 22:00 03/27/18 09:06 Pericolace - PO 1 tablet BID [facility] Administration A/P 77 yr old male with ISABELLA mass , cachexia , significant weight loss, now presumed postobstructibe pneumonia -IR guided biopsy of the lung mass c/w poorly differentiated carcinoma with ? squamous differentiation CT chest -- ISABELLA mass with postobstructive pneumoniits Rad-onc consult for post obstructive pneumonia appreciated check bone scan CTA chest revealed no liver/adrenalmets will need MRI brain aswell to complete staging /rdoríguez--? oupatient pln--home with family and outpatient RT to b e considered
[2018-03-27] MEDS: ATORVASTATIN CA 40 MG TABLET (FP) PO SCH (23:03)
[2018-03-27] MEDS: PANTOPRAZOLE 40 MG TABLET (FP) PO SCH (23:05)
[2018-03-28] MEDS: hydrALAZINE HCL 10 MG TABLET PO SCH ×3 (06:13→21:56)
[2018-03-28] MEDS: guaiFENesin/CODEINE 10 ML UNIT-DOSE CUPS PO SCH ×3 (06:13→21:57)
[2018-03-28] MEDS: ACETAMINOPHEN 325 MG TABLET (FP) PO PRN ×2 (06:24→21:59)
[2018-03-28 07:22] LABS: BASO % 0.4 % (0-2.0); EOS % 0.3 % (0-4.5); HEMATOCRIT 26.5 % (35.4-49); HEMOGLOBIN 8.7 GM/dL (11.7-16.9); LYMPH % 11.8 % (8-40); MCH 25.9 pg (25.7-33.7); MCHC 33.1 g/dl (32.0-35.9); MEAN CELL VOLUME 78.4 fl (80-96); MEAN PLT VOLUME 7.9 fl (7.5-11.1); MONO % 13.8 % (3.8-10.2); NEUT % 73.7 % (42.8-82.8); PLATELET COUNT 435 K/MM3 (134-434); RBC 3.38 M/mm3 (4.00-5.60); RDW 22.2 % (11.9-15.9)
[2018-03-28] MEDS: ALBUTEROL SO4 2.5/IPRATROPIUM 0.5 INH SOL 3 ML VIAL.NEB. NEB SCH (07:35)
[2018-03-28 07:49] LABS: ALBUMIN 1.5 g/dl (3.4-5.0); ANION GAP 10 (8-16); BLOOD UREA NITROGEN 21 mg/dL (7-18); CALCIUM 8.7 mg/dL (8.5-10.1); CHLORIDE 101 mmol/L (98-107); CO2 29 mmol/L (21-32); GLUCOSE,RANDOM 108 mg/dL (74-106); POTASSIUM 3.8 mmol/L (3.5-5.1); SODIUM 140 mmol/L (136-145)
[2018-03-28 07:54] LABS: ALK PHOS 108 U/L (45-117); BILIRUBIN,TOTAL 0.5 mg/dL (0.2-1.0); CREATININE 0.6 mg/dL (0.7-1.3); PHOSPHOROUS 3.9 mg/dL (2.5-4.9); SGOT/AST 14 U/L (15-37); SGPT/ALT 10 U/L (12-78); TOT PROT 7.2 g/dl (6.4-8.2)
[2018-03-28] MEDS ORDERED: morphine SULFATE 4 MG/ML VIAL IVPUSH ONE (09:45)
[2018-03-28] MEDS ORDERED: MORPHINE SULFATE 2 MG/ML VIAL IVPUSH ONE (09:45)
--- NOTE | 2018-03-28 10:19 | PN ---
Progress Note (short form) - Note Progress Note: The patient was seen today and administered a hypnotic intervention. His pain level was a 9 prior to the intervention. After the treatment his pain declined to a 7 and his mood improved per patient's subjective statement. The patient was advised to use the deep breathing technique and listen to comforting music he has as well as imagine past pleasant experiences he can recall. This would serve as a continuation of the treatment he received today. Problem List - Problems (1) Depression determined by examination Code(s): F32.9 - MAJOR DEPRESSIVE DISORDER, SINGLE EPISODE, UNSPECIFIED
--- NOTE | 2018-03-28 10:21 | PN ---
Progress Note (short form) - Note Progress Note: Radiation Oncology Cough improved, no further hemoptysis. Tolerating diet. Hgb 8.7 s/p PRBC tx. Biopsy + poorly diff carcinoma w squamous differentiation. Results discussed with patient and sister Zakiya. Not a candidate for chemo. Given marginal PS, I recommend palliative RT to relieve tumor obstruction and postobstructive sequela. Discussed risks/benefits/alternatives of radiation. Plan for 2 weeks of daily treatment. I spoke to Zakiya who will contact our office to begin tx once he is discharged.
[2018-03-28] MEDS: METOPROLOL TARTRATE 25 MG TABLET (FP) PO SCH ×2 (10:40→21:56)
[2018-03-28] MEDS: SENNOSIDES/DOCUSATE COMBO (SENNA PLUS) TABLET (UD) PO SCH ×2 (10:40→21:56)
[2018-03-28] MEDS: FERROUS SO4 325 MG TABLET (FP) PO SCH (10:40)
[2018-03-28] MEDS: amLODIPine BESYLATE 5 MG TABLET (FP) PO SCH (10:40)
[2018-03-28] MEDS: POLYETHYLENE GLYCOL 3350 119 GM BTL PO SCH (10:41)
[2018-03-28] MEDS: PANTOPRAZOLE 40 MG TABLET (FP) PO SCH ×2 (10:41→21:56)
[2018-03-28] MEDS: DOCUSATE SODIUM 100 MG CAPSULE (FP) PO SCH (10:41)
--- NOTE | 2018-03-28 11:54 | PN ---
Progress Note, DEMAND INSPECTOR - Note Progress Note: Pt complaining about dys chopped food. MBS Osteophytes with moderate stasis, requiring multiple swallows, with risk of aspiration. Pt has 3 teeth with limited mastication. Suggest upgrade to palatable finely chopped foods such as chopped egg,tuna, chicken salad,cottage cheese, quiche, etc. Encourage pt to swallow hard, a couple of times, alternate with thin liquid.Encourage supplements. Monitor tolerance. Reviewed with RD above. Pt receiving dys chopped without additional chopped foods requested. Ok to add moist pancake, mashed by CHEMICAL ENGINEERING INTERN with syrup.
[2018-03-28] MEDS ORDERED: PT OWN MED DRAWER 7, Y5N ONE (13:23)
--- NOTE | 2018-03-28 13:31 | PN ---
Progress Note, Physician History of Present Illness: pulmonary alert,nad,-sob,weak - Current Medication List Current Medications: Active Medications Acetaminophen (Tylenol -) 650 mg PO Q4H PRN PRN Reason: FEVER Last Admin: 03/28/18 06:24 Dose: 650 mg Acetaminophen (Ofirmev Injection -) 1,000 mg IVPB Q6H PRN PRN Reason: FEVER Last Admin: 03/25/18 16:14 Dose: 1,000 mg Amlodipine Besylate (Norvasc -) 5 mg PO DAILY [facility] Last Admin: 03/28/18 10:40 Dose: 5 mg Atorvastatin Calcium (Lipitor -) 40 mg PO HS [facility] Last Admin: 03/27/18 23:03 Dose: 40 mg Docusate Sodium (Colace -) 100 mg PO DAILY [facility] Last Admin: 03/28/18 10:41 Dose: 100 mg Fentanyl (Sublimaze Injection -) 25 mcg IVPUSH [id number] PRN PRN Reason: PAIN-PACU ORDER X 4 DOSES ONLY Ferrous Sulfate (Feosol -) 325 mg PO DAILY [facility] Last Admin: 03/28/18 10:40 Dose: 325 mg Guaifenesin/Codeine Phosphate (Robitussin Ac -) 10 ml PO TID [facility] Last Admin: 03/28/18 06:13 Dose: 10 ml Hydralazine HCl (Apresoline -) 10 mg PO TID [facility] Last Admin: 03/28/18 06:13 Dose: 10 mg Megestrol Acetate (Megace Oral Suspension -) 800 mg PO DAILY [facility] Last Admin: 03/27/18 09:18 Dose: 800 mg Metoprolol Tartrate (Lopressor -) 12.5 mg PO BID [facility] Last Admin: 03/28/18 10:40 Dose: 12.5 mg Ondansetron HCl (Zofran Injection) 4 mg IVPUSH Q6H PRN PRN Reason: NAUSEA AND/OR VOMITING Pantoprazole Sodium (Protonix -) 40 mg PO BID [facility] Last Admin: 03/28/18 10:41 Dose: 40 mg Polyethylene Glycol (Miralax (For Daily Use) -) 17 gm PO DAILY [facility] Last Admin: 03/28/18 10:41 Dose: 17 gm Senna/Docusate Sodium (Pericolace -) 1 tablet PO BID [facility] Last Admin: 03/28/18 10:40 Dose: 1 tablet - Objective Vital Signs: Vital Signs Temperature 98.5 F 03/28/18 10:00 Pulse Rate 112 H 03/28/18 10:00 Respiratory Rate 20 03/28/18 10:00 Blood Pressure 128/81 03/28/18 10:00 O2 Sat by Pulse Oximetry (%) 94 L 03/27/18 21:00 Constitutional: Yes: Calm, Thin Eyes: Yes: WNL HENT: Yes: WNL Neck: Yes: WNL Cardiovascular: Yes: Regular Rate and Rhythm, S1, S2 Respiratory: Yes: Diminished Gastrointestinal: Yes: Normal Bowel Sounds, Soft Extremities: Yes: WNL Edema: No Labs: CBC, BMP 03/28/18 06:00 03/28/18 06:00 INR, PTT INR 1.50 (0.82-1.09) H 03/23/18 06:00 Assessment/Plan Problem List - Problems (1) Lung cancer Code(s): C34.90 - MALIGNANT NEOPLASM OF UNSP PART OF UNSP BRONCHUS OR LUNG (2) Anemia Code(s): D64.9 - ANEMIA, UNSPECIFIED (3) HTN (hypertension) Code(s): I10 - ESSENTIAL (PRIMARY) HYPERTENSION (4) Smoker Code(s): F17.200 - NICOTINE DEPENDENCE, UNSPECIFIED, UNCOMPLICATED Assessment/Plan A/P Newly diagnosed NSCLC Post Obstructive Pneumonia Sepsis resolved CAD Anemia Smoker - monitor H/H, coags - cough suppressants - inhaled bronchodilators - DVT prophylaxis - RT - chemo as per oncology DR CLARK
[2018-03-28] MEDS: MEGESTROL ACETATE 400 MG/10 ML UNIT DOSE CUP PO SCH (15:29)
--- NOTE | 2018-03-28 16:22 | PN ---
Teaching Attending Note Name of Resident: Minna Bernard ATTENDING PHYSICIAN STATEMENT I saw and evaluated the patient. I reviewed the resident's note and discussed the case with the resident. I agree with the resident's findings and plan as documented. SUBJECTIVE:no appetite. denies CP, SOB, fever, chills, cough, hemoptysis OBJECTIVE: Last Vital Signs Temp Pulse Resp BP Pulse Ox 98.4 F 113 H 20 144/80 94 L 03/28/18 14:49 03/28/18 14:49 03/28/18 14:49 03/28/18 14:49 03/27/18 21:00 General frail, elderly man, NAD Lungs CTA B/L no wheezing/rales/rhonchi ASSESSMENT AND PLAN: 77 yo M with prior history of CAD, heavy smoker, recently reportedly diagnosed lung mass/anemia requiring transfusions, admitted with failure to thrive, found with anemia, ISABELLA lung mass 1. sepsis due to suspected post-obstructive PNA-afebrile. completed 7 day course of abx. no further indication for abx. 2. NSCLC- poorly differentiated with squamous differentiation. dx on Bx done . plan for palliative Rtx treatment for 2 weeks. oncology, rtx oncology and pulmonary on board 3. hemopytsis- likely due to pulmonary mass however can also be mucosal irritation from frequent coughing. no repeat episodes. 4. Anemia, suspect multifactorial, Iron deficiency, poor nutritional status,r/o occult bleed- total of 5 units PRBC this hospitalization. Hgb stable. received venofer x2. on iron supplementation 5. Elevated INR, suspect nutritional- s/p vit K given x4. FFP x3 this hospital course. no signs of bleeding 6. Severe Malnutrition- as evident by body habitus and reported 40lb weight loss. minimal response to appetite stimulant. will cont for now. consider switching to marinol if does not improve over the next week. encouarge po intake. 7. hypokalmeia- resolved 8. hypomangesemia- resolved 9. constipation- resolved. cont stool softeners prn 10. dysphagia- on chopped diet with thin liquids. tolerating well 11. DVT ppx- hep sq 12. poor functional status and poor overall prognosis. palliative care consulted. plan for pt to d/c home with sister who will assist him with ADL and VNS. encourage psych follow up as well due to likely developing depression
--- NOTE | 2018-03-28 16:34 | DS ---
Physical Exam: SUBJECTIVE: Patient seen and examined OBJECTIVE: Vital Signs Period Temp Pulse Resp BP Sys/Harper Pulse Ox Last 24 Hr 98.4 F-99.4 F 112-126 20-20 128-144/71-81 94 PHYSICAL EXAM GENERAL: The patient is awake, alert, and fully oriented, in no acute distress. HEAD: Normal with no signs of trauma. EYES: PERRL, extraocular movements intact, sclera anicteric, conjunctiva clear. ENT: Ears normal, nares patent, oropharynx clear without exudates, moist mucous membranes. NECK: Trachea midline, full range of motion, supple. LUNGS: Breath sounds equal, clear to auscultation bilaterally, no wheezes, no crackles, no accessory muscle use. HEART: Regular rate and rhythm, S1, S2 without murmur, rub or gallop. ABDOMEN: Soft, nontender, nondistended, normoactive bowel sounds, no guarding, no rebound, no hepatosplenomegaly, no masses. EXTREMITIES: 2+ pulses, warm, well-perfused, no edema. NEUROLOGICAL: Cranial nerves II through XII grossly intact. Normal speech, gait not observed. PSYCH: Normal mood, normal affect. SKIN: Warm, dry, normal turgor, no rashes or lesions noted. LABS Laboratory Results - last 24 hr 03/24/18 03/28/18 03/28/18 15:25 06:00 06:00 WBC 15.0 H RBC 3.38 L Hgb 8.7 L Hct 26.5 L MCV 78.4 L MCH 25.9 MCHC 33.1 RDW 22.2 H Plt Count 435 H MPV 7.9 Absolute Neuts (auto) 11.1 Neutrophils % 73.7 Lymphocytes % 11.8 D Monocytes % 13.8 H Eosinophils % 0.3 Basophils % 0.4 Nucleated RBC % 0 Sodium 140 Potassium 3.8 Chloride 101 Carbon Dioxide 29 Anion Gap 10 BUN 21 H Creatinine 0.6 L Creat Clearance w eGFR > 60 Random Glucose 108 H Calcium 8.7 Phosphorus 3.9 Magnesium 2.0 Total Bilirubin 0.5 AST 14 L D ALT 10 L Alkaline Phosphatase 108 D Total Protein 7.2 Albumin 1.5 L Blood Type O POSITIVE Antibody Screen Negative Crossmatch See Detail HOSPITAL COURSE: Date of Admission:03/11/18 Date of Discharge: 03/28/18 Discharge Summary Reason For Visit: LUNG MASS, WEAKNESS Current Active Problems Anemia (Acute) Depression determined by examination (Acute) HTN (hypertension) (Acute) Hyperlipidemia (Acute) Lung cancer (Acute) Lung mass (Acute) Previous myocardial infarction older than 8 weeks (Acute) Smoker (Acute) Condition: Fair - Instructions Diet, Activity, Other Instructions: You had a biopsy done for a lung mass The lung mass has been found to be cancerous You were seen by cancer specialists who have recommended radiation therapy to help reduce the size of the mass and help reduce your symptoms You are being discharged home Please have your sister Zakiya follow up by calling the office of Dr Hamlin as soon as you get home at [phone] You will receive 2 weeks of daily treatment. Your home medications have changed. Refer to medication list for these changes. Continue to try to eat as much as possible. Continue with a chopped diet. Swallow several times in between bites. Drink you plenty of fluids. Continue with ensure shakes. Please follow up with Dr Jackson, the general oncologist Also follow up with your primary care physician, if you do not have one, you may follow up with Dr Minna Bernard at [address] [facility] [address], Call [phone] to make an appointment for Tuesday Please return to the emergency room if you are coughing up blood, have persistent fevers , worsening chest pain or shortness of breath . Referrals: Nabil Bess MD [Staff Physician] - Mitchell Hernandez PSYD [Psychologist] - Ruy Hamlin MD [Staff Physician] - 03/29/18 (Call to arrange radiation therapy) Carlos Jackson MD [Staff Physician] - 1 Week Minna Bernard RES [Resident] - 1 Week Disposition: HOME - Home Medications Comprehensive Discharge Medication List: Ambulatory Orders Amlodipine Besylate [Norvasc -] 5 mg PO DAILY #30 tablet 02/03/15 Atorvastatin Ca [Lipitor] 40 mg PO HS #30 tablet 02/03/15 Hydralazine HCl 10 mg PO TID #90 tablet 02/03/15 Albuterol 0.083% Nebulizer Reva [Ventolin 0.083% Nebulizer Soln -] 1 amp NEB Q4H PRN #120 amp 03/28/18 Ferrous Sulfate [Feosol] 325 mg PO DAILY #30 ud 03/28/18 Megestrol Acetate Oral Susp [Megace Liquid -] 800 mg PO DAILY #150 cup 03/28/18 Metoprolol Tartrate [Lopressor -] 12.5 mg PO BID #30 tablet 03/28/18 Pantoprazole Sodium [Protonix -] 40 mg PO BID #60 tablet.ec 03/28/18 Polyethylene Glycol 3350 [Miralax (For Daily Use) -] 17 gm PO DAILY #5 bottle Sennosides/Docusate Sodium [Pericolace -] 1 each PO BID #60 tablet 03/28/18 - Discharge Referral Referred to [facility] No
--- NOTE | 2018-03-28 16:41 | PN ---
Progress Note (short form) - Note Progress Note: Patient seen and examined Right rib cage pain at site of met with local tenderness Last Vital Signs Temp Pulse Resp BP Pulse Ox 98.4 F 113 H 20 144/80 94 L 03/28/18 14:49 03/28/18 14:49 03/28/18 14:49 03/28/18 14:49 03/27/18 21:00 Cachectic Poor dentition Rhonchi Cor-RSR Localized right lateral rib cage pains Sof t abdomen Ext- negative edema CBC, BMP 03/28/18 06:00 03/28/18 06:00 Current Medications Generic Name Dose Route Start Last Admin Trade Name Freq PRN Reason Stop Dose Admin Acetaminophen 650 mg 03/22/18 15:58 03/28/18 06:24 Tylenol - PO 650 mg Q4H PRN Administration FEVER Acetaminophen 1,000 mg 03/23/18 17:02 03/25/18 16:14 Ofirmev Injection - IVPB 1,000 mg Q6H PRN Administration FEVER Amlodipine Besylate 5 mg 03/23/18 10:00 03/28/18 10:40 Norvasc - PO 5 mg DAILY [facility] Administration Atorvastatin Calcium 40 mg 03/22/18 22:00 03/27/18 23:03 Lipitor - PO 40 mg HS [facility] Administration Docusate Sodium 100 mg 03/23/18 10:00 03/28/18 10:41 Colace - PO 100 mg DAILY [facility] Administration Fentanyl 25 mcg 03/22/18 15:58 Sublimaze Injection - IVPUSH [id number] PRN PAIN-PACU ORDER X 4 DOSES ONLY Ferrous Sulfate 325 mg 03/23/18 10:00 03/28/18 10:40 Feosol - PO 325 mg DAILY [facility] Administration Guaifenesin/Codeine Phosphate 10 ml 03/25/18 14:00 03/28/18 15:29 Robitussin Ac - PO 10 ml TID [facility] Administration Hydralazine HCl 10 mg 03/22/18 22:00 03/28/18 15:29 Apresoline - PO 10 mg TID [facility] Administration Megestrol Acetate 800 mg 03/23/18 10:00 03/28/18 15:29 Megace Oral Suspension - PO Not Given DAILY [facility] Metoprolol Tartrate 12.5 mg 03/23/18 11:15 03/28/18 10:40 Lopressor - PO 12.5 mg BID [facility] Administration Ondansetron HCl 4 mg 03/22/18 15:58 Zofran Injection IVPUSH Q6H PRN NAUSEA AND/OR VOMITING Pantoprazole Sodium 40 mg 03/27/18 22:00 03/28/18 10:41 Protonix - PO 40 mg BID [facility] Administration Polyethylene Glycol 17 gm 03/23/18 10:00 03/28/18 10:41 Miralax (For Daily Use) - PO 17 gm DAILY [facility] Administration Senna/Docusate Sodium 1 tablet 03/22/18 22:00 03/28/18 10:40 Pericolace - PO 1 tablet BID [facility] Administration Imptression Non small cell lung ca Rib mets Cachexia Anemia of chronic disease Plan:: Hopefully outpatient RT Begin tramadol , but will need RT to right lateral rib met Further recommendations thereafter.
[2018-03-28] MEDS ORDERED: traMADol HCL 50 MG TABLET PO PRN (16:42)
[2018-03-28] MEDS: ATORVASTATIN CA 40 MG TABLET (FP) PO SCH (21:56)
[2018-03-29] MEDS: guaiFENesin/CODEINE 10 ML UNIT-DOSE CUPS PO SCH ×3 (06:10→22:08)
[2018-03-29] MEDS: hydrALAZINE HCL 10 MG TABLET PO SCH ×3 (06:10→22:08)
--- NOTE | 2018-03-29 08:40 | PN ---
Physical Exam: SUBJECTIVE: Patient seen and examined this morning at bedside. Complains of decreased appetite. Denies fevers, chills, chest pain, SOB, nausea, vomiting, diarrhea, constipation OBJECTIVE: Vital Signs Period Temp Pulse Resp BP Sys/Harper Pulse Ox Last 24 Hr 97.5 F-101 F 98-128 20-20 125-153/72-85 96 GENERAL: The patient is awake, alert, and fully oriented, in no acute distress. LUNGS: Decreased breath sounds through out HEART: Tachycardic, S1, S2 without murmur, rub or gallop. ABDOMEN: Soft, nontender, nondistended, normoactive bowel sounds EXTREMITIES: No edema Active Medications Acetaminophen (Tylenol -) 650 mg PO Q4H PRN PRN Reason: FEVER Last Admin: 03/28/18 21:59 Dose: 650 mg Acetaminophen (Ofirmev Injection -) 1,000 mg IVPB Q6H PRN PRN Reason: FEVER Last Admin: 03/25/18 16:14 Dose: 1,000 mg Amlodipine Besylate (Norvasc -) 5 mg PO DAILY [facility] Last Admin: 03/28/18 10:40 Dose: 5 mg Atorvastatin Calcium (Lipitor -) 40 mg PO HS [facility] Last Admin: 03/28/18 21:56 Dose: 40 mg Docusate Sodium (Colace -) 100 mg PO DAILY [facility] Last Admin: 03/28/18 10:41 Dose: 100 mg Fentanyl (Sublimaze Injection -) 25 mcg IVPUSH [id number] PRN PRN Reason: PAIN-PACU ORDER X 4 DOSES ONLY Ferrous Sulfate (Feosol -) 325 mg PO DAILY [facility] Last Admin: 03/28/18 10:40 Dose: 325 mg Guaifenesin/Codeine Phosphate (Robitussin Ac -) 10 ml PO TID [facility] Last Admin: 03/29/18 06:10 Dose: 10 ml Hydralazine HCl (Apresoline -) 10 mg PO TID [facility] Last Admin: 03/29/18 06:10 Dose: 10 mg Megestrol Acetate (Megace Oral Suspension -) 800 mg PO DAILY [facility] Last Admin: 03/28/18 15:29 Dose: Not Given Metoprolol Tartrate (Lopressor -) 12.5 mg PO BID [facility] Last Admin: 03/28/18 21:56 Dose: 12.5 mg Ondansetron HCl (Zofran Injection) 4 mg IVPUSH Q6H PRN PRN Reason: NAUSEA AND/OR VOMITING Pantoprazole Sodium (Protonix -) 40 mg PO BID [facility] Last Admin: 03/28/18 21:56 Dose: 40 mg Polyethylene Glycol (Miralax (For Daily Use) -) 17 gm PO DAILY [facility] Last Admin: 03/28/18 10:41 Dose: 17 gm Senna/Docusate Sodium (Pericolace -) 1 tablet PO BID [facility] Last Admin: 03/28/18 21:56 Dose: 1 tablet Tramadol HCl (Ultram -) 50 mg PO Q6H PRN PRN Reason: PAIN LEVEL 6-10 ASSESSMENT/PLAN: 77 y/o male with prior history of CAD, heavy smoker, recently reportedly diagnosed lung mass, anemia requiring transfusions, admitted with Severe protein -calorie malnutrition now with hemoptysis 1. ISABELLA mass - S/P Bronchoscopy + Biopsy (03/22) - Preliminary Pathology: Poorly differentiated NSCLC - Spoke with Dr. Jackson who says Radiation would be the best first line treatment and that he will reach out to Dr. Aviles so we can establish a plan before discharging patient. As per nursing, Dr. Aviles suggests 10 treatments. Will follow up - Oncology and Radiation Oncology consulted - PFTs as an outpatient - Requires home oxygen - Pre and Post 2. Sepsis Likely due to post obstrutive PNA - Temp reached 100.5 overnight - Blood cultures negative, repeats pending - UA Negative - CXR: Left parahilar, left upper lung mass. No pleural effusion, or pneumothorax is seen. No evidence of a pulmonary consolidations. - HCV screen noted - HIV negative - Pulmonary consult, appreciate rec's - ID consult, appreciate rec's - IV Zosyn course completed - Continue Tylenol - MRSA Nares screen: Negative - Consider that fevers may be from tumor burden and not infectious in etiology - Lopressor 12.5 mg PO BID for tachycardia 3. Depression - As per nursing, patient complained of "just want to go to sleep and " - Dr. Hernandez consulted, appreciate rec's - Patient feels better about coping strategies - Continue to monitor 4. Hemopytsis - Likely due to pulmonary mass, consider irritation from frequent coughing - 2 Unit pRBC transfused (03/15 and 03/24) - No repeat episodes 5. Symptomatic anemia - Weakness and tachycardia - Iron studies noted - S/P 4 units pRBC transfused, 3 units FFP - Given Venofer (dose #2) - Continue to monitor 6. Severe protein calorie malnutrition - In the setting of likely malignant lung mass with with weight loss - Failure to thrive, requiring nutritional support - BMI: 17.1, Weight loss >7.5% in 3 months - RF: Possible lung malignancy, Dementia, difficulty swallowing/chewing - Speech and swallow Recomendations: Consider dysphagia chopped diet with thin liquid. - Continue Megace Oral Suspension 800 mg PO DAILY 7. Constipation - Continue with Miralax 17 gm PO DAILY [facility] - Continue with Senna/Docusate Sodium 1 tablet PO BID [facility] - Continue with Colace 100 mg PO DAILY [facility] 8. HTN - Continue with Norvasc 5 mg PO DAILY [facility] - Continue with Hydralazine HCl 10 mg PO TID [facility] 9. HLD - Continue with Atorvastatin Calcium 40 mg PO HS [facility] 10. dvt ppx - heparin Dispo: D/C to sisters home with outpatient palliative radiation follow up and VNS Visit type - Emergency Visit Emergency Visit: Yes ED Registration Date: 03/11/18 Care time: The patient presented to the Emergency Department on the above date and was hospitalized for further evaluation of their emergent condition. - New Patient This patient is new to me today: No - Critical Care Critical Care patient: No
[2018-03-29] MEDS: POLYETHYLENE GLYCOL 3350 119 GM BTL PO SCH (10:31)
[2018-03-29] MEDS: FERROUS SO4 325 MG TABLET (FP) PO SCH (10:31)
[2018-03-29] MEDS: MEGESTROL ACETATE 400 MG/10 ML UNIT DOSE CUP PO SCH (10:31)
[2018-03-29] MEDS: SENNOSIDES/DOCUSATE COMBO (SENNA PLUS) TABLET (UD) PO SCH ×2 (10:31→22:08)
[2018-03-29] MEDS: DOCUSATE SODIUM 100 MG CAPSULE (FP) PO SCH (10:31)
[2018-03-29] MEDS: PANTOPRAZOLE 40 MG TABLET (FP) PO SCH ×2 (10:31→22:08)
[2018-03-29] MEDS: METOPROLOL TARTRATE 25 MG TABLET (FP) PO SCH ×2 (10:32→22:08)
[2018-03-29] MEDS: amLODIPine BESYLATE 5 MG TABLET (FP) PO SCH (10:32)
--- NOTE | 2018-03-29 12:44 | PN ---
Progress Note, Physician History of Present Illness: pulmonary alert,weak,-resp distress - Current Medication List Current Medications: Active Medications Acetaminophen (Tylenol -) 650 mg PO Q4H PRN PRN Reason: FEVER Last Admin: 03/28/18 21:59 Dose: 650 mg Acetaminophen (Ofirmev Injection -) 1,000 mg IVPB Q6H PRN PRN Reason: FEVER Last Admin: 03/25/18 16:14 Dose: 1,000 mg Amlodipine Besylate (Norvasc -) 5 mg PO DAILY [facility] Last Admin: 03/29/18 10:32 Dose: 5 mg Atorvastatin Calcium (Lipitor -) 40 mg PO HS [facility] Last Admin: 03/28/18 21:56 Dose: 40 mg Docusate Sodium (Colace -) 100 mg PO DAILY [facility] Last Admin: 03/29/18 10:31 Dose: 100 mg Fentanyl (Sublimaze Injection -) 25 mcg IVPUSH [id number] PRN PRN Reason: PAIN-PACU ORDER X 4 DOSES ONLY Ferrous Sulfate (Feosol -) 325 mg PO DAILY [facility] Last Admin: 03/29/18 10:31 Dose: 325 mg Guaifenesin/Codeine Phosphate (Robitussin Ac -) 10 ml PO TID [facility] Last Admin: 03/29/18 06:10 Dose: 10 ml Hydralazine HCl (Apresoline -) 10 mg PO TID [facility] Last Admin: 03/29/18 06:10 Dose: 10 mg Megestrol Acetate (Megace Oral Suspension -) 800 mg PO DAILY [facility] Last Admin: 03/29/18 10:31 Dose: 800 mg Metoprolol Tartrate (Lopressor -) 12.5 mg PO BID [facility] Last Admin: 03/29/18 10:32 Dose: 12.5 mg Ondansetron HCl (Zofran Injection) 4 mg IVPUSH Q6H PRN PRN Reason: NAUSEA AND/OR VOMITING Pantoprazole Sodium (Protonix -) 40 mg PO BID [facility] Last Admin: 03/29/18 10:31 Dose: 40 mg Polyethylene Glycol (Miralax (For Daily Use) -) 17 gm PO DAILY [facility] Last Admin: 03/29/18 10:31 Dose: 17 gm Senna/Docusate Sodium (Pericolace -) 1 tablet PO BID [facility] Last Admin: 03/29/18 10:31 Dose: 1 tablet Tramadol HCl (Ultram -) 50 mg PO Q6H PRN PRN Reason: PAIN LEVEL 6-10 - Objective Vital Signs: Vital Signs Temperature 98.9 F 03/29/18 06:00 Pulse Rate 118 H 03/29/18 06:00 Respiratory Rate 20 03/29/18 06:00 Blood Pressure 148/85 03/29/18 06:00 O2 Sat by Pulse Oximetry (%) 96 03/28/18 20:34 Constitutional: Yes: Calm, Thin Eyes: Yes: WNL HENT: Yes: WNL Neck: Yes: Supple Cardiovascular: Yes: Regular Rate and Rhythm, S1, S2 Respiratory: Yes: Diminished Gastrointestinal: Yes: Normal Bowel Sounds, Soft Extremities: Yes: WNL Edema: No Labs: CBC, BMP 03/28/18 06:00 03/28/18 06:00 INR, PTT INR 1.50 (0.82-1.09) H 03/23/18 06:00 Assessment/Plan Problem List - Problems (1) Lung cancer Code(s): C34.90 - MALIGNANT NEOPLASM OF UNSP PART OF UNSP BRONCHUS OR LUNG (2) Anemia Code(s): D64.9 - ANEMIA, UNSPECIFIED (3) HTN (hypertension) Code(s): I10 - ESSENTIAL (PRIMARY) HYPERTENSION (4) Smoker Code(s): F17.200 - NICOTINE DEPENDENCE, UNSPECIFIED, UNCOMPLICATED Assessment/Plan A/P Newly diagnosed NSCLC Post Obstructive Pneumonia Sepsis resolved CAD Anemia Smoker - cough suppressants - inhaled bronchodilators - DVT prophylaxis - RT - chemo as per oncology DR CLARK
--- NOTE | 2018-03-29 12:56 | PN ---
Progress Note, SENIOR DIRECTOR OF STRATEGY - Note Progress Note: Case reviewed with staff. Receiving some varied chopped/mashed foods. Did quite well this am. Receiving Megace. Selected Entries 03/26/18 03/26/18 03/26/18 02:13 03:15 05:39 Breakfast Lunch Temperature 100.1 F H 98.2 F 98.4 F 03/26/18 03/26/18 03/26/18 09:39 10:00 14:31 Breakfast 25% Lunch 25% Temperature 98.0 F 99.8 F H 03/26/18 03/26/18 03/26/18 17:30 18:24 22:00 Breakfast Lunch Temperature 100.9 F H 99.2 F 98.3 F 03/27/18 03/27/18 03/27/18 05:41 09:00 10:30 Breakfast Lunch Temperature 98.1 F 100.3 F H 99.4 F 03/29/18 03/29/18 03/29/18 02:26 06:00 10:11 Breakfast 75% Lunch Temperature 97.5 F L 98.9 F Laboratory Tests 03/25/18 03/26/18 03/27/18 06:50 06:10 06:00 WBC 14.2 H 13.3 H 14.0 H 03/28/18 06:00 WBC 15.0 H Continue to monitor PO acceptance and tolerance.
--- NOTE | 2018-03-29 13:43 | PN ---
Teaching Attending Note Name of Resident: Minna Bernard ATTENDING PHYSICIAN STATEMENT I saw and evaluated the patient. I reviewed the resident's note and discussed the case with the resident. I agree with the resident's findings and plan as documented. SUBJECTIVE:no appetite. has no complaints. denies CP, sob, fever, chills, cough , hemoptysis or dysuria OBJECTIVE: Last Vital Signs Temp Pulse Resp BP Pulse Ox 98.9 F 118 H 20 148/85 96 03/29/18 06:00 03/29/18 06:00 03/29/18 06:00 03/29/18 06:00 03/28/18 20:34 General frail, elderly man, NAD Lungs CTA B/L no wheezing/rales/rhonchi ASSESSMENT AND PLAN: 77 yo M with prior history of CAD, heavy smoker, recently reportedly diagnosed lung mass/anemia requiring transfusions, admitted with failure to thrive, found with anemia, ISABELLA lung mass 1. sepsis due to suspected post-obstructive PNA-had fever in the evening 101. will check sepsis workup however this is likely tumor burden and not infectious. will cont to hold abx at this time. completed abx course for PNA 2. NSCLC- poorly differentiated with squamous differentiation. dx on Bx done . plan for palliative Rtx treatment for 2 weeks. oncology, rtx oncology and pulmonary on board 3. hemopytsis- likely due to pulmonary mass however can also be mucosal irritation from frequent coughing. no repeat episodes. 4. Anemia, suspect multifactorial, Iron deficiency, poor nutritional status,r/o occult bleed- total of 5 units PRBC this hospitalization. Hgb stable. received venofer x2. on iron supplementation 5. Elevated INR, suspect nutritional- s/p vit K given x4. FFP x3 this hospital course. no signs of bleeding 6. Severe Malnutrition- as evident by body habitus and reported 40lb weight loss. minimal response to appetite stimulant. switch to marinol to see if some improvement. encouarge po intake. 7. hypokalmeia- resolved 8. hypomangesemia- resolved 9. constipation- resolved. cont stool softeners prn 10. dysphagia- on chopped diet with thin liquids. tolerating well 11. DVT ppx- hep sq 12. poor functional status and poor overall prognosis. palliative care consulted. plan for pt to d/c home with sister who will assist him with ADL and VNS. encourage psych follow up as well due to likely developing depression. d/c planning once afebrile 24H
--- NOTE | 2018-03-29 13:59 | PN ---
Physical Exam: SUBJECTIVE: Patient seen and examined this morning at bedside. Complains of decreased appetite. Rib soreness has improved on Tramadol. 1 small BM over night. Denies urinary symptoms. Denies fevers, chills, chest pain, SOB, nausea, vomiting, diarrhea, constipation OBJECTIVE: Vital Signs Period Temp Pulse Resp BP Sys/Harper Pulse Ox Last 24 Hr 97.5 F-101 F 98-128 20-20 125-153/72-85 96-96 GENERAL: The patient is awake, alert, and fully oriented, in no acute distress. LUNGS: Breath sounds equal, clear to auscultation bilaterally, on 1.5L via NC HEART: Tachycardic, S1, S2 without murmur, rub or gallop. ABDOMEN: Soft, nontender, nondistended, normoactive bowel sounds EXTREMITIES: No edema Active Medications Acetaminophen (Tylenol -) 650 mg PO Q4H PRN PRN Reason: FEVER Last Admin: 03/28/18 21:59 Dose: 650 mg Acetaminophen (Ofirmev Injection -) 1,000 mg IVPB Q6H PRN PRN Reason: FEVER Last Admin: 03/25/18 16:14 Dose: 1,000 mg Amlodipine Besylate (Norvasc -) 5 mg PO DAILY [facility] Last Admin: 03/29/18 10:32 Dose: 5 mg Atorvastatin Calcium (Lipitor -) 40 mg PO HS [facility] Last Admin: 03/28/18 21:56 Dose: 40 mg Docusate Sodium (Colace -) 100 mg PO DAILY [facility] Last Admin: 03/29/18 10:31 Dose: 100 mg Fentanyl (Sublimaze Injection -) 25 mcg IVPUSH [id number] PRN PRN Reason: PAIN-PACU ORDER X 4 DOSES ONLY Ferrous Sulfate (Feosol -) 325 mg PO DAILY [facility] Last Admin: 03/29/18 10:31 Dose: 325 mg Guaifenesin/Codeine Phosphate (Robitussin Ac -) 10 ml PO TID [facility] Last Admin: 03/29/18 06:10 Dose: 10 ml Hydralazine HCl (Apresoline -) 10 mg PO TID [facility] Last Admin: 03/29/18 06:10 Dose: 10 mg Megestrol Acetate (Megace Oral Suspension -) 800 mg PO DAILY [facility] Last Admin: 03/29/18 10:31 Dose: 800 mg Metoprolol Tartrate (Lopressor -) 12.5 mg PO BID [facility] Last Admin: 03/29/18 10:32 Dose: 12.5 mg Ondansetron HCl (Zofran Injection) 4 mg IVPUSH Q6H PRN PRN Reason: NAUSEA AND/OR VOMITING Pantoprazole Sodium (Protonix -) 40 mg PO BID [facility] Last Admin: 03/29/18 10:31 Dose: 40 mg Polyethylene Glycol (Miralax (For Daily Use) -) 17 gm PO DAILY [facility] Last Admin: 03/29/18 10:31 Dose: 17 gm Senna/Docusate Sodium (Pericolace -) 1 tablet PO BID [facility] Last Admin: 03/29/18 10:31 Dose: 1 tablet Tramadol HCl (Ultram -) 50 mg PO Q6H PRN PRN Reason: PAIN LEVEL 6-10 ASSESSMENT/PLAN: 77 y/o male with prior history of CAD, heavy smoker, recently reportedly diagnosed lung mass, anemia requiring transfusions, admitted with Severe protein -calorie malnutrition now with hemoptysis 1. Sepsis Likely due to post obstrutive PNA - Temp reached 101 overnight - Blood cultures pending - UA pending - CXR: Large Left hilar mass, left pleural effusion, No evidence of CHF - Likely due to tumor burden, Hold Abx for now pending micro/UA results - HCV screen noted - HIV negative - Pulmonary consult, appreciate rec's - ID consult, appreciate rec's - IV Zosyn course completed - Continue Tylenol - MRSA Nares screen: Negative - Lopressor 12.5 mg PO BID for tachycardia 2. ISABELLA mass - S/P Bronchoscopy + Biopsy (03/22) - Preliminary Pathology: Poorly differentiated NSCLC with squamous differentiation - Spoke with Dr. Jackson who says Radiation would be the best first line treatment and that he will reach out to Dr. Aviles so we can establish a plan before discharging patient. As per nursing, Dr. Aviles suggests 10 treatments. Will follow up - Oncology and Radiation Oncology consulted - PFTs as an outpatient - Requires home oxygen - Pre and Post 3. Depression - As per nursing, patient complained of "just want to go to sleep and " - Dr. Hernandez consulted, appreciate rec's - Patient feels better about coping strategies - Continue to monitor 4. Hemopytsis - Likely due to pulmonary mass, consider irritation from frequent coughing - 2 Unit pRBC transfused (03/15 and 03/24) - No repeat episodes 5. Symptomatic anemia - Weakness and tachycardia - Iron studies noted - S/P 4 units pRBC transfused, 3 units FFP - Given Venofer (dose #2) - Continue to monitor 6. Severe protein calorie malnutrition - In the setting of likely malignant lung mass with with weight loss - Failure to thrive, requiring nutritional support - BMI: 17.1, Weight loss >7.5% in 3 months - RF: Possible lung malignancy, Dementia, difficulty swallowing/chewing - Speech and swallow Recomendations: Consider dysphagia chopped diet with thin liquid. - Change Megace to Marinol 7. Constipation - Continue with Miralax 17 gm PO DAILY [facility] - Continue with Senna/Docusate Sodium 1 tablet PO BID [facility] - Continue with Colace 100 mg PO DAILY [facility] 8. HTN - Continue with Norvasc 5 mg PO DAILY [facility] - Continue with Hydralazine HCl 10 mg PO TID [facility] 9. HLD - Continue with Atorvastatin Calcium 40 mg PO HS [facility] 10. dvt ppx - heparin Dispo: D/C once afebrile for 24 hours, will go to sisters home with outpatient palliative radiation follow up and VNS Visit type - Emergency Visit Emergency Visit: Yes ED Registration Date: 03/11/18 Care time: The patient presented to the Emergency Department on the above date and was hospitalized for further evaluation of their emergent condition. - New Patient This patient is new to me today: No - Critical Care Critical Care patient: No
--- NOTE | 2018-03-29 15:11 | PN ---
Progress Note (short form) - Note Progress Note: Patient seen and examined No complaints on ROS Last Vital Signs Temp Pulse Resp BP Pulse Ox 98.2 F 115 H 20 131/80 96 03/29/18 14:07 03/29/18 14:07 03/29/18 14:07 03/29/18 14:07 03/29/18 09:00 HEENT: MAYDA, EOM Intact Oropharynx: coated tongue No mucositis CBC, BMP 03/28/18 06:00 03/28/18 06:00 Nodes: Without adenopathy Cor: RSR, No murmurs, No gallops Lungs:diminished breath sounds bilaterally Abd: Soft, Normal bowel sounds, No organomegaly Ext:No significant edema Skin: No rashes, Integument intact Current Medications Acetaminophen (Tylenol -) 650 mg PO Q4H PRN PRN Reason: FEVER Last Admin: 03/28/18 21:59 Dose: 650 mg Acetaminophen (Ofirmev Injection -) 1,000 mg IVPB Q6H PRN PRN Reason: FEVER Last Admin: 03/25/18 16:14 Dose: 1,000 mg Amlodipine Besylate (Norvasc -) 5 mg PO DAILY [facility] Last Admin: 03/29/18 10:32 Dose: 5 mg Atorvastatin Calcium (Lipitor -) 40 mg PO HS [facility] Last Admin: 03/28/18 21:56 Dose: 40 mg Docusate Sodium (Colace -) 100 mg PO DAILY [facility] Last Admin: 03/29/18 10:31 Dose: 100 mg Dronabinol (Marinol -) 2.5 mg PO DAILY@0800 [facility] Fentanyl (Sublimaze Injection -) 25 mcg IVPUSH [id number] PRN PRN Reason: PAIN-PACU ORDER X 4 DOSES ONLY Ferrous Sulfate (Feosol -) 325 mg PO DAILY [facility] Last Admin: 03/29/18 10:31 Dose: 325 mg Guaifenesin/Codeine Phosphate (Robitussin Ac -) 10 ml PO TID [facility] Last Admin: 03/29/18 13:52 Dose: 10 ml Hydralazine HCl (Apresoline -) 10 mg PO TID [facility] Last Admin: 03/29/18 13:52 Dose: 10 mg Metoprolol Tartrate (Lopressor -) 12.5 mg PO BID [facility] Last Admin: 03/29/18 10:32 Dose: 12.5 mg Ondansetron HCl (Zofran Injection) 4 mg IVPUSH Q6H PRN PRN Reason: NAUSEA AND/OR VOMITING Pantoprazole Sodium (Protonix -) 40 mg PO BID [facility] Last Admin: 03/29/18 10:31 Dose: 40 mg Polyethylene Glycol (Miralax (For Daily Use) -) 17 gm PO DAILY [facility] Last Admin: 03/29/18 10:31 Dose: 17 gm Senna/Docusate Sodium (Pericolace -) 1 tablet PO BID [facility] Last Admin: 03/29/18 10:31 Dose: 1 tablet Tramadol HCl (Ultram -) 50 mg PO Q6H PRN PRN Reason: PAIN LEVEL 6-10 Impression: Non small cell lung ca Post obstructive pneumonia Anemia P.T. Plans: Home Hopefully RT as an outpatient.
[2018-03-29 15:14] LABS: URINE APPEARANCE CLEAR; URINE BILIRUBIN NEGATIVE (<2.0 mg/dL); URINE COLOR YELLOW; URINE GLUCOSE (UA) NEGATIVE (NEGATIVE); URINE KETONE NEGATIVE (NEGATIVE); URINE LEUK ESTERASE NEGATIVE (NEGATIVE); URINE NITRITE NEGATIVE (NEGATIVE); URINE PROTEIN NEGATIVE (NEGATIVE); URINE UROBILINOGEN NEGATIVE mg/dL (0.2-1.0)
[2018-03-29] MEDS: DRONABINOL 2.5 MG CAPSULE PO SCH (15:20)
[2018-03-29] MEDS: ATORVASTATIN CA 40 MG TABLET (FP) PO SCH (22:08)
[2018-03-30] MEDS: hydrALAZINE HCL 10 MG TABLET PO SCH ×2 (06:16→13:04)
[2018-03-30] MEDS: guaiFENesin/CODEINE 10 ML UNIT-DOSE CUPS PO SCH ×2 (06:16→13:04)
[2018-03-30] MEDS: DRONABINOL 2.5 MG CAPSULE PO SCH (07:21)
[2018-03-30 08:18] LABS: BASO % 0.5 % (0-2.0); EOS % 0.2 % (0-4.5); HEMATOCRIT 23.1 % (35.4-49); HEMOGLOBIN 7.6 GM/dL (11.7-16.9); MCH 25.6 pg (25.7-33.7); MCHC 32.9 g/dl (32.0-35.9); MEAN CELL VOLUME 77.9 fl (80-96); MEAN PLT VOLUME 7.8 fl (7.5-11.1); MONO % 14.5 % (3.8-10.2); NEUT % 76.8 % (42.8-82.8); PLATELET COUNT 428 K/MM3 (134-434); RBC 2.96 M/mm3 (4.00-5.60); RDW 22.7 % (11.9-15.9); WHITE BLOOD COUNT 13.2 K/mm3 (4.0-10.0)
[2018-03-30] MEDS: FERROUS SO4 325 MG TABLET (FP) PO SCH (09:45)
[2018-03-30] MEDS: METOPROLOL TARTRATE 25 MG TABLET (FP) PO SCH (09:45)
[2018-03-30] MEDS: DOCUSATE SODIUM 100 MG CAPSULE (FP) PO SCH (09:45)
[2018-03-30] MEDS: POLYETHYLENE GLYCOL 3350 119 GM BTL PO SCH (09:46)
[2018-03-30] MEDS: PANTOPRAZOLE 40 MG TABLET (FP) PO SCH (09:46)
[2018-03-30] MEDS: SENNOSIDES/DOCUSATE COMBO (SENNA PLUS) TABLET (UD) PO SCH (09:46)
[2018-03-30] MEDS: amLODIPine BESYLATE 5 MG TABLET (FP) PO SCH (09:46)
[2018-03-30] MEDS ORDERED: METOPROLOL TARTRATE 25 MG TABLET (FP) PO SCH (10:17)
--- NOTE | 2018-03-30 12:07 | DS ---
Physical Exam: SUBJECTIVE: Patient seen and examined this morning at bedside. Continues to cough productive of yellow phlegm. Drank 2 ensures overnight. Denies fevers, chills, chest pain, SOB, nausea, vomiting, diarrhea, constipation. OBJECTIVE: Vital Signs Period Temp Pulse Resp BP Sys/Harper Pulse Ox Last 24 Hr 98.2 F-99.4 F 108-122 18-20 130-140/62-80 96 PHYSICAL EXAM GENERAL: The patient is awake, alert, and fully oriented, in no acute distress. LUNGS: Breath sounds equal, clear to auscultation bilaterally, on 1.5L via NC HEART: Tachycardic, S1, S2 without murmur, rub or gallop. ABDOMEN: Soft, nontender, nondistended, normoactive bowel sounds EXTREMITIES: No edema LABS Laboratory Results - last 24 hr 03/29/18 03/30/18 03/30/18 14:45 06:15 06:15 WBC 13.2 H RBC 2.96 L Hgb 7.6 L Hct 23.1 L MCV 77.9 L MCH 25.6 L MCHC 32.9 RDW 22.7 H Plt Count 428 MPV 7.8 Absolute Neuts (auto) 10.1 Neutrophils % 76.8 Lymphocytes % 8.0 D Monocytes % 14.5 H Eosinophils % 0.2 Basophils % 0.5 Nucleated RBC % 0 POC Glucometer 102 Urine Color Yellow Urine Appearance Clear Urine pH 7.0 Ur Specific [place] 1.015 Urine Protein Negative Urine Glucose (UA) Negative Urine Ketones Negative Urine Blood Negative Urine Nitrite Negative Urine Bilirubin Negative Urine Urobilinogen Negative Ur Leukocyte Esterase Negative IMAGING: - CXR (03/11): Left lung mass involving the left hilum and AP window. Well demonstrated on CT from 03/11/2018 at 1548 hours. - Chest/Thorax CTA: There is no gross evidence of a pulmonary embolus within the main pulmonary artery and its proximal branches, bilaterally. Large left upper lobe mass lesion, medially that is inseparable from the left hilum with surrounding pneumonitis. - CXR (03/13):Left parahilar, left upper lung mass. No pleural effusion, or pneumothorax is seen. No evidence of a pulmonary consolidations. - Modified barium swallow:Prominent osteophytes. Moderate stasis in the pharynx requiring multiple swallows to clear the contrast repeatedly through the upper esophageal sphincter. Mild residue remained with risk of aspiration although none was demonstrated. Liquids were tolerated easiest with less residue. - CXR (03/22): The large left hilar mass is again noted. There is a prominent mediastinum. There is motion artifact with double exposure but no sign of a gross pneumothorax. Follow-up imaging is suggested. - Body scan nuclear medicine: Focal areas of osteoblastic activity in the right 5th, left 6th and left 8th ribs as described above corresponding to the sclerotic lesions seen on CT scan suggestive of osteoblastic bony metastasis. Uptake in the posterolateral right 6th-9th ribs in a linear distribution corresponding to fractures seen on CT scan. - CXR (03/29): Large left hilar mass. Left pleural effusion. No evidence of CHF. HOSPITAL COURSE: Date of Admission:03/11/18 Date of Discharge: 03/30/18 Prehospital course as per Dr. Narendra Lisa 77 yo M h/o NH in 2001 BIB his sister for worsening weakness and poor intake for 3 months. Per sister, patient was admitted twice to [facility] for weakness and received blood transfusion and found to have lung mass during first admission. However, patient never followed up with clinic charge nurse or oncologist as outpatient after discharge due to transportation issues. Patient also endorses poor PO intake, pain on swallowing, dry cough, poor appetite and unintentional weight loss of 40 lbs over the last 3 months. He lives with a roommate and able to ambulate without any difficulty. Denies melena, hematochiezia, hemoptysis, urinary sx, fever, chills, n/v, chest pain, shortness of breath, focal weakness. Hospital course Patient was admitted for Symptomatic anemia, Severe protein calorie malnutrition , and Left upper lobe lung mass. Hematology Oncology, Radiation oncology, Pulmonology, Infectious disease, Psychology and Palliative care were all consulted. Bronchoscopy with cultures and biopsy was performed (on 03/22/18) and revealed poorly differentiated Non Small cell lung carcinoma with squamous differentiation. Patient experienced some hemoptysis along with fluctuations in his hemoglobin and hematocrit. He received 5 units of pRBC's, 3 unit FFP and Venofer x2 during his hospital stay. His INR was elevated for which he received Vitamin K x5. Patient also completed a 8 day course of Zosyn. His hypokalmeia and hypomangesemia resolved. Radiation oncology suggested to plan for 2 weeks of daily palliative RT treatment to relieve tumor obstruction and postobstructive sequela. Patient was discharged to his sisters home. Minutes to complete discharge: 50 Discharge Summary Reason For Visit: LUNG MASS, WEAKNESS Current Active Problems Anemia (Acute) Depression determined by examination (Acute) HTN (hypertension) (Acute) Hyperlipidemia (Acute) Lung cancer (Acute) Lung mass (Acute) Pneumonia (Acute) Previous myocardial infarction older than 8 weeks (Acute) Smoker (Acute) Condition: Fair - Instructions Diet, Activity, Other Instructions: You had a biopsy done for a lung mass The lung mass has been found to be cancerous You were seen by cancer specialists who have recommended radiation therapy to help reduce the size of the mass and help reduce your symptoms You are being discharged home Please have your sister Zakiya follow up by calling the office of Dr Hamlin as soon as you get home at [phone] You will receive 2 weeks of daily treatment. Your home medications have changed. Refer to medication list for these changes. Continue to try to eat as much as possible. Continue with a chopped diet. Swallow several times in between bites. Drink plenty of fluids. Continue with ensure shakes. Please follow up with Dr Jackson, the general oncologist Also follow up with your primary care physician, if you do not have one, you may follow up with Dr Minna Bernard at [address] [facility] [address], Call [phone] to make an appointment for Tuesday Please return to the emergency room if you are coughing up blood, have persistent fevers , worsening chest pain or shortness of breath . Referrals: Nabil Bess MD [Staff Physician] - Mitchell Hernandez PSYD [Psychologist] - Ruy Hamlin MD [Staff Physician] - 03/29/18 (Call to arrange radiation therapy) Carlos Jackson MD [Staff Physician] - 1 Week Minna Bernard RES [Resident] - 1 Week Disposition: HOME - Home Medications Comprehensive Discharge Medication List: Ambulatory Orders Amlodipine Besylate [Norvasc -] 5 mg PO DAILY #30 tablet 02/03/15 Atorvastatin Ca [Lipitor] 40 mg PO HS #30 tablet 02/03/15 Hydralazine HCl 10 mg PO TID #90 tablet 02/03/15 Albuterol 0.083% Nebulizer Reva [Ventolin 0.083% Nebulizer Soln -] 1 amp NEB Q4H PRN #120 amp 03/28/18 Ferrous Sulfate [Feosol] 325 mg PO DAILY #30 ud 03/28/18 Pantoprazole Sodium [Protonix -] 40 mg PO BID #60 tablet.ec 03/28/18 Polyethylene Glycol 3350 [Miralax (For Daily Use) -] 17 gm PO DAILY #5 bottle Sennosides/Docusate Sodium [Pericolace -] 1 each PO BID #60 tablet 03/28/18 Metoprolol Tartrate [Lopressor -] 25 mg PO BID 60 Days tablet 03/30/18 Mirtazapine [Remeron -] 15 mg PO HS #30 tablet 03/30/18 This patient is new to me today: No Emergency Visit: Yes ED Registration Date: 03/11/18 Care time: The patient presented to the Emergency Department on the above date and was hospitalized for further evaluation of their emergent condition. Critical Care patient: No - Discharge Referral Referred to [facility].: No
--- NOTE | 2018-03-30 12:43 | PN ---
Progress Note, [employer] - Note Progress Note: MBS Osteophytes with moderate stasis, requiring multiple swallows, with risk of aspiration. Pt has 3 teeth with limited mastication. Pt should continue palatable finely chopped foods such as chopped egg,tuna, chicken salad,cottage cheese, quiche, etc. Encourage pt to swallow hard, a couple of times, alternate with thin liquid.Encourage supplements. Monitor tolerance. RD f/u to educate family regarding appropriate diet consistency at home.
[2018-03-30 13:05] VITALS: BP 127/67; PULSE 108; TEMP 98.7
--- NOTE | 2018-03-30 18:57 | PN ---
Teaching Attending Note Name of Resident: Minna Bernard ATTENDING PHYSICIAN STATEMENT I saw and evaluated the patient. I reviewed the resident's note and discussed the case with the resident. I agree with the resident's findings and plan as documented. SUBJECTIVE:asymptomatic. having generalized weakness and poor appetite. denies CP, SOB, fever, chills, or hemoptysis OBJECTIVE: Last Vital Signs Temp Pulse Resp BP Pulse Ox 98.7 F 108 H 20 127/67 95 03/30/18 13:04 03/30/18 13:04 03/30/18 13:04 03/30/18 13:04 03/30/18 09:00 General frail, elderly man, NAD ASSESSMENT AND PLAN: 77 yo M with prior history of CAD, heavy smoker, recently reportedly diagnosed lung mass/anemia requiring transfusions, admitted with failure to thrive, found with anemia, ISABELLA lung mass 1. sepsis due to suspected post-obstructive PNA-afebrile. no leukocytosis. workup has been negative with no new infiltrates on CXR, negative UA. no indication for abx or workup. completed abx course for PNA 2. NSCLC- poorly differentiated with squamous differentiation. dx on Bx done . plan for palliative Rtx treatment for 2 weeks. oncology, rtx oncology and pulmonary on board 3. hemopytsis- likely due to pulmonary mass however can also be mucosal irritation from frequent coughing. no repeat episodes. 4. Anemia, suspect multifactorial, Iron deficiency, poor nutritional status,r/o occult bleed- total of 5 units PRBC this hospitalization. Hgb stable. received venofer x2. on iron supplementation 5. Elevated INR, suspect nutritional- s/p vit K given x4. FFP x3 this hospital course. no signs of bleeding 6. Severe Malnutrition- as evident by body habitus and reported 40lb weight loss. minimal response to appetite stimulant. will start remeron. encouarge po intake. 7. hypokalmeia- resolved 8. hypomangesemia- resolved 9. constipation- resolved. cont stool softeners prn 10. dysphagia- on chopped diet with thin liquids. tolerating well 11. DVT ppx- hep sq 12. poor functional status and poor overall prognosis. palliative care consulted. d/c home with sister. plan for palliative rtx
== END 2018-03-30 17:54 | disposition home or self-care (01) | DRG 177 ==
LOC: JER 13:04 → JERBED 17:05 → J7W 19:53
PROVIDERS: ADMIT Hospitalist; ATTEND Internal Medicine
PROC: 30233N1 Transfusion of Nonautologous Red Blood Cells into Peripheral Vein, Percutaneous Approach (ICD-10-PCS; 2018-03-11)
PROC: 30233L1 Transfusion of Nonautologous Fresh Plasma into Peripheral Vein, Percutaneous Approach (ICD-10-PCS; 2018-03-22)
PROC: 30233K1 Transfusion of Nonautologous Frozen Plasma into Peripheral Vein, Percutaneous Approach (ICD-10-PCS; 2018-03-22)
PROC: 0BDG8ZX Extraction of Left Upper Lung Lobe, Via Natural or Artificial Opening Endoscopic, Diagnostic (ICD-10-PCS; principal; 2018-03-22 14:00)
DX: J17 Pneumonia in diseases classified elsewhere (principal); A41.9 Sepsis, unspecified organism; E43 Unspecified severe protein-calorie malnutrition; C34.12 Malignant neoplasm of upper lobe, left bronchus or lung; R64 Cachexia; Z68.1 Body mass index [BMI] 19.9 or less, adult; R04.2 Hemoptysis; D64.9 Anemia, unspecified; E87.6 Hypokalemia; K59.00 Constipation, unspecified; E83.42 Hypomagnesemia; R13.10 Dysphagia, unspecified; R62.7 Adult failure to thrive; E78.5 Hyperlipidemia, unspecified; I25.10 Atherosclerotic heart disease of native coronary artery without angina pectoris; E88.09 Other disorders of plasma-protein metabolism, not elsewhere classified; F32.9 Major depressive disorder, single episode, unspecified; I10 Essential (primary) hypertension; R00.0 Tachycardia, unspecified; Z98.61 Coronary angioplasty status
CPT/HCPCS: 36415; 36430; 36511; 71045-TC-FY; 71046-TC-FY; 71275-TC; 74230-TC-FY; 78306-TC; 80048; 80053; 81003; 82272; 82378; 82550; 82607; 82728; 82746; 82784; 82962; 83540; 83550; 83615; 83735; 83880; 84100; 84155; 84165; 84466; 84484; 85025; 85027; 85610; 85730; 86480; 86704; 86706; 86708; 86803; 86850; 86900; 86901; 86922; 87040; 87070; 87081; 87086; 87102; 87116; 87205; 87206; 87210; 87340; 87389; 87899; 88104; 88108; 88305-TC; 92611-GN; 93005; 93010; 93306-TC; 94640; 94760; 94761; 97116-GP; 97161-GP; 99281-25; A9503; G0480; J0131; J1644; J1756; J7030; J7620; P9017; P9038; P9058

== ENCOUNTER 2018-04-12 15:33 | Inpatient (IN) | payer OTHER ==
[2018-04-12] MEDS ORDERED: SODIUM CHLORIDE 1,000 ML IV STA (16:26)
--- NOTE | 2018-04-12 16:27 | PDOC ---
History of Present Illness - General Chief Complaint: SIRS, Suspected/Possible Stated Complaint: FEVER Time Seen by Provider: 04/12/18 16:20 History Source: Patient Exam Limitations: No Limitations - History of Present Illness Initial Comments: 04/12/18 17:56 77 yo M with prior history of CAD, heavy smoker, recently diagnosed lung mass/ anemia requiring transfusions, found failure to thrive (although states he is hungry), dysphagia, found with fever and difficulty breathing. Patient was admitted and discharged on 03/30, treated for sepsis 2/2 pneumonia. Patient now looking disheveled, diaphoretic but not complaining. Lives with sister who supposedly takes care of him. 04/12/18 18:30 Past History - Past Medical History Allergies/Adverse Reactions: Allergies Allergy/AdvReac Type Severity Reaction Status Date / Time No Known Allergies Allergy Verified 04/12/18 16:18 Home Medications: Ambulatory Orders Amlodipine Besylate [Norvasc -] 5 mg PO DAILY #30 tablet 02/03/15 Atorvastatin Ca [Lipitor] 40 mg PO HS #30 tablet 02/03/15 Hydralazine HCl 10 mg PO TID #90 tablet 02/03/15 Albuterol 0.083% Nebulizer Reva [Ventolin 0.083% Nebulizer Soln -] 1 amp NEB Q4H PRN #120 amp 03/28/18 Ferrous Sulfate [Feosol] 325 mg PO DAILY #30 ud 03/28/18 Pantoprazole Sodium [Protonix -] 40 mg PO BID #60 tablet.ec 03/28/18 Polyethylene Glycol 3350 [Miralax (For Daily Use) -] 17 gm PO DAILY #5 bottle Sennosides/Docusate Sodium [Pericolace -] 1 each PO BID #60 tablet 03/28/18 Metoprolol Tartrate [Lopressor -] 25 mg PO BID 60 Days tablet 03/30/18 Mirtazapine [Remeron -] 15 mg PO HS #30 tablet 03/30/18 Anemia: Yes Cardiac Disorders: Yes ([place]) CVA: Yes COPD: No HTN: Yes Lung CA: Yes (daily radiation) - Suicide/Smoking/Psychosocial Hx Smoking History: Unknown if ever smoked Have you smoked in the past 12 months: Yes Number of Cigarettes Smoked Daily: 20 If you are a former smoker, when did you quit?: 3 mo 'Breaking Loose' booklet given: 03/11/18 Hx Alcohol Use: No Drug/Substance Use Hx: No Substance Use Type: None Hx Substance Use Treatment: No Review of Systems - Review of Systems Able to Perform ROS?: Yes Is the patient limited [place]an proficient: No Constitutional: Yes: Chills, Fever, Weakness HEENTM: No: Symptoms Reported Respiratory: Yes: Cough, SOB at Rest, Productive cough Cardiac (ROS): Yes: Palpitations ABD/GI: No: Symptoms Reported : No: Symptoms Reported Musculoskeletal: No: Symptoms Reported Integumentary: No: Symptoms Reported Neurological: No: Symptoms reported Hematologic/Lymphatic: Yes: Anemia All Other Systems: Reviewed and Negative *Physical Exam - Vital Signs Last Vital Signs Temp Pulse Resp BP Pulse Ox 100.7 F H 117 H 20 128/74 97 04/12/18 16:05 04/12/18 16:05 04/12/18 16:05 04/12/18 16:05 04/12/18 16:05 - Physical Exam General Appearance: Yes: Disheveled, Cachetic HEENT: positive: Other ([place]) Respiratory/Chest: positive: Crackles, Rales, Rhonchi, Wheezing. negative: Chest Tender Cardiovascular: positive: Tachycardia Gastrointestinal/Abdominal: positive: Normal Bowel Sounds, Flat, Soft. negative : Tender Musculoskeletal: positive: Normal Inspection. negative: CVA Tenderness Extremity: positive: Normal Capillary Refill, Normal Inspection Integumentary: positive: Pale Neurologic: positive: Fully Oriented, Alert, Normal Mood/Affect ED Treatment Course - LABORATORY CBC & Chemistry Diagram: 04/12/18 17:00 04/12/18 17:00 Medical Decision Making - Medical Decision Making 04/12/18 18:29\ Septic workup 6.2 hgb. Ordering packed RBC's Chestxray pending. 04/12/18 18:30 Source of sepsis likely lungs again. Patient is not being taken care of at home. Needs placement upon eventual discharge 04/12/18 19:27 Patient signed out to Dr. Singer *DC/Admit/Observation/Transfer Diagnosis at time of Disposition: Sepsis, Pneumonia, Lung mass - Referrals - Patient Instructions - Post Discharge Activity
--- NOTE | 2018-04-12 16:44 | PDOC ---
Attending Attestation - Resident Resident Name: Doni Crespo - ED Attending Attestation I have performed the following: I have examined & evaluated the patient, The case was reviewed & discussed with the resident, I agree w/resident's findings & plan, Exceptions are as noted - HPI HPI: 04/14/18 08:50 Mr Cueto is a 77 yo M with prior history of CAD, heavy smoker, recently diagnosed lung mass/anemia requiring transfusions He presents due to fevers and difficulty breathing Failure to thrive, difficulty tolerating po - Physicial Exam PE: 04/12/18 16:44 GENERAL: The patient is in no acute distress. HEAD: Normal with no signs of trauma. EYES: PERRLA, EOMI, sclera anicteric, conjunctiva clear. ENT: Ears normal, nares patent, oropharynx clear without exudates. Moist mucous membranes. NECK: Normal range of motion, supple without lymphadenopathy, JVD, or masses. LUNGS: Breath sounds equal, clear to auscultation bilaterally. No wheezes, and no crackles. HEART:Regular rate and rhythm, normal S1 and S2 without murmur, rub or gallop. ABDOMEN: Soft, nontender, normoactive bowel sounds. No guarding, no rebound. No masses palpable. EXTREMITIES: Normal range of motion, no edema. No clubbing or cyanosis. No erythema, or tenderness. NEUROLOGICAL: Cranial nerves II through XII grossly intact. Normal speech. No focal neurological deficits. MUSCULOSKELETAL: Back non-tender to palpation, no CVA tenderness SKIN: Warm, Dry, normal turgor, no rashes or lesions noted. - Medical Decision Making EKG: Sinus tachycardia, rate of 1:15 bpm, axis normal, intervals are normal, no ST elevations or depressions 04/12/18 18:48 Laboratory Tests 04/12/18 04/12/18 04/12/18 17:00 17:00 17:00 WBC 11.8 H Hgb 6.2 L* Hct 19.0 L D Plt Count 399 INR 1.58 H VBG pH 7.34 POC VBG pCO2 52.9 H POC VBG pO2 41.1 Mixed VBG HCO3 27.8 H Sodium Potassium Chloride Carbon Dioxide BUN Creatinine Random Glucose Alkaline Phosphatase Troponin I 04/12/18 04/12/18 17:00 17:00 WBC Hgb Hct Plt Count INR VBG pH POC VBG pCO2 POC VBG pO2 Mixed VBG HCO3 Sodium 147 H Potassium 3.7 Chloride 106 Carbon Dioxide 31 BUN 13 Creatinine 0.6 L Random Glucose 105 Alkaline Phosphatase 149 H D Troponin I < 0.02 CXR: Large LEft hilar mass, ? superimposed pneumonia Will do : CT non contrast Will start transfusion Will plan to admit
[2018-04-12 17:38] LABS: BASO % 0.4 % (0-2.0); EOS % 0.1 % (0-4.5); LYMPH % 6.5 % (8-40); MCH 25.4 pg (25.7-33.7); MCHC 32.5 g/dl (32.0-35.9); MEAN CELL VOLUME 78.1 fl (80-96); MEAN PLT VOLUME 7.5 fl (7.5-11.1); MONO % 10.7 % (3.8-10.2); NEUT % 82.3 % (42.8-82.8); PLATELET COUNT 399 K/MM3 (134-434); RBC 2.44 M/mm3 (4.00-5.60); RDW 21.9 % (11.9-15.9); WHITE BLOOD COUNT 11.8 K/mm3 (4.0-10.0)
[2018-04-12 17:47] LABS: HEMOGLOBIN 6.2 GM/dL (11.7-16.9)
[2018-04-12 17:55] LABS: INR 1.58 (0.83-1.09); PROTHROMBIN TIME (PATIENT) 17.8 SEC (9.7-13.0)
[2018-04-12 17:58] LABS: ACTIVATED PTT 31.8 SECONDS (25.2-36.5)
[2018-04-12 18:08] LABS: ALBUMIN 1.3 g/dl (3.4-5.0); ANION GAP 10 (8-16); BLOOD UREA NITROGEN 13 mg/dL (7-18); CALCIUM 8.5 mg/dL (8.5-10.1); CHLORIDE 106 mmol/L (98-107); CO2 31 mmol/L (21-32); POTASSIUM 3.7 mmol/L (3.5-5.1); SODIUM 147 mmol/L (136-145)
[2018-04-12 18:10] LABS: VENOUS PC02 52.9 mmHg (38-52); VENOUS PH 7.34 (7.32-7.42); VENOUS PO2 41.1 mmHg (28-48)
[2018-04-12 18:13] LABS: ALK PHOS 149 U/L (45-117); BILIRUBIN,TOTAL 0.5 mg/dL (0.2-1.0); CREATININE 0.6 mg/dL (0.7-1.3); GLUCOSE,RANDOM 105 mg/dL (74-106); SGOT/AST 32 U/L (15-37); SGPT/ALT 21 U/L (12-78); TOT PROT 6.8 g/dl (6.4-8.2)
[2018-04-12] MEDS ORDERED: PIPERACILLIN/TAZOB 3.375 GM 3.375 GM in DEXTROSE 5%-WATER - 50 ML IVPB ONE (18:56)
[2018-04-12] MEDS ORDERED: PIPERACILLIN/TAZOB 3.375 GM 3.375 GM/50 ML BAG IVPB ONE (19:56)
[2018-04-12] MEDS ORDERED: ACETAMINOPHEN 1000 MG/100 ML VIAL (NON FORMULARY) IVPB ONE (20:12)
--- NOTE | 2018-04-12 20:33 | PDOC ---
*Physical Exam - Vital Signs Last Vital Signs Temp Pulse Resp BP Pulse Ox 100.7 F H 117 H 20 128/74 97 04/12/18 16:05 04/12/18 16:05 04/12/18 16:05 04/12/18 16:05 04/12/18 16:05 - Physical Exam General Appearance: Yes: Disheveled, Cachetic HEENT: positive: EOMI, TANA Neck: positive: Trachea midline, Supple Respiratory/Chest: positive: Normal Breath Sounds Cardiovascular: positive: S1, S2. negative: JVD Gastrointestinal/Abdominal: positive: Normal Bowel Sounds, Soft. negative: Tenderness Neurologic: positive: Alert ED Treatment Course - LABORATORY CBC & Chemistry Diagram: 04/13/18 06:30 04/13/18 06:30 - ADDITIONAL ORDERS Additional order review: Laboratory Results 04/12/18 04/12/18 04/12/18 18:08 17:00 17:00 PT with INR INR PTT (Actin FS) VBG pH POC VBG pCO2 POC VBG pO2 Mixed VBG HCO3 Sodium Potassium Chloride Carbon Dioxide Anion Gap BUN Creatinine Creat Clearance w eGFR Random Glucose Lactic Acid 1.3 Calcium Total Bilirubin AST ALT Alkaline Phosphatase Troponin I < 0.02 Total Protein Albumin Crossmatch See Detail 04/12/18 04/12/18 04/12/18 17:00 17:00 17:00 PT with INR 17.80 H INR 1.58 H PTT (Actin FS) 31.8 VBG pH 7.34 POC VBG pCO2 52.9 H POC VBG pO2 41.1 Mixed VBG HCO3 27.8 H Sodium 147 H Potassium 3.7 Chloride 106 Carbon Dioxide 31 Anion Gap 10 BUN 13 Creatinine 0.6 L Creat Clearance w eGFR > 60 Random Glucose 105 Lactic Acid Calcium 8.5 Total Bilirubin 0.5 AST 32 D ALT 21 D Alkaline Phosphatase 149 H D Troponin I Total Protein 6.8 Albumin 1.3 L Crossmatch 04/12/18 17:00 RBC 2.44 L MCV 78.1 L MCHC 32.5 RDW 21.9 H MPV 7.5 Neutrophils % 82.3 Lymphocytes % 6.5 L Monocytes % 10.7 H Eosinophils % 0.1 Basophils % 0.4 - Medications Given in the ED: ED Medications Discontinued Medications Generic Name Dose Route Start Last Admin Trade Name Freq PRN Reason Stop Dose Admin Sodium Chloride 1,000 mls @ 1,000 mls/hr 04/12/18 16:26 04/12/18 17:32 Normal Saline - IV 04/12/18 17:25 1,000 mls/hr ASDIR STA Administration Medical Decision Making - Medical Decision Making 04/12/18 20:32 Patient signed out by Dr. Crespo (Resident) and Dr. Mejia (Attending) 77 year old male presents with fever and difficulty breathing. Hb 6. CXR showed L sided hilar lung mass with superimposed PNA? Worsened from previous CXR. CT non-contrast pending + awaiting PRBC from blood bank then will transfuse. Of note patient was was admitted to our hospital in 03/2018 with sepsis 2/2 to PNA. Patient currently disheveled, SpO2 90's on 2L NC. 04/12/18 20:49 Lactic Acid 2.3 - patient receiving IV NS. Repeat LA ordered. 04/13/18 01:51 S/p transfusion repeat Hb 6.4. Will transfuse an additional unit - patient being transferred to inpatient medicine floor. *DC/Admit/Observation/Transfer Diagnosis at time of Disposition: Sepsis, Pneumonia, Lung mass - Referrals - Patient Instructions - Post Discharge Activity
[2018-04-12] MEDS ORDERED: SODIUM CHLORIDE 0.9% 500 ML INFUS.BAG IV ONE (20:48)
[2018-04-12] MEDS ORDERED: ACETAMINOPHEN INJECTION 100 ML IVPB ONE (20:55)
[2018-04-12 21:20] LABS: URINE APPEARANCE SLCLOUDY; URINE BILIRUBIN NEGATIVE (<2.0 mg/dL); URINE COLOR DKYELLOW; URINE GLUCOSE (UA) NEGATIVE (NEGATIVE); URINE KETONE NEGATIVE (NEGATIVE); URINE LEUK ESTERASE NEGATIVE (NEGATIVE); URINE NITRITE NEGATIVE (NEGATIVE); URINE PROTEIN NEGATIVE (NEGATIVE)
[2018-04-12 22:00] LABS: ANISOCYTOSIS 2+; MACROCYTOSIS 2+; PLATELET ESTIMATE ADEQUATE
--- NOTE | 2018-04-12 22:42 | HP ---
Admitting History and Physical - Primary Care Physician PCP: Caridad Gutierrez - Admission History of Present Illness: 77 yo M with prior history of CAD, heavy smoker, recently diagnosed lung mass/ anemia requiring transfusions, found failure to thrive (although states he is hungry), dysphagia, found with fever and difficulty breathing. Patient was admitted and discharged on 03/30, treated for sepsis 2/2 pneumonia. Patient now looking disheveled, diaphoretic but not complaining. Lives with sister who supposedly takes care of him. - Past Medical History Cardiovascular: Yes: CAD, HTN, Hyperlipdemia - Past Surgical History Past Surgical History: Yes: None - Smoking History Smoking history: Unknown if ever smoked Have you smoked in the past 12 months: Yes Aproximately how many cigarettes per day: 20 If you are a former smoker, when did you quit?: 3 mo - Alcohol/Substance Use Hx Alcohol Use: No History of Substance Use: reports: None - Social History ADL: Independent History of Recent Travel: No Home Medications - Allergies Allergies/Adverse Reactions: Allergies Allergy/AdvReac Type Severity Reaction Status Date / Time No Known Allergies Allergy Verified 04/12/18 16:18 - Home Medications Home Medications: Ambulatory Orders Amlodipine Besylate [Norvasc -] 5 mg PO DAILY #30 tablet 02/03/15 Atorvastatin Ca [Lipitor] 40 mg PO HS #30 tablet 02/03/15 Hydralazine HCl 10 mg PO TID #90 tablet 02/03/15 Albuterol 0.083% Nebulizer Reva [Ventolin 0.083% Nebulizer Soln -] 1 amp NEB Q4H PRN #120 amp 03/28/18 Ferrous Sulfate [Feosol] 325 mg PO DAILY #30 ud 03/28/18 Pantoprazole Sodium [Protonix -] 40 mg PO BID #60 tablet.ec 03/28/18 Polyethylene Glycol 3350 [Miralax (For Daily Use) -] 17 gm PO DAILY #5 bottle Sennosides/Docusate Sodium [Pericolace -] 1 each PO BID #60 tablet 03/28/18 Metoprolol Tartrate [Lopressor -] 25 mg PO BID 60 Days tablet 03/30/18 Mirtazapine [Remeron -] 15 mg PO HS #30 tablet 03/30/18 Family Disease History - Family Disease History Family Disease History: Heart Disease: Sister, [place]: Brother Physical Examination Vital Signs: Vital Signs Temperature 99.3 F 04/12/18 21:36 Pulse Rate 80 04/12/18 19:45 Respiratory Rate 18 04/12/18 19:45 Blood Pressure 127/74 04/12/18 19:45 O2 Sat by Pulse Oximetry (%) 99 04/12/18 19:45 Constitutional: Yes: No Distress Eyes: Yes: Conjunctiva Clear HENT: Yes: Atraumatic Neck: Yes: Supple Cardiovascular: Yes: Regular Rate and Rhythm Respiratory: Yes: Wheezes Gastrointestinal: Yes: Normal Bowel Sounds Extremities: Yes: WNL Peripheral Pulses WNL: Yes Neurological: Yes: Alert, Oriented Labs: CBC, BMP 04/12/18 17:00 04/12/18 17:00 Imaging - Results X-ray: Report Reviewed Cat Scan: Report Reviewed Problem List - Problems (1) Lung mass Code(s): R91.8 - OTHER NONSPECIFIC ABNORMAL FINDING OF LUNG FIELD (2) HTN (hypertension) Assessment/Plan: on meds stable Code(s): I10 - ESSENTIAL (PRIMARY) HYPERTENSION Qualifiers: Hypertension type: essential hypertension Qualified Code(s): I10 - Essential (primary) hypertension (3) Hyperlipidemia Assessment/Plan: on meds stable Code(s): E78.5 - HYPERLIPIDEMIA, UNSPECIFIED Qualifiers: Hyperlipidemia type: pure hypercholesterolemia Qualified Code(s): E78.00 - Pure hypercholesterolemia, unspecified; E78.0 - Pure hypercholesterolemia (4) Lung cancer Code(s): C34.90 - MALIGNANT NEOPLASM OF UNSP PART OF UNSP BRONCHUS OR LUNG Qualifiers: Laterality: left Lung location: hilum of lung Qualified Code(s): C34.02 - Malignant neoplasm of left main bronchus (5) Pneumonia Assessment/Plan: on iv abx Code(s): J18.9 - PNEUMONIA, UNSPECIFIED ORGANISM Qualifiers: Laterality: left Lung location: upper lobe of lung Assessment/Plan Laboratory Tests 04/12/18 04/12/18 04/12/18 17:00 17:00 17:00 WBC 11.8 H RBC 2.44 L Hgb 6.2 L* Hct 19.0 L D MCV 78.1 L MCH 25.4 L MCHC 32.5 RDW 21.9 H Plt Count 399 MPV 7.5 Absolute Neuts (auto) 9.7 Neutrophils % 82.3 Lymphocytes % 6.5 L Monocytes % 10.7 H Eosinophils % 0.1 Basophils % 0.4 Nucleated RBC % 0 Hypochromia 2+ Platelet Estimate Adequate Platelet Comment No clumping noted Anisocytosis 2+ Macrocytosis 2+ PT with INR 17.80 H INR 1.58 H PTT (Actin FS) 31.8 VBG pH 7.34 POC VBG pCO2 52.9 H POC VBG pO2 41.1 Mixed VBG HCO3 27.8 H Sodium Potassium Chloride Carbon Dioxide Anion Gap BUN Creatinine Creat Clearance w eGFR Random Glucose Lactic Acid Calcium Total Bilirubin AST ALT Alkaline Phosphatase Troponin I Total Protein Albumin Urine Color Urine Appearance Urine pH Ur Specific [place] Urine Protein Urine Glucose (UA) Urine Ketones Urine Blood Urine Nitrite Urine Bilirubin Urine Urobilinogen Ur Leukocyte Esterase Blood Type Antibody Screen Crossmatch 04/12/18 04/12/18 04/12/18 17:00 17:00 17:00 WBC RBC Hgb Hct MCV MCH MCHC RDW Plt Count MPV Absolute Neuts (auto) Neutrophils % Lymphocytes % Monocytes % Eosinophils % Basophils % Nucleated RBC % Hypochromia Platelet Estimate Platelet Comment Anisocytosis Macrocytosis PT with INR INR PTT (Actin FS) VBG pH POC VBG pCO2 POC VBG pO2 Mixed VBG HCO3 Sodium 147 H Potassium 3.7 Chloride 106 Carbon Dioxide 31 Anion Gap 10 BUN 13 Creatinine 0.6 L Creat Clearance w eGFR > 60 Random Glucose 105 Lactic Acid 1.3 Calcium 8.5 Total Bilirubin 0.5 AST 32 D ALT 21 D Alkaline Phosphatase 149 H D Troponin I < 0.02 Total Protein 6.8 Albumin 1.3 L Urine Color Urine Appearance Urine pH Ur Specific [place] Urine Protein Urine Glucose (UA) Urine Ketones Urine Blood Urine Nitrite Urine Bilirubin Urine Urobilinogen Ur Leukocyte Esterase Blood Type Antibody Screen Crossmatch 04/12/18 04/12/18 04/12/18 18:08 20:00 20:50 WBC RBC Hgb Hct MCV MCH MCHC RDW Plt Count MPV Absolute Neuts (auto) Neutrophils % Lymphocytes % Monocytes % Eosinophils % Basophils % Nucleated RBC % Hypochromia Platelet Estimate Platelet Comment Anisocytosis Macrocytosis PT with INR INR PTT (Actin FS) VBG pH POC VBG pCO2 POC VBG pO2 Mixed VBG HCO3 Sodium Potassium Chloride Carbon Dioxide Anion Gap BUN Creatinine Creat Clearance w eGFR Random Glucose Lactic Acid 2.4 H* Calcium Total Bilirubin AST ALT Alkaline Phosphatase Troponin I Total Protein Albumin Urine Color Dkyellow Urine Appearance Slcloudy Urine pH 5.0 D Ur Specific [place] 1.016 Urine Protein Negative Urine Glucose (UA) Negative Urine Ketones Negative Urine Blood Negative Urine Nitrite Negative Urine Bilirubin Negative Urine Urobilinogen 2.0 Ur Leukocyte Esterase Negative Blood Type O POSITIVE Antibody Screen Negative Crossmatch See Detail Active Medications Generic Name Dose Route Start Last Admin Trade Name Freq PRN Reason Stop Dose Admin Acetaminophen 650 mg 04/13/18 14:30 Tylenol - PO Q6H PRN FEVER Albuterol Sulfate 1 amp 04/12/18 22:43 04/15/18 15:51 Ventolin 0.083% Nebulizer Soln - NEB 1 amp Q4H PRN Administration SHORT OF BREATH/WHEEZING Amlodipine Besylate 5 mg 04/13/18 10:00 04/15/18 10:40 Norvasc - PO 5 mg DAILY UMESH Administration Atorvastatin Calcium 40 mg 04/13/18 22:00 04/14/18 22:21 Lipitor - PO 40 mg HS UMESH Administration Heparin Sodium (Porcine) 5,000 unit 04/13/18 10:00 04/15/18 10:39 Heparin - SQ 5,000 unit BID UMESH Administration Hydralazine HCl 10 mg 04/13/18 06:00 04/15/18 14:21 Apresoline - PO 10 mg TID UMESH Administration Piperacillin Sod/Tazobactam 50 mls @ 100 mls/hr 04/13/18 20:15 04/15/18 10:39 Sod 3.375 gm/ Dextrose IVPB 100 mls/hr Q8H-IV UMESH Administration Protocol Metoprolol Tartrate 25 mg 04/13/18 10:00 04/15/18 10:40 Lopressor - PO 25 mg BID UMESH Administration Mirtazapine 15 mg 04/13/18 22:00 04/14/18 22:22 Remeron - PO 15 mg HS UMESH Administration Pantoprazole Sodium 40 mg 04/13/18 10:00 04/15/18 10:40 Protonix - PO 40 mg BID UMESH Administration Polyethylene Glycol 17 gm 04/13/18 10:00 04/15/18 10:40 Miralax (For Daily Use) - PO 17 gm DAILY UMESH Administration Potassium Chloride 40 meq 04/13/18 12:15 04/15/18 10:40 K-Dur - PO 40 meq DAILY UMESH Administration Senna/Docusate Sodium 1 tablet 04/13/18 10:00 04/15/18 10:39 Pericolace - PO 1 tablet BID UMESH Administration
[2018-04-13 01:33] LABS: BASO % 0.6 % (0-2.0); EOS % 0.3 % (0-4.5); HEMATOCRIT 19.9 % (35.4-49); LYMPH % 7.5 % (8-40); MCH 25.5 pg (25.7-33.7); MCHC 32.6 g/dl (32.0-35.9); MEAN CELL VOLUME 78.3 fl (80-96); MEAN PLT VOLUME 7.4 fl (7.5-11.1); MONO % 10.8 % (3.8-10.2); NEUT % 80.8 % (42.8-82.8); PLATELET COUNT 329 K/MM3 (134-434); RBC 2.54 M/mm3 (4.00-5.60); RDW 20.8 % (11.9-15.9); WHITE BLOOD COUNT 12.2 K/mm3 (4.0-10.0)
[2018-04-13 01:48] LABS: HEMOGLOBIN 6.5 GM/dL (11.7-16.9)
[2018-04-13] MEDS: hydrALAZINE HCL 10 MG TABLET PO SCH ×3 (06:13→21:49)
[2018-04-13 07:40] LABS: CALCIUM 7.7 mg/dL (8.5-10.1); CHLORIDE 108 mmol/L (98-107); POTASSIUM 3.4 mmol/L (3.5-5.1); SODIUM 146 mmol/L (136-145)
[2018-04-13 07:47] LABS: ALBUMIN 1.3 g/dl (3.4-5.0); ALK PHOS 137 U/L (45-117); ANION GAP 11 (8-16); BILIRUBIN,TOTAL 1.6 mg/dL (0.2-1.0); BLOOD UREA NITROGEN 12 mg/dL (7-18); CO2 27 mmol/L (21-32); CREATININE 0.5 mg/dL (0.7-1.3); GLUCOSE,RANDOM 94 mg/dL (74-106); SGOT/AST 17 U/L (15-37); SGPT/ALT 18 U/L (12-78); TOT PROT 6.2 g/dl (6.4-8.2)
[2018-04-13 07:51] LABS: BASO % 0.4 % (0-2.0); EOS % 0.1 % (0-4.5); HEMATOCRIT 22.3 % (35.4-49); HEMOGLOBIN 7.5 GM/dL (11.7-16.9); LYMPH % 4.2 % (8-40); MCH 26.8 pg (25.7-33.7); MCHC 33.8 g/dl (32.0-35.9); MEAN CELL VOLUME 79.1 fl (80-96); MEAN PLT VOLUME 7.6 fl (7.5-11.1); MONO % 10.2 % (3.8-10.2); NEUT % 85.1 % (42.8-82.8); PLATELET COUNT 332 K/MM3 (134-434); RBC 2.81 M/mm3 (4.00-5.60); RDW 21.2 % (11.9-15.9); WHITE BLOOD COUNT 13.5 K/mm3 (4.0-10.0)
[2018-04-13] MEDS: amLODIPine BESYLATE 5 MG TABLET (FP) PO SCH (10:55)
[2018-04-13] MEDS: SENNOSIDES/DOCUSATE COMBO (SENNA PLUS) TABLET (UD) PO SCH ×2 (10:55→21:49)
[2018-04-13] MEDS: METOPROLOL TARTRATE 25 MG TABLET (FP) PO SCH ×2 (10:55→21:49)
[2018-04-13] MEDS: HEPARIN NA (PORCINE) 5,000 UNITS/ML 1ML VIAL SQ SCH ×2 (10:55→21:49)
[2018-04-13] MEDS: PANTOPRAZOLE 40 MG TABLET (FP) PO SCH ×2 (11:07→21:49)
[2018-04-13] MEDS: POLYETHYLENE GLYCOL 3350 119 GM BTL PO SCH (11:07)
[2018-04-13] MEDS: ALBUTEROL SO4 0.083% IH SOL 2.5 MG/3 ML VIAL.NEB. NEB PRN (11:58)
[2018-04-13] MEDS: POTASSIUM CHLORIDE TABS 20 MEQ TABLET.ER (FP) PO SCH (12:22)
--- NOTE | 2018-04-13 13:38 | CON.CARD ---
Consult Consult Specialty:: Cardiology Referred by:: Caridad Gutierrez MD Reason for Consultation:: Failure to thrive - History of Present Illness Chief Complaint: Failure to thrive History of Present Illness: 77 yo M with prior history of CAD, heavy smoker, HTN, hyperlipideima recently diagnosed NSCLCA, anemia requiring transfusions, found failure to thrive, anorexia, dysphagia, found with fever and difficulty breathing. Patient was admitted and discharged on 03/30, treated for sepsis 2/2 post-obstructive pneumonia. Patient now looking disheveled, denies chest pain, near or true syncope, palpitations, orthopnea, PND or LE edema. - History Source History Provided By: Medical Record Limitations to Obtaining History: Poor Historian - Past Medical History Cardio/Vascular: Yes: CAD, HTN, Hyperlipdemia - Past Surgical History Past Surgical History: Yes: None - Alcohol/Substance Use Hx Alcohol Use: No History of Substance Use: reports: None - Smoking History Smoking history: Unknown if ever smoked Have you smoked in the past 12 months: Yes Aproximately how many cigarettes per day: 20 If you are a former smoker, when did you quit?: 3 mo - Social History ADL: Independent History of Recent Travel: No Home Medications - Allergies Allergies/Adverse Reactions: Allergies Allergy/AdvReac Type Severity Reaction Status Date / Time No Known Allergies Allergy Verified 04/12/18 16:18 - Home Medications Home Medications: Ambulatory Orders Amlodipine Besylate [Norvasc -] 5 mg PO DAILY #30 tablet 02/03/15 Atorvastatin Ca [Lipitor] 40 mg PO HS #30 tablet 02/03/15 Hydralazine HCl 10 mg PO TID #90 tablet 02/03/15 Albuterol 0.083% Nebulizer Reva [Ventolin 0.083% Nebulizer Soln -] 1 amp NEB Q4H PRN #120 amp 03/28/18 Ferrous Sulfate [Feosol] 325 mg PO DAILY #30 ud 03/28/18 Pantoprazole Sodium [Protonix -] 40 mg PO BID #60 tablet.ec 03/28/18 Polyethylene Glycol 3350 [Miralax (For Daily Use) -] 17 gm PO DAILY #5 bottle Sennosides/Docusate Sodium [Pericolace -] 1 each PO BID #60 tablet 03/28/18 Metoprolol Tartrate [Lopressor -] 25 mg PO BID 60 Days tablet 03/30/18 Mirtazapine [Remeron -] 15 mg PO HS #30 tablet 03/30/18 Family Disease History - Family Disease History Family Disease History: Heart Disease: Sister, [place]: Brother Review of Systems - Review of Systems Respiratory: reports: SOB Vital Signs: Vital Signs Temperature 99 F 04/13/18 10:13 Pulse Rate 114 H 04/13/18 10:13 Respiratory Rate 20 04/13/18 10:13 Blood Pressure 136/73 04/13/18 10:13 O2 Sat by Pulse Oximetry (%) 95 04/13/18 09:00 Constitutional: Yes: No Distress, Calm, Cachectic, Poor Hygeine Neck: Yes: Supple Respiratory: Yes: Regular, Cough, Diminished, On Nasal O2, SOB Gastrointestinal: Yes: Soft, Hypoactive Bowel Sounds Cardiovascular: Yes: Regular Rate and Rhythm JVD: No Carotid Bruit: No Heart Sounds: Yes: S1, S2 Edema: No - Other Data Labs, Other Data: CBC, BMP 04/13/18 06:30 04/13/18 06:30 INR, PTT INR 1.58 (0.83-1.09) H 04/12/18 17:00 Troponin, BNP 04/12/18 17:00 Troponin I < 0.02 Troponin, BNP 04/12/18 17:00 Troponin I < 0.02 Imaging - Results Chest X-ray: Report Reviewed (Left hilar mass unchanged from 03/29/2018) Cat Scan: Report Reviewed (Chest CT: Developig ISABELLA PNA and effusion, mediastinal LAD, large left hilar mass with associated ATX ISABELLA) Problem List - Problems (1) Pneumonia Code(s): J18.9 - PNEUMONIA, UNSPECIFIED ORGANISM Qualifiers: Laterality: left Lung location: upper lobe of lung (2) HTN (hypertension) Code(s): I10 - ESSENTIAL (PRIMARY) HYPERTENSION Qualifiers: Hypertension type: essential hypertension Qualified Code(s): I10 - Essential (primary) hypertension (3) Hyperlipidemia Code(s): E78.5 - HYPERLIPIDEMIA, UNSPECIFIED Qualifiers: Hyperlipidemia type: pure hypercholesterolemia Qualified Code(s): E78.00 - Pure hypercholesterolemia, unspecified; E78.0 - Pure hypercholesterolemia (4) Lung cancer Code(s): C34.90 - MALIGNANT NEOPLASM OF UNSP PART OF UNSP BRONCHUS OR LUNG Qualifiers: Laterality: left Lung location: hilum of lung Qualified Code(s): C34.02 - Malignant neoplasm of left main bronchus (5) Previous myocardial infarction older than 8 weeks Code(s): I25.2 - OLD MYOCARDIAL INFARCTION (6) Anemia Code(s): D64.9 - ANEMIA, UNSPECIFIED Assessment/Plan 1. Post-obstructive PNA, recurrent 2. Non small cell lung ca 3. Anemia 4. Failure to thrive 5. CAD h/o OR P:1. IV Abx course per ID 2. Nutritional support, replete K 3. Transfuse to maintain Hgb>8.0 4. Continue Norvasc qd, Lipitor 40 qhs, Hydralazine 10 tid, Lopressor 25 bid 5. DVT and GI prophylaxis, thank you for consultative opportunity
--- NOTE | 2018-04-13 14:29 | CON.ID ---
Consult Consult Specialty:: infectious diseases Reason for Consultation:: pneumonia - History of Present Illness Chief Complaint: weakness,cough History of Present Illness: 77 yo M with prior history of CAD, heavy smoker, who was recently diagnosed lung mass/anemia requiring transfusions, found failure to thrive , dysphagia, found with fever and difficulty breathing. According to the patient he has lost about 40 pounds in recent months unintentionally Patient was admitted and discharged on 03/30, treated for sepsis 2/2 pneumonia. Patient now looking disheveled, diaphoretic but not complaining. he complains of sever weakness.says he is having yellowish sputum which is thick Lives with sister who supposedly takes care of him. denies fever - History Source History Provided By: Patient, Medical Record Limitations to Obtaining History: Poor Historian - Past Medical History Cardio/Vascular: Yes: CAD, HTN, Hyperlipdemia - Past Surgical History Past Surgical History: Yes: None - Alcohol/Substance Use Hx Alcohol Use: No History of Substance Use: reports: None - Smoking History Smoking history: Unknown if ever smoked Have you smoked in the past 12 months: Yes Aproximately how many cigarettes per day: 20 If you are a former smoker, when did you quit?: 3 mo - Social History ADL: Independent History of Recent Travel: No Home Medications - Allergies Allergies/Adverse Reactions: Allergies Allergy/AdvReac Type Severity Reaction Status Date / Time No Known Allergies Allergy Verified 04/12/18 16:18 - Home Medications Home Medications: Ambulatory Orders Amlodipine Besylate [Norvasc -] 5 mg PO DAILY #30 tablet 02/03/15 Atorvastatin Ca [Lipitor] 40 mg PO HS #30 tablet 02/03/15 Hydralazine HCl 10 mg PO TID #90 tablet 02/03/15 Albuterol 0.083% Nebulizer Reva [Ventolin 0.083% Nebulizer Soln -] 1 amp NEB Q4H PRN #120 amp 03/28/18 Ferrous Sulfate [Feosol] 325 mg PO DAILY #30 ud 03/28/18 Pantoprazole Sodium [Protonix -] 40 mg PO BID #60 tablet.ec 03/28/18 Polyethylene Glycol 3350 [Miralax (For Daily Use) -] 17 gm PO DAILY #5 bottle Sennosides/Docusate Sodium [Pericolace -] 1 each PO BID #60 tablet 03/28/18 Metoprolol Tartrate [Lopressor -] 25 mg PO BID 60 Days tablet 03/30/18 Mirtazapine [Remeron -] 15 mg PO HS #30 tablet 03/30/18 Family Disease History - Family Disease History Family Disease History: Heart Disease: Sister, [place]: Brother Review of Systems - Review of Systems Constitutional: reports: Unintentional Wgt. Loss, Weakness Eyes: reports: No Symptoms Cardiovascular: reports: No Symptoms Respiratory: reports: Cough, SOB, SOB on Exertion Gastrointestinal: reports: No Symptoms Genitourinary: reports: No Symptoms Musculoskeletal: reports: No Symptoms Integumentary: reports: No Symptoms Neurological: reports: No Symptoms Endocrine: reports: No Symptoms Hematology/Lymphatic: reports: No Symptoms Psychiatric: reports: No Symptoms Physical Exam Vital Signs: Vital Signs Temperature 101.5 F H 04/13/18 14:18 Pulse Rate 114 H 04/13/18 14:18 Respiratory Rate 18 04/13/18 14:18 Blood Pressure 137/81 04/13/18 14:18 O2 Sat by Pulse Oximetry (%) 95 04/13/18 09:00 Constitutional: Yes: Calm, Other (failure to thrive) Eyes: Yes: Conjunctiva Clear HENT: Yes: Atraumatic, Normocephalic Cardiovascular: Yes: Regular Rate and Rhythm Respiratory: Yes: Cough, On Nasal O2, Poor Air Entry, Rhonchi Gastrointestinal: Yes: Normal Bowel Sounds, Soft Musculoskeletal: Yes: WNL Extremities: Yes: WNL Neurological: Yes: Alert, Oriented Psychiatric: Yes: Alert, Oriented Labs: CBC, BMP 04/13/18 06:30 04/13/18 06:30 Imaging - Results Chest X-ray: Report Reviewed, Image Reviewed Cat Scan: Report Reviewed, Image Reviewed Assessment/Plan Problem List - Problems (1) Pneumonia Code(s): J18.9 - PNEUMONIA, UNSPECIFIED ORGANISM Qualifiers: Laterality: left Lung location: upper lobe of lung (2) HTN (hypertension) Code(s): I10 - ESSENTIAL (PRIMARY) HYPERTENSION Qualifiers: Hypertension type: essential hypertension Qualified Code(s): I10 - Essential (primary) hypertension (3) Hyperlipidemia Code(s): E78.5 - HYPERLIPIDEMIA, UNSPECIFIED Qualifiers: Hyperlipidemia type: pure hypercholesterolemia Qualified Code(s): E78.00 - Pure hypercholesterolemia, unspecified; E78.0 - Pure hypercholesterolemia (4) Lung cancer Code(s): C34.90 - MALIGNANT NEOPLASM OF UNSP PART OF UNSP BRONCHUS OR LUNG Qualifiers: Laterality: left Lung location: hilum of lung Qualified Code(s): C34.02 - Malignant neoplasm of left main bronchus (5) Previous myocardial infarction older than 8 weeks Code(s): I25.2 - OLD MYOCARDIAL INFARCTION (6) Anemia Code(s): D64.9 - ANEMIA, UNSPECIFIED Assessment/Plan 1. Post-obstructive PNA, recurrent 2. Non small cell lung ca 3. Anemia 4. Failure to thrive 5. CAD h/o SD plan iv abx nutrition rest as per the team transfusions if needed final plan
[2018-04-13] MEDS ORDERED: PIPERACILLIN/TAZOB 3.375 GM 3.375 GM in DEXTROSE 5%-WATER - 50 ML IVPB SCH (14:30)
[2018-04-13] MEDS ORDERED: ACETAMINOPHEN 325 MG TABLET (FP) PO PRN (14:30)
[2018-04-13] MEDS ORDERED: PIPERACILLIN/TAZOBACTAM 3.375 GM VIAL IVPB ONE ×2 (14:54→20:17)
[2018-04-13] MEDS ORDERED: DEXTROSE 5%-WATER - 50 ML IVPB ONE ×2 (14:54→20:17)
--- NOTE | 2018-04-13 16:48 | EKG ---
Test Reason : Blood Pressure : / mmHG Vent. Rate : 115 BPM Atrial Rate : 115 BPM P-R Int : 140 ms QRS Dur : 090 ms QT Int : 348 ms P-R-T Axes : 058 -04 067 degrees QTc Int : 481 ms SINUS TACHYCARDIA POSSIBLE LEFT ATRIAL ENLARGEMENT BORDERLINE ECG WHEN COMPARED WITH ECG OF 23-MAR-2018 17:06, NO SIGNIFICANT CHANGE WAS FOUND Confirmed by NATHANAEL GONGORA MD ([id number]) on 04/13/2018 3:46:59 PM Referred By: Confirmed By:NATHANAEL GONGORA MD
--- NOTE | 2018-04-13 17:54 | PN ---
Progress Note, Physician - Current Medication List Current Medications: Active Medications Acetaminophen (Tylenol -) 650 mg PO Q6H PRN PRN Reason: FEVER Albuterol Sulfate (Ventolin 0.083% Nebulizer Soln -) 1 amp NEB Q4H PRN PRN Reason: SHORT OF BREATH/WHEEZING Last Admin: 04/13/18 11:58 Dose: 1 amp Amlodipine Besylate (Norvasc -) 5 mg PO DAILY [facility] Last Admin: 04/13/18 10:55 Dose: 5 mg Atorvastatin Calcium (Lipitor -) 40 mg PO HS UMESH Heparin Sodium (Porcine) (Heparin -) 5,000 unit SQ BID [facility] Last Admin: 04/13/18 10:55 Dose: 5,000 unit Hydralazine HCl (Apresoline -) 10 mg PO TID [facility] Last Admin: 04/13/18 13:33 Dose: 10 mg Piperacillin Sod/Tazobactam (Sod 3.375 gm/ Dextrose) 50 mls @ 100 mls/hr IVPB Q8H-IV [facility]; Protocol Metoprolol Tartrate (Lopressor -) 25 mg PO BID [facility] Last Admin: 04/13/18 10:55 Dose: 25 mg Mirtazapine (Remeron -) 15 mg PO HS [facility] Pantoprazole Sodium (Protonix -) 40 mg PO BID [facility] Last Admin: 04/13/18 11:07 Dose: 40 mg Polyethylene Glycol (Miralax (For Daily Use) -) 17 gm PO DAILY [facility] Last Admin: 04/13/18 11:07 Dose: 17 gm Potassium Chloride (K-Dur -) 40 meq PO DAILY [facility] Last Admin: 04/13/18 12:22 Dose: 40 meq Senna/Docusate Sodium (Pericolace -) 1 tablet PO BID [facility] Last Admin: 04/13/18 10:55 Dose: 1 tablet - Objective Vital Signs: Vital Signs Temperature 101.5 F H 04/13/18 14:18 Pulse Rate 114 H 04/13/18 14:18 Respiratory Rate 18 04/13/18 14:18 Blood Pressure 137/81 04/13/18 14:18 O2 Sat by Pulse Oximetry (%) 95 04/13/18 09:00 Constitutional: Yes: No Distress HENT: Yes: Atraumatic Neck: Yes: Supple Cardiovascular: Yes: Regular Rate and Rhythm Respiratory: Yes: Rhonchi Gastrointestinal: Yes: Normal Bowel Sounds Extremities: Yes: WNL Neurological: Yes: Alert Labs: CBC, BMP 04/13/18 06:30 04/13/18 06:30 INR, PTT INR 1.58 (0.83-1.09) H 04/12/18 17:00 Problem List - Problems (1) Lung mass Code(s): R91.8 - OTHER NONSPECIFIC ABNORMAL FINDING OF LUNG FIELD (2) HTN (hypertension) Assessment/Plan: on meds stable Code(s): I10 - ESSENTIAL (PRIMARY) HYPERTENSION Qualifiers: Hypertension type: essential hypertension Qualified Code(s): I10 - Essential (primary) hypertension (3) Hyperlipidemia Assessment/Plan: on meds stable Code(s): E78.5 - HYPERLIPIDEMIA, UNSPECIFIED Qualifiers: Hyperlipidemia type: pure hypercholesterolemia Qualified Code(s): E78.00 - Pure hypercholesterolemia, unspecified; E78.0 - Pure hypercholesterolemia (4) Lung cancer Code(s): C34.90 - MALIGNANT NEOPLASM OF UNSP PART OF UNSP BRONCHUS OR LUNG Qualifiers: Laterality: left Lung location: hilum of lung Qualified Code(s): C34.02 - Malignant neoplasm of left main bronchus (5) Pneumonia Assessment/Plan: on iv abx Code(s): J18.9 - PNEUMONIA, UNSPECIFIED ORGANISM Qualifiers: Laterality: left Lung location: upper lobe of lung
[2018-04-13] MEDS: PIPERACILLIN/TAZOB 3.375 GM 3.375 GM in DEXTROSE 5%-WATER - 50 ML IVPB SCH (21:48)
[2018-04-13] MEDS: MIRTAZAPINE 15 MG TABLET (FP) PO SCH (21:49)
[2018-04-13] MEDS: ATORVASTATIN CA 40 MG TABLET (FP) PO SCH (21:49)
[2018-04-14] MEDS ORDERED: PIPERACILLIN/TAZOBACTAM 3.375 GM VIAL IVPB ONE ×3 (01:00→16:23)
[2018-04-14] MEDS ORDERED: DEXTROSE 5%-WATER - 50 ML IVPB ONE ×3 (01:00→16:23)
[2018-04-14] MEDS: PIPERACILLIN/TAZOB 3.375 GM 3.375 GM in DEXTROSE 5%-WATER - 50 ML IVPB SCH ×3 (01:35→17:00)
[2018-04-14] MEDS: hydrALAZINE HCL 10 MG TABLET PO SCH ×3 (06:27→22:21)
[2018-04-14] MEDS: POTASSIUM CHLORIDE TABS 20 MEQ TABLET.ER (FP) PO SCH (09:10)
[2018-04-14] MEDS: PANTOPRAZOLE 40 MG TABLET (FP) PO SCH ×2 (09:10→22:21)
[2018-04-14] MEDS: HEPARIN NA (PORCINE) 5,000 UNITS/ML 1ML VIAL SQ SCH ×2 (09:10→22:22)
[2018-04-14] MEDS: amLODIPine BESYLATE 5 MG TABLET (FP) PO SCH (09:10)
[2018-04-14] MEDS: SENNOSIDES/DOCUSATE COMBO (SENNA PLUS) TABLET (UD) PO SCH ×2 (09:10→22:21)
[2018-04-14] MEDS: POLYETHYLENE GLYCOL 3350 119 GM BTL PO SCH (09:11)
[2018-04-14] MEDS: METOPROLOL TARTRATE 25 MG TABLET (FP) PO SCH ×2 (09:20→22:21)
[2018-04-14 09:55] LABS: BASO % 0.3 % (0-2.0); EOS % 0.1 % (0-4.5); HEMATOCRIT 23.2 % (35.4-49); HEMOGLOBIN 7.7 GM/dL (11.7-16.9); LYMPH % 4.5 % (8-40); MCH 26.1 pg (25.7-33.7); MCHC 33.1 g/dl (32.0-35.9); MEAN CELL VOLUME 78.8 fl (80-96); MEAN PLT VOLUME 7.2 fl (7.5-11.1); MONO % 7.9 % (3.8-10.2); NEUT % 87.2 % (42.8-82.8); PLATELET COUNT 307 K/MM3 (134-434); RBC 2.95 M/mm3 (4.00-5.60); RDW 20.7 % (11.9-15.9); WHITE BLOOD COUNT 14.6 K/mm3 (4.0-10.0)
--- NOTE | 2018-04-14 11:59 | PN ---
Progress Note, Physician History of Present Illness: still very weak thick secretions,received transfusions - Current Medication List Current Medications: Active Medications Acetaminophen (Tylenol -) 650 mg PO Q6H PRN PRN Reason: FEVER Albuterol Sulfate (Ventolin 0.083% Nebulizer Soln -) 1 amp NEB Q4H PRN PRN Reason: SHORT OF BREATH/WHEEZING Last Admin: 04/13/18 11:58 Dose: 1 amp Amlodipine Besylate (Norvasc -) 5 mg PO DAILY [facility] Last Admin: 04/14/18 09:10 Dose: 5 mg Atorvastatin Calcium (Lipitor -) 40 mg PO HS [facility] Last Admin: 04/13/18 21:49 Dose: 40 mg Heparin Sodium (Porcine) (Heparin -) 5,000 unit SQ BID [facility] Last Admin: 04/14/18 09:10 Dose: 5,000 unit Hydralazine HCl (Apresoline -) 10 mg PO TID [facility] Last Admin: 04/14/18 06:27 Dose: 10 mg Piperacillin Sod/Tazobactam (Sod 3.375 gm/ Dextrose) 50 mls @ 100 mls/hr IVPB Q8H-IV [facility]; Protocol Last Admin: 04/14/18 09:13 Dose: 100 mls/hr Metoprolol Tartrate (Lopressor -) 25 mg PO BID [facility] Last Admin: 04/14/18 09:20 Dose: 25 mg Mirtazapine (Remeron -) 15 mg PO HS [facility] Last Admin: 04/13/18 21:49 Dose: 15 mg Pantoprazole Sodium (Protonix -) 40 mg PO BID [facility] Last Admin: 04/14/18 09:10 Dose: 40 mg Polyethylene Glycol (Miralax (For Daily Use) -) 17 gm PO DAILY [facility] Last Admin: 04/14/18 09:11 Dose: 17 gm Potassium Chloride (K-Dur -) 40 meq PO DAILY [facility] Last Admin: 04/14/18 09:10 Dose: 40 meq Senna/Docusate Sodium (Pericolace -) 1 tablet PO BID [facility] Last Admin: 04/14/18 09:10 Dose: 1 tablet - Objective Vital Signs: Vital Signs Temperature 98.2 F 04/14/18 09:45 Pulse Rate 110 H 04/14/18 09:45 Respiratory Rate 18 04/14/18 09:45 Blood Pressure 140/85 04/14/18 09:45 O2 Sat by Pulse Oximetry (%) 97 04/14/18 09:00 Constitutional: Yes: Calm, Mild Distress Cardiovascular: Yes: Regular Rate and Rhythm Respiratory: Yes: On Nasal O2, Poor Air Entry, Rhonchi Gastrointestinal: Yes: Normal Bowel Sounds, Soft Musculoskeletal: Yes: WNL Extremities: Yes: WNL Neurological: Yes: Alert, Oriented Psychiatric: Yes: Alert, Oriented Labs: CBC, BMP 04/14/18 09:30 04/13/18 06:30 INR, PTT INR 1.58 (0.83-1.09) H 04/12/18 17:00 Assessment/Plan Problem List - Problems (1) Pneumonia Code(s): J18.9 - PNEUMONIA, UNSPECIFIED ORGANISM Qualifiers: Laterality: left Lung location: upper lobe of lung (2) HTN (hypertension) Code(s): I10 - ESSENTIAL (PRIMARY) HYPERTENSION Qualifiers: Hypertension type: essential hypertension Qualified Code(s): I10 - Essential (primary) hypertension (3) Hyperlipidemia Code(s): E78.5 - HYPERLIPIDEMIA, UNSPECIFIED Qualifiers: Hyperlipidemia type: pure hypercholesterolemia Qualified Code(s): E78.00 - Pure hypercholesterolemia, unspecified; E78.0 - Pure hypercholesterolemia (4) Lung cancer Code(s): C34.90 - MALIGNANT NEOPLASM OF UNSP PART OF UNSP BRONCHUS OR LUNG Qualifiers: Laterality: left Lung location: hilum of lung Qualified Code(s): C34.02 - Malignant neoplasm of left main bronchus (5) Previous myocardial infarction older than 8 weeks Code(s): I25.2 - OLD MYOCARDIAL INFARCTION (6) Anemia Code(s): D64.9 - ANEMIA, UNSPECIFIED Assessment/Plan 1. Post-obstructive PNA, recurrent 2. Non small cell lung ca 3. Anemia 4. Failure to thrive 5. CAD h/o [place] plan iv abx nutrition rest as per the team transfusions if needed final plan monitor h and h and wbc
--- NOTE | 2018-04-14 12:13 | PN ---
Progress Note, Physician History of Present Illness: Cough productive of thick, tenacious sputum, appetite remains poor. Febrile overnight, received 1 U PRBC. - Current Medication List Current Medications: Active Medications Acetaminophen (Tylenol -) 650 mg PO Q6H PRN PRN Reason: FEVER Albuterol Sulfate (Ventolin 0.083% Nebulizer Soln -) 1 amp NEB Q4H PRN PRN Reason: SHORT OF BREATH/WHEEZING Last Admin: 04/13/18 11:58 Dose: 1 amp Amlodipine Besylate (Norvasc -) 5 mg PO DAILY [facility] Last Admin: 04/14/18 09:10 Dose: 5 mg Atorvastatin Calcium (Lipitor -) 40 mg PO HS [facility] Last Admin: 04/13/18 21:49 Dose: 40 mg Heparin Sodium (Porcine) (Heparin -) 5,000 unit SQ BID [facility] Last Admin: 04/14/18 09:10 Dose: 5,000 unit Hydralazine HCl (Apresoline -) 10 mg PO TID [facility] Last Admin: 04/14/18 06:27 Dose: 10 mg Piperacillin Sod/Tazobactam (Sod 3.375 gm/ Dextrose) 50 mls @ 100 mls/hr IVPB Q8H-IV [facility]; Protocol Last Admin: 04/14/18 09:13 Dose: 100 mls/hr Metoprolol Tartrate (Lopressor -) 25 mg PO BID [facility] Last Admin: 04/14/18 09:20 Dose: 25 mg Mirtazapine (Remeron -) 15 mg PO HS [facility] Last Admin: 04/13/18 21:49 Dose: 15 mg Pantoprazole Sodium (Protonix -) 40 mg PO BID [facility] Last Admin: 04/14/18 09:10 Dose: 40 mg Polyethylene Glycol (Miralax (For Daily Use) -) 17 gm PO DAILY [facility] Last Admin: 04/14/18 09:11 Dose: 17 gm Potassium Chloride (K-Dur -) 40 meq PO DAILY [facility] Last Admin: 04/14/18 09:10 Dose: 40 meq Senna/Docusate Sodium (Pericolace -) 1 tablet PO BID [facility] Last Admin: 04/14/18 09:10 Dose: 1 tablet - Objective Vital Signs: Vital Signs Temperature 98.2 F 04/14/18 09:45 Pulse Rate 110 H 04/14/18 09:45 Respiratory Rate 18 04/14/18 09:45 Blood Pressure 140/85 04/14/18 09:45 O2 Sat by Pulse Oximetry (%) 97 04/14/18 09:00 Constitutional: Yes: No Distress, Calm, Cachectic, Thin Neck: Yes: Supple Cardiovascular: Yes: Regular Rate and Rhythm Respiratory: Yes: Regular, Diminished, On Nasal O2 Gastrointestinal: Yes: Soft, Hypoactive Bowel Sounds Edema: No Labs: CBC, BMP 04/14/18 09:30 04/13/18 06:30 INR, PTT INR 1.58 (0.83-1.09) H 04/12/18 17:00 Problem List - Problems (1) Pneumonia Code(s): J18.9 - PNEUMONIA, UNSPECIFIED ORGANISM Qualifiers: Laterality: left Lung location: upper lobe of lung (2) HTN (hypertension) Code(s): I10 - ESSENTIAL (PRIMARY) HYPERTENSION Qualifiers: Hypertension type: essential hypertension Qualified Code(s): I10 - Essential (primary) hypertension (3) Hyperlipidemia Code(s): E78.5 - HYPERLIPIDEMIA, UNSPECIFIED Qualifiers: Hyperlipidemia type: pure hypercholesterolemia Qualified Code(s): E78.00 - Pure hypercholesterolemia, unspecified; E78.0 - Pure hypercholesterolemia (4) Lung cancer Code(s): C34.90 - MALIGNANT NEOPLASM OF UNSP PART OF UNSP BRONCHUS OR LUNG Qualifiers: Laterality: left Lung location: hilum of lung Qualified Code(s): C34.02 - Malignant neoplasm of left main bronchus (5) Previous myocardial infarction older than 8 weeks Code(s): I25.2 - OLD MYOCARDIAL INFARCTION (6) Anemia Code(s): D64.9 - ANEMIA, UNSPECIFIED (7) Anorexia Code(s): R63.0 - ANOREXIA (8) Failure to thrive in adult Code(s): R62.7 - ADULT FAILURE TO THRIVE Assessment/Plan 1. Post-obstructive PNA, recurrent 2. Non small cell lung ca 3. Anemia 4. Failure to thrive 5. CAD h/o [place] P:1. IV Abx course per ID 2. Nutritional support, replete K, consider Megace as appetite stimulant 3. Transfuse to maintain Hgb>8.0 4. Continue Norvasc qd, Lipitor 40 qhs, Hydralazine 10 tid, Lopressor 25 bid 5. DVT and GI prophylaxis
[2018-04-14 13:03] VITALS: BMI 17.1
--- NOTE | 2018-04-14 15:07 | PN ---
Progress Note, Physician - Current Medication List Current Medications: Active Medications Acetaminophen (Tylenol -) 650 mg PO Q6H PRN PRN Reason: FEVER Albuterol Sulfate (Ventolin 0.083% Nebulizer Soln -) 1 amp NEB Q4H PRN PRN Reason: SHORT OF BREATH/WHEEZING Last Admin: 04/13/18 11:58 Dose: 1 amp Amlodipine Besylate (Norvasc -) 5 mg PO DAILY [facility] Last Admin: 04/14/18 09:10 Dose: 5 mg Atorvastatin Calcium (Lipitor -) 40 mg PO HS [facility] Last Admin: 04/13/18 21:49 Dose: 40 mg Heparin Sodium (Porcine) (Heparin -) 5,000 unit SQ BID [facility] Last Admin: 04/14/18 09:10 Dose: 5,000 unit Hydralazine HCl (Apresoline -) 10 mg PO TID [facility] Last Admin: 04/14/18 14:37 Dose: 10 mg Piperacillin Sod/Tazobactam (Sod 3.375 gm/ Dextrose) 50 mls @ 100 mls/hr IVPB Q8H-IV [facility]; Protocol Last Admin: 04/14/18 09:13 Dose: 100 mls/hr Metoprolol Tartrate (Lopressor -) 25 mg PO BID [facility] Last Admin: 04/14/18 09:20 Dose: 25 mg Mirtazapine (Remeron -) 15 mg PO HS [facility] Last Admin: 04/13/18 21:49 Dose: 15 mg Pantoprazole Sodium (Protonix -) 40 mg PO BID [facility] Last Admin: 04/14/18 09:10 Dose: 40 mg Polyethylene Glycol (Miralax (For Daily Use) -) 17 gm PO DAILY [facility] Last Admin: 04/14/18 09:11 Dose: 17 gm Potassium Chloride (K-Dur -) 40 meq PO DAILY [facility] Last Admin: 04/14/18 09:10 Dose: 40 meq Senna/Docusate Sodium (Pericolace -) 1 tablet PO BID [facility] Last Admin: 04/14/18 09:10 Dose: 1 tablet - Objective Vital Signs: Vital Signs Temperature 98.2 F 04/14/18 09:45 Pulse Rate 110 H 04/14/18 09:45 Respiratory Rate 18 04/14/18 09:45 Blood Pressure 140/85 04/14/18 09:45 O2 Sat by Pulse Oximetry (%) 97 04/14/18 09:00 Constitutional: Yes: No Distress HENT: Yes: Atraumatic Neck: Yes: Supple Cardiovascular: Yes: Regular Rate and Rhythm Respiratory: Yes: Rhonchi Gastrointestinal: Yes: Normal Bowel Sounds Extremities: Yes: WNL Neurological: Yes: Alert, Oriented Labs: CBC, BMP 04/14/18 09:30 04/13/18 06:30 INR, PTT INR 1.58 (0.83-1.09) H 04/12/18 17:00 Problem List - Problems (1) Lung mass Code(s): R91.8 - OTHER NONSPECIFIC ABNORMAL FINDING OF LUNG FIELD (2) HTN (hypertension) Assessment/Plan: on meds stable Code(s): I10 - ESSENTIAL (PRIMARY) HYPERTENSION Qualifiers: Hypertension type: essential hypertension Qualified Code(s): I10 - Essential (primary) hypertension (3) Hyperlipidemia Assessment/Plan: on meds stable Code(s): E78.5 - HYPERLIPIDEMIA, UNSPECIFIED Qualifiers: Hyperlipidemia type: pure hypercholesterolemia Qualified Code(s): E78.00 - Pure hypercholesterolemia, unspecified; E78.0 - Pure hypercholesterolemia (4) Lung cancer Code(s): C34.90 - MALIGNANT NEOPLASM OF UNSP PART OF UNSP BRONCHUS OR LUNG Qualifiers: Laterality: left Lung location: hilum of lung Qualified Code(s): C34.02 - Malignant neoplasm of left main bronchus (5) Pneumonia Assessment/Plan: on iv abx Code(s): J18.9 - PNEUMONIA, UNSPECIFIED ORGANISM Qualifiers: Laterality: left Lung location: upper lobe of lung
[2018-04-14] MEDS: ALBUTEROL SO4 0.083% IH SOL 2.5 MG/3 ML VIAL.NEB. NEB PRN (20:35)
[2018-04-14] MEDS: ATORVASTATIN CA 40 MG TABLET (FP) PO SCH (22:21)
[2018-04-14] MEDS: MIRTAZAPINE 15 MG TABLET (FP) PO SCH (22:22)
[2018-04-15] MEDS ORDERED: DEXTROSE 5%-WATER - 50 ML IVPB ONE ×3 (01:44→18:28)
[2018-04-15] MEDS ORDERED: PIPERACILLIN/TAZOBACTAM 3.375 GM VIAL IVPB ONE ×3 (01:44→18:28)
[2018-04-15] MEDS: PIPERACILLIN/TAZOB 3.375 GM 3.375 GM in DEXTROSE 5%-WATER - 50 ML IVPB SCH ×3 (02:02→18:31)
[2018-04-15] MEDS ORDERED: PT OWN MED DRAWER 7, Y5N ONE ×2 (02:40→06:57)
[2018-04-15] MEDS: hydrALAZINE HCL 10 MG TABLET PO SCH ×3 (06:21→22:45)
[2018-04-15] MEDS: ALBUTEROL SO4 0.083% IH SOL 2.5 MG/3 ML VIAL.NEB. NEB PRN ×3 (07:30→20:24)
[2018-04-15] MEDS: HEPARIN NA (PORCINE) 5,000 UNITS/ML 1ML VIAL SQ SCH ×2 (10:39→22:46)
[2018-04-15] MEDS: SENNOSIDES/DOCUSATE COMBO (SENNA PLUS) TABLET (UD) PO SCH ×2 (10:39→22:46)
[2018-04-15] MEDS: POTASSIUM CHLORIDE TABS 20 MEQ TABLET.ER (FP) PO SCH (10:40)
[2018-04-15] MEDS: amLODIPine BESYLATE 5 MG TABLET (FP) PO SCH (10:40)
[2018-04-15] MEDS: POLYETHYLENE GLYCOL 3350 119 GM BTL PO SCH (10:40)
[2018-04-15] MEDS: PANTOPRAZOLE 40 MG TABLET (FP) PO SCH ×2 (10:40→22:46)
[2018-04-15] MEDS: METOPROLOL TARTRATE 25 MG TABLET (FP) PO SCH ×2 (10:40→22:46)
--- NOTE | 2018-04-15 12:15 | PN ---
Progress Note, Physician Chief Complaint: Events noted Tachycardic History of Present Illness: Patient was seen and examined. Chart was reviewed Generalized weakness Previous ECG sinus tachycardia - Current Medication List Current Medications: Active Medications Acetaminophen (Tylenol -) 650 mg PO Q6H PRN PRN Reason: FEVER Albuterol Sulfate (Ventolin 0.083% Nebulizer Soln -) 1 amp NEB Q4H PRN PRN Reason: SHORT OF BREATH/WHEEZING Last Admin: 04/15/18 07:30 Dose: 1 amp Amlodipine Besylate (Norvasc -) 5 mg PO DAILY [facility] Last Admin: 04/15/18 10:40 Dose: 5 mg Atorvastatin Calcium (Lipitor -) 40 mg PO HS [facility] Last Admin: 04/14/18 22:21 Dose: 40 mg Heparin Sodium (Porcine) (Heparin -) 5,000 unit SQ BID [facility] Last Admin: 04/15/18 10:39 Dose: 5,000 unit Hydralazine HCl (Apresoline -) 10 mg PO TID [facility] Last Admin: 04/15/18 06:21 Dose: 10 mg Piperacillin Sod/Tazobactam (Sod 3.375 gm/ Dextrose) 50 mls @ 100 mls/hr IVPB Q8H-IV [facility]; Protocol Last Admin: 04/15/18 10:39 Dose: 100 mls/hr Metoprolol Tartrate (Lopressor -) 25 mg PO BID [facility] Last Admin: 04/15/18 10:40 Dose: 25 mg Mirtazapine (Remeron -) 15 mg PO HS [facility] Last Admin: 04/14/18 22:22 Dose: 15 mg Pantoprazole Sodium (Protonix -) 40 mg PO BID [facility] Last Admin: 04/15/18 10:40 Dose: 40 mg Polyethylene Glycol (Miralax (For Daily Use) -) 17 gm PO DAILY [facility] Last Admin: 04/15/18 10:40 Dose: 17 gm Potassium Chloride (K-Dur -) 40 meq PO DAILY [facility] Last Admin: 04/15/18 10:40 Dose: 40 meq Senna/Docusate Sodium (Pericolace -) 1 tablet PO BID [facility] Last Admin: 04/15/18 10:39 Dose: 1 tablet - Objective Vital Signs: Vital Signs Temperature 98.1 F 04/15/18 02:06 Pulse Rate 124 H 04/15/18 02:06 Respiratory Rate 18 04/15/18 02:06 Blood Pressure 122/67 04/15/18 02:06 O2 Sat by Pulse Oximetry (%) 97 04/14/18 21:00 Neck: Yes: Supple Cardiovascular: Yes: Regular Rate and Rhythm, Tachycardia, S1, S2 Respiratory: Yes: Diminished Gastrointestinal: Yes: Normal Bowel Sounds, Soft. No: Tenderness Edema: No Labs: CBC, BMP 04/14/18 09:30 Problem List - Problems (1) Failure to thrive in adult Code(s): R62.7 - ADULT FAILURE TO THRIVE (2) Pneumonia Code(s): J18.9 - PNEUMONIA, UNSPECIFIED ORGANISM Qualifiers: Laterality: left Lung location: upper lobe of lung (3) Sepsis Code(s): A41.9 - SEPSIS, UNSPECIFIED ORGANISM (4) HTN (hypertension) Code(s): I10 - ESSENTIAL (PRIMARY) HYPERTENSION Qualifiers: Hypertension type: essential hypertension Qualified Code(s): I10 - Essential (primary) hypertension (5) Hyperlipidemia Code(s): E78.5 - HYPERLIPIDEMIA, UNSPECIFIED Qualifiers: Hyperlipidemia type: pure hypercholesterolemia Qualified Code(s): E78.00 - Pure hypercholesterolemia, unspecified; E78.0 - Pure hypercholesterolemia (6) Lung cancer Code(s): C34.90 - MALIGNANT NEOPLASM OF UNSP PART OF UNSP BRONCHUS OR LUNG Qualifiers: Laterality: left Lung location: hilum of lung Qualified Code(s): C34.02 - Malignant neoplasm of left main bronchus Assessment/Plan 1. Post-obstructive pneumonia 2. Non small cell lung CA 3. Anemia 4. Failure to thrive 5. CAD h/o [place] PLAN: 1. IV Antibiotic course per ID 2. Nutritional support, replete K and supportive care 3. Transfuse to maintain Hgb>8.0 4. Continue Norvasc qd, Lipitor 40 qhs, Hydralazine 10 tid, Lopressor 25 bid 5. DVT and GI prophylaxis Dain Corley MD
--- NOTE | 2018-04-15 13:39 | PN ---
Progress Note, Physician History of Present Illness: still weakness no other issues - Current Medication List Current Medications: Active Medications Acetaminophen (Tylenol -) 650 mg PO Q6H PRN PRN Reason: FEVER Albuterol Sulfate (Ventolin 0.083% Nebulizer Soln -) 1 amp NEB Q4H PRN PRN Reason: SHORT OF BREATH/WHEEZING Last Admin: 04/15/18 07:30 Dose: 1 amp Amlodipine Besylate (Norvasc -) 5 mg PO DAILY [facility] Last Admin: 04/15/18 10:40 Dose: 5 mg Atorvastatin Calcium (Lipitor -) 40 mg PO HS [facility] Last Admin: 04/14/18 22:21 Dose: 40 mg Heparin Sodium (Porcine) (Heparin -) 5,000 unit SQ BID [facility] Last Admin: 04/15/18 10:39 Dose: 5,000 unit Hydralazine HCl (Apresoline -) 10 mg PO TID [facility] Last Admin: 04/15/18 06:21 Dose: 10 mg Piperacillin Sod/Tazobactam (Sod 3.375 gm/ Dextrose) 50 mls @ 100 mls/hr IVPB Q8H-IV [facility]; Protocol Last Admin: 04/15/18 10:39 Dose: 100 mls/hr Metoprolol Tartrate (Lopressor -) 25 mg PO BID [facility] Last Admin: 04/15/18 10:40 Dose: 25 mg Mirtazapine (Remeron -) 15 mg PO HS [facility] Last Admin: 04/14/18 22:22 Dose: 15 mg Pantoprazole Sodium (Protonix -) 40 mg PO BID [facility] Last Admin: 04/15/18 10:40 Dose: 40 mg Polyethylene Glycol (Miralax (For Daily Use) -) 17 gm PO DAILY [facility] Last Admin: 04/15/18 10:40 Dose: 17 gm Potassium Chloride (K-Dur -) 40 meq PO DAILY [facility] Last Admin: 04/15/18 10:40 Dose: 40 meq Senna/Docusate Sodium (Pericolace -) 1 tablet PO BID [facility] Last Admin: 04/15/18 10:39 Dose: 1 tablet - Objective Vital Signs: Vital Signs Temperature 98.1 F 04/15/18 02:06 Pulse Rate 124 H 04/15/18 02:06 Respiratory Rate 18 04/15/18 02:06 Blood Pressure 122/67 04/15/18 02:06 O2 Sat by Pulse Oximetry (%) 97 04/14/18 21:00 Constitutional: Yes: No Distress, Calm Cardiovascular: Yes: Regular Rate and Rhythm Respiratory: Yes: Regular, Poor Air Entry, Rhonchi Gastrointestinal: Yes: Normal Bowel Sounds, Soft Musculoskeletal: Yes: WNL Extremities: Yes: WNL Neurological: Yes: Alert, Oriented Labs: CBC, BMP 04/14/18 09:30 04/13/18 06:30 INR, PTT INR 1.58 (0.83-1.09) H 04/12/18 17:00 Assessment/Plan Problem List - Problems (1) Pneumonia Code(s): J18.9 - PNEUMONIA, UNSPECIFIED ORGANISM Qualifiers: Laterality: left Lung location: upper lobe of lung (2) HTN (hypertension) Code(s): I10 - ESSENTIAL (PRIMARY) HYPERTENSION Qualifiers: Hypertension type: essential hypertension Qualified Code(s): I10 - Essential (primary) hypertension (3) Hyperlipidemia Code(s): E78.5 - HYPERLIPIDEMIA, UNSPECIFIED Qualifiers: Hyperlipidemia type: pure hypercholesterolemia Qualified Code(s): E78.00 - Pure hypercholesterolemia, unspecified; E78.0 - Pure hypercholesterolemia (4) Lung cancer Code(s): C34.90 - MALIGNANT NEOPLASM OF UNSP PART OF UNSP BRONCHUS OR LUNG Qualifiers: Laterality: left Lung location: hilum of lung Qualified Code(s): C34.02 - Malignant neoplasm of left main bronchus (5) Previous myocardial infarction older than 8 weeks Code(s): I25.2 - OLD MYOCARDIAL INFARCTION (6) Anemia Code(s): D64.9 - ANEMIA, UNSPECIFIED Assessment/Plan 1. Post-obstructive PNA, recurrent 2. Non small cell lung ca 3. Anemia 4. Failure to thrive 5. CAD h/o [place] plan iv abx nutrition rest as per the team transfusions if needed final plan monitor h and h and wbc
--- NOTE | 2018-04-15 16:53 | PN ---
Progress Note, Physician - Current Medication List Current Medications: Active Medications Acetaminophen (Tylenol -) 650 mg PO Q6H PRN PRN Reason: FEVER Albuterol Sulfate (Ventolin 0.083% Nebulizer Soln -) 1 amp NEB Q4H PRN PRN Reason: SHORT OF BREATH/WHEEZING Last Admin: 04/15/18 15:51 Dose: 1 amp Amlodipine Besylate (Norvasc -) 5 mg PO DAILY [facility] Last Admin: 04/15/18 10:40 Dose: 5 mg Atorvastatin Calcium (Lipitor -) 40 mg PO HS [facility] Last Admin: 04/14/18 22:21 Dose: 40 mg Heparin Sodium (Porcine) (Heparin -) 5,000 unit SQ BID [facility] Last Admin: 04/15/18 10:39 Dose: 5,000 unit Hydralazine HCl (Apresoline -) 10 mg PO TID [facility] Last Admin: 04/15/18 14:21 Dose: 10 mg Piperacillin Sod/Tazobactam (Sod 3.375 gm/ Dextrose) 50 mls @ 100 mls/hr IVPB Q8H-IV [facility]; Protocol Last Admin: 04/15/18 10:39 Dose: 100 mls/hr Metoprolol Tartrate (Lopressor -) 25 mg PO BID [facility] Last Admin: 04/15/18 10:40 Dose: 25 mg Mirtazapine (Remeron -) 15 mg PO HS [facility] Last Admin: 04/14/18 22:22 Dose: 15 mg Pantoprazole Sodium (Protonix -) 40 mg PO BID [facility] Last Admin: 04/15/18 10:40 Dose: 40 mg Polyethylene Glycol (Miralax (For Daily Use) -) 17 gm PO DAILY [facility] Last Admin: 04/15/18 10:40 Dose: 17 gm Potassium Chloride (K-Dur -) 40 meq PO DAILY [facility] Last Admin: 04/15/18 10:40 Dose: 40 meq Senna/Docusate Sodium (Pericolace -) 1 tablet PO BID [facility] Last Admin: 04/15/18 10:39 Dose: 1 tablet - Objective Vital Signs: Vital Signs Temperature 99.2 F 04/15/18 15:53 Pulse Rate 117 H 04/15/18 15:53 Respiratory Rate 18 04/15/18 15:53 Blood Pressure 130/75 04/15/18 15:53 O2 Sat by Pulse Oximetry (%) 94 L 04/15/18 09:00 Constitutional: Yes: No Distress HENT: Yes: Atraumatic Neck: Yes: Supple Cardiovascular: Yes: Regular Rate and Rhythm Respiratory: Yes: Rhonchi Extremities: Yes: WNL Neurological: Yes: Alert, Oriented Labs: CBC, BMP 04/14/18 09:30 04/13/18 06:30 INR, PTT INR 1.58 (0.83-1.09) H 04/12/18 17:00 Problem List - Problems (1) Lung mass Code(s): R91.8 - OTHER NONSPECIFIC ABNORMAL FINDING OF LUNG FIELD (2) HTN (hypertension) Assessment/Plan: on meds stable Code(s): I10 - ESSENTIAL (PRIMARY) HYPERTENSION Qualifiers: Hypertension type: essential hypertension Qualified Code(s): I10 - Essential (primary) hypertension (3) Hyperlipidemia Assessment/Plan: on meds stable Code(s): E78.5 - HYPERLIPIDEMIA, UNSPECIFIED Qualifiers: Hyperlipidemia type: pure hypercholesterolemia Qualified Code(s): E78.00 - Pure hypercholesterolemia, unspecified; E78.0 - Pure hypercholesterolemia (4) Lung cancer Code(s): C34.90 - MALIGNANT NEOPLASM OF UNSP PART OF UNSP BRONCHUS OR LUNG Qualifiers: Laterality: left Lung location: hilum of lung Qualified Code(s): C34.02 - Malignant neoplasm of left main bronchus (5) Pneumonia Assessment/Plan: on iv abx Code(s): J18.9 - PNEUMONIA, UNSPECIFIED ORGANISM Qualifiers: Laterality: left Lung location: upper lobe of lung
[2018-04-15] MEDS: ATORVASTATIN CA 40 MG TABLET (FP) PO SCH (22:46)
[2018-04-15] MEDS: MIRTAZAPINE 15 MG TABLET (FP) PO SCH (22:46)
[2018-04-16] MEDS: PIPERACILLIN/TAZOB 3.375 GM 3.375 GM in DEXTROSE 5%-WATER - 50 ML IVPB SCH ×3 (02:00→18:14)
[2018-04-16] MEDS: hydrALAZINE HCL 10 MG TABLET PO SCH ×3 (06:46→22:15)
[2018-04-16] MEDS: ALBUTEROL SO4 0.083% IH SOL 2.5 MG/3 ML VIAL.NEB. NEB PRN ×3 (07:57→20:20)
--- NOTE | 2018-04-16 08:09 | PN ---
Progress Note, Physician History of Present Illness: patient says he still does not feel better still with cough but patient looks much better - Current Medication List Current Medications: Active Medications Acetaminophen (Tylenol -) 650 mg PO Q6H PRN PRN Reason: FEVER Albuterol Sulfate (Ventolin 0.083% Nebulizer Soln -) 1 amp NEB Q4H PRN PRN Reason: SHORT OF BREATH/WHEEZING Last Admin: 04/16/18 07:57 Dose: 1 amp Amlodipine Besylate (Norvasc -) 5 mg PO DAILY [facility] Last Admin: 04/15/18 10:40 Dose: 5 mg Atorvastatin Calcium (Lipitor -) 40 mg PO HS [facility] Last Admin: 04/15/18 22:46 Dose: Not Given Heparin Sodium (Porcine) (Heparin -) 5,000 unit SQ BID [facility] Last Admin: 04/15/18 22:46 Dose: Not Given Hydralazine HCl (Apresoline -) 10 mg PO TID [facility] Last Admin: 04/16/18 06:46 Dose: Not Given Piperacillin Sod/Tazobactam (Sod 3.375 gm/ Dextrose) 50 mls @ 100 mls/hr IVPB Q8H-IV [facility]; Protocol Last Admin: 04/16/18 02:00 Dose: Not Given Metoprolol Tartrate (Lopressor -) 25 mg PO BID [facility] Last Admin: 04/15/18 22:46 Dose: Not Given Mirtazapine (Remeron -) 15 mg PO HS [facility] Last Admin: 04/15/18 22:46 Dose: Not Given Pantoprazole Sodium (Protonix -) 40 mg PO BID [facility] Last Admin: 04/15/18 22:46 Dose: Not Given Polyethylene Glycol (Miralax (For Daily Use) -) 17 gm PO DAILY [facility] Last Admin: 04/15/18 10:40 Dose: 17 gm Potassium Chloride (K-Dur -) 40 meq PO DAILY [facility] Last Admin: 04/15/18 10:40 Dose: 40 meq Senna/Docusate Sodium (Pericolace -) 1 tablet PO BID [facility] Last Admin: 04/15/18 22:46 Dose: Not Given - Objective Vital Signs: Vital Signs Temperature 98.1 F 04/16/18 06:00 Pulse Rate 115 H 04/16/18 06:00 Respiratory Rate 21 04/16/18 06:00 Blood Pressure 152/80 04/16/18 06:00 O2 Sat by Pulse Oximetry (%) 94 L 04/15/18 21:00 Constitutional: Yes: No Distress, Calm, Thin Cardiovascular: Yes: Regular Rate and Rhythm Respiratory: Yes: On Nasal O2, Poor Air Entry, Rhonchi Gastrointestinal: Yes: Normal Bowel Sounds, Soft Musculoskeletal: Yes: WNL Extremities: Yes: WNL Neurological: Yes: Alert, Oriented Psychiatric: Yes: Alert, Oriented Labs: CBC, BMP 04/14/18 09:30 04/13/18 06:30 INR, PTT INR 1.58 (0.83-1.09) H 04/12/18 17:00 Assessment/Plan Problem List - Problems (1) Lung mass Code(s): R91.8 - OTHER NONSPECIFIC ABNORMAL FINDING OF LUNG FIELD (2) HTN (hypertension) Code(s): I10 - ESSENTIAL (PRIMARY) HYPERTENSION Qualifiers: Hypertension type: essential hypertension Qualified Code(s): I10 - Essential (primary) hypertension (3) Hyperlipidemia Code(s): E78.5 - HYPERLIPIDEMIA, UNSPECIFIED Qualifiers: Hyperlipidemia type: pure hypercholesterolemia Qualified Code(s): E78.00 - Pure hypercholesterolemia, unspecified; E78.0 - Pure hypercholesterolemia (4) Lung cancer Code(s): C34.90 - MALIGNANT NEOPLASM OF UNSP PART OF UNSP BRONCHUS OR LUNG Qualifiers: Laterality: left Lung location: hilum of lung Qualified Code(s): C34.02 - Malignant neoplasm of left main bronchus (5) Pneumonia Code(s): J18.9 - PNEUMONIA, UNSPECIFIED ORGANISM Qualifiers: Laterality: left Lung location: upper lobe of lung plan iv abx incentive marquita work up for lung mass rest as per the team
--- NOTE | 2018-04-16 10:29 | PN ---
Progress Note, Physician Chief Complaint: Events noted Tachycardic No significant change History of Present Illness: Patient was seen and examined. Chart was reviewed Generalized weakness - Current Medication List Current Medications: Active Medications Acetaminophen (Tylenol -) 650 mg PO Q6H PRN PRN Reason: FEVER Albuterol Sulfate (Ventolin 0.083% Nebulizer Soln -) 1 amp NEB Q4H PRN PRN Reason: SHORT OF BREATH/WHEEZING Last Admin: 04/16/18 07:57 Dose: 1 amp Amlodipine Besylate (Norvasc -) 5 mg PO DAILY [facility] Last Admin: 04/15/18 10:40 Dose: 5 mg Atorvastatin Calcium (Lipitor -) 40 mg PO HS [facility] Last Admin: 04/15/18 22:46 Dose: Not Given Heparin Sodium (Porcine) (Heparin -) 5,000 unit SQ BID [facility] Last Admin: 04/15/18 22:46 Dose: Not Given Hydralazine HCl (Apresoline -) 10 mg PO TID [facility] Last Admin: 04/16/18 06:46 Dose: Not Given Piperacillin Sod/Tazobactam (Sod 3.375 gm/ Dextrose) 50 mls @ 100 mls/hr IVPB Q8H-IV [facility]; Protocol Last Admin: 04/16/18 02:00 Dose: Not Given Metoprolol Tartrate (Lopressor -) 25 mg PO BID [facility] Last Admin: 04/15/18 22:46 Dose: Not Given Mirtazapine (Remeron -) 15 mg PO HS [facility] Last Admin: 04/15/18 22:46 Dose: Not Given Pantoprazole Sodium (Protonix -) 40 mg PO BID [facility] Last Admin: 04/15/18 22:46 Dose: Not Given Polyethylene Glycol (Miralax (For Daily Use) -) 17 gm PO DAILY [facility] Last Admin: 04/15/18 10:40 Dose: 17 gm Potassium Chloride (K-Dur -) 40 meq PO DAILY [facility] Last Admin: 04/15/18 10:40 Dose: 40 meq Senna/Docusate Sodium (Pericolace -) 1 tablet PO BID [facility] Last Admin: 04/15/18 22:46 Dose: Not Given - Objective Vital Signs: Vital Signs Temperature 98.1 F 04/16/18 06:00 Pulse Rate 115 H 04/16/18 06:00 Respiratory Rate 21 04/16/18 06:00 Blood Pressure 152/80 04/16/18 06:00 O2 Sat by Pulse Oximetry (%) 94 L 04/15/18 21:00 Neck: Yes: Supple Cardiovascular: Yes: Regular Rate and Rhythm, Tachycardia, S1, S2 Respiratory: Yes: Diminished Gastrointestinal: Yes: Normal Bowel Sounds, Soft. No: Tenderness Edema: No Problem List - Problems (1) Failure to thrive in adult Code(s): R62.7 - ADULT FAILURE TO THRIVE (2) Pneumonia Code(s): J18.9 - PNEUMONIA, UNSPECIFIED ORGANISM Qualifiers: Laterality: left Lung location: upper lobe of lung (3) Sepsis Code(s): A41.9 - SEPSIS, UNSPECIFIED ORGANISM (4) HTN (hypertension) Code(s): I10 - ESSENTIAL (PRIMARY) HYPERTENSION Qualifiers: Hypertension type: essential hypertension Qualified Code(s): I10 - Essential (primary) hypertension (5) Hyperlipidemia Code(s): E78.5 - HYPERLIPIDEMIA, UNSPECIFIED Qualifiers: Hyperlipidemia type: pure hypercholesterolemia Qualified Code(s): E78.00 - Pure hypercholesterolemia, unspecified; E78.0 - Pure hypercholesterolemia (6) Lung cancer Code(s): C34.90 - MALIGNANT NEOPLASM OF UNSP PART OF UNSP BRONCHUS OR LUNG Qualifiers: Laterality: left Lung location: hilum of lung Qualified Code(s): C34.02 - Malignant neoplasm of left main bronchus Assessment/Plan 1. Post-obstructive pneumonia 2. Non small cell lung CA 3. Anemia 4. Failure to thrive 5. CAD h/o OK PLAN: 1. IV Antibiotic course per ID 2. Nutritional support, replete K and supportive care 3. Transfuse to maintain Hgb>8.0 4. Continue Norvasc, Lipitor, Hydralazine and Lopressor 5. DVT and GI prophylaxis Dain Corley MD
[2018-04-16] MEDS ORDERED: PT OWN MED DRAWER 7, Y5N ONE (11:04)
[2018-04-16] MEDS ORDERED: DEXTROSE 5%-WATER - 50 ML IVPB ONE ×2 (11:04→17:16)
[2018-04-16] MEDS ORDERED: PIPERACILLIN/TAZOBACTAM 3.375 GM VIAL IVPB ONE ×2 (11:04→17:16)
[2018-04-16] MEDS: POTASSIUM CHLORIDE TABS 20 MEQ TABLET.ER (FP) PO SCH (11:27)
[2018-04-16] MEDS: HEPARIN NA (PORCINE) 5,000 UNITS/ML 1ML VIAL SQ SCH ×2 (11:28→22:11)
[2018-04-16] MEDS: METOPROLOL TARTRATE 25 MG TABLET (FP) PO SCH ×2 (11:28→22:15)
[2018-04-16] MEDS: SENNOSIDES/DOCUSATE COMBO (SENNA PLUS) TABLET (UD) PO SCH ×2 (11:28→22:20)
[2018-04-16] MEDS: PANTOPRAZOLE 40 MG TABLET (FP) PO SCH ×2 (11:28→22:11)
[2018-04-16] MEDS: POLYETHYLENE GLYCOL 3350 119 GM BTL PO SCH (11:28)
[2018-04-16] MEDS: amLODIPine BESYLATE 5 MG TABLET (FP) PO SCH (11:28)
--- NOTE | 2018-04-16 15:47 | PN ---
Progress Note, Physician History of Present Illness: no complaints - Current Medication List Current Medications: Active Medications Acetaminophen (Tylenol -) 650 mg PO Q6H PRN PRN Reason: FEVER Albuterol Sulfate (Ventolin 0.083% Nebulizer Soln -) 1 amp NEB Q4H PRN PRN Reason: SHORT OF BREATH/WHEEZING Last Admin: 04/16/18 07:57 Dose: 1 amp Amlodipine Besylate (Norvasc -) 5 mg PO DAILY [facility]S [facility] Last Admin: 04/16/18 11:28 Dose: 5 mg Atorvastatin Calcium (Lipitor -) 40 mg PO HS [facility]S [facility] Last Admin: 04/15/18 22:46 Dose: Not Given Heparin Sodium (Porcine) (Heparin -) 5,000 unit SQ BID [facility]S [facility] Last Admin: 04/16/18 11:28 Dose: 5,000 unit Hydralazine HCl (Apresoline -) 10 mg PO TID [facility] 234 B[facility]S AT [facility] Last Admin: 04/16/18 14:34 Dose: 10 mg Piperacillin Sod/Tazobactam (Sod 3.375 gm/ Dextrose) 50 mls @ 100 mls/hr IVPB Q8H-IV [facility]; Protocol Last Admin: 04/16/18 11:27 Dose: 100 mls/hr Metoprolol Tartrate (Lopressor -) 25 mg PO BID [facility] 234 B[facility]S AT [facility] Last Admin: 04/16/18 11:28 Dose: 25 mg Mirtazapine (Remeron -) 15 mg PO HS [facility] B[facility]S AT [facility] Last Admin: 04/15/18 22:46 Dose: Not Given Pantoprazole Sodium (Protonix -) 40 mg PO BID [facility] Last Admin: 04/16/18 11:28 Dose: 40 mg Polyethylene Glycol (Miralax (For Daily Use) -) 17 gm PO DAILY [facility] B[facility]S [facility] Last Admin: 04/16/18 11:28 Dose: 17 gm Potassium Chloride (K-Dur -) 40 meq PO DAILY [facility]S [facility] Last Admin: 04/16/18 11:27 Dose: 40 meq Senna/Docusate Sodium (Pericolace -) 1 tablet PO BID [facility] B[facility]S AT [facility] Last Admin: 04/16/18 11:28 Dose: 1 tablet - Objective Vital Signs: Vital Signs Temperature 98.4 F 04/16/18 14:00 Pulse Rate 113 H 04/16/18 14:00 Respiratory Rate 18 04/16/18 14:00 Blood Pressure 119/76 04/16/18 14:00 O2 Sat by Pulse Oximetry (%) 95 04/16/18 09:00 Constitutional: Yes: No Distress HENT: Yes: Atraumatic Neck: Yes: Supple Cardiovascular: Yes: Regular Rate and Rhythm Respiratory: Yes: CTA Bilaterally Gastrointestinal: Yes: Normal Bowel Sounds Extremities: Yes: WNL Edema: No Neurological: Yes: Alert, Oriented Labs: CBC, BMP 04/14/18 09:30 04/13/18 06:30 INR, PTT INR 1.58 (0.83-1.09) H 04/12/18 17:00 Problem List - Problems (1) Lung mass Code(s): R91.8 - OTHER NONSPECIFIC ABNORMAL FINDING OF LUNG FIELD (2) HTN (hypertension) Assessment/Plan: on meds stable Code(s): I10 - ESSENTIAL (PRIMARY) HYPERTENSION Qualifiers: Hypertension type: essential hypertension Qualified Code(s): I10 - Essential (primary) hypertension (3) Hyperlipidemia Assessment/Plan: on meds stable Code(s): E78.5 - HYPERLIPIDEMIA, UNSPECIFIED Qualifiers: Hyperlipidemia type: pure hypercholesterolemia Qualified Code(s): E78.00 - Pure hypercholesterolemia, unspecified; E78.0 - Pure hypercholesterolemia (4) Lung cancer Code(s): C34.90 - MALIGNANT NEOPLASM OF UNSP PART OF UNSP BRONCHUS OR LUNG Qualifiers: Laterality: left Lung location: hilum of lung Qualified Code(s): C34.02 - Malignant neoplasm of left main bronchus (5) Pneumonia Assessment/Plan: on iv abx Code(s): J18.9 - PNEUMONIA, UNSPECIFIED ORGANISM Qualifiers: Laterality: left Lung location: upper lobe of lung
[2018-04-16] MEDS: ATORVASTATIN CA 40 MG TABLET (FP) PO SCH (22:11)
[2018-04-16] MEDS: MIRTAZAPINE 15 MG TABLET (FP) PO SCH (22:15)
[2018-04-17] MEDS ORDERED: PIPERACILLIN/TAZOBACTAM 3.375 GM VIAL IVPB ONE ×3 (02:09→17:09)
[2018-04-17] MEDS ORDERED: DEXTROSE 5%-WATER - 50 ML IVPB ONE ×3 (02:09→17:09)
[2018-04-17] MEDS: PIPERACILLIN/TAZOB 3.375 GM 3.375 GM in DEXTROSE 5%-WATER - 50 ML IVPB SCH ×3 (02:14→17:25)
[2018-04-17] MEDS: hydrALAZINE HCL 10 MG TABLET PO SCH ×3 (06:28→23:30)
[2018-04-17 07:01] LABS: HEMATOCRIT 21.5 % (35.4-49); HEMOGLOBIN 7.2 GM/dL (11.7-16.9); MCH 26.6 pg (25.7-33.7); MCHC 33.5 g/dl (32.0-35.9); MEAN CELL VOLUME 79.4 fl (80-96); MEAN PLT VOLUME 7.5 fl (7.5-11.1); PLATELET COUNT 237 K/MM3 (134-434); RDW 21.4 % (11.9-15.9); WHITE BLOOD COUNT 10.9 K/mm3 (4.0-10.0)
[2018-04-17 07:22] LABS: ANION GAP 7 (8-16); BLOOD UREA NITROGEN 14 mg/dL (7-18); CALCIUM 8.1 mg/dL (8.5-10.1); CHLORIDE 106 mmol/L (98-107); CO2 30 mmol/L (21-32); CREATININE 0.6 mg/dL (0.7-1.3); GLUCOSE,RANDOM 94 mg/dL (74-106); POTASSIUM 3.7 mmol/L (3.5-5.1); SODIUM 143 mmol/L (136-145)
[2018-04-17] MEDS: ALBUTEROL SO4 0.083% IH SOL 2.5 MG/3 ML VIAL.NEB. NEB PRN (07:30)
[2018-04-17] MEDS: HEPARIN NA (PORCINE) 5,000 UNITS/ML 1ML VIAL SQ SCH ×2 (09:11→23:30)
[2018-04-17] MEDS: METOPROLOL TARTRATE 25 MG TABLET (FP) PO SCH ×2 (09:11→23:29)
[2018-04-17] MEDS: amLODIPine BESYLATE 5 MG TABLET (FP) PO SCH (09:11)
[2018-04-17] MEDS: SENNOSIDES/DOCUSATE COMBO (SENNA PLUS) TABLET (UD) PO SCH ×2 (09:11→23:29)
[2018-04-17] MEDS: PANTOPRAZOLE 40 MG TABLET (FP) PO SCH ×2 (09:11→23:30)
[2018-04-17] MEDS: POTASSIUM CHLORIDE TABS 20 MEQ TABLET.ER (FP) PO SCH (09:11)
[2018-04-17] MEDS: POLYETHYLENE GLYCOL 3350 119 GM BTL PO SCH (09:12)
--- NOTE | 2018-04-17 11:13 | PN ---
Progress Note, Physician Chief Complaint: Events noted Tachycardic No significant change History of Present Illness: Patient was seen and examined. Chart was reviewed Generalized weakness - Current Medication List Current Medications: Active Medications Acetaminophen (Tylenol -) 650 mg PO Q6H PRN PRN Reason: FEVER Albuterol Sulfate (Ventolin 0.083% Nebulizer Soln -) 1 amp NEB Q4H PRN PRN Reason: SHORT OF BREATH/WHEEZING Last Admin: 04/17/18 07:30 Dose: 1 amp Amlodipine Besylate (Norvasc -) 5 mg PO DAILY [facility] Last Admin: 04/17/18 09:11 Dose: 5 mg Atorvastatin Calcium (Lipitor -) 40 mg PO HS [facility] Last Admin: 04/16/18 22:11 Dose: 40 mg Heparin Sodium (Porcine) (Heparin -) 5,000 unit SQ BID [facility] Last Admin: 04/17/18 09:11 Dose: 5,000 unit Hydralazine HCl (Apresoline -) 10 mg PO TID [facility] Last Admin: 04/17/18 06:28 Dose: 10 mg Piperacillin Sod/Tazobactam (Sod 3.375 gm/ Dextrose) 50 mls @ 100 mls/hr IVPB Q8H-IV [facility]; Protocol Last Admin: 04/17/18 09:11 Dose: 100 mls/hr Metoprolol Tartrate (Lopressor -) 25 mg PO BID [facility] Last Admin: 04/17/18 09:11 Dose: 25 mg Mirtazapine (Remeron -) 15 mg PO HS [facility] Last Admin: 04/16/18 22:15 Dose: 15 mg Pantoprazole Sodium (Protonix -) 40 mg PO BID [facility] Last Admin: 04/17/18 09:11 Dose: 40 mg Polyethylene Glycol (Miralax (For Daily Use) -) 17 gm PO DAILY [facility] Last Admin: 04/17/18 09:12 Dose: 17 gm Potassium Chloride (K-Dur -) 40 meq PO DAILY [facility] Last Admin: 04/17/18 09:11 Dose: 40 meq Senna/Docusate Sodium (Pericolace -) 1 tablet PO BID [facility] Last Admin: 04/17/18 09:11 Dose: 1 tablet - Objective Vital Signs: Vital Signs Temperature 98.1 F 04/17/18 06:00 Pulse Rate 112 H 04/17/18 06:00 Respiratory Rate 18 04/17/18 06:00 Blood Pressure 130/76 04/17/18 06:00 O2 Sat by Pulse Oximetry (%) 95 04/16/18 21:00 Eyes: Yes: PERRL Neck: Yes: Supple Cardiovascular: Yes: Regular Rate and Rhythm, Tachycardia, S1, S2 Respiratory: Yes: Diminished Gastrointestinal: Yes: Normal Bowel Sounds, Soft. No: Tenderness Edema: No Labs: CBC, BMP 04/17/18 05:50 04/17/18 05:50 Problem List - Problems (1) Failure to thrive in adult Code(s): R62.7 - ADULT FAILURE TO THRIVE (2) Pneumonia Code(s): J18.9 - PNEUMONIA, UNSPECIFIED ORGANISM Qualifiers: Laterality: left Lung location: upper lobe of lung (3) Sepsis Code(s): A41.9 - SEPSIS, UNSPECIFIED ORGANISM (4) HTN (hypertension) Code(s): I10 - ESSENTIAL (PRIMARY) HYPERTENSION Qualifiers: Hypertension type: essential hypertension Qualified Code(s): I10 - Essential (primary) hypertension (5) Hyperlipidemia Code(s): E78.5 - HYPERLIPIDEMIA, UNSPECIFIED Qualifiers: Hyperlipidemia type: pure hypercholesterolemia Qualified Code(s): E78.00 - Pure hypercholesterolemia, unspecified; E78.0 - Pure hypercholesterolemia (6) Lung cancer Code(s): C34.90 - MALIGNANT NEOPLASM OF UNSP PART OF UNSP BRONCHUS OR LUNG Qualifiers: Laterality: left Lung location: hilum of lung Qualified Code(s): C34.02 - Malignant neoplasm of left main bronchus Assessment/Plan 1. Post-obstructive pneumonia 2. Non small cell lung CA 3. Anemia 4. Failure to thrive 5. CAD h/o OK PLAN: 1. IV Antibiotic course per ID 2. Nutritional support, replete K and supportive care 3. Transfuse to maintain Hgb>8.0 4. Continue Norvasc, Lipitor, Hydralazine and Lopressor 5. DVT and GI prophylaxis Dain Corley MD
--- NOTE | 2018-04-17 14:07 | PN ---
Progress Note, Physician History of Present Illness: weakness no other issues stil with cough low h and h - Current Medication List Current Medications: Active Medications Acetaminophen (Tylenol -) 650 mg PO Q6H PRN PRN Reason: FEVER Albuterol Sulfate (Ventolin 0.083% Nebulizer Soln -) 1 amp NEB Q4H PRN PRN Reason: SHORT OF BREATH/WHEEZING Last Admin: 04/17/18 07:30 Dose: 1 amp Amlodipine Besylate (Norvasc -) 5 mg PO DAILY [facility] Last Admin: 04/17/18 09:11 Dose: 5 mg Atorvastatin Calcium (Lipitor -) 40 mg PO HS [facility] Last Admin: 04/16/18 22:11 Dose: 40 mg Heparin Sodium (Porcine) (Heparin -) 5,000 unit SQ BID [facility] Last Admin: 04/17/18 09:11 Dose: 5,000 unit Hydralazine HCl (Apresoline -) 10 mg PO TID [facility] Last Admin: 04/17/18 06:28 Dose: 10 mg Piperacillin Sod/Tazobactam (Sod 3.375 gm/ Dextrose) 50 mls @ 100 mls/hr IVPB Q8H-IV [facility]; Protocol Last Admin: 04/17/18 09:11 Dose: 100 mls/hr Metoprolol Tartrate (Lopressor -) 25 mg PO BID [facility] Last Admin: 04/17/18 09:11 Dose: 25 mg Mirtazapine (Remeron -) 15 mg PO HS [facility] Last Admin: 04/16/18 22:15 Dose: 15 mg Pantoprazole Sodium (Protonix -) 40 mg PO BID [facility] Last Admin: 04/17/18 09:11 Dose: 40 mg Polyethylene Glycol (Miralax (For Daily Use) -) 17 gm PO DAILY [facility] Last Admin: 04/17/18 09:12 Dose: 17 gm Potassium Chloride (K-Dur -) 40 meq PO DAILY [facility] Last Admin: 04/17/18 09:11 Dose: 40 meq Senna/Docusate Sodium (Pericolace -) 1 tablet PO BID [facility] Last Admin: 04/17/18 09:11 Dose: 1 tablet - Objective Vital Signs: Vital Signs Temperature 98.4 F 04/17/18 10:00 Pulse Rate 99 H 04/17/18 10:00 Respiratory Rate 18 04/17/18 10:00 Blood Pressure 124/77 04/17/18 10:00 O2 Sat by Pulse Oximetry (%) 96 04/17/18 10:00 Constitutional: Yes: Calm, Mild Distress, Other (failure to thrive) Cardiovascular: Yes: Regular Rate and Rhythm Respiratory: Yes: Regular, On Nasal O2, Poor Air Entry, Rhonchi Gastrointestinal: Yes: Normal Bowel Sounds, Soft Musculoskeletal: Yes: WNL Extremities: Yes: WNL Neurological: Yes: Alert Psychiatric: Yes: Alert Labs: CBC, BMP 04/17/18 05:50 04/17/18 05:50 INR, PTT INR 1.58 (0.83-1.09) H 04/12/18 17:00 Assessment/Plan Problem List - Problems (1) Pneumonia Code(s): J18.9 - PNEUMONIA, UNSPECIFIED ORGANISM Qualifiers: Laterality: left Lung location: upper lobe of lung (2) HTN (hypertension) Code(s): I10 - ESSENTIAL (PRIMARY) HYPERTENSION Qualifiers: Hypertension type: essential hypertension Qualified Code(s): I10 - Essential (primary) hypertension (3) Hyperlipidemia Code(s): E78.5 - HYPERLIPIDEMIA, UNSPECIFIED Qualifiers: Hyperlipidemia type: pure hypercholesterolemia Qualified Code(s): E78.00 - Pure hypercholesterolemia, unspecified; E78.0 - Pure hypercholesterolemia (4) Lung cancer Code(s): C34.90 - MALIGNANT NEOPLASM OF UNSP PART OF UNSP BRONCHUS OR LUNG Qualifiers: Laterality: left Lung location: hilum of lung Qualified Code(s): C34.02 - Malignant neoplasm of left main bronchus (5) Previous myocardial infarction older than 8 weeks Code(s): I25.2 - OLD MYOCARDIAL INFARCTION (6) Anemia Code(s): D64.9 - ANEMIA, UNSPECIFIED Assessment/Plan 1. Post-obstructive PNA, recurrent 2. Non small cell lung ca 3. Anemia 4. Failure to thrive 5. CAD h/o [place] plan iv abx nutrition rest as per the team transfusions if needed final plan monitor h and h and wbc
--- NOTE | 2018-04-17 17:46 | PN ---
Progress Note, Physician History of Present Illness: no complaints - Current Medication List Current Medications: Active Medications Acetaminophen (Tylenol -) 650 mg PO Q6H PRN PRN Reason: FEVER Albuterol Sulfate (Ventolin 0.083% Nebulizer Soln -) 1 amp NEB Q4H PRN PRN Reason: SHORT OF BREATH/WHEEZING Last Admin: 04/17/18 07:30 Dose: 1 amp Amlodipine Besylate (Norvasc -) 5 mg PO DAILY [facility] Last Admin: 04/17/18 09:11 Dose: 5 mg Atorvastatin Calcium (Lipitor -) 40 mg PO HS [facility] Last Admin: 04/16/18 22:11 Dose: 40 mg Heparin Sodium (Porcine) (Heparin -) 5,000 unit SQ BID [facility] Last Admin: 04/17/18 09:11 Dose: 5,000 unit Hydralazine HCl (Apresoline -) 10 mg PO TID [facility] Last Admin: 04/17/18 14:34 Dose: 10 mg Piperacillin Sod/Tazobactam (Sod 3.375 gm/ Dextrose) 50 mls @ 100 mls/hr IVPB Q8H-IV [facility]; Protocol Last Admin: 04/17/18 17:25 Dose: 100 mls/hr Metoprolol Tartrate (Lopressor -) 25 mg PO BID [facility] Last Admin: 04/17/18 09:11 Dose: 25 mg Mirtazapine (Remeron -) 15 mg PO HS [facility] Last Admin: 04/16/18 22:15 Dose: 15 mg Pantoprazole Sodium (Protonix -) 40 mg PO BID [facility] Last Admin: 04/17/18 09:11 Dose: 40 mg Polyethylene Glycol (Miralax (For Daily Use) -) 17 gm PO DAILY [facility] Last Admin: 04/17/18 09:12 Dose: 17 gm Potassium Chloride (K-Dur -) 40 meq PO DAILY [facility] Last Admin: 04/17/18 09:11 Dose: 40 meq Senna/Docusate Sodium (Pericolace -) 1 tablet PO BID [facility] Last Admin: 04/17/18 09:11 Dose: 1 tablet - Objective Vital Signs: Vital Signs Temperature 98.8 F 04/17/18 14:00 Pulse Rate 112 H 04/17/18 14:00 Respiratory Rate 18 04/17/18 14:00 Blood Pressure 126/77 04/17/18 14:00 O2 Sat by Pulse Oximetry (%) 96 04/17/18 10:00 Constitutional: Yes: No Distress HENT: Yes: Atraumatic Neck: Yes: Supple Cardiovascular: Yes: Regular Rate and Rhythm Respiratory: Yes: CTA Bilaterally Gastrointestinal: Yes: Normal Bowel Sounds Extremities: Yes: WNL Neurological: Yes: Alert, Oriented Labs: CBC, BMP 04/17/18 05:50 04/17/18 05:50 INR, PTT INR 1.58 (0.83-1.09) H 04/12/18 17:00 Problem List - Problems (1) Lung mass Assessment/Plan: on RT Code(s): R91.8 - OTHER NONSPECIFIC ABNORMAL FINDING OF LUNG FIELD (2) HTN (hypertension) Assessment/Plan: on meds stable Code(s): I10 - ESSENTIAL (PRIMARY) HYPERTENSION Qualifiers: Hypertension type: essential hypertension Qualified Code(s): I10 - Essential (primary) hypertension (3) Hyperlipidemia Assessment/Plan: on meds stable Code(s): E78.5 - HYPERLIPIDEMIA, UNSPECIFIED Qualifiers: Hyperlipidemia type: pure hypercholesterolemia Qualified Code(s): E78.00 - Pure hypercholesterolemia, unspecified; E78.0 - Pure hypercholesterolemia (4) Lung cancer Code(s): C34.90 - MALIGNANT NEOPLASM OF UNSP PART OF UNSP BRONCHUS OR LUNG Qualifiers: Laterality: left Lung location: hilum of lung Qualified Code(s): C34.02 - Malignant neoplasm of left main bronchus (5) Pneumonia Assessment/Plan: on iv abx Code(s): J18.9 - PNEUMONIA, UNSPECIFIED ORGANISM Qualifiers: Laterality: left Lung location: upper lobe of lung
[2018-04-17] MEDS: MIRTAZAPINE 15 MG TABLET (FP) PO SCH (23:29)
[2018-04-17] MEDS: ATORVASTATIN CA 40 MG TABLET (FP) PO SCH (23:29)
[2018-04-18] MEDS ORDERED: PIPERACILLIN/TAZOBACTAM 3.375 GM VIAL IVPB ONE ×3 (00:37→17:47)
[2018-04-18] MEDS ORDERED: DEXTROSE 5%-WATER - 50 ML IVPB ONE ×3 (00:38→17:47)
[2018-04-18] MEDS: PIPERACILLIN/TAZOB 3.375 GM 3.375 GM in DEXTROSE 5%-WATER - 50 ML IVPB SCH ×3 (02:43→18:53)
[2018-04-18] MEDS: hydrALAZINE HCL 10 MG TABLET PO SCH ×3 (06:30→21:21)
[2018-04-18] MEDS ORDERED: PT OWN MED DRAWER 7, Y5N ONE (11:49)
[2018-04-18] MEDS: POTASSIUM CHLORIDE TABS 20 MEQ TABLET.ER (FP) PO SCH (11:58)
[2018-04-18] MEDS: HEPARIN NA (PORCINE) 5,000 UNITS/ML 1ML VIAL SQ SCH ×2 (11:59→21:21)
[2018-04-18] MEDS: METOPROLOL TARTRATE 25 MG TABLET (FP) PO SCH ×2 (11:59→21:21)
[2018-04-18] MEDS: SENNOSIDES/DOCUSATE COMBO (SENNA PLUS) TABLET (UD) PO SCH ×2 (11:59→21:21)
[2018-04-18] MEDS: amLODIPine BESYLATE 5 MG TABLET (FP) PO SCH (11:59)
[2018-04-18] MEDS: PANTOPRAZOLE 40 MG TABLET (FP) PO SCH ×2 (12:00→21:21)
--- NOTE | 2018-04-18 14:42 | PN ---
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 He has 6 treatments left but we will hold RT for now until he is medically stabilized. Plan to resume RT once discharged.
[2018-04-18] MEDS: POLYETHYLENE GLYCOL 3350 119 GM BTL PO SCH (15:29)
--- NOTE | 2018-04-18 16:13 | PN ---
Progress Note, Physician History of Present Illness: no complaints - Current Medication List Current Medications: Active Medications Acetaminophen (Tylenol -) 650 mg PO Q6H PRN PRN Reason: FEVER Amlodipine Besylate (Norvasc -) 5 mg PO DAILY [facility] Last Admin: 04/18/18 11:59 Dose: 5 mg Atorvastatin Calcium (Lipitor -) 40 mg PO HS [facility] Last Admin: 04/17/18 23:29 Dose: 40 mg Heparin Sodium (Porcine) (Heparin -) 5,000 unit SQ BID [facility] Last Admin: 04/18/18 11:59 Dose: 5,000 unit Hydralazine HCl (Apresoline -) 10 mg PO TID [facility] Last Admin: 04/18/18 15:25 Dose: 10 mg Piperacillin Sod/Tazobactam (Sod 3.375 gm/ Dextrose) 50 mls @ 100 mls/hr IVPB Q8H-IV [facility]; Protocol Last Admin: 04/18/18 12:00 Dose: 100 mls/hr Metoprolol Tartrate (Lopressor -) 25 mg PO BID [facility] Last Admin: 04/18/18 11:59 Dose: 25 mg Mirtazapine (Remeron -) 15 mg PO HS [facility] Last Admin: 04/17/18 23:29 Dose: 15 mg Pantoprazole Sodium (Protonix -) 40 mg PO BID [facility] Last Admin: 04/18/18 12:00 Dose: 40 mg Polyethylene Glycol (Miralax (For Daily Use) -) 17 gm PO DAILY [facility] Last Admin: 04/18/18 15:29 Dose: 17 gm Potassium Chloride (K-Dur -) 40 meq PO DAILY [facility] Last Admin: 04/18/18 11:58 Dose: 40 meq Senna/Docusate Sodium (Pericolace -) 1 tablet PO BID [facility] Last Admin: 04/18/18 11:59 Dose: 1 tablet - Objective Vital Signs: Vital Signs Temperature 97.5 F L 04/18/18 14:57 Pulse Rate 103 H 04/18/18 14:57 Respiratory Rate 18 04/18/18 14:57 Blood Pressure 112/71 04/18/18 14:57 O2 Sat by Pulse Oximetry (%) 94 L 04/18/18 09:00 Constitutional: Yes: No Distress HENT: Yes: Atraumatic Neck: Yes: Supple Cardiovascular: Yes: Regular Rate and Rhythm Respiratory: Yes: CTA Bilaterally Gastrointestinal: Yes: Normal Bowel Sounds Extremities: Yes: WNL Edema: No Neurological: Yes: Alert, Oriented Labs: CBC, BMP 04/17/18 05:50 04/17/18 05:50 INR, PTT INR 1.58 (0.83-1.09) H 04/12/18 17:00 Problem List - Problems (1) Lung mass Assessment/Plan: on RT Code(s): R91.8 - OTHER NONSPECIFIC ABNORMAL FINDING OF LUNG FIELD (2) HTN (hypertension) Assessment/Plan: on meds stable Code(s): I10 - ESSENTIAL (PRIMARY) HYPERTENSION Qualifiers: Hypertension type: essential hypertension Qualified Code(s): I10 - Essential (primary) hypertension (3) Hyperlipidemia Assessment/Plan: on meds stable Code(s): E78.5 - HYPERLIPIDEMIA, UNSPECIFIED Qualifiers: Hyperlipidemia type: pure hypercholesterolemia Qualified Code(s): E78.00 - Pure hypercholesterolemia, unspecified; E78.0 - Pure hypercholesterolemia (4) Lung cancer Code(s): C34.90 - MALIGNANT NEOPLASM OF UNSP PART OF UNSP BRONCHUS OR LUNG Qualifiers: Laterality: left Lung location: hilum of lung Qualified Code(s): C34.02 - Malignant neoplasm of left main bronchus (5) Pneumonia Assessment/Plan: on iv abx Code(s): J18.9 - PNEUMONIA, UNSPECIFIED ORGANISM Qualifiers: Laterality: left Lung location: upper lobe of lung
--- NOTE | 2018-04-18 17:36 | PN ---
Progress Note, Physician History of Present Illness: says he is feeling much better still with cough looks comfortable no specific complaints - Current Medication List Current Medications: Active Medications Acetaminophen (Tylenol -) 650 mg PO Q6H PRN PRN Reason: FEVER Amlodipine Besylate (Norvasc -) 5 mg PO DAILY [facility] Last Admin: 04/18/18 11:59 Dose: 5 mg Atorvastatin Calcium (Lipitor -) 40 mg PO HS [facility] Last Admin: 04/17/18 23:29 Dose: 40 mg Heparin Sodium (Porcine) (Heparin -) 5,000 unit SQ BID [facility] Last Admin: 04/18/18 11:59 Dose: 5,000 unit Hydralazine HCl (Apresoline -) 10 mg PO TID [facility] Last Admin: 04/18/18 15:25 Dose: 10 mg Piperacillin Sod/Tazobactam (Sod 3.375 gm/ Dextrose) 50 mls @ 100 mls/hr IVPB Q8H-IV [facility]; Protocol Last Admin: 04/18/18 12:00 Dose: 100 mls/hr Metoprolol Tartrate (Lopressor -) 25 mg PO BID [facility] Last Admin: 04/18/18 11:59 Dose: 25 mg Mirtazapine (Remeron -) 15 mg PO HS [facility] Last Admin: 04/17/18 23:29 Dose: 15 mg Pantoprazole Sodium (Protonix -) 40 mg PO BID [facility] Last Admin: 04/18/18 12:00 Dose: 40 mg Polyethylene Glycol (Miralax (For Daily Use) -) 17 gm PO DAILY [facility] Last Admin: 04/18/18 15:29 Dose: 17 gm Potassium Chloride (K-Dur -) 40 meq PO DAILY [facility] Last Admin: 04/18/18 11:58 Dose: 40 meq Senna/Docusate Sodium (Pericolace -) 1 tablet PO BID [facility] Last Admin: 04/18/18 11:59 Dose: 1 tablet - Objective Vital Signs: Vital Signs Temperature 97.5 F L 04/18/18 14:57 Pulse Rate 103 H 04/18/18 14:57 Respiratory Rate 18 04/18/18 14:57 Blood Pressure 112/71 04/18/18 14:57 O2 Sat by Pulse Oximetry (%) 94 L 04/18/18 09:00 Constitutional: Yes: No Distress, Calm, Other (failure to thrive) Cardiovascular: Yes: Regular Rate and Rhythm Respiratory: Yes: Regular, On Nasal O2, Poor Air Entry, Rhonchi Gastrointestinal: Yes: Normal Bowel Sounds, Soft Musculoskeletal: Yes: WNL Extremities: Yes: WNL Neurological: Yes: Alert, Oriented Psychiatric: Yes: Alert, Oriented Labs: CBC, BMP 04/17/18 05:50 04/17/18 05:50 INR, PTT INR 1.58 (0.83-1.09) H 04/12/18 17:00 Assessment/Plan Problem List - Problems (1) Pneumonia Code(s): J18.9 - PNEUMONIA, UNSPECIFIED ORGANISM Qualifiers: Laterality: left Lung location: upper lobe of lung (2) HTN (hypertension) Code(s): I10 - ESSENTIAL (PRIMARY) HYPERTENSION Qualifiers: Hypertension type: essential hypertension Qualified Code(s): I10 - Essential (primary) hypertension (3) Hyperlipidemia Code(s): E78.5 - HYPERLIPIDEMIA, UNSPECIFIED Qualifiers: Hyperlipidemia type: pure hypercholesterolemia Qualified Code(s): E78.00 - Pure hypercholesterolemia, unspecified; E78.0 - Pure hypercholesterolemia (4) Lung cancer Code(s): C34.90 - MALIGNANT NEOPLASM OF UNSP PART OF UNSP BRONCHUS OR LUNG Qualifiers: Laterality: left Lung location: hilum of lung Qualified Code(s): C34.02 - Malignant neoplasm of left main bronchus (5) Previous myocardial infarction older than 8 weeks Code(s): I25.2 - OLD MYOCARDIAL INFARCTION (6) Anemia Code(s): D64.9 - ANEMIA, UNSPECIFIED Assessment/Plan 1. Post-obstructive PNA, recurrent 2. Non small cell lung ca 3. Anemia 4. Failure to thrive 5. CAD h/o [place] plan iv abx nutrition rest as per the team transfusions if needed final plan can change to oral augmentin for another week 875 mg bid for a week
--- NOTE | 2018-04-18 18:46 | PN ---
Progress Note, Physician Chief Complaint: Events noted Tachycardic No significant change History of Present Illness: Patient was seen and examined. Chart was reviewed Generalized weakness - Current Medication List Current Medications: Active Medications Acetaminophen (Tylenol -) 650 mg PO Q6H PRN PRN Reason: FEVER Amlodipine Besylate (Norvasc -) 5 mg PO DAILY [facility] Last Admin: 04/18/18 11:59 Dose: 5 mg Atorvastatin Calcium (Lipitor -) 40 mg PO HS [facility] Last Admin: 04/17/18 23:29 Dose: 40 mg Heparin Sodium (Porcine) (Heparin -) 5,000 unit SQ BID [facility] Last Admin: 04/18/18 11:59 Dose: 5,000 unit Hydralazine HCl (Apresoline -) 10 mg PO TID [facility] Last Admin: 04/18/18 15:25 Dose: 10 mg Piperacillin Sod/Tazobactam (Sod 3.375 gm/ Dextrose) 50 mls @ 100 mls/hr IVPB Q8H-IV [facility]; Protocol Last Admin: 04/18/18 12:00 Dose: 100 mls/hr Metoprolol Tartrate (Lopressor -) 25 mg PO BID [facility] Last Admin: 04/18/18 11:59 Dose: 25 mg Mirtazapine (Remeron -) 15 mg PO HS [facility] Last Admin: 04/17/18 23:29 Dose: 15 mg Pantoprazole Sodium (Protonix -) 40 mg PO BID [facility] Last Admin: 04/18/18 12:00 Dose: 40 mg Polyethylene Glycol (Miralax (For Daily Use) -) 17 gm PO DAILY [facility] Last Admin: 04/18/18 15:29 Dose: 17 gm Potassium Chloride (K-Dur -) 40 meq PO DAILY [facility] Last Admin: 04/18/18 11:58 Dose: 40 meq Senna/Docusate Sodium (Pericolace -) 1 tablet PO BID [facility] Last Admin: 04/18/18 11:59 Dose: 1 tablet - Objective Vital Signs: Vital Signs Temperature 97.5 F L 04/18/18 14:57 Pulse Rate 103 H 04/18/18 14:57 Respiratory Rate 18 04/18/18 14:57 Blood Pressure 112/71 04/18/18 14:57 O2 Sat by Pulse Oximetry (%) 94 L 04/18/18 09:00 HENT: Yes: Atraumatic Neck: Yes: Supple Cardiovascular: Yes: Regular Rate and Rhythm, Tachycardia, S1, S2 Respiratory: Yes: Diminished Gastrointestinal: Yes: Normal Bowel Sounds, Soft. No: Tenderness Edema: No Labs: CBC, BMP 04/17/18 05:50 04/17/18 05:50 INR, PTT INR 1.58 (0.83-1.09) H 04/12/18 17:00 Problem List - Problems (1) Failure to thrive in adult Code(s): R62.7 - ADULT FAILURE TO THRIVE (2) Pneumonia Code(s): J18.9 - PNEUMONIA, UNSPECIFIED ORGANISM Qualifiers: Laterality: left Lung location: upper lobe of lung (3) Sepsis Code(s): A41.9 - SEPSIS, UNSPECIFIED ORGANISM (4) HTN (hypertension) Code(s): I10 - ESSENTIAL (PRIMARY) HYPERTENSION Qualifiers: Hypertension type: essential hypertension Qualified Code(s): I10 - Essential (primary) hypertension (5) Hyperlipidemia Code(s): E78.5 - HYPERLIPIDEMIA, UNSPECIFIED Qualifiers: Hyperlipidemia type: pure hypercholesterolemia Qualified Code(s): E78.00 - Pure hypercholesterolemia, unspecified; E78.0 - Pure hypercholesterolemia (6) Lung cancer Code(s): C34.90 - MALIGNANT NEOPLASM OF UNSP PART OF UNSP BRONCHUS OR LUNG Qualifiers: Laterality: left Lung location: hilum of lung Qualified Code(s): C34.02 - Malignant neoplasm of left main bronchus Assessment/Plan 1. Post-obstructive pneumonia 2. Non small cell lung CA 3. Anemia 4. Failure to thrive 5. CAD h/o [place] PLAN: 1. Antibiotic course per ID 2. Nutritional support, replete K and supportive care 3. Transfuse to maintain Hgb>8.0 4. Continue Norvasc, Lipitor, Hydralazine and Lopressor 5. DVT and GI prophylaxis Dain Corley MD
[2018-04-18] MEDS: MIRTAZAPINE 15 MG TABLET (FP) PO SCH (21:21)
[2018-04-18] MEDS: ATORVASTATIN CA 40 MG TABLET (FP) PO SCH (21:21)
[2018-04-19] MEDS ORDERED: DEXTROSE 5%-WATER - 50 ML IVPB ONE ×2 (00:29→10:48)
[2018-04-19] MEDS ORDERED: PIPERACILLIN/TAZOBACTAM 3.375 GM VIAL IVPB ONE ×2 (00:29→10:48)
[2018-04-19] MEDS: PIPERACILLIN/TAZOB 3.375 GM 3.375 GM in DEXTROSE 5%-WATER - 50 ML IVPB SCH ×2 (01:43→10:54)
[2018-04-19] MEDS: hydrALAZINE HCL 10 MG TABLET PO SCH ×3 (06:01→21:29)
[2018-04-19] MEDS: POTASSIUM CHLORIDE TABS 20 MEQ TABLET.ER (FP) PO SCH (10:53)
[2018-04-19] MEDS: HEPARIN NA (PORCINE) 5,000 UNITS/ML 1ML VIAL SQ SCH ×2 (10:53→21:29)
[2018-04-19] MEDS: SENNOSIDES/DOCUSATE COMBO (SENNA PLUS) TABLET (UD) PO SCH ×2 (10:53→21:29)
[2018-04-19] MEDS: PANTOPRAZOLE 40 MG TABLET (FP) PO SCH ×2 (10:53→21:29)
[2018-04-19] MEDS: amLODIPine BESYLATE 5 MG TABLET (FP) PO SCH (10:53)
[2018-04-19] MEDS: METOPROLOL TARTRATE 25 MG TABLET (FP) PO SCH ×2 (10:54→21:29)
[2018-04-19] MEDS: POLYETHYLENE GLYCOL 3350 119 GM BTL PO SCH (10:54)
--- NOTE | 2018-04-19 12:38 | PN ---
Progress Note, Physician History of Present Illness: no new issues stable - Current Medication List Current Medications: Active Medications Acetaminophen (Tylenol -) 650 mg PO Q6H PRN PRN Reason: FEVER Amlodipine Besylate (Norvasc -) 5 mg PO DAILY [facility] Last Admin: 04/19/18 10:53 Dose: 5 mg Atorvastatin Calcium (Lipitor -) 40 mg PO HS [facility] Last Admin: 04/18/18 21:21 Dose: 40 mg Heparin Sodium (Porcine) (Heparin -) 5,000 unit SQ BID [facility] Last Admin: 04/19/18 10:53 Dose: 5,000 unit Hydralazine HCl (Apresoline -) 10 mg PO TID [facility] Last Admin: 04/19/18 06:01 Dose: 10 mg Piperacillin Sod/Tazobactam (Sod 3.375 gm/ Dextrose) 50 mls @ 100 mls/hr IVPB Q8H-IV [facility]; Protocol Last Admin: 04/19/18 10:54 Dose: 100 mls/hr Metoprolol Tartrate (Lopressor -) 25 mg PO BID [facility] Last Admin: 04/19/18 10:54 Dose: 25 mg Mirtazapine (Remeron -) 15 mg PO HS [facility] Last Admin: 04/18/18 21:21 Dose: 15 mg Pantoprazole Sodium (Protonix -) 40 mg PO BID [facility] Last Admin: 04/19/18 10:53 Dose: 40 mg Polyethylene Glycol (Miralax (For Daily Use) -) 17 gm PO DAILY [facility] Last Admin: 04/19/18 10:54 Dose: 17 gm Potassium Chloride (K-Dur -) 40 meq PO DAILY [facility] Last Admin: 04/19/18 10:53 Dose: 40 meq Senna/Docusate Sodium (Pericolace -) 1 tablet PO BID [facility] Last Admin: 04/19/18 10:53 Dose: 1 tablet - Objective Vital Signs: Vital Signs Temperature 98.0 F 04/19/18 06:00 Pulse Rate 113 H 04/19/18 06:00 Respiratory Rate 18 04/19/18 06:00 Blood Pressure 130/72 04/19/18 06:00 O2 Sat by Pulse Oximetry (%) 94 L 04/18/18 21:00 Constitutional: Yes: No Distress, Calm Cardiovascular: Yes: Regular Rate and Rhythm Respiratory: Yes: Poor Air Entry, Rhonchi Gastrointestinal: Yes: Normal Bowel Sounds, Soft Musculoskeletal: Yes: WNL Extremities: Yes: WNL Neurological: Yes: Alert, Oriented Psychiatric: Yes: Alert, Oriented Labs: CBC, BMP 04/17/18 05:50 04/17/18 05:50 INR, PTT INR 1.58 (0.83-1.09) H 04/12/18 17:00 Assessment/Plan Problem List - Problems (1) Pneumonia Code(s): J18.9 - PNEUMONIA, UNSPECIFIED ORGANISM Qualifiers: Laterality: left Lung location: upper lobe of lung (2) HTN (hypertension) Code(s): I10 - ESSENTIAL (PRIMARY) HYPERTENSION Qualifiers: Hypertension type: essential hypertension Qualified Code(s): I10 - Essential (primary) hypertension (3) Hyperlipidemia Code(s): E78.5 - HYPERLIPIDEMIA, UNSPECIFIED Qualifiers: Hyperlipidemia type: pure hypercholesterolemia Qualified Code(s): E78.00 - Pure hypercholesterolemia, unspecified; E78.0 - Pure hypercholesterolemia (4) Lung cancer Code(s): C34.90 - MALIGNANT NEOPLASM OF UNSP PART OF UNSP BRONCHUS OR LUNG Qualifiers: Laterality: left Lung location: hilum of lung Qualified Code(s): C34.02 - Malignant neoplasm of left main bronchus (5) Previous myocardial infarction older than 8 weeks Code(s): I25.2 - OLD MYOCARDIAL INFARCTION (6) Anemia Code(s): D64.9 - ANEMIA, UNSPECIFIED Assessment/Plan 1. Post-obstructive PNA, recurrent 2. Non small cell lung ca 3. Anemia 4. Failure to thrive 5. CAD h/o [place] plan changed to oral abx to continue for a week incentive marquita rest as per the team patient stable
--- NOTE | 2018-04-19 13:26 | PN ---
Progress Note, Physician History of Present Illness: Afebrile, resting comfortably. - Current Medication List Current Medications: Active Medications Acetaminophen (Tylenol -) 650 mg PO Q6H PRN PRN Reason: FEVER Amlodipine Besylate (Norvasc -) 5 mg PO DAILY [facility] Last Admin: 04/19/18 10:53 Dose: 5 mg Amoxicillin/Clavulanate Potassium (Augmentin - 875mg Tablet) 1 tab PO BID@0800, 1730 [facility] Atorvastatin Calcium (Lipitor -) 40 mg PO HS [facility] Last Admin: 04/18/18 21:21 Dose: 40 mg Heparin Sodium (Porcine) (Heparin -) 5,000 unit SQ BID [facility] Last Admin: 04/19/18 10:53 Dose: 5,000 unit Hydralazine HCl (Apresoline -) 10 mg PO TID [facility] Last Admin: 04/19/18 06:01 Dose: 10 mg Metoprolol Tartrate (Lopressor -) 25 mg PO BID [facility] Last Admin: 04/19/18 10:54 Dose: 25 mg Mirtazapine (Remeron -) 15 mg PO [facility] Last Admin: 04/18/18 21:21 Dose: 15 mg Pantoprazole Sodium (Protonix -) 40 mg PO BID [facility] Last Admin: 04/19/18 10:53 Dose: 40 mg Polyethylene Glycol (Miralax (For Daily Use) -) 17 gm PO DAILY [facility] Last Admin: 04/19/18 10:54 Dose: 17 gm Potassium Chloride (K-Dur -) 40 meq PO DAILY [facility] Last Admin: 04/19/18 10:53 Dose: 40 meq Senna/Docusate Sodium (Pericolace -) 1 tablet PO BID [facility] Last Admin: 04/19/18 10:53 Dose: 1 tablet - Objective Vital Signs: Vital Signs Temperature 98.0 F 04/19/18 06:00 Pulse Rate 113 H 04/19/18 06:00 Respiratory Rate 18 04/19/18 06:00 Blood Pressure 130/72 04/19/18 06:00 O2 Sat by Pulse Oximetry (%) 94 L 04/18/18 21:00 Constitutional: Yes: No Distress, Calm, Cachectic, Thin Neck: Yes: Supple Cardiovascular: Yes: Regular Rate and Rhythm Respiratory: Yes: Regular, Diminished, On Nasal O2 Gastrointestinal: Yes: Normal Bowel Sounds, Soft Edema: No Labs: CBC, BMP 04/17/18 05:50 04/17/18 05:50 INR, PTT INR 1.58 (0.83-1.09) H 04/12/18 17:00 Problem List - Problems (1) Pneumonia Code(s): J18.9 - PNEUMONIA, UNSPECIFIED ORGANISM Qualifiers: Laterality: left Lung location: upper lobe of lung (2) HTN (hypertension) Code(s): I10 - ESSENTIAL (PRIMARY) HYPERTENSION Qualifiers: Hypertension type: essential hypertension Qualified Code(s): I10 - Essential (primary) hypertension (3) Hyperlipidemia Code(s): E78.5 - HYPERLIPIDEMIA, UNSPECIFIED Qualifiers: Hyperlipidemia type: pure hypercholesterolemia Qualified Code(s): E78.00 - Pure hypercholesterolemia, unspecified; E78.0 - Pure hypercholesterolemia (4) Lung cancer Code(s): C34.90 - MALIGNANT NEOPLASM OF UNSP PART OF UNSP BRONCHUS OR LUNG Qualifiers: Laterality: left Lung location: hilum of lung Qualified Code(s): C34.02 - Malignant neoplasm of left main bronchus (5) Previous myocardial infarction older than 8 weeks Code(s): I25.2 - OLD MYOCARDIAL INFARCTION (6) Anemia Code(s): D64.9 - ANEMIA, UNSPECIFIED (7) Anorexia Code(s): R63.0 - ANOREXIA (8) Failure to thrive in adult Code(s): R62.7 - ADULT FAILURE TO THRIVE Assessment/Plan 1. Post-obstructive pneumonia, recurrent 2. Non small cell lung CA 3. Anemia 4. Failure to thrive 5. CAD h/o [place] PLAN: 1. Complete oral antibiotic course per ID 2. Nutritional support, replete K and supportive care 3. Transfuse to maintain Hgb>8.0 4. Continue Norvasc, Lipitor, Hydralazine and Lopressor 5. DVT and GI prophylaxis
--- NOTE | 2018-04-19 17:43 | PN ---
Progress Note, Physician - Current Medication List Current Medications: Active Medications Acetaminophen (Tylenol -) 650 mg PO Q6H PRN PRN Reason: FEVER Amlodipine Besylate (Norvasc -) 5 mg PO DAILY [facility] Last Admin: 04/19/18 10:53 Dose: 5 mg Amoxicillin/Clavulanate Potassium (Augmentin - 875mg Tablet) 1 tab PO BID@0800, 1730 [facility] Atorvastatin Calcium (Lipitor -) 40 mg PO HS [facility] Last Admin: 04/18/18 21:21 Dose: 40 mg Heparin Sodium (Porcine) (Heparin -) 5,000 unit SQ BID [facility] Last Admin: 04/19/18 10:53 Dose: 5,000 unit Hydralazine HCl (Apresoline -) 10 mg PO TID [facility] Last Admin: 04/19/18 14:57 Dose: 10 mg Metoprolol Tartrate (Lopressor -) 25 mg PO BID [facility] Last Admin: 04/19/18 10:54 Dose: 25 mg Mirtazapine (Remeron -) 15 mg PO [facility] Last Admin: 04/18/18 21:21 Dose: 15 mg Pantoprazole Sodium (Protonix -) 40 mg PO BID [facility] Last Admin: 04/19/18 10:53 Dose: 40 mg Polyethylene Glycol (Miralax (For Daily Use) -) 17 gm PO DAILY [facility] Last Admin: 04/19/18 10:54 Dose: 17 gm Potassium Chloride (K-Dur -) 40 meq PO DAILY [facility] Last Admin: 04/19/18 10:53 Dose: 40 meq Senna/Docusate Sodium (Pericolace -) 1 tablet PO BID [facility] Last Admin: 04/19/18 10:53 Dose: 1 tablet - Objective Vital Signs: Vital Signs Temperature 98.6 F 04/19/18 14:23 Pulse Rate 104 H 04/19/18 14:55 Respiratory Rate 18 04/19/18 14:55 Blood Pressure 120/72 04/19/18 14:55 O2 Sat by Pulse Oximetry (%) 96 04/19/18 09:00 Constitutional: Yes: No Distress HENT: Yes: Atraumatic Neck: Yes: Supple Cardiovascular: Yes: Regular Rate and Rhythm Respiratory: Yes: CTA Bilaterally Gastrointestinal: Yes: Normal Bowel Sounds Extremities: Yes: WNL Edema: LLE: Trace, RLE: Trace Neurological: Yes: Alert, Oriented Labs: CBC, BMP 04/17/18 05:50 04/17/18 05:50 INR, PTT INR 1.58 (0.83-1.09) H 04/12/18 17:00 Problem List - Problems (1) Lung mass Assessment/Plan: RT..on hold Code(s): R91.8 - OTHER NONSPECIFIC ABNORMAL FINDING OF LUNG FIELD (2) HTN (hypertension) Assessment/Plan: on meds stable Code(s): I10 - ESSENTIAL (PRIMARY) HYPERTENSION Qualifiers: Hypertension type: essential hypertension Qualified Code(s): I10 - Essential (primary) hypertension (3) Hyperlipidemia Assessment/Plan: on meds stable Code(s): E78.5 - HYPERLIPIDEMIA, UNSPECIFIED Qualifiers: Hyperlipidemia type: pure hypercholesterolemia Qualified Code(s): E78.00 - Pure hypercholesterolemia, unspecified; E78.0 - Pure hypercholesterolemia (4) Lung cancer Code(s): C34.90 - MALIGNANT NEOPLASM OF UNSP PART OF UNSP BRONCHUS OR LUNG Qualifiers: Laterality: left Lung location: hilum of lung Qualified Code(s): C34.02 - Malignant neoplasm of left main bronchus (5) Pneumonia Assessment/Plan: on iv abx Code(s): J18.9 - PNEUMONIA, UNSPECIFIED ORGANISM Qualifiers: Laterality: left Lung location: upper lobe of lung
--- NOTE | 2018-04-19 17:43 | DS ---
Physical Examination Vital Signs: Vital Signs Temperature 98.6 F 04/19/18 14:23 Pulse Rate 104 H 04/19/18 14:55 Respiratory Rate 18 04/19/18 14:55 Blood Pressure 120/72 04/19/18 14:55 O2 Sat by Pulse Oximetry (%) 96 04/19/18 09:00 Labs: CBC, BMP 04/17/18 05:50 04/17/18 05:50 Discharge Summary Reason For Visit: PNEUMONIA Current Active Problems Anorexia (Acute) Failure to thrive in adult (Acute) Lung mass (Acute) Pneumonia (Acute) Sepsis (Acute) - Instructions - Home Medications Comprehensive Discharge Medication List: Ambulatory Orders Amlodipine Besylate [Norvasc -] 5 mg PO DAILY #30 tablet 02/03/15 Atorvastatin Ca [Lipitor] 40 mg PO HS #30 tablet 02/03/15 Hydralazine HCl 10 mg PO TID #90 tablet 02/03/15 Albuterol 0.083% Nebulizer Reva [Ventolin 0.083% Nebulizer Soln -] 1 amp NEB Q4H PRN #120 amp 03/28/18 Ferrous Sulfate [Feosol] 325 mg PO DAILY #30 ud 03/28/18 Pantoprazole Sodium [Protonix -] 40 mg PO BID #60 tablet.ec 03/28/18 Polyethylene Glycol 3350 [Miralax (For Daily Use) -] 17 gm PO DAILY #5 bottle Sennosides/Docusate Sodium [Pericolace -] 1 each PO BID #60 tablet 03/28/18 Metoprolol Tartrate [Lopressor -] 25 mg PO BID 60 Days tablet 03/30/18 Mirtazapine [Remeron -] 15 mg PO HS #30 tablet 03/30/18 Amox-Tr/K Cl [Augmentin 875-125mg Tablet -] 1 tab PO BID@0800,1730 #14 tablet
[2018-04-19] MEDS: AMOX TR/POT CLAV 875MG/125MG TABLETS (FP) PO SCH (17:58)
[2018-04-19] MEDS: ATORVASTATIN CA 40 MG TABLET (FP) PO SCH (21:29)
[2018-04-19] MEDS: MIRTAZAPINE 15 MG TABLET (FP) PO SCH (21:29)
[2018-04-20] MEDS: hydrALAZINE HCL 10 MG TABLET PO SCH ×2 (06:07→14:02)
[2018-04-20] MEDS: AMOX TR/POT CLAV 875MG/125MG TABLETS (FP) PO SCH ×2 (08:41→17:33)
--- NOTE | 2018-04-20 09:57 | PN ---
Progress Note, Physician History of Present Illness: stable no issues - Current Medication List Current Medications: Active Medications Acetaminophen (Tylenol -) 650 mg PO Q6H PRN PRN Reason: FEVER Amlodipine Besylate (Norvasc -) 5 mg PO DAILY [facility] Last Admin: 04/19/18 10:53 Dose: 5 mg Amoxicillin/Clavulanate Potassium (Augmentin - 875mg Tablet) 1 tab PO BID@0800, 1730 [facility] Last Admin: 04/20/18 08:41 Dose: 1 tab Atorvastatin Calcium (Lipitor -) 40 mg PO HS [facility] Last Admin: 04/19/18 21:29 Dose: 40 mg Heparin Sodium (Porcine) (Heparin -) 5,000 unit SQ BID [facility] Last Admin: 04/19/18 21:29 Dose: 5,000 unit Hydralazine HCl (Apresoline -) 10 mg PO TID [facility] Last Admin: 04/20/18 06:07 Dose: 10 mg Metoprolol Tartrate (Lopressor -) 25 mg PO BID [facility] Last Admin: 04/19/18 21:29 Dose: 25 mg Mirtazapine (Remeron -) 15 mg PO HS [facility] Last Admin: 04/19/18 21:29 Dose: 15 mg Pantoprazole Sodium (Protonix -) 40 mg PO BID [facility] Last Admin: 04/19/18 21:29 Dose: 40 mg Polyethylene Glycol (Miralax (For Daily Use) -) 17 gm PO DAILY [facility] Last Admin: 04/19/18 10:54 Dose: 17 gm Potassium Chloride (K-Dur -) 40 meq PO DAILY [facility] Last Admin: 04/19/18 10:53 Dose: 40 meq Senna/Docusate Sodium (Pericolace -) 1 tablet PO BID [facility] Last Admin: 04/19/18 21:29 Dose: 1 tablet - Objective Vital Signs: Vital Signs Temperature 97.5 F L 04/20/18 06:00 Pulse Rate 108 H 04/20/18 06:00 Respiratory Rate 18 04/20/18 06:00 Blood Pressure 114/71 04/20/18 06:00 O2 Sat by Pulse Oximetry (%) 96 04/19/18 21:00 Constitutional: Yes: No Distress, Calm, Other (failure to thrive) Cardiovascular: Yes: Regular Rate and Rhythm Respiratory: Yes: Regular, CTA Bilaterally Gastrointestinal: Yes: Normal Bowel Sounds, Soft Musculoskeletal: Yes: WNL Extremities: Yes: WNL Neurological: Yes: Alert, Oriented Psychiatric: Yes: Alert, Oriented Labs: CBC, BMP 04/17/18 05:50 04/17/18 05:50 INR, PTT INR 1.58 (0.83-1.09) H 04/12/18 17:00 Assessment/Plan Problem List - Problems (1) Pneumonia Code(s): J18.9 - PNEUMONIA, UNSPECIFIED ORGANISM Qualifiers: Laterality: left Lung location: upper lobe of lung (2) HTN (hypertension) Code(s): I10 - ESSENTIAL (PRIMARY) HYPERTENSION Qualifiers: Hypertension type: essential hypertension Qualified Code(s): I10 - Essential (primary) hypertension (3) Hyperlipidemia Code(s): E78.5 - HYPERLIPIDEMIA, UNSPECIFIED Qualifiers: Hyperlipidemia type: pure hypercholesterolemia Qualified Code(s): E78.00 - Pure hypercholesterolemia, unspecified; E78.0 - Pure hypercholesterolemia (4) Lung cancer Code(s): C34.90 - MALIGNANT NEOPLASM OF UNSP PART OF UNSP BRONCHUS OR LUNG Qualifiers: Laterality: left Lung location: hilum of lung Qualified Code(s): C34.02 - Malignant neoplasm of left main bronchus (5) Previous myocardial infarction older than 8 weeks Code(s): I25.2 - OLD MYOCARDIAL INFARCTION (6) Anemia Code(s): D64.9 - ANEMIA, UNSPECIFIED Assessment/Plan 1. Post-obstructive PNA, recurrent 2. Non small cell lung ca 3. Anemia 4. Failure to thrive 5. CAD h/o [place] plan changed to oral abx to continue for a week incentive marquita rest as per the team patient stable
--- NOTE | 2018-04-20 09:59 | PN ---
Progress Note, Physician History of Present Illness: Afebrile, cough persists. - Current Medication List Current Medications: Active Medications Acetaminophen (Tylenol -) 650 mg PO Q6H PRN PRN Reason: FEVER Amlodipine Besylate (Norvasc -) 5 mg PO DAILY [facility] Last Admin: 04/19/18 10:53 Dose: 5 mg Amoxicillin/Clavulanate Potassium (Augmentin - 875mg Tablet) 1 tab PO BID@0800, 1730 [facility] Last Admin: 04/20/18 08:41 Dose: 1 tab Atorvastatin Calcium (Lipitor -) 40 mg PO HS [facility] Last Admin: 04/19/18 21:29 Dose: 40 mg Heparin Sodium (Porcine) (Heparin -) 5,000 unit SQ BID [facility] Last Admin: 04/19/18 21:29 Dose: 5,000 unit Hydralazine HCl (Apresoline -) 10 mg PO TID [facility] Last Admin: 04/20/18 06:07 Dose: 10 mg Metoprolol Tartrate (Lopressor -) 25 mg PO BID [facility] Last Admin: 04/19/18 21:29 Dose: 25 mg Mirtazapine (Remeron -) 15 mg PO HS [facility] Last Admin: 04/19/18 21:29 Dose: 15 mg Pantoprazole Sodium (Protonix -) 40 mg PO BID [facility] Last Admin: 04/19/18 21:29 Dose: 40 mg Polyethylene Glycol (Miralax (For Daily Use) -) 17 gm PO DAILY [facility] Last Admin: 04/19/18 10:54 Dose: 17 gm Potassium Chloride (K-Dur -) 40 meq PO DAILY [facility] Last Admin: 04/19/18 10:53 Dose: 40 meq Senna/Docusate Sodium (Pericolace -) 1 tablet PO BID [facility] Last Admin: 04/19/18 21:29 Dose: 1 tablet - Objective Vital Signs: Vital Signs Temperature 97.5 F L 04/20/18 06:00 Pulse Rate 108 H 04/20/18 06:00 Respiratory Rate 18 04/20/18 06:00 Blood Pressure 114/71 04/20/18 06:00 O2 Sat by Pulse Oximetry (%) 96 04/19/18 21:00 Constitutional: Yes: No Distress, Calm, Cachectic Neck: Yes: Supple Cardiovascular: Yes: Tachycardia Respiratory: Yes: Regular, Diminished, On Nasal O2 Gastrointestinal: Yes: Normal Bowel Sounds, Soft Edema: No Labs: CBC, BMP 04/17/18 05:50 04/17/18 05:50 INR, PTT INR 1.58 (0.83-1.09) H 04/12/18 17:00 Problem List - Problems (1) Pneumonia Code(s): J18.9 - PNEUMONIA, UNSPECIFIED ORGANISM Qualifiers: Laterality: left Lung location: upper lobe of lung (2) HTN (hypertension) Code(s): I10 - ESSENTIAL (PRIMARY) HYPERTENSION Qualifiers: Hypertension type: essential hypertension Qualified Code(s): I10 - Essential (primary) hypertension (3) Hyperlipidemia Code(s): E78.5 - HYPERLIPIDEMIA, UNSPECIFIED Qualifiers: Hyperlipidemia type: pure hypercholesterolemia Qualified Code(s): E78.00 - Pure hypercholesterolemia, unspecified; E78.0 - Pure hypercholesterolemia (4) Lung cancer Code(s): C34.90 - MALIGNANT NEOPLASM OF UNSP PART OF UNSP BRONCHUS OR LUNG Qualifiers: Laterality: left Lung location: hilum of lung Qualified Code(s): C34.02 - Malignant neoplasm of left main bronchus (5) Previous myocardial infarction older than 8 weeks Code(s): I25.2 - OLD MYOCARDIAL INFARCTION (6) Anemia Code(s): D64.9 - ANEMIA, UNSPECIFIED (7) Anorexia Code(s): R63.0 - ANOREXIA (8) Failure to thrive in adult Code(s): R62.7 - ADULT FAILURE TO THRIVE Assessment/Plan 1. Post-obstructive pneumonia, recurrent 2. Non small cell lung CA 3. Anemia 4. Failure to thrive 5. CAD h/o [place] PLAN: 1. Complete oral antibiotic course per ID 2. Nutritional support, replete K and supportive care 3. Transfuse to maintain Hgb>8.0 4. Continue Norvasc 5 qd, Lipitor 40 qhs, Hydralazine 10 tid and Lopressor 25 bid 5. DVT and GI prophylaxis, d/c planning
[2018-04-20] MEDS: amLODIPine BESYLATE 5 MG TABLET (FP) PO SCH (10:24)
[2018-04-20] MEDS: PANTOPRAZOLE 40 MG TABLET (FP) PO SCH (10:24)
[2018-04-20] MEDS: SENNOSIDES/DOCUSATE COMBO (SENNA PLUS) TABLET (UD) PO SCH (10:24)
[2018-04-20] MEDS: POTASSIUM CHLORIDE TABS 20 MEQ TABLET.ER (FP) PO SCH (10:24)
[2018-04-20] MEDS: METOPROLOL TARTRATE 25 MG TABLET (FP) PO SCH (10:24)
[2018-04-20] MEDS: POLYETHYLENE GLYCOL 3350 119 GM BTL PO SCH (10:24)
[2018-04-20 14:38] VITALS: BP 108/64; PULSE 107; TEMP 98.8
--- NOTE | 2018-04-20 16:59 | DS ---
Physical Examination Vital Signs: Vital Signs Temperature 98.8 F 04/20/18 14:37 Pulse Rate 107 H 04/20/18 14:37 Respiratory Rate 17 04/20/18 14:37 Blood Pressure 108/64 04/20/18 14:37 O2 Sat by Pulse Oximetry (%) 96 04/20/18 09:00 Constitutional: Yes: No Distress HENT: Yes: Atraumatic Neck: Yes: Supple Cardiovascular: Yes: Regular Rate and Rhythm Respiratory: Yes: CTA Bilaterally Gastrointestinal: Yes: Normal Bowel Sounds Extremities: Yes: WNL Edema: LLE: Trace, RLE: Trace Neurological: Yes: Alert, Oriented Labs: CBC, BMP 04/17/18 05:50 04/17/18 05:50 Discharge Summary Reason For Visit: PNEUMONIA Current Active Problems Anorexia (Acute) Failure to thrive in adult (Acute) Lung mass (Acute) Pneumonia (Acute) Sepsis (Acute) - Instructions - Home Medications Comprehensive Discharge Medication List: Ambulatory Orders Amlodipine Besylate [Norvasc -] 5 mg PO DAILY #30 tablet 02/03/15 Atorvastatin Ca [Lipitor] 40 mg PO HS #30 tablet 02/03/15 Hydralazine HCl 10 mg PO TID #90 tablet 02/03/15 Albuterol 0.083% Nebulizer Reva [Ventolin 0.083% Nebulizer Soln -] 1 amp NEB Q4H PRN #120 amp 03/28/18 Ferrous Sulfate [Feosol] 325 mg PO DAILY #30 ud 03/28/18 Pantoprazole Sodium [Protonix -] 40 mg PO BID #60 tablet.ec 03/28/18 Polyethylene Glycol 3350 [Miralax (For Daily Use) -] 17 gm PO DAILY #5 bottle Sennosides/Docusate Sodium [Pericolace -] 1 each PO BID #60 tablet 03/28/18 Metoprolol Tartrate [Lopressor -] 25 mg PO BID 60 Days tablet 03/30/18 Mirtazapine [Remeron -] 15 mg PO HS #30 tablet 03/30/18 Amox-Tr/K Cl [Augmentin 875-125mg Tablet -] 1 tab PO BID@0800,1730 #14 tablet me snf
== END 2018-04-20 18:54 | DRG 177 ==
LOC: JER 15:33 → JERBED 21:49 → UNDOADMIN 22:37 → J5S 04-13 02:33
PROVIDERS: ADMIT Internal Medicine; ATTEND Internal Medicine
DX: J17 Pneumonia in diseases classified elsewhere (principal); E43 Unspecified severe protein-calorie malnutrition; R64 Cachexia; Z68.1 Body mass index [BMI] 19.9 or less, adult; C34.02 Malignant neoplasm of left main bronchus; R62.7 Adult failure to thrive; D64.9 Anemia, unspecified; E78.5 Hyperlipidemia, unspecified; I10 Essential (primary) hypertension; I25.10 Atherosclerotic heart disease of native coronary artery without angina pectoris
CPT/HCPCS: 36415; 36430; 71045-TC-FY; 71250-TC; 80048; 80053; 81003; 82803; 83605; 84484; 85025; 85027; 85610; 85730; 86850; 86900; 86901; 86922; 87040; 87086; 93005; 93010; 94640; 97116-GP; 99284-25; J0131; J1644; J7030; P9038; P9058

== ENCOUNTER 2018-05-17 11:30 | Inpatient (IN) | payer OTHER ==
--- NOTE | 2018-05-17 12:03 | PDOC ---
History of Present Illness - General Chief Complaint: Blood Transfusion Stated Complaint: Blood Transfusion - History of Present Illness Initial Comments: 05/17/18 12:43 The patient is a 78 year old male with a significant past medical history of HTN , HLD, CAD s/p prior [place] (2000 s/p stent), Lung CA, recently diagnosed with pneumonia (started on levoquin 250mg PO yesterday), smoking, who presents to the emergency department for blood transfusion today. He reports chills. He denies bleeding per rectum, but reports one episode of dark stool yesterday. The patient denies chest pain, shortness of breath, headache and dizziness. The patient denies fever, nausea, vomit, diarrhea and constipation. The patient denies dysuria, frequency, urgency and hematuria. Allergies: NKDA Past surgical history: cardiac stent Social history: 1 ppd tobacco smoker, Denies illicit drug use. Denies ETOH consumptions PCP - none Past History - Past Medical History Allergies/Adverse Reactions: Allergies Allergy/AdvReac Type Severity Reaction Status Date / Time No Known Allergies Allergy Verified 04/12/18 16:18 Home Medications: Ambulatory Orders Acetaminophen [Pain Relief] 650 mg PO Q6H PRN 05/17/18 Albuterol 2.5/Ipratropium 0.5 [Duoneb -] 1 neb NEB Q6H 05/17/18 Dimethicone/Zinc Oxide [Leonel Protect Cream] 142 gm TP DAILY 05/17/18 Guaifenesin Dm [Robitussin Dm -] 10 ml PO Q6H 05/17/18 Levofloxacin [Levaquin] 250 mg PO DAILY 05/17/18 Metoprolol Tartrate 25 mg PO BID 05/17/18 Mirtazapine [Remeron Soltab -] 15 mg PO HS 05/17/18 Ondansetron [Zofran -] 4 mg PO Q6H 05/17/18 Polyethylene Glycol 3350 [Purelax] 17 gm PO DAILY 05/17/18 Anemia: Yes Cardiac Disorders: Yes ([place]) CVA: Yes COPD: No HTN: Yes Lung CA: Yes (daily radiation) - Suicide/Smoking/Psychosocial Hx Smoking History: Unknown if ever smoked Have you smoked in the past 12 months: Yes Number of Cigarettes Smoked Daily: 20 If you are a former smoker, when did you quit?: 3 mo Information on smoking cessation initiated: No 'Breaking Loose' booklet given: 03/11/18 Hx Alcohol Use: No Drug/Substance Use Hx: No Substance Use Type: None Hx Substance Use Treatment: No Review of Systems - Review of Systems Comments:: 05/17/18 12:44 "GENERAL/CONSTITUTIONAL: (+) chills. No fever No weakness. HEAD, EYES, EARS, NOSE AND THROAT: No change in vision. No ear pain or discharge. No sore throat. GASTROINTESTINAL: No nausea, vomiting, diarrhea or constipation. GENITOURINARY: No dysuria, frequency, or change in urination. CARDIOVASCULAR: No chest pain or shortness of breath. RESPIRATORY: No cough, wheezing, or hemoptysis. MUSCULOSKELETAL: No joint or muscle swelling or pain. No neck or back pain. SKIN: No rash NEUROLOGIC: No headache, vertigo, loss of consciousness, or change in strength/ sensation. ENDOCRINE: No increased thirst. No abnormal weight change. HEMATOLOGIC/LYMPHATIC: No anemia, easy bleeding, or history of blood clots. ALLERGIC/IMMUNOLOGIC: No hives or skin allergy." *Physical Exam - Vital Signs Last Vital Signs Temp Pulse Resp BP Pulse Ox 99.1 F 115 H 18 99/55 98 05/17/18 11:34 05/17/18 11:34 05/17/18 11:34 05/17/18 11:34 05/17/18 11:34 - Physical Exam Comments: 05/17/18 12:44 "GENERAL: (+) chronically ill appearing, cachectic. Awake, alert, and fully oriented, in no acute distress HEAD: (+) temporal wasting. No signs of trauma EYES: (+) conjunctival pallor. PERRLA, EOMI, sclera anicteric, ENT: Auricles normal inspection, hearing grossly normal, nares patent, oropharynx clear without exudates. Moist mucosa NECK: Normal ROM, supple, no lymphadenopathy, JVD, or masses LUNGS: Decreased BS throughout HEART: tachy but regular, rate 110, normal S1 and S2, no murmurs, rubs or gallops ABDOMEN: Soft, nontender, normoactive bowel sounds. No guarding, no rebound. No masses RECTAL: scant brown stool with no active bleeding. Rectal temp 100.7 EXTREMITIES: Normal range of motion, no edema. No cords, erythema, or tenderness NEUROLOGICAL: Normal speech, cranial nerves intact, 5/5 strength in all 4 extremities, normal sensation to light touch in all 4 extremities, normal reflexes SKIN: (+) Pale appearing.Warm, Dry, normal turgor, no rashes or lesions noted." ED Treatment Course - LABORATORY CBC & Chemistry Diagram: 05/17/18 12:30 05/17/18 12:30 Medical Decision Making - Medical Decision Making 05/17/18 12:47 78yo M with MMP including lung ca, pna on levaquin presents to the ED with anemia to hgb 4, fever 100.7, tachycardia. Has known PNA. WIll broaden abx coverage, transfuse, septic work up and admit. 05/17/18 15:25 CXR with large mass and infiltrate on L, likely post-obstructive PNA. Pt getting blood, vanc/zosyn. Case discussed with EL Laguna, pt admitted for further mgmt to Dr. Barrett Case discussed in detail with admitting physician including history, physical exam and ancillary studies. Admitting physician has assumed care for the patient, will follow all pending diagnostics and will complete the evaluation and treatment. *DC/Admit/Observation/Transfer Diagnosis at time of Disposition: Sepsis, Anemia Pneumonia Qualifiers: Laterality: left Lung location: upper lobe of lung - Discharge Dispostion Condition at time of disposition: Stable Decision to Admit order: Yes - Referrals Referrals: Terence Talavera MD [Primary Care Provider] - - Patient Instructions - Post Discharge Activity - Attestations Physician Attestion: 05/17/18 15:36 I, Dr. Shanita Mccoy MD, attest that this document has been prepared under my direction and personally reviewed by me in its entirety. I further attest, that it accurately reflects all work, treatment, procedures and medical decision -making performed by me.
[2018-05-17 12:35] LABS: BASO % 0.3 % (0-2.0); HEMATOCRIT 14.8 % (35.4-49); LYMPH % 9.2 % (8-40); MCH 24.5 pg (25.7-33.7); MCHC 31.3 g/dl (32.0-35.9); MEAN CELL VOLUME 78.2 fl (80-96); MEAN PLT VOLUME 8.3 fl (7.5-11.1); MONO % 11.5 % (3.8-10.2); PLATELET COUNT 159 K/MM3 (134-434); RDW 19.9 % (11.9-15.9); WHITE BLOOD COUNT 11.2 K/mm3 (4.0-10.0)
[2018-05-17 12:37] LABS: HEMOGLOBIN 4.6 GM/dL (11.7-16.9)
[2018-05-17 12:46] LABS: INR 1.81 (0.83-1.09); PROTHROMBIN TIME (PATIENT) 20.5 SEC (9.7-13.0)
[2018-05-17 12:48] LABS: ACTIVATED PTT 36.2 SECONDS (25.2-36.5)
[2018-05-17] MEDS ORDERED: VANCOMYCIN 1,000 MG in DEXTROSE 5%-WATER - 250 ML IVPB ONE (12:52)
[2018-05-17] MEDS ORDERED: PIPERACILLIN/TAZOB 4.5 GM 4.5 GM in DEXTROSE 5%-WATER - 100 ML IVPB ONE (12:53)
[2018-05-17 12:54] LABS: ANION GAP 7 MMOL/L (8-16); BILIRUBIN,TOTAL 0.5 mg/dL (0.2-1.0); BLOOD UREA NITROGEN 16 mg/dL (7-18); CALCIUM 8.4 mg/dL (8.5-10.1); CHLORIDE 104 mmol/L (98-107); CO2 31 mmol/L (21-32); CREATININE 0.4 mg/dL (0.7-1.3); GLUCOSE,RANDOM 104 mg/dL (74-106); POTASSIUM 4.2 mmol/L (3.5-5.1); SGOT/AST 11 U/L (15-37); SGPT/ALT < 6 U/L (12-78); SODIUM 142 mmol/L (136-145); TOT PROT 6.1 g/dl (6.4-8.2)
[2018-05-17 12:55] LABS: ALK PHOS 105 U/L (45-117)
[2018-05-17] MEDS ORDERED: PIPERACILLIN/TAZOB 4.5 GM 4.5 GM/100 ML BAG IVPB ONE (14:17)
[2018-05-17] MEDS ORDERED: VANCOMYCIN 1 GRAM (PRE-DOCKED) 1,000 MG/250 ML BAG IVPB ONE (14:17)
--- NOTE | 2018-05-17 15:29 | HP ---
Admitting History and Physical - Primary Care Physician PCP: Yvette Barrett - Admission Chief Complaint: Anemia. Pneumonia History of Present Illness: The patient is a 78 year old male with a significant past medical history of HTN , HLD, CAD s/p prior [place] (2000 s/p stent), Lung CA, recently diagnosed with pneumonia (started on levoquin 250mg PO yesterday), smoking, who presents to the emergency department for blood transfusion today. He reports chills. He denies bleeding per rectum, but reports one episode of dark stool yesterday. The patient denies chest pain, shortness of breath, headache and dizziness. The patient denies fever, nausea, vomit, diarrhea and constipation. The patient denies dysuria, frequency, urgency and hematuria. History Source: Medical Record Limitations to Obtaining History: Clinical Condition - Past Medical History Cardiovascular: Yes: CAD, HTN, Hyperlipdemia - Past Surgical History Past Surgical History: Yes: None - Smoking History Smoking history: Unknown if ever smoked Have you smoked in the past 12 months: Yes Aproximately how many cigarettes per day: 20 If you are a former smoker, when did you quit?: 3 mo - Alcohol/Substance Use Hx Alcohol Use: No History of Substance Use: reports: None - Social History ADL: Independent History of Recent Travel: No Home Medications - Allergies Allergies/Adverse Reactions: Allergies Allergy/AdvReac Type Severity Reaction Status Date / Time No Known Allergies Allergy Verified 04/12/18 16:18 - Home Medications Home Medications: Ambulatory Orders Acetaminophen [Pain Relief] 650 mg PO Q6H PRN 05/17/18 Albuterol 2.5/Ipratropium 0.5 [Duoneb -] 1 neb NEB Q6H 05/17/18 Dimethicone/Zinc Oxide [Leonel Protect Cream] 142 gm TP DAILY 05/17/18 Guaifenesin Dm [Robitussin Dm -] 10 ml PO Q6H 05/17/18 Levofloxacin [Levaquin] 250 mg PO DAILY 05/17/18 Metoprolol Tartrate 25 mg PO BID 05/17/18 Mirtazapine [Remeron Soltab -] 15 mg PO HS 05/17/18 Ondansetron [Zofran -] 4 mg PO Q6H 05/17/18 Polyethylene Glycol 3350 [Purelax] 17 gm PO DAILY 05/17/18 Family Disease History - Family Disease History Family Disease History: Heart Disease: Sister, CA: Brother Review of Systems - Review of Systems Constitutional: reports: No Symptoms Eyes: reports: No Symptoms HENT: reports: No Symptoms Neck: reports: No Symptoms Cardiovascular: reports: No Symptoms Respiratory: reports: No Symptoms Gastrointestinal: reports: No Symptoms Genitourinary: reports: No Symptoms Breasts: reports: No Symptoms Reported Musculoskeletal: reports: No Symptoms Integumentary: reports: No Symptoms Neurological: reports: No Symptoms Endocrine: reports: No Symptoms Hematology/Lymphatic: reports: No Symptoms Psychiatric: reports: No Symptoms Physical Examination Vital Signs: Vital Signs Temperature 99 F 05/17/18 15:05 Pulse Rate 114 H 05/17/18 15:05 Respiratory Rate 18 05/17/18 15:05 Blood Pressure 94/58 05/17/18 15:05 O2 Sat by Pulse Oximetry (%) 100 05/17/18 15:05 Constitutional: Yes: Well Nourished, No Distress, Calm Cardiovascular: Yes: Regular Rate and Rhythm Respiratory: Yes: Regular Gastrointestinal: Yes: Normal Bowel Sounds, Soft Musculoskeletal: Yes: WNL Extremities: Yes: WNL Neurological: Yes: Alert, Oriented Psychiatric: Yes: Alert, Oriented Labs: CBC, BMP 05/17/18 12:30 05/17/18 12:30 Imaging - Results Chest X-ray: Report Reviewed Problem List - Problems (1) Sepsis Assessment/Plan: -Lactic acid elevated -ID consult -received IV abx in ER -IVF -BC pending -refuses straight cath for UA/UC -repeat LA in AM Code(s): A41.9 - SEPSIS, UNSPECIFIED ORGANISM (2) Microcytic hypochromic anemia Assessment/Plan: -Receiving 2 units PRBC -repeat labs in AM -Hematology consult -had iron deficiency, defer venofer in light of sepsis -start feosol bid Code(s): D50.9 - IRON DEFICIENCY ANEMIA, UNSPECIFIED (3) Pneumonia Assessment/Plan: -Pulmonary consult -ID consult -Acetaminophen for fever >100. 0F -Bronchodilators prn Code(s): J18.9 - PNEUMONIA, UNSPECIFIED ORGANISM Qualifiers: Laterality: left Lung location: upper lobe of lung (4) Lactic acidosis Assessment/Plan: -IVF -Repeat LA in AM -ID consult -received IV abx in ED -BC pending -refusing straight cath for UA/UC Code(s): E87.2 - ACIDOSIS Assessment/Plan see problem list
[2018-05-17] MEDS ORDERED: PANTOPRAZOLE SODIUM 40 MG in SODIUM CHLORIDE 100 ML IVPB SCH (15:30)
--- NOTE | 2018-05-17 16:02 | CON.GI ---
Consult Consult Specialty:: GI Reason for Consultation:: Anemia - History of Present Illness History of Present Illness: Chart reviewed. Events noted. Prior admissions reviewed. GI consulted for significant anemia w/o overt stigmata of GI bleeding. Per initial intake today: The patient is a 78 year old male with a significant past medical history of HTN, HLD, CAD s/p prior SC (2000 s/p stent), Lung CA, recently diagnosed with pneumonia (started on levoquin 250mg PO yesterday), smoking, who presents to the emergency department for blood transfusion today. He reports chills. He denies bleeding per rectum, but reports one episode of dark stool yesterday. The patient denies chest pain, shortness of breath, headache and dizziness. The patient denies fever, nausea, vomit, diarrhea and constipation. The patient denies dysuria, frequency, urgency and hematuria. Allergies: NKDA Past surgical history: cardiac stent Social history: 1 ppd tobacco smoker, Denies illicit drug use. Denies ETOH consumptions PCP - none Microcytic, hypochromic anemia has been ranging between 6 - 8 g/dl since March of this year. He was found to be iron deficient in March, however, He was found to have heme negative stools on this and previous admissions. INR 1.8 PT 20 At the time of this encounter, the pt was AAOx3, not in discomfort, or distress. Reported no nausea, vomiting, hematochezia, hematemesis currently or in recent past. - History Source History Provided By: Patient, Medical Record - Past Medical History Cardio/Vascular: Yes: CAD, HTN, Hyperlipdemia - Past Surgical History Past Surgical History: Yes: None - Alcohol/Substance Use Hx Alcohol Use: No History of Substance Use: reports: None - Smoking History Smoking history: Unknown if ever smoked Have you smoked in the past 12 months: Yes Aproximately how many cigarettes per day: 20 If you are a former smoker, when did you quit?: 3 mo - Social History ADL: Independent History of Recent Travel: No Home Medications - Allergies Allergies/Adverse Reactions: Allergies Allergy/AdvReac Type Severity Reaction Status Date / Time No Known Allergies Allergy Verified 04/12/18 16:18 - Home Medications Home Medications: Ambulatory Orders Acetaminophen [Pain Relief] 650 mg PO Q6H PRN 05/17/18 Albuterol 2.5/Ipratropium 0.5 [Duoneb -] 1 neb NEB Q6H 05/17/18 Dimethicone/Zinc Oxide [Leonel Protect Cream] 142 gm TP DAILY 05/17/18 Guaifenesin Dm [Robitussin Dm -] 10 ml PO Q6H 05/17/18 Levofloxacin [Levaquin] 250 mg PO DAILY 05/17/18 Metoprolol Tartrate 25 mg PO BID 05/17/18 Mirtazapine [Remeron Soltab -] 15 mg PO HS 05/17/18 Ondansetron [Zofran -] 4 mg PO Q6H 05/17/18 Polyethylene Glycol 3350 [Purelax] 17 gm PO DAILY 05/17/18 Family Disease History - Family Disease History Family Disease History: Heart Disease: Sister, CA: Brother Review of Systems Findings/Remarks: as per HPI, ED, H&P Physical Exam-GI Vital Signs: Vital Signs Temperature 99 F 05/17/18 15:05 Pulse Rate 114 H 05/17/18 15:05 Respiratory Rate 18 05/17/18 15:05 Blood Pressure 94/58 05/17/18 15:05 O2 Sat by Pulse Oximetry (%) 100 05/17/18 15:05 Constitutional: Yes: Calm. No: Pallor, Thin Eyes: No: Conjunctiva Clear HENT: No: Drooling, Epistaxis Neck: Yes: Supple Cardiovascular: No: Bradycardia, Tachycardia Respiratory: Yes: Regular, SOB Gastrointestinal Inspection: No: Ascites, Distention ...Palpate: No: Firm/Rigid, Guarding, Mass, Tenderness, Tenderness, Epigastium, Tenderness, Rebound ...Rectal Exam: Yes: Guaiac Negative (per lab reading) Genitourinary: Yes: Other (brown stool, per ED exam) Neurological: Yes: Alert, Oriented Labs: CBC, BMP 05/17/18 12:30 05/17/18 12:30 INR, PTT INR 1.81 (0.83-1.09) H 05/17/18 12:30 Laboratory Last Values WBC 11.2 K/mm3 (4.0-10.0) H 05/17/18 12:30 RBC 1.90 M/mm3 (4.00-5.60) L 05/17/18 12:30 Hgb 4.6 GM/dL (11.7-16.9) L* 05/17/18 12:30 Hct 14.8 % (35.4-49) L 05/17/18 12:30 MCV 78.2 fl (80-96) L 05/17/18 12:30 MCH 24.5 pg (25.7-33.7) L 05/17/18 12:30 MCHC 31.3 g/dl (32.0-35.9) L 05/17/18 12:30 RDW 19.9 % (11.9-15.9) H 05/17/18 12:30 Plt Count 159 K/MM3 (134-434) D 05/17/18 12:30 MPV 8.3 fl (7.5-11.1) D 05/17/18 12:30 Absolute Neuts (auto) 8.9 K/mm3 (1.5-8.0) H 05/17/18 12:30 Neutrophils % 79.0 % (42.8-82.8) 05/17/18 12:30 Lymphocytes % 9.2 % (8-40) D 05/17/18 12:30 Monocytes % 11.5 % (3.8-10.2) H 05/17/18 12:30 Eosinophils % 0.0 % (0-4.5) D 05/17/18 12:30 Basophils % 0.3 % (0-2.0) 05/17/18 12:30 Nucleated RBC % 0 % (0-0) 05/17/18 12:30 PT with INR 20.50 SEC (9.7-13.0) H 05/17/18 12:30 INR 1.81 (0.83-1.09) H 05/17/18 12:30 PTT (Actin FS) 36.2 SECONDS (25.2-36.5) 05/17/18 12:30 Sodium 142 mmol/L (136-145) 05/17/18 12:30 Potassium 4.2 mmol/L (3.5-5.1) 05/17/18 12:30 Chloride 104 mmol/L (98-107) 05/17/18 12:30 Carbon Dioxide 31 mmol/L (21-32) 05/17/18 12:30 Anion Gap 7 MMOL/L (8-16) L 05/17/18 12:30 BUN 16 mg/dL (7-18) 05/17/18 12:30 Creatinine 0.4 mg/dL (0.7-1.3) L 05/17/18 12:30 Creat Clearance w eGFR > 60 (>60) 05/17/18 12:30 Random Glucose 104 mg/dL (74-106) 05/17/18 12:30 Lactic Acid 3.0 mmol/L (0.0-2.0) H* 05/17/18 12:45 Calcium 8.4 mg/dL (8.5-10.1) L 05/17/18 12:30 Total Bilirubin 0.5 mg/dL (0.2-1.0) 05/17/18 12:30 AST 11 U/L (15-37) L D 05/17/18 12:30 ALT < 6 U/L (12-78) L D 05/17/18 12:30 Alkaline Phosphatase 105 U/L (45-117) 05/17/18 12:30 Troponin I 0.03 ng/ml (0.00-0.05) D 05/17/18 12:30 Total Protein 6.1 g/dl (6.4-8.2) L 05/17/18 12:30 Albumin 1.0 g/dl (3.4-5.0) L 05/17/18 12:30 Stool Occult Blood Negative (NEGATIVE) 05/17/18 12:45 Blood Type O POSITIVE 05/17/18 12:30 Antibody Screen Negative 05/17/18 12:30 Crossmatch See Detail 05/17/18 12:30 Problem List - Problems (1) Microcytic hypochromic anemia Code(s): D50.9 - IRON DEFICIENCY ANEMIA, UNSPECIFIED (2) Iron deficiency anemia Code(s): D50.9 - IRON DEFICIENCY ANEMIA, UNSPECIFIED (3) Lung cancer Code(s): C34.90 - MALIGNANT NEOPLASM OF UNSP PART OF UNSP BRONCHUS OR LUNG Qualifiers: Laterality: left Lung location: hilum of lung Qualified Code(s): C34.02 - Malignant neoplasm of left main bronchus (4) Smoker Code(s): F17.200 - NICOTINE DEPENDENCE, UNSPECIFIED, UNCOMPLICATED Assessment/Plan A 78M with obstructive PNA secondary to underlying lung CA with tachycardia and hypotension, possibly sepsis, with significant chronic microcytic hypochromic anemia, however, w/o stigmata of recent, or ongoing GI bleeding. Recommend transfuse PRBCs to HGB above 7 g/dl, supplement iron, obtain LDH, haptoglobin, daily CBC. Treat PNA. Close monitoring for infection-related decompensation. No plans for acute endoscopic intervention at this time. Diet as tolerated.
[2018-05-17] MEDS ORDERED: ACETAMINOPHEN 325 MG TABLET (FP) PO PRN (18:01)
[2018-05-17 18:47] VITALS: BMI 15.3
[2018-05-17] MEDS ORDERED: PT OWN MED DRAWER 7, Y5N ONE (20:10)
[2018-05-17] MEDS: ALBUTEROL SO4 2.5/IPRATROPIUM 0.5 INH SOL 3 ML VIAL.NEB. NEB SCH (20:23)
[2018-05-17] MEDS: DEXTROSE 5%-NORMAL SALINE 1,000 ML IV SCH (20:38)
[2018-05-17] MEDS: PANTOPRAZOLE SODIUM 40 MG VIAL IVPUSH SCH (20:38)
[2018-05-17] MEDS: FERROUS SO4 300 MG/5 ML ORAL SOLN UNIT DOSE CUPS PO SCH (20:38)
[2018-05-17] MEDS: ONDANSETRON 4 MG TABLET PO SCH (20:39)
[2018-05-17] MEDS: METOPROLOL TARTRATE 25 MG TABLET (FP) PO SCH (21:41)
[2018-05-17] MEDS: MIRTAZAPINE 15 MG TABLET (FP) PO SCH (21:42)
[2018-05-17] MEDS ORDERED: METOPROLOL TARTRATE 25 MG TABLET (FP) PO SCH (22:00)
[2018-05-18] MEDS: ONDANSETRON 4 MG TABLET PO SCH ×5 (01:19→23:07)
[2018-05-18 07:13] LABS: BASO % 0.2 % (0-2.0); EOS % 0.1 % (0-4.5); HEMATOCRIT 20.5 % (35.4-49); MCH 27.1 pg (25.7-33.7); MCHC 33.8 g/dl (32.0-35.9); MEAN CELL VOLUME 80.2 fl (80-96); MEAN PLT VOLUME 8.2 fl (7.5-11.1); MONO % 10.3 % (3.8-10.2); NEUT % 81.4 % (42.8-82.8); PLATELET COUNT 120 K/MM3 (134-434); RBC 2.56 M/mm3 (4.00-5.60); RDW 18.5 % (11.9-15.9)
[2018-05-18 07:22] LABS: HEMOGLOBIN 6.9 GM/dL (11.7-16.9)
[2018-05-18] MEDS: ALBUTEROL SO4 2.5/IPRATROPIUM 0.5 INH SOL 3 ML VIAL.NEB. NEB SCH ×4 (07:30→20:05)
[2018-05-18 08:13] LABS: ALBUMIN 0.9 g/dl (3.4-5.0); ANION GAP 9 MMOL/L (8-16); BILIRUBIN,TOTAL 0.7 mg/dL (0.2-1.0); BLOOD UREA NITROGEN 15 mg/dL (7-18); CALCIUM 8.1 mg/dL (8.5-10.1); CHLORIDE 103 mmol/L (98-107); CO2 30 mmol/L (21-32); CREATININE 0.5 mg/dL (0.7-1.3); GLUCOSE,RANDOM 111 mg/dL (74-106); POTASSIUM 3.6 mmol/L (3.5-5.1); SGOT/AST 8 U/L (15-37); SGPT/ALT < 6 U/L (13-61); SODIUM 142 mmol/L (136-145)
[2018-05-18 08:14] LABS: ALK PHOS 97 U/L (45-117)
--- NOTE | 2018-05-18 08:54 | PN ---
Progress Note, Physician Chief Complaint: AWAKE ALERT LETHARGIC EVENTS AND NOTES REVIEWED POOR APPETITE - Current Medication List Current Medications: Active Medications Acetaminophen (Tylenol -) 650 mg PO Q4H PRN PRN Reason: PAIN OR FEVER Albuterol/Ipratropium (Duoneb -) 1 amp NEB RQID [facility] Last Admin: 05/18/18 07:30 Dose: 1 amp Ferrous Sulfate (Feosol) 300 mg PO BIDWM [facility] Last Admin: 05/17/18 20:38 Dose: 300 mg Guaifenesin (Guaifenesin Dm Syrup) 10 ml PO Q4H PRN PRN Reason: COUGH Dextrose/Sodium Chloride (D5-Ns -) 1,000 mls @ 83 mls/hr IV ASDIR [facility] Last Admin: 05/17/18 20:38 Dose: 83 mls/hr Metoprolol Tartrate (Lopressor -) 12.5 mg PO BID [facility] Last Admin: 05/17/18 21:41 Dose: 12.5 mg Mirtazapine (Remeron -) 15 mg PO HS [facility] Last Admin: 05/17/18 21:42 Dose: 15 mg Ondansetron HCl (Zofran -) 4 mg PO Q6HPO [facility] Last Admin: 05/18/18 05:34 Dose: 4 mg Pantoprazole Sodium (Protonix Iv) 40 mg IVPUSH DAILY [facility] Last Admin: 05/17/18 20:38 Dose: 40 mg Polyethylene Glycol (Miralax (For Daily Use) -) 17 gm PO DAILY [facility] - Objective Vital Signs: Vital Signs Temperature 97.8 F 05/18/18 05:51 Pulse Rate 101 H 05/18/18 05:51 Respiratory Rate 20 05/18/18 05:51 Blood Pressure 113/64 05/18/18 05:51 O2 Sat by Pulse Oximetry (%) 93 L 05/17/18 21:00 Constitutional: Yes: Cachectic, Mild Distress Eyes: Yes: WNL HENT: Yes: WNL Neck: Yes: WNL Cardiovascular: Yes: WNL Respiratory: Yes: WNL Gastrointestinal: Yes: WNL Genitourinary: Yes: Incontinence Musculoskeletal: Yes: Muscle Weakness Extremities: Yes: Other Edema: No Peripheral Pulses WNL: Yes Integumentary: Yes: Other Wound/Incision: Yes: Clean/Dry Neurological: Yes: Pre-Existing Deficit, Unsteady Gait, Weakness ...Motor Strength: LLE, RLE Psychiatric: Yes: WNL Labs: CBC, BMP 05/18/18 06:05 05/18/18 06:05 INR, PTT INR 1.81 (0.83-1.09) H 05/17/18 12:30 Problem List - Problems (1) Old cerebrovascular accident (CVA) without late effect Code(s): Z86.73 - PRSNL HX OF TIA (TIA), AND CEREB INFRC W/O RESID DEFICITS (2) Anemia Code(s): D64.9 - ANEMIA, UNSPECIFIED (3) Iron deficiency anemia Code(s): D50.9 - IRON DEFICIENCY ANEMIA, UNSPECIFIED (4) Lactic acidosis Code(s): E87.2 - ACIDOSIS (5) Microcytic hypochromic anemia Code(s): D50.9 - IRON DEFICIENCY ANEMIA, UNSPECIFIED (6) Pneumonia Code(s): J18.9 - PNEUMONIA, UNSPECIFIED ORGANISM Qualifiers: Laterality: left Lung location: upper lobe of lung (7) Sepsis Code(s): A41.9 - SEPSIS, UNSPECIFIED ORGANISM (8) Anorexia Code(s): R63.0 - ANOREXIA (9) Failure to thrive in adult Code(s): R62.7 - ADULT FAILURE TO THRIVE (10) HTN (hypertension) Code(s): I10 - ESSENTIAL (PRIMARY) HYPERTENSION Qualifiers: Hypertension type: essential hypertension Qualified Code(s): I10 - Essential (primary) hypertension Assessment/Plan NUTRITIONAL SUPPLEMENTATION ENSURE/PUDDING OOB TO CHAIR IVF TRANSFUSE PRBC IRON SUCROSE IV IV ABX FOR PNA CXR
[2018-05-18] MEDS ORDERED: IRON SUCROSE INJECTION 200 MG in SODIUM CHLORIDE 90 ML IVPB ONE (09:30)
[2018-05-18] MEDS: FERROUS SO4 300 MG/5 ML ORAL SOLN UNIT DOSE CUPS PO SCH ×2 (09:55→17:33)
[2018-05-18] MEDS: PANTOPRAZOLE SODIUM 40 MG VIAL IVPUSH SCH (09:55)
[2018-05-18] MEDS: POLYETHYLENE GLYCOL 3350 119 GM BTL PO SCH (09:56)
[2018-05-18] MEDS: METOPROLOL TARTRATE 25 MG TABLET (FP) PO SCH ×2 (09:56→22:41)
--- NOTE | 2018-05-18 11:43 | CON.PULM ---
Consult Consult Specialty:: PULMONARY Referred by:: Dr. Barrett Reason for Consultation:: pneumonia - History of Present Illness Chief Complaint: anemia History of Present Illness: 78yo male with h/o HTN, hyperlipidemia, CAD, lung cancer who was [facility] after being found anemic. Hgb 4.6 now s/p PRBC transfusions with appropriate response. Denies shortness of breath but with fever to 100.7. CXR showing left sided infiltrate/atelectasis. Pt is a poor historian, unable to tell me if he's received any treatment regarding his cancer which was diagnosed in March via bronchoscopy. - History Source History Provided By: Patient, Medical Record Limitations to Obtaining History: Poor Historian - Past Medical History Cardio/Vascular: Yes: CAD, HTN, Hyperlipdemia - Past Surgical History Past Surgical History: Yes: None - Alcohol/Substance Use Hx Alcohol Use: No History of Substance Use: reports: None - Smoking History Smoking history: Unknown if ever smoked Have you smoked in the past 12 months: Yes Aproximately how many cigarettes per day: 20 If you are a former smoker, when did you quit?: 3 mo - Social History ADL: Independent History of Recent Travel: No Home Medications - Allergies Allergies/Adverse Reactions: Allergies Allergy/AdvReac Type Severity Reaction Status Date / Time No Known Allergies Allergy Verified 04/12/18 16:18 - Home Medications Home Medications: Ambulatory Orders Acetaminophen [Pain Relief] 650 mg PO Q6H PRN 05/17/18 Albuterol 2.5/Ipratropium 0.5 [Duoneb -] 1 neb NEB Q6H 05/17/18 Dimethicone/Zinc Oxide [Leonel Protect Cream] 142 gm TP DAILY 05/17/18 Guaifenesin Dm [Robitussin Dm -] 10 ml PO Q6H 05/17/18 Levofloxacin [Levaquin] 250 mg PO DAILY 05/17/18 Metoprolol Tartrate 25 mg PO BID 05/17/18 Mirtazapine [Remeron Soltab -] 15 mg PO HS 05/17/18 Ondansetron [Zofran -] 4 mg PO Q6H 05/17/18 Polyethylene Glycol 3350 [Purelax] 17 gm PO DAILY 05/17/18 Family Disease History - Family Disease History Family Disease History: Heart Disease: Sister, CA: Brother Review of Systems - Review of Systems Constitutional: reports: Weakness Eyes: denies: Recent Change in Vision HENT: denies: Nasal Congestion, Throat Pain Neck: denies: Stiffness, Tenderness Cardiovascular: denies: Chest Pain, Shortness of Breath Respiratory: reports: Cough. denies: Hemoptysis, Wheezing Gastrointestinal: denies: Abdominal Pain, Nausea, Vomiting Genitourinary: denies: Dysuria, Hematuria Neurological: denies: Dizziness, Headache Physical Exam Vital Sings: Vital Signs Temperature 97.8 F 05/18/18 05:51 Pulse Rate 101 H 05/18/18 05:51 Respiratory Rate 20 05/18/18 05:51 Blood Pressure 113/64 05/18/18 05:51 O2 Sat by Pulse Oximetry (%) 93 L 05/17/18 21:00 Constitutional: Yes: Calm, Cachectic Eyes: Yes: Conjunctiva Clear, EOM Intact HENT: Yes: Atraumatic, Normocephalic Neck: Yes: Supple, Trachea Midline Cardiovascular: Yes: Regular Rate and Rhythm Respiratory: Yes: Diminished (decreased breath sounds at the bases) ...Clubbing: Yes Gastrointestinal: Yes: Normal Bowel Sounds, Soft. No: Tenderness Edema: No Neurological: Yes: Alert Labs: CBC, BMP 05/18/18 06:05 05/18/18 06:05 Imaging - Results Chest X-ray: Report Reviewed, Image Reviewed (left sided infiltrates) Problem List - Problems (1) Lung cancer Code(s): C34.90 - MALIGNANT NEOPLASM OF UNSP PART OF UNSP BRONCHUS OR LUNG Qualifiers: Laterality: left Lung location: hilum of lung Qualified Code(s): C34.02 - Malignant neoplasm of left main bronchus (2) Anemia Code(s): D64.9 - ANEMIA, UNSPECIFIED (3) Lactic acidosis Code(s): E87.2 - ACIDOSIS (4) COPD (chronic obstructive pulmonary disease) Code(s): J44.9 - CHRONIC OBSTRUCTIVE PULMONARY DISEASE, UNSPECIFIED Assessment/Plan Advanced Lung Ca Pneumonia Sepsis Severe Anemia Lactic Acidosis COPD HTN Hyperlipidemia CAD - continue antibiotics - f/u cultures - O2 to keep SpO2>90% - inhaled bronchodilatores - can defer systemic steroids at this time - monitor H/H - transfuse as needed - would get oncology eval for input on options, likely not a candidate for treatment given his poor functional status - DVT prophylaxis Thank you for this consult Gera Humphries MD
[2018-05-18] MEDS: DEXTROSE 5%-NORMAL SALINE 1,000 ML IV SCH ×2 (11:58→18:12)
--- NOTE | 2018-05-18 14:57 | PN ---
Progress Note (short form) - Note Progress Note: ID Consult dictated Probable post-obstructive pneumonia R/O sepsis secondary to lung source Lung ca Profound anemia Lactic acidosis Pending c/s empiric zosyn Transfuse
[2018-05-18] MEDS ORDERED: PIPERACILLIN/TAZOBACTAM 3.375 GM VIAL IVPB ONE ×2 (15:31→22:38)
[2018-05-18] MEDS ORDERED: DEXTROSE 5%-WATER - 50 ML IVPB ONE ×2 (15:31→22:39)
--- NOTE | 2018-05-18 15:32 | CONS ---
DATE OF CONSULTATION: DATE OF DICTATION: 05/18/2018 HISTORY OF PRESENT ILLNESS: The patient is a 78-year-old male evaluated for pneumonia. The history was obtained primarily from the chart. 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 He was admitted in April of this year with post-obstructive pneumonia and received a course of IV antibiotic therapy. He has been residing in a halfway facility. At that facility, he was noted to be markedly anemic. He was transferred to the emergency room where his hemoglobin was noted to be 4.6. He had a low-grade fever and complained of chills. He was also noted to be tachycardic. A chest x-ray showed a large mass lesion in the left lung field. His lactic acid level was elevated. At the present time, he is receiving a blood transfusion. He is awake and alert. He offers no specific complaint. He denies any chest pain or shortness of breath. He does have a cough productive of whitish sputum. He denies any hemoptysis. His breathing appears unlabored on O2 by nasal cannula. [facility]. PAST MEDICAL HISTORY: Positive for recently diagnosed lung cancer, coronary artery disease, history of myocardial infarction, hypertension, hyperlipidemia. ALLERGIES: No known allergies. MEDICATIONS: DuoNeb, Remeron, metoprolol, Zofran. SOCIAL HISTORY: Positive for heavy tobacco use. No history of alcohol abuse or illicit drug use. SYSTEMS REVIEW: Neurologic: No loss of consciousness, seizure activity or focal weakness. Cardiac: Negative for chest pain or palpitations. Respiratory: As per HPI. Gastrointestinal: Negative for vomiting or diarrhea. Genitourinary: Negative for urinary tract infection. LAB DATA: White count 11.2, hematocrit 20.5, platelet count 120, creatinine 0.5, lactic acid 2.8, total bilirubin 0.7, alkaline phosphatase 97, AST 8. PHYSICAL EXAMINATION: General: He is cachectic, pale, weak appearing. Vital Signs: Temperature 98.7, T-max 100.7, blood pressure 115/72, pulse 112 and regular, respiratory rate 20 per minute. HEENT:: Sclerae anicteric. Poor dentition. Heart: Heart sounds S1, S2. Lungs: Diminished breath sounds bilaterally. No wheezes, rales or rhonchi. Abdomen: Soft. No tenderness was elicited. Extremities: Negative for edema. IMPRESSION: 1. Probable post-obstructive pneumonia. 2. Symptomatic anemia. 3. Squamous cell carcinoma of the lung. 4. Lactic acidosis. PLAN: 1. We will obtain sputum culture, urine, Legionella and pneumococcal antigens. 2. Empiric antibiotic coverage for post-obstructive with Zosyn. 3. Transfuse blood. 4. Supportive measures. 5. Oncology followup. Thank you for the kind referral. RADHA HELMS M.D. [id number]
[2018-05-18] MEDS: PIPERACILLIN/TAZOB 3.375 GM 3.375 GM in DEXTROSE 5%-WATER - 50 ML IVPB SCH ×2 (16:42→23:04)
[2018-05-18 22:05] LABS: URINE APPEARANCE SLCLOUDY; URINE BILIRUBIN NEGATIVE (<2.0 mg/dL); URINE COLOR DKYELLOW; URINE GLUCOSE (UA) NEGATIVE (NEGATIVE); URINE KETONE NEGATIVE (NEGATIVE); URINE LEUK ESTERASE NEGATIVE (NEGATIVE); URINE NITRITE NEGATIVE (NEGATIVE); URINE PROTEIN NEGATIVE (NEGATIVE)
--- NOTE | 2018-05-18 22:21 | CONSULT ---
Consult - text type - Consultation Consultation Note: 78 yr old male with ISABELLA mass , cachexia , significant weight loss, HTN, HLD, CAD s/p prior [place] (2000 s/p stent), smoking, who presents to the emergency department for blood transfusion . Recent presumed postobstructibe pneumonia Biopsy of the lung mass c/w poorly differentiated carcinoma with ? squamous differentiation CT chest -- ISABELLA mass with postobstructive pneumoniits CTA chest revealed no liver/adrenalmet - Past Medical History Cardiovascular: Yes: CAD, HTN, Hyperlipdemia - Past Surgical History Past Surgical History: Yes: None - Smoking History Smoking history: Unknown if ever smoked Have you smoked in the past 12 months: Yes - Allergies Allergies/Adverse Reactions: Allergies Allergy/AdvReac Type Severity Reaction Status Date / Time No Known Allergies Allergy Verified 04/12/18 16:18 - Home Medications Home Medications: Ambulatory Orders Acetaminophen [Pain Relief] 650 mg PO Q6H PRN 05/17/18 Albuterol 2.5/Ipratropium 0.5 [Duoneb -] 1 neb NEB Q6H 05/17/18 Dimethicone/Zinc Oxide [Leonel Protect Cream] 142 gm TP DAILY 05/17/18 Guaifenesin Dm [Robitussin Dm -] 10 ml PO Q6H 05/17/18 Levofloxacin [Levaquin] 250 mg PO DAILY 05/17/18 Metoprolol Tartrate 25 mg PO BID 05/17/18 Mirtazapine [Remeron Soltab -] 15 mg PO HS 05/17/18 Ondansetron [Zofran -] 4 mg PO Q6H 05/17/18 Polyethylene Glycol 3350 [Purelax] 17 gm PO DAILY 05/17/18 Family Disease History - Family Disease History Family Disease History: Heart Disease: Sister, CA: Brother Physical Examination Vital Signs: AFVSS Cachectic Cor: RSR, No murmurs, No gallops Lungs: Clear to P&A Abd: Soft, Normal bowel sounds, No organomegaly Ext:No significant edema Labs/Meds reviewed A/P 78 yr old male with ISABELLA mass , cachexia , significant weight loss, HTN, HLD, CAD s/p prior [place] (2000 s/p stent), smoking, who presents for blood transfusion . Recent presumed postobstructive pneumonia Biopsy of the lung mass c/w poorly differentiated carcinoma with ? 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
[2018-05-18] MEDS ORDERED: PT OWN MED DRAWER 7, Y5N ONE (22:28)
[2018-05-18] MEDS: MIRTAZAPINE 15 MG TABLET (FP) PO SCH (22:42)
[2018-05-18] MEDS: guaiFENesin/D-METHORPHAN HB 5 ML UNIT-DOSE CUPS PO PRN (22:42)
[2018-05-19] MEDS: PIPERACILLIN/TAZOB 3.375 GM 3.375 GM in DEXTROSE 5%-WATER - 50 ML IVPB SCH ×3 (02:06→17:31)
[2018-05-19] MEDS: ONDANSETRON 4 MG TABLET PO SCH ×5 (05:24→23:33)
[2018-05-19 07:00] LABS: BASO % 0.2 % (0-2.0); HEMATOCRIT 23.8 % (35.4-49); HEMOGLOBIN 7.9 GM/dL (11.7-16.9); LYMPH % 6.8 % (8-40); MCH 27.7 pg (25.7-33.7); MCHC 33.2 g/dl (32.0-35.9); MEAN CELL VOLUME 83.3 fl (80-96); MEAN PLT VOLUME 8.5 fl (7.5-11.1); MONO % 11.4 % (3.8-10.2); NEUT % 81.6 % (42.8-82.8); PLATELET COUNT 87 K/MM3 (134-434); RBC 2.86 M/mm3 (4.00-5.60); RDW 19.1 % (11.9-15.9); WHITE BLOOD COUNT 12.7 K/mm3 (4.0-10.0)
[2018-05-19 07:36] LABS: CHLORIDE 105 mmol/L (98-107); POTASSIUM 3.4 mmol/L (3.5-5.1); SODIUM 143 mmol/L (136-145)
[2018-05-19 07:46] LABS: ALBUMIN 0.9 g/dl (3.4-5.0); ALK PHOS 95 U/L (45-117); ANION GAP 10 MMOL/L (8-16); BLOOD UREA NITROGEN 14 mg/dL (7-18); CO2 28 mmol/L (21-32); CREATININE 0.5 mg/dL (0.55-1.3); GLUCOSE,RANDOM 94 mg/dL (74-106); SGOT/AST 8 U/L (15-37); SGPT/ALT < 6 U/L (13-61); TOT PROT 5.7 g/dl (6.4-8.2)
[2018-05-19 08:11] LABS: SERUM IRON SATURATION 16 % (15-55); TOTAL IRON BINDING CAPACITY 88 ug/dL (250-450); UIBC 74 ug/dL (111-343)
--- NOTE | 2018-05-19 08:19 | PN ---
Progress Note, Physician Chief Complaint: CHACECTIC APPEARANCE ASLEEP NOTES REVIEWED - Current Medication List Current Medications: Active Medications Acetaminophen (Tylenol -) 650 mg PO Q4H PRN PRN Reason: PAIN OR FEVER Albuterol/Ipratropium (Duoneb -) 1 amp NEB RQID [facility] Last Admin: 05/18/18 20:05 Dose: 1 amp Ferrous Sulfate (Feosol) 300 mg PO BIDWM [facility] Last Admin: 05/18/18 17:33 Dose: 300 mg Guaifenesin (Guaifenesin Dm Syrup) 10 ml PO Q4H PRN PRN Reason: COUGH Last Admin: 05/18/18 22:42 Dose: 10 ml Dextrose/Sodium Chloride (D5-Ns -) 1,000 mls @ 83 mls/hr IV ASDIR [facility] Last Admin: 05/18/18 18:12 Dose: Not Given Piperacillin Sod/Tazobactam (Sod 3.375 gm/ Dextrose) 50 mls @ 100 mls/hr IVPB Q8H-IV [facility]; Protocol Last Admin: 05/19/18 02:06 Dose: Not Given Metoprolol Tartrate (Lopressor -) 12.5 mg PO BID [facility] Last Admin: 05/18/18 22:41 Dose: 12.5 mg Mirtazapine (Remeron -) 15 mg PO HS [facility] Last Admin: 05/18/18 22:42 Dose: 15 mg Ondansetron HCl (Zofran -) 4 mg PO Q6HPO [facility] Last Admin: 05/19/18 05:24 Dose: Not Given Pantoprazole Sodium (Protonix Iv) 40 mg IVPUSH DAILY [facility] Last Admin: 05/18/18 09:55 Dose: 40 mg Polyethylene Glycol (Miralax (For Daily Use) -) 17 gm PO DAILY [facility] Last Admin: 05/18/18 09:56 Dose: 17 gm Potassium Chloride (K-Dur -) 20 meq PO ONCE ONE Stop: 05/19/18 08:18 - Objective Vital Signs: Vital Signs Temperature 98.7 F 05/19/18 05:43 Pulse Rate 115 H 05/19/18 05:43 Respiratory Rate 20 05/19/18 05:43 Blood Pressure 104/63 05/19/18 05:43 O2 Sat by Pulse Oximetry (%) 93 L 05/18/18 21:00 Constitutional: Yes: Cachectic, Mild Distress Cardiovascular: Yes: Pulse Irregular Respiratory: Yes: Diminished, On Nasal O2 Gastrointestinal: Yes: Other Genitourinary: Yes: Incontinence Musculoskeletal: Yes: Muscle Weakness Extremities: Yes: Other Edema: No Integumentary: Yes: Venous Stasis Changes Wound/Incision: Yes: Dressing Dry and Intact Neurological: Yes: Confusion, Weakness ...Motor Strength: LLE, RLE Psychiatric: Yes: Other Labs: CBC, BMP 05/19/18 06:00 05/19/18 06:00 INR, PTT INR 1.81 (0.83-1.09) H 05/17/18 12:30 Problem List - Problems (1) Old cerebrovascular accident (CVA) without late effect Code(s): Z86.73 - PRSNL HX OF TIA (TIA), AND CEREB INFRC W/O RESID DEFICITS (2) Anemia Code(s): D64.9 - ANEMIA, UNSPECIFIED (3) Iron deficiency anemia Code(s): D50.9 - IRON DEFICIENCY ANEMIA, UNSPECIFIED (4) Lactic acidosis Code(s): E87.2 - ACIDOSIS (5) Microcytic hypochromic anemia Code(s): D50.9 - IRON DEFICIENCY ANEMIA, UNSPECIFIED (6) Pneumonia Code(s): J18.9 - PNEUMONIA, UNSPECIFIED ORGANISM Qualifiers: Laterality: left Lung location: upper lobe of lung (7) Sepsis Code(s): A41.9 - SEPSIS, UNSPECIFIED ORGANISM (8) Anorexia Code(s): R63.0 - ANOREXIA (9) Failure to thrive in adult Code(s): R62.7 - ADULT FAILURE TO THRIVE (10) HTN (hypertension) Code(s): I10 - ESSENTIAL (PRIMARY) HYPERTENSION Qualifiers: Hypertension type: essential hypertension Qualified Code(s): I10 - Essential (primary) hypertension Assessment/Plan AGREE PATIENT SHOULD BE HOSPICE HOWEVER WILL SPEAK WITH FAMILY ON ADVANCED DIRECTIVES AND GOAL OF CARE POOR OVERALL QUALITY OF LIFE TRANSFUSE FOR HB>8.0 MONITOR FOR GI BLEEDS IV ABX FOR PNA
[2018-05-19] MEDS ORDERED: POTASSIUM CHLORIDE TABS 10 MEQ TABLET.ER (FP) PO ONE (08:30)
[2018-05-19] MEDS: ALBUTEROL SO4 2.5/IPRATROPIUM 0.5 INH SOL 3 ML VIAL.NEB. NEB SCH ×4 (08:52→20:57)
[2018-05-19] MEDS: FERROUS SO4 300 MG/5 ML ORAL SOLN UNIT DOSE CUPS PO SCH ×2 (08:58→17:31)
[2018-05-19] MEDS: DEXTROSE 5%-NORMAL SALINE 1,000 ML IV SCH ×2 (09:31→22:09)
--- NOTE | 2018-05-19 09:36 | PN ---
Progress Note (short form) - Note Progress Note: Patient seen and examined Anorechtic , weak and cachectic Not a good candidate for systemic treatment for lung ca Last Vital Signs Temp Pulse Resp BP Pulse Ox 98.7 F 115 H 20 104/63 93 L 05/19/18 05:43 05/19/18 05:43 05/19/18 05:43 05/19/18 05:43 05/18/18 21:00 Last Vital Signs HEENT: MAYDA, EOM Intact Oropharynx: No thrush, No mucositis,poor dentition Cor: RSR, No murmurs, No gallops Lungs: diminished breath sounds on left Abd: Soft, Normal bowel sounds, No organomegaly Ext:No significant edema Skin: No rashes, Integument intact CBC, BMP 05/19/18 06:00 05/19/18 06:00 Current Medications Generic Name Dose Route Start Last Admin Trade Name Freq PRN Reason Stop Dose Admin Acetaminophen 650 mg 05/17/18 18:01 Tylenol - PO Q4H PRN PAIN OR FEVER Albuterol/Ipratropium 1 amp 05/17/18 20:00 05/19/18 08:52 Duoneb - NEB 1 amp RQID [facility] Administration Ferrous Sulfate 300 mg 05/17/18 17:30 05/19/18 08:58 Feosol PO 300 mg BIDWM [facility] Administration Guaifenesin 10 ml 05/17/18 18:09 05/18/18 22:42 Guaifenesin Dm Syrup PO 10 ml Q4H PRN Administration COUGH Dextrose/Sodium Chloride 1,000 mls @ 83 mls/hr 05/17/18 18:00 05/19/18 09:31 D5-Ns - IV 83 mls/hr ASDIR [facility] Administration Piperacillin Sod/Tazobactam 50 mls @ 100 mls/hr 05/18/18 15:00 05/19/18 02:06 Sod 3.375 gm/ Dextrose IVPB Not Given Q8H-IV [facility] Protocol Metoprolol Tartrate 12.5 mg 05/17/18 22:00 05/18/18 22:41 Lopressor - PO 12.5 mg BID [facility] Administration Mirtazapine 15 mg 05/17/18 22:00 05/18/18 22:42 Remeron - PO 15 mg HS [facility] Administration Ondansetron HCl 4 mg 05/17/18 18:00 05/19/18 05:24 Zofran - PO Not Given Q6HPO [facility] Pantoprazole Sodium 40 mg 05/17/18 16:30 05/18/18 09:55 Protonix Iv IVPUSH 40 mg DAILY [facility] Administration Polyethylene Glycol 17 gm 05/18/18 10:00 05/18/18 09:56 Miralax (For Daily Use) - PO 17 gm DAILY [facility] Administration impression: Poorly differentiated lung ca Cachexia S/P RT Anemia S/P transfusion Post-obstructive pneumonitis Plan: Continuing with IV antibiotics Palliative care
[2018-05-19] MEDS ORDERED: PIPERACILLIN/TAZOBACTAM 3.375 GM VIAL IVPB ONE ×2 (10:00→17:10)
[2018-05-19] MEDS ORDERED: DEXTROSE 5%-WATER - 50 ML IVPB ONE ×2 (10:00→17:10)
[2018-05-19] MEDS: PANTOPRAZOLE SODIUM 40 MG VIAL IVPUSH SCH (10:09)
[2018-05-19] MEDS: METOPROLOL TARTRATE 25 MG TABLET (FP) PO SCH ×2 (10:10→22:13)
[2018-05-19] MEDS: POLYETHYLENE GLYCOL 3350 119 GM BTL PO SCH (10:10)
--- NOTE | 2018-05-19 13:25 | PN ---
Progress Note (short form) - Note Progress Note: PULMONARY CHART REVIEWED PATIENT EXAMINED AGREE WITH EVALUATION FOR HOSPICE ANY FURTHER TREATMENT APART FROM PALLIATIVE IS MEDICALLY FUTILE SHOULD BE DNR/DNI PMD TO DISCUSS WITH FAMILY Althea DOMINGO MD
--- NOTE | 2018-05-19 17:26 | PN ---
Progress Note, Physician History of Present Illness: Weak appearing Offers no complaints Denies chest pain/ dyspnea Low grade temp WBC slightly elevated Plt count lower - Current Medication List Current Medications: Active Medications Acetaminophen (Tylenol -) 650 mg PO Q4H PRN PRN Reason: PAIN OR FEVER Albuterol/Ipratropium (Duoneb -) 1 amp NEB RQID [facility] Last Admin: 05/19/18 16:05 Dose: 1 amp Ferrous Sulfate (Feosol) 300 mg PO BIDWM [facility] Last Admin: 05/19/18 08:58 Dose: 300 mg Guaifenesin (Guaifenesin Dm Syrup) 10 ml PO Q4H PRN PRN Reason: COUGH Last Admin: 05/18/18 22:42 Dose: 10 ml Dextrose/Sodium Chloride (D5-Ns -) 1,000 mls @ 83 mls/hr IV ASDIR [facility] Last Admin: 05/19/18 09:31 Dose: 83 mls/hr Piperacillin Sod/Tazobactam (Sod 3.375 gm/ Dextrose) 50 mls @ 100 mls/hr IVPB Q8H-IV [facility]; Protocol Last Admin: 05/19/18 10:09 Dose: 100 mls/hr Metoprolol Tartrate (Lopressor -) 12.5 mg PO BID [facility] Last Admin: 05/19/18 10:10 Dose: 12.5 mg Mirtazapine (Remeron -) 15 mg PO HS [facility] Last Admin: 05/18/18 22:42 Dose: 15 mg Ondansetron HCl (Zofran -) 4 mg PO Q6HPO [facility] Last Admin: 05/19/18 11:50 Dose: Not Given Pantoprazole Sodium (Protonix Iv) 40 mg IVPUSH DAILY [facility] Last Admin: 05/19/18 10:09 Dose: 40 mg Polyethylene Glycol (Miralax (For Daily Use) -) 17 gm PO DAILY [facility] Last Admin: 05/19/18 10:10 Dose: 17 gm - Objective Vital Signs: Vital Signs Temperature 98.2 F 05/19/18 14:26 Pulse Rate 121 H 05/19/18 14:26 Respiratory Rate 20 05/19/18 14:26 Blood Pressure 105/57 05/19/18 14:26 O2 Sat by Pulse Oximetry (%) 93 L 05/19/18 09:00 Constitutional: Yes: No Distress, Cachectic Cardiovascular: Yes: Regular Rate and Rhythm, S1, S2 Respiratory: Yes: Diminished Gastrointestinal: Yes: Normal Bowel Sounds, Soft. No: Tenderness Labs: CBC, BMP 05/19/18 06:00 05/19/18 06:00 INR, PTT INR 1.81 (0.83-1.09) H 05/17/18 12:30 Assessment/Plan Probable post obstructive pneumonia R/O sepsis Lung ca Thrombocytopenia Lactic acidosis Continue zosyn
[2018-05-19] MEDS ORDERED: ACETAMINOPHEN 650 MG/20.3 ML ORAL SOLUTION (CUPS) PO ONE (18:30)
[2018-05-19] MEDS ORDERED: PT OWN MED DRAWER 7, Y5N ONE (22:04)
[2018-05-19] MEDS: MIRTAZAPINE 15 MG TABLET (FP) PO SCH (22:13)
[2018-05-20] MEDS ORDERED: PIPERACILLIN/TAZOBACTAM 3.375 GM VIAL IVPB ONE ×3 (01:20→16:58)
[2018-05-20] MEDS ORDERED: DEXTROSE 5%-WATER - 50 ML IVPB ONE ×3 (01:21→16:58)
[2018-05-20] MEDS: PIPERACILLIN/TAZOB 3.375 GM 3.375 GM in DEXTROSE 5%-WATER - 50 ML IVPB SCH ×3 (01:36→17:18)
[2018-05-20] MEDS: ONDANSETRON 4 MG TABLET PO SCH ×3 (05:38→17:28)
[2018-05-20 07:17] LABS: BASO % 0.1 % (0-2.0); HEMATOCRIT 27.2 % (35.4-49); HEMOGLOBIN 8.9 GM/dL (11.7-16.9); LYMPH % 5.4 % (8-40); MCH 27.3 pg (25.7-33.7); MCHC 32.6 g/dl (32.0-35.9); MEAN CELL VOLUME 83.6 fl (80-96); MEAN PLT VOLUME 8.9 fl (7.5-11.1); NEUT % 84.5 % (42.8-82.8); PLATELET COUNT 72 K/MM3 (134-434); RBC 3.25 M/mm3 (4.00-5.60); RDW 18.6 % (11.9-15.9); WHITE BLOOD COUNT 13.2 K/mm3 (4.0-10.0)
[2018-05-20 08:03] LABS: CHLORIDE 107 mmol/L (98-107); POTASSIUM 3.3 mmol/L (3.5-5.1); SODIUM 144 mmol/L (136-145)
[2018-05-20 08:14] LABS: ALBUMIN 0.9 g/dl (3.4-5.0); ALK PHOS 98 U/L (45-117); ANION GAP 9 MMOL/L (8-16); BILIRUBIN,TOTAL 1.1 mg/dL (0.2-1.0); BLOOD UREA NITROGEN 16 mg/dL (7-18); CALCIUM 8.1 mg/dL (8.5-10.1); CO2 28 mmol/L (21-32); CREATININE 0.5 mg/dL (0.55-1.3); GLUCOSE,RANDOM 102 mg/dL (74-106); MAGNESIUM 1.6 mg/dL (1.8-2.4); SGOT/AST 9 U/L (15-37); SGPT/ALT < 6 U/L (13-61); TOT PROT 5.9 g/dl (6.4-8.2)
[2018-05-20] MEDS: ALBUTEROL SO4 2.5/IPRATROPIUM 0.5 INH SOL 3 ML VIAL.NEB. NEB SCH ×4 (08:26→20:47)
--- NOTE | 2018-05-20 10:41 | PN ---
Progress Note (short form) - Note Progress Note: Sleeping in NAD. Some dry cough. No hemoptysis. No CP. Intake & Output 05/17/18 05/18/18 05/19/18 05/20/18 23:59 23:59 23:59 23:59 Intake Total 700 2678 2614 631 Output Total 100 Balance 700 2578 2614 631 Weight 104 lb 104 lb Last Vital Signs Temp Pulse Resp BP Pulse Ox 98.9 F 112 H 18 126/63 93 L 05/20/18 05:50 05/20/18 05:50 05/20/18 05:50 05/20/18 05:50 05/19/18 21:00 Active Medications Acetaminophen (Tylenol -) 650 mg PO Q4H PRN PRN Reason: PAIN OR FEVER Albuterol/Ipratropium (Duoneb -) 1 amp NEB RQID [facility] Last Admin: 05/20/18 08:26 Dose: 1 amp Ferrous Sulfate (Feosol) 300 mg PO BIDWM [facility] Last Admin: 05/19/18 17:31 Dose: 300 mg Guaifenesin (Guaifenesin Dm Syrup) 10 ml PO Q4H PRN PRN Reason: COUGH Last Admin: 05/18/18 22:42 Dose: 10 ml Dextrose/Sodium Chloride (D5-Ns -) 1,000 mls @ 83 mls/hr IV ASDIR [facility] Last Admin: 05/19/18 22:09 Dose: 83 mls/hr Piperacillin Sod/Tazobactam (Sod 3.375 gm/ Dextrose) 50 mls @ 100 mls/hr IVPB Q8H-IV [facility]; Protocol Last Admin: 05/20/18 01:36 Dose: 100 mls/hr Metoprolol Tartrate (Lopressor -) 12.5 mg PO BID [facility] Last Admin: 05/19/18 22:13 Dose: 12.5 mg Mirtazapine (Remeron -) 15 mg PO HS [facility] Last Admin: 05/19/18 22:13 Dose: 15 mg Ondansetron HCl (Zofran -) 4 mg PO Q6HPO [facility] Last Admin: 05/20/18 05:38 Dose: Not Given Pantoprazole Sodium (Protonix Iv) 40 mg IVPUSH DAILY [facility] Last Admin: 05/19/18 10:09 Dose: 40 mg Polyethylene Glycol (Miralax (For Daily Use) -) 17 gm PO DAILY [facility] Last Admin: 05/19/18 10:10 Dose: 17 gm Constitutional: Yes: NAD, Cachectic Eyes: Yes: Conjunctiva Clear, EOM Intact HENT: Yes: Atraumatic, Normocephalic Neck: Yes: Supple, Trachea Midline Cardiovascular: Yes: Regular Rate and Rhythm Respiratory: Yes: Diminished at the bases,. few scattered rhonchi, no wheezing ...Clubbing: Yes Gastrointestinal: Yes: Normal Bowel Sounds, Soft. No: Tenderness Edema: No Neurological: Yes: Alert Labs: Laboratory Results - last 24 hr 05/17/18 05/20/18 05/20/18 12:30 06:29 06:29 WBC 13.2 H RBC 3.25 L Hgb 8.9 L Hct 27.2 L MCV 83.6 MCH 27.3 MCHC 32.6 RDW 18.6 H Plt Count 72 L MPV 8.9 Absolute Neuts (auto) 11.2 H Neutrophils % 84.5 H Lymphocytes % 5.4 L D Monocytes % 10.0 Eosinophils % 0.0 Basophils % 0.1 Nucleated RBC % 0 Sodium 144 Potassium 3.3 L Chloride 107 Carbon Dioxide 28 Anion Gap 9 BUN 16 Creatinine 0.5 L Creat Clearance w eGFR > 60 Random Glucose 102 Calcium 8.1 L Magnesium 1.6 L Total Bilirubin 1.1 H AST 9 L ALT < 6 L Alkaline Phosphatase 98 Total Protein 5.9 L Albumin 0.9 L Blood Type O POSITIVE Antibody Screen Negative Crossmatch See Detail Problem List - Problems (1) Lung cancer Code(s): C34.90 - MALIGNANT NEOPLASM OF UNSP PART OF UNSP BRONCHUS OR LUNG Qualifiers: Laterality: left Lung location: hilum of lung Qualified Code(s): C34.02 - Malignant neoplasm of left main bronchus (2) Anemia Code(s): D64.9 - ANEMIA, UNSPECIFIED (3) Lactic acidosis Code(s): E87.2 - ACIDOSIS (4) COPD (chronic obstructive pulmonary disease) Code(s): J44.9 - CHRONIC OBSTRUCTIVE PULMONARY DISEASE, UNSPECIFIED Assessment/Plan Advanced Lung Ca Suspected post-obstructive Pneumonia Sepsis Severe Anemia Lactic Acidosis COPD HTN Hyperlipidemia CAD - ABX per ID - O2 to keep SpO2>90% - inhaled bronchodilatores - Monitor off systemic steroids - monitor H/H - DVT prophylaxis - Nutritional support Dr Wiley
[2018-05-20] MEDS: METOPROLOL TARTRATE 25 MG TABLET (FP) PO SCH ×2 (11:57→21:38)
[2018-05-20] MEDS: FERROUS SO4 300 MG/5 ML ORAL SOLN UNIT DOSE CUPS PO SCH ×2 (11:57→17:28)
[2018-05-20] MEDS: POLYETHYLENE GLYCOL 3350 119 GM BTL PO SCH (11:58)
[2018-05-20] MEDS: PANTOPRAZOLE SODIUM 40 MG VIAL IVPUSH SCH (11:58)
--- NOTE | 2018-05-20 13:06 | PN ---
Progress Note, Physician History of Present Illness: More awake and responsive Weak appearing Offers no complaints Denies chest pain/ dyspnea Temp 101 noted WBC slightly elevated 13.2 Sputum growing S aureus - Current Medication List Current Medications: Active Medications Acetaminophen (Tylenol -) 650 mg PO Q4H PRN PRN Reason: PAIN OR FEVER Albuterol/Ipratropium (Duoneb -) 1 amp NEB RQID [facility] Last Admin: 05/20/18 12:42 Dose: 1 amp Ferrous Sulfate (Feosol) 300 mg PO BIDWM [facility] Last Admin: 05/20/18 11:57 Dose: 300 mg Guaifenesin (Guaifenesin Dm Syrup) 10 ml PO Q4H PRN PRN Reason: COUGH Last Admin: 05/18/18 22:42 Dose: 10 ml Dextrose/Sodium Chloride (D5-Ns -) 1,000 mls @ 83 mls/hr IV ASDIR [facility] Last Admin: 05/19/18 22:09 Dose: 83 mls/hr Piperacillin Sod/Tazobactam (Sod 3.375 gm/ Dextrose) 50 mls @ 100 mls/hr IVPB Q8H-IV [facility]; Protocol Last Admin: 05/20/18 12:29 Dose: 100 mls/hr Metoprolol Tartrate (Lopressor -) 12.5 mg PO BID [facility] Last Admin: 05/20/18 11:57 Dose: 12.5 mg Mirtazapine (Remeron -) 15 mg PO HS [facility] Last Admin: 05/19/18 22:13 Dose: 15 mg Ondansetron HCl (Zofran -) 4 mg PO Q6HPO [facility] Last Admin: 05/20/18 11:57 Dose: 4 mg Pantoprazole Sodium (Protonix Iv) 40 mg IVPUSH DAILY [facility] Last Admin: 05/20/18 11:58 Dose: 40 mg Polyethylene Glycol (Miralax (For Daily Use) -) 17 gm PO DAILY [facility] Last Admin: 05/20/18 11:58 Dose: 17 gm - Objective Vital Signs: Vital Signs Temperature 98.9 F 05/20/18 05:50 Pulse Rate 112 H 05/20/18 05:50 Respiratory Rate 18 05/20/18 05:50 Blood Pressure 126/63 05/20/18 05:50 O2 Sat by Pulse Oximetry (%) 93 L 05/19/18 21:00 Constitutional: Yes: No Distress, Cachectic Cardiovascular: Yes: Regular Rate and Rhythm, S1, S2 Respiratory: Yes: Diminished Gastrointestinal: Yes: Normal Bowel Sounds, Soft. No: Tenderness Labs: CBC, BMP 05/20/18 06:29 05/20/18 06:29 INR, PTT INR 1.81 (0.83-1.09) H 05/17/18 12:30 Assessment/Plan Probable post obstructive pneumonia R/O sepsis Lung ca Thrombocytopenia Lactic acidosis Continue zosyn Add vancomycin pending sputum c/s
[2018-05-20] MEDS ORDERED: POTASSIUM CHLORIDE TABS 10 MEQ TABLET.ER (FP) PO ONE (15:39)
--- NOTE | 2018-05-20 15:40 | PN ---
Progress Note, Physician Chief Complaint: ASLEEP COMFORTABLE - Current Medication List Current Medications: Active Medications Acetaminophen (Tylenol -) 650 mg PO Q4H PRN PRN Reason: PAIN OR FEVER Albuterol/Ipratropium (Duoneb -) 1 amp NEB RQID [facility] Last Admin: 05/20/18 12:42 Dose: 1 amp Ferrous Sulfate (Feosol) 300 mg PO BIDWM [facility] Last Admin: 05/20/18 11:57 Dose: 300 mg Guaifenesin (Guaifenesin Dm Syrup) 10 ml PO Q4H PRN PRN Reason: COUGH Last Admin: 05/18/18 22:42 Dose: 10 ml Dextrose/Sodium Chloride (D5-Ns -) 1,000 mls @ 83 mls/hr IV ASDIR [facility] Last Admin: 05/19/18 22:09 Dose: 83 mls/hr Piperacillin Sod/Tazobactam (Sod 3.375 gm/ Dextrose) 50 mls @ 100 mls/hr IVPB Q8H-IV [facility]; Protocol Last Admin: 05/20/18 12:29 Dose: 100 mls/hr Vancomycin HCl 1,000 mg/ (Dextrose) 250 mls @ 166.667 mls/hr IVPB Q12H [facility]; Protocol Metoprolol Tartrate (Lopressor -) 12.5 mg PO BID [facility] Last Admin: 05/20/18 11:57 Dose: 12.5 mg Mirtazapine (Remeron -) 15 mg PO HS [facility] Last Admin: 05/19/18 22:13 Dose: 15 mg Ondansetron HCl (Zofran -) 4 mg PO Q6HPO [facility] Last Admin: 05/20/18 11:57 Dose: 4 mg Pantoprazole Sodium (Protonix Iv) 40 mg IVPUSH DAILY [facility] Last Admin: 05/20/18 11:58 Dose: 40 mg Polyethylene Glycol (Miralax (For Daily Use) -) 17 gm PO DAILY [facility] Last Admin: 05/20/18 11:58 Dose: 17 gm Potassium Chloride (K-Dur -) 10 meq PO ONCE ONE Stop: 05/20/18 15:40 - Objective Vital Signs: Vital Signs Temperature 99.4 F 05/20/18 14:46 Pulse Rate 128 H 05/20/18 14:46 Respiratory Rate 18 05/20/18 14:46 Blood Pressure 125/70 05/20/18 14:46 O2 Sat by Pulse Oximetry (%) 93 L 05/19/18 21:00 Constitutional: Yes: Mild Distress Eyes: Yes: WNL HENT: Yes: WNL, Other Cardiovascular: Yes: Pulse Irregular Respiratory: Yes: Diminished, On Nasal O2 Gastrointestinal: Yes: WNL Genitourinary: Yes: Incontinence Edema: No Peripheral Pulses WNL: Yes Integumentary: Yes: Other Wound/Incision: Yes: Other Neurological: Yes: Pre-Existing Deficit ...Motor Strength: LLE, RLE Psychiatric: Yes: Other Labs: CBC, BMP 05/20/18 06:29 05/20/18 06:29 INR, PTT INR 1.81 (0.83-1.09) H 05/17/18 12:30 Problem List - Problems (1) Old cerebrovascular accident (CVA) without late effect Code(s): Z86.73 - PRSNL HX OF TIA (TIA), AND CEREB INFRC W/O RESID DEFICITS (2) Anemia Code(s): D64.9 - ANEMIA, UNSPECIFIED (3) Iron deficiency anemia Code(s): D50.9 - IRON DEFICIENCY ANEMIA, UNSPECIFIED (4) Lactic acidosis Code(s): E87.2 - ACIDOSIS (5) Microcytic hypochromic anemia Code(s): D50.9 - IRON DEFICIENCY ANEMIA, UNSPECIFIED (6) Pneumonia Code(s): J18.9 - PNEUMONIA, UNSPECIFIED ORGANISM Qualifiers: Laterality: left Lung location: upper lobe of lung (7) Sepsis Code(s): A41.9 - SEPSIS, UNSPECIFIED ORGANISM (8) Anorexia Code(s): R63.0 - ANOREXIA (9) Failure to thrive in adult Code(s): R62.7 - ADULT FAILURE TO THRIVE (10) HTN (hypertension) Code(s): I10 - ESSENTIAL (PRIMARY) HYPERTENSION Qualifiers: Hypertension type: essential hypertension Qualified Code(s): I10 - Essential (primary) hypertension Assessment/Plan AGREE PATIENT SHOULD BE HOSPICE HOWEVER WILL SPEAK WITH FAMILY ON ADVANCED DIRECTIVES AND GOAL OF CARE POOR OVERALL QUALITY OF LIFE TRANSFUSE FOR HB>8.0 MONITOR FOR GI BLEEDS IV ABX FOR PNA
[2018-05-20] MEDS ORDERED: PT OWN MED DRAWER 7, Y5N ONE (17:21)
[2018-05-20] MEDS: VANCOMYCIN 1,000 MG in DEXTROSE 5%-WATER - 250 ML IVPB SCH (17:27)
[2018-05-20] MEDS: DEXTROSE 5%-NORMAL SALINE 1,000 ML IV SCH (17:28)
[2018-05-20 18:30] LABS: ARTERIAL BLD GAS O2 SATURATION 96.8 % (90-98.9); ARTERIAL BLOOD GAS BASE EXCESS 2.7 meq/l (-2-2); ARTERIAL BLOOD GAS PCO2 38.8 mmHg (35-45); ARTERIAL BLOOD GAS PO2 85.2 mmHg (70-100); ARTERIAL BLOOD GAS pH 7.45 (7.35-7.45)
[2018-05-20] MEDS ORDERED: methylPREDNISolone NA SUCC 125 MG/2 ML VIAL IVPUSH ONE (18:30)
[2018-05-20 18:31] LABS: ALLENS TEST POSITIVE
--- NOTE | 2018-05-20 18:31 | RAPID ---
<Aileen Patricio - Last Filed: 05/22/18 06:38> Physical Examination Vital Signs: Vital Signs Temperature 99.4 F 05/20/18 14:46 Pulse Rate 128 H 05/20/18 14:46 Respiratory Rate 18 05/20/18 14:46 Blood Pressure 125/70 05/20/18 14:46 O2 Sat by Pulse Oximetry (%) 93 L 05/20/18 10:00 Labs: CBC, BMP 05/20/18 06:29 05/20/18 06:29 Rapid Response - Rapid Response Assessment: Rapid response called at 5:55pm. Patient was tachypneic and short of breath, more than the baseline as per nursing. VS: HR - 130s, RR- 32, O2 sat 91%, on 50% venturi mask General: cachectic, tachypneic, using accessory muscles of breathing Lungs: bilateral rhonchi, decreased lung sounds on the L>R Heart: Tachycardic, regular rhythm Ext: no peripheral edema Nebulizer treatment EKG done on bedside - sinus tachy 125, nonspecific changes V5-V6, new from prior otherwise unchanged. CXR done - worse compared to previous CXR done ABG done Trop, CK, CBC, CMP and lactic acid ordered Patient improved with no additional intervention. He was using less muscles for breathing, O2 sat 96% BiPap placed 10/5 for respiratory effort Solu-medrol 60mg IV given. Patient was reported as per nursing to have been breathing easier on Bipap. Critical care time spent at bedside 40 mins <Diana Davenport - Last Filed: 05/22/18 08:35> Rapid Response - Rapid Response Assessment: Agree with with above findings and plan of care. was present through the entire rapid response. CXR revealed Left lung white out, and worsening congestive changes on right. Lasix 40 mg IV given. Case was discussed with , confirmed DNR/DNI, to fax in records from [facility]. Continue bipap, additional diuresis as indicated. Continue to address overall goals of care, will defer to the primary team.
[2018-05-20] MEDS ORDERED: FUROSEMIDE 40 MG/4 ML INJECTABLE VIAL IVPUSH ONE (18:38)
[2018-05-20] MEDS ORDERED: MAGNESIUM OXIDE 400 MG TABLET (FP) PO ONE (18:40)
[2018-05-20 19:40] LABS: BASO % 0.1 % (0-2.0); HEMATOCRIT 26.4 % (35.4-49); HEMOGLOBIN 8.7 GM/dL (11.7-16.9); LYMPH % 4.5 % (8-40); MCH 27.7 pg (25.7-33.7); MCHC 33.1 g/dl (32.0-35.9); MEAN CELL VOLUME 83.8 fl (80-96); MEAN PLT VOLUME 9.2 fl (7.5-11.1); MONO % 10.1 % (3.8-10.2); NEUT % 85.3 % (42.8-82.8); PLATELET COUNT 68 K/MM3 (134-434); RBC 3.15 M/mm3 (4.00-5.60); RDW 19.1 % (11.9-15.9); WHITE BLOOD COUNT 13.5 K/mm3 (4.0-10.0)
[2018-05-20 20:05] LABS: ALBUMIN 0.9 g/dl (3.4-5.0); ALK PHOS 106 U/L (45-117); ANION GAP 11 MMOL/L (8-16); BLOOD UREA NITROGEN 17 mg/dL (7-18); CALCIUM 8.3 mg/dL (8.5-10.1); CHLORIDE 108 mmol/L (98-107); CO2 26 mmol/L (21-32); CREATININE 0.6 mg/dL (0.55-1.3); GLUCOSE,RANDOM 140 mg/dL (74-106); POTASSIUM 3.2 mmol/L (3.5-5.1); SGOT/AST 7 U/L (15-37); SGPT/ALT < 6 U/L (13-61); SODIUM 145 mmol/L (136-145); TOT PROT 5.8 g/dl (6.4-8.2)
[2018-05-20] MEDS ORDERED: KCL 10 MEQ IVPB 10 MEQ/100 ML INFUS.BAG IVPB SCH (20:30)
[2018-05-20] MEDS ORDERED: MAGNESIUM SULF 50% (8.12 MEQ/2 ML-1 GM VIAL) IVPB ONE (20:30)
[2018-05-20] MEDS: MIRTAZAPINE 15 MG TABLET (FP) PO SCH (22:47)
[2018-05-21] MEDS ORDERED: DEXTROSE 5%-WATER - 50 ML IVPB ONE ×4 (01:01→23:48)
[2018-05-21] MEDS ORDERED: PIPERACILLIN/TAZOBACTAM 3.375 GM VIAL IVPB ONE ×4 (01:01→23:48)
[2018-05-21] MEDS: VANCOMYCIN 1,000 MG in DEXTROSE 5%-WATER - 250 ML IVPB SCH ×2 (01:44→12:20)
[2018-05-21] MEDS: ONDANSETRON 4 MG TABLET PO SCH ×5 (01:52→23:07)
[2018-05-21] MEDS: PIPERACILLIN/TAZOB 3.375 GM 3.375 GM in DEXTROSE 5%-WATER - 50 ML IVPB SCH ×3 (02:48→17:29)
[2018-05-21 07:32] LABS: BASO % 0.1 % (0-2.0); HEMATOCRIT 27.6 % (35.4-49); HEMOGLOBIN 8.9 GM/dL (11.7-16.9); LYMPH % 3.2 % (8-40); MCH 27.1 pg (25.7-33.7); MCHC 32.1 g/dl (32.0-35.9); MEAN CELL VOLUME 84.2 fl (80-96); MEAN PLT VOLUME 9.3 fl (7.5-11.1); MONO % 5.7 % (3.8-10.2); PLATELET COUNT 45 K/MM3 (134-434); RBC 3.28 M/mm3 (4.00-5.60); RDW 19.3 % (11.9-15.9); WHITE BLOOD COUNT 12.3 K/mm3 (4.0-10.0)
[2018-05-21] MEDS: FERROUS SO4 300 MG/5 ML ORAL SOLN UNIT DOSE CUPS PO SCH ×2 (07:49→16:49)
[2018-05-21] MEDS: ALBUTEROL SO4 2.5/IPRATROPIUM 0.5 INH SOL 3 ML VIAL.NEB. NEB SCH ×4 (07:58→20:11)
[2018-05-21 08:22] LABS: ALBUMIN 0.9 g/dl (3.4-5.0); ALK PHOS 103 U/L (45-117); ANION GAP 10 MMOL/L (8-16); BILIRUBIN,TOTAL 0.7 mg/dL (0.2-1.0); BLOOD UREA NITROGEN 21 mg/dL (7-18); CALCIUM 8.4 mg/dL (8.5-10.1); CHLORIDE 108 mmol/L (98-107); CO2 26 mmol/L (21-32); CREATININE 0.6 mg/dL (0.55-1.3); GLUCOSE,RANDOM 157 mg/dL (74-106); POTASSIUM 3.3 mmol/L (3.5-5.1); SGOT/AST 10 U/L (15-37); SGPT/ALT < 6 U/L (13-61); SODIUM 144 mmol/L (136-145)
[2018-05-21] MEDS: PANTOPRAZOLE SODIUM 40 MG VIAL IVPUSH SCH (09:35)
[2018-05-21] MEDS: POTASSIUM CHLORIDE TABS 10 MEQ TABLET.ER (FP) PO SCH (09:36)
[2018-05-21] MEDS: METOPROLOL TARTRATE 25 MG TABLET (FP) PO SCH ×2 (09:36→23:01)
[2018-05-21] MEDS: POLYETHYLENE GLYCOL 3350 119 GM BTL PO SCH (09:36)
--- NOTE | 2018-05-21 10:14 | PN ---
Progress Note, Physician Chief Complaint: EVENTS AND NOTES REVIEWED I CALLED [facility] YESTERDAY PATIENT IS DNR/DNI I WILL UPDATE CHART HERE - Current Medication List Current Medications: Active Medications Acetaminophen (Tylenol -) 650 mg PO Q4H PRN PRN Reason: PAIN OR FEVER Last Admin: 05/20/18 17:18 Dose: 650 mg Albuterol/Ipratropium (Duoneb -) 1 amp NEB RQID [facility] Last Admin: 05/21/18 07:58 Dose: 1 amp Ferrous Sulfate (Feosol) 300 mg PO BIDWM [facility] Last Admin: 05/21/18 07:49 Dose: 300 mg Guaifenesin (Guaifenesin Dm Syrup) 10 ml PO Q4H PRN PRN Reason: COUGH Last Admin: 05/18/18 22:42 Dose: 10 ml Dextrose/Sodium Chloride (D5-Ns -) 1,000 mls @ 83 mls/hr IV ASDIR [facility] Last Admin: 05/20/18 17:28 Dose: 83 mls/hr Piperacillin Sod/Tazobactam (Sod 3.375 gm/ Dextrose) 50 mls @ 100 mls/hr IVPB Q8H-IV [facility]; Protocol Last Admin: 05/21/18 09:35 Dose: 100 mls/hr Vancomycin HCl 1,000 mg/ (Dextrose) 250 mls @ 166.667 mls/hr IVPB Q12H [facility]; Protocol Last Admin: 05/21/18 01:44 Dose: 166.667 mls/hr Metoprolol Tartrate (Lopressor -) 12.5 mg PO BID [facility] Last Admin: 05/21/18 09:36 Dose: 12.5 mg Mirtazapine (Remeron -) 15 mg PO HS [facility] Last Admin: 05/20/18 22:47 Dose: Not Given Ondansetron HCl (Zofran -) 4 mg PO Q6HPO [facility] Last Admin: 05/21/18 06:53 Dose: 4 mg Pantoprazole Sodium (Protonix Iv) 40 mg IVPUSH DAILY [facility] Last Admin: 05/21/18 09:35 Dose: 40 mg Polyethylene Glycol (Miralax (For Daily Use) -) 17 gm PO DAILY [facility] Last Admin: 05/21/18 09:36 Dose: Not Given Potassium Chloride (K-Dur -) 10 meq PO DAILY [facility] Last Admin: 05/21/18 09:36 Dose: 10 meq - Objective Vital Signs: Vital Signs Temperature 97.5 F L 05/21/18 06:07 Pulse Rate 88 05/21/18 07:50 Respiratory Rate 18 05/21/18 06:07 Blood Pressure 122/68 05/21/18 06:07 O2 Sat by Pulse Oximetry (%) 96 05/21/18 07:50 Constitutional: Yes: Cachectic, Severe Distress Eyes: Yes: Other Cardiovascular: Yes: Pulse Irregular Respiratory: Yes: SOB Gastrointestinal: Yes: Other Genitourinary: Yes: Other Musculoskeletal: Yes: Muscle Weakness Edema: Yes Neurological: Yes: Confusion Labs: CBC, BMP 05/21/18 06:15 05/21/18 06:15 INR, PTT INR 1.81 (0.83-1.09) H 05/17/18 12:30 Problem List - Problems (1) Old cerebrovascular accident (CVA) without late effect Code(s): Z86.73 - PRSNL HX OF TIA (TIA), AND CEREB INFRC W/O RESID DEFICITS (2) Anemia Code(s): D64.9 - ANEMIA, UNSPECIFIED (3) Iron deficiency anemia Code(s): D50.9 - IRON DEFICIENCY ANEMIA, UNSPECIFIED (4) Lactic acidosis Code(s): E87.2 - ACIDOSIS (5) Microcytic hypochromic anemia Code(s): D50.9 - IRON DEFICIENCY ANEMIA, UNSPECIFIED (6) Pneumonia Code(s): J18.9 - PNEUMONIA, UNSPECIFIED ORGANISM Qualifiers: Laterality: left Lung location: upper lobe of lung (7) Sepsis Code(s): A41.9 - SEPSIS, UNSPECIFIED ORGANISM (8) Anorexia Code(s): R63.0 - ANOREXIA (9) Failure to thrive in adult Code(s): R62.7 - ADULT FAILURE TO THRIVE (10) HTN (hypertension) Code(s): I10 - ESSENTIAL (PRIMARY) HYPERTENSION Qualifiers: Hypertension type: essential hypertension Qualified Code(s): I10 - Essential (primary) hypertension Assessment/Plan DNR/DNI PALLIATIVE CARE COMFORT MEASURES NEED FAMILY TO D/W THEM ON HOSPICE BACK AT [facility]
--- NOTE | 2018-05-21 11:08 | PN ---
Progress Note (short form) - Note Progress Note: Watching TV on [place] O2. Appears overall better today. No hemoptysis. No CP. Constitutional: Yes: NAD, Cachectic Eyes: Yes: Conjunctiva Clear, EOM Intact HENT: Yes: Atraumatic, Normocephalic Neck: Yes: Supple, Trachea Midline Cardiovascular: Yes: Regular Rate and Rhythm Respiratory: Yes: Diminished at the bases,. few scattered rhonchi, no wheezing ...Clubbing: Yes Gastrointestinal: Yes: Normal Bowel Sounds, Soft. No: Tenderness Edema: No Neurological: Yes: Alert Labs: Laboratory Results - last 24 hr 05/17/18 05/17/18 05/20/18 12:30 19:30 18:10 WBC RBC Hgb Hct MCV MCH MCHC RDW Plt Count MPV Absolute Neuts (auto) Neutrophils % Lymphocytes % Monocytes % Eosinophils % Basophils % Nucleated RBC % Anticoagulation Therapy No Result Required. Puncture Site Right radial ABG pH 7.45 ABG pCO2 at Pt Temp 38.8 ABG pO2 at Pt Temp 85.2 ABG HCO3 26.4 H ABG O2 Sat (Measured) 96.8 ABG O2 Content 12.8 L ABG Base Excess 2.7 H Ambrose Test Positive O2 Delivery Device Venti fio2 50% Oxygen Flow Rate No Result Required. Vent Mode No Result Required. Vent Rate No Result Required. Mechanical Rate No Result Required. Pressure Support Vent No Result Required. Sodium Potassium Chloride Carbon Dioxide Anion Gap BUN Creatinine Creat Clearance w eGFR Random Glucose Hemoglobin A1c % 5.0 Lactic Acid Calcium Total Bilirubin AST ALT Alkaline Phosphatase Creatine Kinase Troponin I Total Protein Albumin Blood Type O POSITIVE Antibody Screen Negative Crossmatch See Detail 05/20/18 05/20/18 05/20/18 19:00 19:00 19:00 WBC 13.5 H RBC 3.15 L Hgb 8.7 L Hct 26.4 L MCV 83.8 MCH 27.7 MCHC 33.1 RDW 19.1 H Plt Count 68 L MPV 9.2 Absolute Neuts (auto) 11.5 H Neutrophils % 85.3 H Lymphocytes % 4.5 L Monocytes % 10.1 Eosinophils % 0.0 Basophils % 0.1 Nucleated RBC % 0 Anticoagulation Therapy Puncture Site ABG pH ABG pCO2 at Pt Temp ABG pO2 at Pt Temp ABG HCO3 ABG O2 Sat (Measured) ABG O2 Content ABG Base Excess Ambrose Test O2 Delivery Device Oxygen Flow Rate Vent Mode Vent Rate Mechanical Rate Pressure Support Vent Sodium 145 Potassium 3.2 L Chloride 108 H Carbon Dioxide 26 Anion Gap 11 BUN 17 Creatinine 0.6 Creat Clearance w eGFR > 60 Random Glucose 140 H Hemoglobin A1c % Lactic Acid 3.6 H* Calcium 8.3 L Total Bilirubin 1.0 AST 7 L ALT < 6 L Alkaline Phosphatase 106 Creatine Kinase Troponin I Total Protein 5.8 L Albumin 0.9 L Blood Type Antibody Screen Crossmatch 05/20/18 05/21/18 05/21/18 19:00 06:15 06:15 WBC 12.3 H RBC 3.28 L Hgb 8.9 L Hct 27.6 L MCV 84.2 MCH 27.1 MCHC 32.1 RDW 19.3 H Plt Count 45 L D MPV 9.3 Absolute Neuts (auto) 11.2 H Neutrophils % 91.0 H Lymphocytes % 3.2 L D Monocytes % 5.7 Eosinophils % 0.0 Basophils % 0.1 Nucleated RBC % 0 Anticoagulation Therapy Puncture Site ABG pH ABG pCO2 at Pt Temp ABG pO2 at Pt Temp ABG HCO3 ABG O2 Sat (Measured) ABG O2 Content ABG Base Excess Ambrose Test O2 Delivery Device Oxygen Flow Rate Vent Mode Vent Rate Mechanical Rate Pressure Support Vent Sodium 144 Potassium 3.3 L Chloride 108 H Carbon Dioxide 26 Anion Gap 10 BUN 21 H Creatinine 0.6 Creat Clearance w eGFR > 60 Random Glucose 157 H Hemoglobin A1c % Lactic Acid Calcium 8.4 L Total Bilirubin 0.7 AST 10 L ALT < 6 L Alkaline Phosphatase 103 Creatine Kinase < 7 L Troponin I < 0.02 Total Protein 6.0 L Albumin 0.9 L Blood Type Antibody Screen Crossmatch 05/21/18 07:20 WBC RBC Hgb Hct MCV MCH MCHC RDW Plt Count MPV Absolute Neuts (auto) Neutrophils % Lymphocytes % Monocytes % Eosinophils % Basophils % Nucleated RBC % Anticoagulation Therapy Puncture Site ABG pH ABG pCO2 at Pt Temp ABG pO2 at Pt Temp ABG HCO3 ABG O2 Sat (Measured) ABG O2 Content ABG Base Excess Ambrose Test O2 Delivery Device Oxygen Flow Rate Vent Mode Vent Rate Mechanical Rate Pressure Support Vent Sodium Potassium Chloride Carbon Dioxide Anion Gap BUN Creatinine Creat Clearance w eGFR Random Glucose Hemoglobin A1c % Lactic Acid 3.2 H* Calcium Total Bilirubin AST ALT Alkaline Phosphatase Creatine Kinase Troponin I Total Protein Albumin Blood Type Antibody Screen Crossmatch Problem List - Problems (1) Lung cancer Code(s): C34.90 - MALIGNANT NEOPLASM OF UNSP PART OF UNSP BRONCHUS OR LUNG Qualifiers: Laterality: left Lung location: hilum of lung Qualified Code(s): C34.02 - Malignant neoplasm of left main bronchus (2) Anemia Code(s): D64.9 - ANEMIA, UNSPECIFIED (3) Lactic acidosis Code(s): E87.2 - ACIDOSIS (4) COPD (chronic obstructive pulmonary disease) Code(s): J44.9 - CHRONIC OBSTRUCTIVE PULMONARY DISEASE, UNSPECIFIED Assessment/Plan Advanced Lung Ca Suspected post-obstructive Pneumonia Sepsis Severe Anemia Lactic Acidosis COPD HTN Hyperlipidemia CAD - ABX per ID - O2 to keep SpO2>90% - inhaled bronchodilatores - Monitor off systemic steroids - monitor H/H - DVT prophylaxis - Nutritional support Dr Wiley
[2018-05-21 11:21] LABS: ANISOCYTOSIS 1+; PLATELET ESTIMATE DECREASED
[2018-05-21] MEDS: DEXTROSE 5%-NORMAL SALINE 1,000 ML IV SCH (12:13)
--- NOTE | 2018-05-21 18:17 | PN ---
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) without late effect Code(s): Z86.73 - PRSNL HX OF TIA (TIA), AND CEREB INFRC W/O RESID DEFICITS (2) Anemia Code(s): D64.9 - ANEMIA, UNSPECIFIED (3) Iron deficiency anemia Code(s): D50.9 - IRON DEFICIENCY ANEMIA, UNSPECIFIED (4) Lactic acidosis Code(s): E87.2 - ACIDOSIS (5) Microcytic hypochromic anemia Code(s): D50.9 - IRON DEFICIENCY ANEMIA, UNSPECIFIED (6) Pneumonia Code(s): J18.9 - PNEUMONIA, UNSPECIFIED ORGANISM Qualifiers: Laterality: left Lung location: upper lobe of lung (7) Sepsis Code(s): A41.9 - SEPSIS, UNSPECIFIED ORGANISM (8) Anorexia Code(s): R63.0 - ANOREXIA (9) Failure to thrive in adult Code(s): R62.7 - ADULT FAILURE TO THRIVE (10) HTN (hypertension) Code(s): I10 - ESSENTIAL (PRIMARY) HYPERTENSION Qualifiers: Hypertension type: essential hypertension Qualified Code(s): I10 - Essential (primary) hypertension
--- NOTE | 2018-05-21 21:28 | EKG ---
Test Reason : Blood Pressure : / mmHG Vent. Rate : 125 BPM Atrial Rate : 125 BPM P-R Int : 142 ms QRS Dur : 100 ms QT Int : 298 ms P-R-T Axes : 064 -04 114 degrees QTc Int : 430 ms SINUS TACHYCARDIA WITH PREMATURE ATRIAL COMPLEXES POSSIBLE LEFT ATRIAL ENLARGEMENT NONSPECIFIC ST AND T WAVE ABNORMALITY ABNORMAL ECG WHEN COMPARED WITH ECG OF 19-MAY-2018 09:08, PREMATURE ATRIAL COMPLEXES ARE NOW PRESENT Confirmed by TONEY LYLES MD ([id number]) on 05/21/2018 9:27:42 PM Referred By: Confirmed By:TONEY LYLES MD
--- NOTE | 2018-05-21 21:42 | PN ---
Progress Note, Physician History of Present Illness: More awake and responsive Weak appearing Offers no complaints Denies chest pain/ dyspnea Temps down WBC slightly elevated Sputum MSSA - Current Medication List Current Medications: Active Medications Acetaminophen (Tylenol -) 650 mg PO Q4H PRN PRN Reason: PAIN OR FEVER Last Admin: 05/20/18 17:18 Dose: 650 mg Albuterol/Ipratropium (Duoneb -) 1 amp NEB RQID [facility] Last Admin: 05/21/18 20:11 Dose: 1 amp Ferrous Sulfate (Feosol) 300 mg PO BIDWM [facility] Last Admin: 05/21/18 16:49 Dose: Not Given Guaifenesin (Guaifenesin Dm Syrup) 10 ml PO Q4H PRN PRN Reason: COUGH Last Admin: 05/18/18 22:42 Dose: 10 ml Dextrose/Sodium Chloride (D5-Ns -) 1,000 mls @ 83 mls/hr IV ASDIR [facility] Last Admin: 05/21/18 12:13 Dose: 83 mls/hr Piperacillin Sod/Tazobactam (Sod 3.375 gm/ Dextrose) 50 mls @ 100 mls/hr IVPB Q8H-IV [facility]; Protocol Last Admin: 05/21/18 17:29 Dose: 100 mls/hr Metoprolol Tartrate (Lopressor -) 12.5 mg PO BID [facility] Last Admin: 05/21/18 09:36 Dose: 12.5 mg Mirtazapine (Remeron -) 15 mg PO HS [facility] Last Admin: 05/20/18 22:47 Dose: Not Given Ondansetron HCl (Zofran -) 4 mg PO Q6HPO [facility] Last Admin: 05/21/18 17:30 Dose: Not Given Pantoprazole Sodium (Protonix Iv) 40 mg IVPUSH DAILY [facility] Last Admin: 05/21/18 09:35 Dose: 40 mg Polyethylene Glycol (Miralax (For Daily Use) -) 17 gm PO DAILY [facility] Last Admin: 05/21/18 09:36 Dose: Not Given Potassium Chloride (K-Dur -) 10 meq PO DAILY [facility] Last Admin: 05/21/18 09:36 Dose: 10 meq - Objective Vital Signs: Vital Signs Temperature 98.2 F 05/21/18 18:00 Pulse Rate 61 05/21/18 18:00 Respiratory Rate 18 05/21/18 20:25 Blood Pressure 131/69 05/21/18 18:00 O2 Sat by Pulse Oximetry (%) 96 05/21/18 20:25 Constitutional: Yes: Cachectic Cardiovascular: Yes: Regular Rate and Rhythm, S1, S2 Respiratory: Yes: Diminished Gastrointestinal: Yes: Normal Bowel Sounds, Soft Edema: No Labs: CBC, BMP 05/21/18 06:15 05/21/18 06:15 INR, PTT INR 1.81 (0.83-1.09) H 05/17/18 12:30 Assessment/Plan Probable post obstructive pneumonia R/O sepsis Lung ca Thrombocytopenia Lactic acidosis Continue zosyn D/C vancomycin
--- NOTE | 2018-05-21 22:14 | EKG ---
Test Reason : Blood Pressure : / mmHG Vent. Rate : 116 BPM Atrial Rate : 116 BPM P-R Int : 136 ms QRS Dur : 102 ms QT Int : 346 ms P-R-T Axes : 064 040 088 degrees QTc Int : 480 ms SINUS TACHYCARDIA POSSIBLE LEFT ATRIAL ENLARGEMENT NONSPECIFIC ST AND T WAVE ABNORMALITY ABNORMAL ECG WHEN COMPARED WITH ECG OF 12-APR-2018 17:54, NON-SPECIFIC CHANGE IN ST SEGMENT IN LATERAL LEADS NONSPECIFIC T WAVE ABNORMALITY, WORSE IN LATERAL LEADS Confirmed by TONEY LYLES MD ([id number]) on 05/21/2018 10:14:38 PM Referred By: Confirmed By:TONEY LYLES MD
[2018-05-21] MEDS: MIRTAZAPINE 15 MG TABLET (FP) PO SCH (23:02)
[2018-05-21] MEDS: guaiFENesin/D-METHORPHAN HB 5 ML UNIT-DOSE CUPS PO PRN (23:07)
[2018-05-22] MEDS: PIPERACILLIN/TAZOB 3.375 GM 3.375 GM in DEXTROSE 5%-WATER - 50 ML IVPB SCH ×2 (01:11→10:08)
[2018-05-22] MEDS: DEXTROSE 5%-NORMAL SALINE 1,000 ML IV SCH (02:57)
[2018-05-22] MEDS: ONDANSETRON 4 MG TABLET PO SCH ×3 (05:46→13:20)
[2018-05-22] MEDS: ALBUTEROL SO4 2.5/IPRATROPIUM 0.5 INH SOL 3 ML VIAL.NEB. NEB SCH ×2 (07:33→11:07)
[2018-05-22] MEDS ORDERED: PIPERACILLIN/TAZOBACTAM 3.375 GM VIAL IVPB ONE (08:19)
[2018-05-22] MEDS ORDERED: DEXTROSE 5%-WATER - 50 ML IVPB ONE ×2 (08:20→13:06)
--- NOTE | 2018-05-22 08:46 | DS ---
Physical Examination Vital Signs: Vital Signs Temperature 97.5 F L 05/22/18 06:00 Pulse Rate 104 H 05/22/18 06:00 Respiratory Rate 20 05/22/18 06:00 Blood Pressure 137/72 05/22/18 06:00 O2 Sat by Pulse Oximetry (%) 96 05/21/18 20:25 Findings/Remarks: DISCUSSED WITH SAMI HIS HCP PATIENT DNR/DNI WITH DO NOT HOSPITALIZE ORDER COMFORT CARE Constitutional: Yes: Cachectic, Mild Distress Cardiovascular: Yes: Regular Rate and Rhythm Respiratory: Yes: Diminished, On Nasal O2 Gastrointestinal: Yes: Other Musculoskeletal: Yes: Muscle Weakness Edema: No Integumentary: Yes: Pressure Ulcer Neurological: Yes: Pre-Existing Deficit, Weakness ...Motor Strength: LLE, RLE Psychiatric: Yes: WNL Labs: CBC, BMP 05/21/18 06:15 05/21/18 06:15 Discharge Summary Reason For Visit: ANEMIA, SEPSIS, PNEUMONIA, MALIGNANT NEOPLASM OF Current Active Problems Anemia (Acute) COPD (chronic obstructive pulmonary disease) (Acute) Iron deficiency anemia (Acute) Lactic acidosis (Acute) Microcytic hypochromic anemia (Acute) Old cerebrovascular accident (CVA) without late effect (Acute) Pneumonia (Acute) Sepsis (Acute) LUNG CANCER Hospital Course: ADMITTED FOR PNA LUNG CANCER WITH POOR OVERALL PROGNOSIS, GIVEN IV ABX SUFFERS MALNUTRITION FROM DISEASE STATE NOW DNR/DNI WITH DO NOT HOSPITALIZE COMFORT CARE ONLY Condition: Stable - Instructions Diet, Activity, Other Instructions: TOLERATED Referrals: Terence Talavera MD [Primary Care Provider] - Disposition: [facility]ILITY - Home Medications Comprehensive Discharge Medication List: Ambulatory Orders Acetaminophen [Pain Relief] 650 mg PO Q6H PRN 05/17/18 Albuterol 2.5/Ipratropium 0.5 [Duoneb -] 1 neb NEB Q6H 05/17/18 Dimethicone/Zinc Oxide [Leonel Protect Cream] 142 gm TP DAILY 05/17/18 Guaifenesin Dm [Robitussin Dm -] 10 ml PO Q6H 05/17/18 Levofloxacin [Levaquin] 250 mg PO DAILY 05/17/18 Metoprolol Tartrate 25 mg PO BID 05/17/18 Mirtazapine [Remeron Soltab -] 15 mg PO HS 05/17/18 Ondansetron [Zofran -] 4 mg PO Q6H 05/17/18 Polyethylene Glycol 3350 [Purelax] 17 gm PO DAILY 05/17/18 Guaifenesin/Dextromethorphan [Guaifenesin Dm Syrup] 10 ml PO Q4H PRN cup Mirtazapine [Remeron -] 15 mg PO HS tablet 05/22/18 Polyethylene Glycol 3350 [Miralax 119 gm Btl -] 17 gm PO DAILY bottle 05/22/18 Potassium Chloride [K-Dur -] 10 meq PO DAILY tablet.er 05/22/18
[2018-05-22] MEDS: METOPROLOL TARTRATE 25 MG TABLET (FP) PO SCH (10:10)
[2018-05-22] MEDS: PANTOPRAZOLE SODIUM 40 MG VIAL IVPUSH SCH (10:11)
[2018-05-22] MEDS: POTASSIUM CHLORIDE TABS 10 MEQ TABLET.ER (FP) PO SCH (10:13)
[2018-05-22] MEDS: FERROUS SO4 300 MG/5 ML ORAL SOLN UNIT DOSE CUPS PO SCH (10:13)
[2018-05-22] MEDS: POLYETHYLENE GLYCOL 3350 119 GM BTL PO SCH (10:16)
--- NOTE | 2018-05-22 12:04 | PN ---
Progress Note (short form) - Note Progress Note: Appears stable. No hemoptysis. No CP. Intake & Output 05/19/18 05/20/18 05/21/18 05/22/18 23:59 23:59 23:59 23:59 Intake Total 2614 631 1746 1120 Balance 2614 631 1746 1120 Last Vital Signs Temp Pulse Resp BP Pulse Ox 97.9 F 110 H 20 145/83 96 05/22/18 10:00 05/22/18 10:00 05/22/18 10:00 05/22/18 10:00 05/21/18 20:25 Active Medications Acetaminophen (Tylenol -) 650 mg PO Q4H PRN PRN Reason: PAIN OR FEVER Last Admin: 05/20/18 17:18 Dose: 650 mg Albuterol/Ipratropium (Duoneb -) 1 amp NEB RQID [facility] Last Admin: 05/22/18 11:07 Dose: 1 amp Ferrous Sulfate (Feosol) 300 mg PO BIDWM [facility] Last Admin: 05/22/18 10:13 Dose: 300 mg Guaifenesin (Guaifenesin Dm Syrup) 10 ml PO Q4H PRN PRN Reason: COUGH Last Admin: 05/21/18 23:07 Dose: 10 ml Dextrose/Sodium Chloride (D5-Ns -) 1,000 mls @ 83 mls/hr IV ASDIR [facility] Last Admin: 05/22/18 02:57 Dose: 83 mls/hr Piperacillin Sod/Tazobactam (Sod 3.375 gm/ Dextrose) 50 mls @ 100 mls/hr IVPB Q8H-IV [facility]; Protocol Last Admin: 05/22/18 10:08 Dose: 100 mls/hr Metoprolol Tartrate (Lopressor -) 12.5 mg PO BID [facility] Last Admin: 05/22/18 10:10 Dose: 12.5 mg Mirtazapine (Remeron -) 15 mg PO HS [facility] Last Admin: 05/21/18 23:02 Dose: 15 mg Ondansetron HCl (Zofran -) 4 mg PO Q6HPO [facility] Last Admin: 05/22/18 08:22 Dose: 4 mg Pantoprazole Sodium (Protonix Iv) 40 mg IVPUSH DAILY [facility] Last Admin: 05/22/18 10:11 Dose: 40 mg Polyethylene Glycol (Miralax (For Daily Use) -) 17 gm PO DAILY [facility] Last Admin: 05/22/18 10:16 Dose: 17 gm Potassium Chloride (K-Dur -) 10 meq PO DAILY [facility] Last Admin: 05/22/18 10:13 Dose: 10 meq Constitutional: Yes: NAD, Cachectic Eyes: Yes: Conjunctiva Clear, EOM Intact HENT: Yes: Atraumatic, Normocephalic Neck: Yes: Supple, Trachea Midline Cardiovascular: Yes: Regular Rate and Rhythm Respiratory: Yes: Diminished at the bases,. few scattered rhonchi, no wheezing ...Clubbing: Yes Gastrointestinal: Yes: Normal Bowel Sounds, Soft. No: Tenderness Edema: No Neurological: Yes: Alert Labs: Laboratory Results - last 24 hr 05/17/18 12:30 Blood Type O POSITIVE Antibody Screen Negative Crossmatch See Detail Problem List - Problems (1) Lung cancer Code(s): C34.90 - MALIGNANT NEOPLASM OF UNSP PART OF UNSP BRONCHUS OR LUNG Qualifiers: Laterality: left Lung location: hilum of lung Qualified Code(s): C34.02 - Malignant neoplasm of left main bronchus (2) Anemia Code(s): D64.9 - ANEMIA, UNSPECIFIED (3) Lactic acidosis Code(s): E87.2 - ACIDOSIS (4) COPD (chronic obstructive pulmonary disease) Code(s): J44.9 - CHRONIC OBSTRUCTIVE PULMONARY DISEASE, UNSPECIFIED Assessment/Plan Advanced Lung Ca Suspected post-obstructive Pneumonia Sepsis Severe Anemia Lactic Acidosis COPD HTN Hyperlipidemia CAD - ABX per ID - O2 to keep SpO2>90% - inhaled bronchodilatores - Monitor off systemic steroids - monitor H/H - DVT prophylaxis - Nutritional support Dr Wiley
--- NOTE | 2018-05-22 12:53 | PN ---
Progress Note, Physician History of Present Illness: Weak appearing, lethargic Offers no complaints Denies chest pain/ dyspnea Temps remain down WBC improved plt down 45K Sputum MSSA - Current Medication List Current Medications: Active Medications Acetaminophen (Tylenol -) 650 mg PO Q4H PRN PRN Reason: PAIN OR FEVER Last Admin: 05/20/18 17:18 Dose: 650 mg Albuterol/Ipratropium (Duoneb -) 1 amp NEB RQID [facility] Last Admin: 05/22/18 11:07 Dose: 1 amp Ferrous Sulfate (Feosol) 300 mg PO BIDWM [facility] Last Admin: 05/22/18 10:13 Dose: 300 mg Guaifenesin (Guaifenesin Dm Syrup) 10 ml PO Q4H PRN PRN Reason: COUGH Last Admin: 05/21/18 23:07 Dose: 10 ml Dextrose/Sodium Chloride (D5-Ns -) 1,000 mls @ 83 mls/hr IV ASDIR [facility] Last Admin: 05/22/18 02:57 Dose: 83 mls/hr Piperacillin Sod/Tazobactam (Sod 3.375 gm/ Dextrose) 50 mls @ 100 mls/hr IVPB Q8H-IV [facility]; Protocol Last Admin: 05/22/18 10:08 Dose: 100 mls/hr Metoprolol Tartrate (Lopressor -) 12.5 mg PO BID [facility] Last Admin: 05/22/18 10:10 Dose: 12.5 mg Mirtazapine (Remeron -) 15 mg PO HS [facility] Last Admin: 05/21/18 23:02 Dose: 15 mg Ondansetron HCl (Zofran -) 4 mg PO Q6HPO [facility] Last Admin: 05/22/18 08:22 Dose: 4 mg Pantoprazole Sodium (Protonix Iv) 40 mg IVPUSH DAILY [facility] Last Admin: 05/22/18 10:11 Dose: 40 mg Polyethylene Glycol (Miralax (For Daily Use) -) 17 gm PO DAILY [facility] Last Admin: 05/22/18 10:16 Dose: 17 gm Potassium Chloride (K-Dur -) 10 meq PO DAILY [facility] Last Admin: 05/22/18 10:13 Dose: 10 meq - Objective Vital Signs: Vital Signs Temperature 97.9 F 05/22/18 10:00 Pulse Rate 110 H 05/22/18 10:00 Respiratory Rate 20 09/17/18 10:00 Blood Pressure 145/83 05/22/18 10:00 O2 Sat by Pulse Oximetry (%) 91 L 05/22/18 09:00 Constitutional: Yes: No Distress Eyes: Yes: Conjunctiva Clear Cardiovascular: Yes: Regular Rate and Rhythm, S1, S2 Respiratory: Yes: Diminished Gastrointestinal: Yes: Normal Bowel Sounds, Soft. No: Tenderness Edema: No Labs: CBC, BMP 05/21/18 06:15 05/21/18 06:15 INR, PTT INR 1.81 (0.83-1.09) H 05/17/18 12:30 Assessment/Plan Probable post obstructive pneumonia + sputum c/s MSSA Lung ca Thrombocytopenia Lactic acidosis Substitute ceftriaxone P.O. Augmentin next 24-48hr
[2018-05-22] MEDS ORDERED: CEFTRIAXONE 1 GM in DEXTROSE 5%-WATER - 50 ML IVPB SCH (13:00)
[2018-05-22] MEDS ORDERED: cefTRIAXone SODIUM 1 GM VIAL ONE (13:06)
[2018-05-22 15:37] VITALS: BP 135/71; PULSE 110; TEMP 98.2
[2018-05-22] MEDS ORDERED: ALBUTEROL SO4 2.5/IPRATROPIUM 0.5 INH SOL 3 ML VIAL.NEB. NEB SCH (20:00)
== END 2018-05-22 15:41 | DRG 871 ==
LOC: JER 11:30 → JERBED 15:37 → J7W 17:30
PROVIDERS: ADMIT Family Medicine; ATTEND Family Medicine
PROC: 30233N1 Transfusion of Nonautologous Red Blood Cells into Peripheral Vein, Percutaneous Approach (ICD-10-PCS; principal; 2018-05-19)
DX: A41.9 Sepsis, unspecified organism (principal); J18.9 Pneumonia, unspecified organism; E46 Unspecified protein-calorie malnutrition; E87.2 Acidosis; C34.90 Malignant neoplasm of unspecified part of unspecified bronchus or lung; Z68.1 Body mass index [BMI] 19.9 or less, adult; R64 Cachexia; D50.9 Iron deficiency anemia, unspecified; R63.0 Anorexia; R62.7 Adult failure to thrive; D69.6 Thrombocytopenia, unspecified; D64.9 Anemia, unspecified; J44.9 Chronic obstructive pulmonary disease, unspecified; E78.5 Hyperlipidemia, unspecified; I10 Essential (primary) hypertension; I25.10 Atherosclerotic heart disease of native coronary artery without angina pectoris; Z98.61 Coronary angioplasty status
CPT/HCPCS: 36415; 36430; 36600; 71045-TC-FY; 80048; 80053; 81003; 82272; 82550; 82728; 82803; 83036; 83540; 83550; 83605; 83735; 84484; 85025; 85610; 85730; 86850; 86900; 86901; 86922; 87040; 87070; 87077; 87186; 87205; 87899; 93005; 93010; 94640; 94660; 99285-25; J1756; J7620; P9038; P9058